=== PATIENT | male | born 1940 | race Caucasian/White ===

== ENCOUNTER → 2018-01-20 13:25 | Outpatient (CLI) | payer MEDICARE, OTHER, SELFPAY ==
[2018-01-20 14:14] LABS: Absolute Lymphocyte Count 0.93 X10^3/ul (0.83-4.51); Absolute Neutrophil Count 3.5 X10^3/uL (2.0-7.7); Basophil# 0.01 X10^3/uL; Basophil% 0.2 % (0-1); Eosinophil# 0.23 X10^3/uL; Eosinophils% 4.5 % (0-5); Hematocrit 39.3 % (40-54); Hemoglobin 12.5 g/dl (13.0-16.5); Lymphocyte # 0.93 X10^3/ul (4.0); Lymphocyte % 18.1 % (19-41); Mean Corp Hgb Conc 31.8 g/gl (32-36); Mean Corpuscular Hgb 28.2 pg (27.0-32.0); Mean Corpuscular Volume 88.7 fL (80-94); Monocyte# 0.46 X10^3/uL; Monocyte% 8.9 % (0-10); Neutrophil % 68.1 % (47-70); Platelet Count 91 K/mm3 (150-450); RBC Distribution Width CV 17.8 % (11.6-14.6); RBC Distribution Width SD 58.5 fl (35.1-43.9); Red Blood Count 4.43 M/mm3 (4.6-6.2); White Blood Count 5.1 K/mm3 (4.4-11.0)
[2018-01-20 14:16] LABS: POSITIVE COUNT NO; POSITIVE DIFFERENTIAL NO; POSITIVE MORPHOLOGY NO
[2018-01-20 14:45] LABS: ALB/GLOB Ratio 0.9 RATIO (0.9-2.4); AST(SGOT) 33 U/L (15-37); Alanine Aminotransfer ALT/SGPT 24 U/L (16-61); Albumin, Serum 3.2 g/dL (3.2-5.0); Alkaline Phosphatase 168 U/L (45-117); Anion Gap 9 (5-15); BUN 25 mg/dL (7-18); Calcium,Total 8.8 mg/dL (8.5-10.1); Chloride 107 mmol/L (98-107); Creatinine, Serum 1.56 mg/dL (0.70-1.30); EST Glomerular Filtration Rate 46 mL/min (>60); Est Glom Filt Rate - Afr Amer 56 mL/min (>60); Globulin 3.4 g/dL (2.2-4.2); Glucose 107 mg/dL (74-106); Potassium 3.8 mmol/L (3.5-5.1); Protein, Total 6.6 g/dL (6.4-8.2); Sodium Level 142 mmol/L (136-145)
== END ==
PROVIDERS: Family Provider Family Medicine; PCP Family Medicine; Visit Provider Internal Medicine Rheumatology
DX: M06.4 Inflammatory polyarthropathy (principal); M47.897 Other spondylosis, lumbosacral region; M25.512 Pain in left shoulder; I10 Essential (primary) hypertension; D49.0 Neoplasm of unspecified behavior of digestive system
CPT/HCPCS: 36415; 80053; 85025

== ENCOUNTER → 2018-02-19 08:25 | Outpatient (CLI) | payer MEDICARE, OTHER, SELFPAY ==
[2018-02-19 12:57] LABS: Anion Gap 9 (5-15); BUN 12 mg/dL (7-18); BUN/Creat Ratio 9.7 RATIO (10-20); Calcium,Total 8.6 mg/dL (8.5-10.1); Chloride 106 mmol/L (98-107); Creatinine, Serum 1.24 mg/dL (0.70-1.30); EST Glomerular Filtration Rate 60 mL/min (>60); Est Glom Filt Rate - Afr Amer 73 mL/min (>60); Glucose 108 mg/dL (74-106); Potassium 3.8 mmol/L (3.5-5.1); Sodium Level 141 mmol/L (136-145)
== END ==
PROVIDERS: Family Provider Family Medicine; PCP Family Medicine; Visit Provider Family Medicine
DX: R60.0 Localized edema (principal)
CPT/HCPCS: 36415; 80048

== ENCOUNTER → 2018-04-07 08:39 | Outpatient (CLI) | payer MEDICARE, OTHER, SELFPAY ==
[2018-04-08 14:47] LABS: AFP, Tumor Marker 1.8 ng/mL (0.0-8.3)
== END ==
PROVIDERS: Family Provider Family Medicine; PCP Family Medicine; Visit Provider Internal Medicine Gastroenterology
DX: K76.0 Fatty (change of) liver, not elsewhere classified (principal); K72.90 Hepatic failure, unspecified without coma
CPT/HCPCS: 36415; 82105

== ENCOUNTER → 2018-08-20 10:17 | Outpatient (CLI) | payer MEDICARE, OTHER, SELFPAY ==
[2018-08-20 12:23] LABS: Absolute Lymphocyte Count 0.86 X10^3/ul (0.83-4.51); Absolute Neutrophil Count 4.4 X10^3/uL (2.0-7.7); Basophil# 0.01 X10^3/uL; Basophil% 0.2 % (0-1); Eosinophil# 0.18 X10^3/uL; Hematocrit 38.2 % (40-54); Hemoglobin 12.8 g/dl (13.0-16.5); Lymphocyte # 0.86 X10^3/ul (4.0); Lymphocyte % 14.2 % (19-41); Mean Corp Hgb Conc 33.5 g/gl (32-36); Mean Corpuscular Hgb 30.1 pg (27.0-32.0); Mean Corpuscular Volume 89.9 fL (80-94); Mean Platelet Vol. 11.3 fl (6.2-12.0); Monocyte% 9.9 % (0-10); Neutrophil # 4.39 X10^3/uL (2.7-7.7); Neutrophil % 72.2 % (47-70); Platelet Count 85 K/mm3 (150-450); RBC Distribution Width SD 53.8 fl (35.1-43.9); Red Blood Count 4.25 M/mm3 (4.6-6.2); White Blood Count 6.1 K/mm3 (4.4-11.0)
[2018-08-20 12:31] LABS: POSITIVE COUNT NO; POSITIVE DIFFERENTIAL NO; POSITIVE MORPHOLOGY NO
[2018-08-20 12:38] LABS: ALB/GLOB Ratio 1.1 RATIO (0.9-2.4); AST(SGOT) 36 U/L (15-37); Alanine Aminotransfer ALT/SGPT 37 U/L (16-61); Albumin, Serum 3.2 g/dL (3.2-5.0); Alkaline Phosphatase 150 U/L (45-117); Anion Gap 8 (5-15); BUN 12 mg/dL (7-18); BUN/Creat Ratio 10.8 RATIO (10-20); Calcium,Total 8.8 mg/dL (8.5-10.1); Chloride 107 mmol/L (98-107); Creatinine, Serum 1.11 mg/dL (0.70-1.30); EST Glomerular Filtration Rate 68 mL/min (>60); Est Glom Filt Rate - Afr Amer 82 mL/min (>60); Glucose 124 mg/dL (74-106); Potassium 4.2 mmol/L (3.5-5.1); Protein, Total 6.2 g/dL (6.4-8.2); Sodium Level 139 mmol/L (136-145)
== END ==
PROVIDERS: Family Provider Family Medicine; PCP Family Medicine; Visit Provider Family Medicine
DX: R60.0 Localized edema (principal); K74.60 Unspecified cirrhosis of liver; N18.3 Chronic kidney disease, stage 3 (moderate); R06.00 Dyspnea, unspecified
CPT/HCPCS: 36415; 80053; 85025

== ENCOUNTER → 2018-09-06 09:47 | Outpatient (CLI) | payer MEDICARE, OTHER, SELFPAY ==
[2018-09-06 12:28] LABS: Anion Gap 9 (5-15); BUN 23 mg/dL (7-18); BUN/Creat Ratio 16.4 RATIO (10-20); Calcium,Total 8.9 mg/dL (8.5-10.1); Chloride 105 mmol/L (98-107); EST Glomerular Filtration Rate 52 mL/min (>60); Est Glom Filt Rate - Afr Amer 63 mL/min (>60); Glucose 143 mg/dL (74-106); Potassium 4.2 mmol/L (3.5-5.1); Sodium Level 141 mmol/L (136-145)
== END ==
PROVIDERS: Visit Provider Family Medicine
DX: Z51.81 Encounter for therapeutic drug level monitoring (principal)
CPT/HCPCS: 36415; 80048

== ENCOUNTER → 2018-11-25 10:41 | Outpatient (CLI) | payer MEDICARE, OTHER, SELFPAY ==
[2017-10-24 07:49] VITALS: BMI 39.2
[2018-11-25 12:14] LABS: Absolute Lymphocyte Count 0.97 X10^3/ul (0.83-4.51); Absolute Neutrophil Count 4.3 X10^3/uL (2.0-7.7); Basophil# 0.01 X10^3/uL; Basophil% 0.2 % (0-1); Eosinophil# 0.19 X10^3/uL; Eosinophils% 3.2 % (0-5); Hematocrit 41.5 % (40-54); Hemoglobin 13.4 g/dl (13.0-16.5); Lymphocyte # 0.97 X10^3/ul (4.0); Lymphocyte % 16.3 % (19-41); Mean Corp Hgb Conc 32.3 g/gl (32-36); Mean Corpuscular Hgb 29.5 pg (27.0-32.0); Mean Corpuscular Volume 91.4 fL (80-94); Mean Platelet Vol. 10.4 fl (6.2-12.0); Monocyte# 0.49 X10^3/uL; Monocyte% 8.2 % (0-10); Neutrophil # 4.26 X10^3/uL (2.7-7.7); Neutrophil % 71.8 % (47-70); Platelet Count 103 K/mm3 (150-450); RBC Distribution Width CV 15.7 % (11.6-14.6); RBC Distribution Width SD 52.6 fl (35.1-43.9); Red Blood Count 4.54 M/mm3 (4.6-6.2); White Blood Count 5.9 K/mm3 (4.4-11.0)
[2018-11-25 12:15] LABS: POSITIVE COUNT NO; POSITIVE DIFFERENTIAL NO; POSITIVE MORPHOLOGY NO
[2018-11-25 12:42] LABS: ALB/GLOB Ratio 0.9 RATIO (0.9-2.4); AST(SGOT) 34 U/L (15-37); Alanine Aminotransfer ALT/SGPT 30 U/L (16-61); Albumin, Serum 3.1 g/dL (3.2-5.0); Alkaline Phosphatase 169 U/L (45-117); Anion Gap 9 (5-15); BUN 11 mg/dL (7-18); BUN/Creat Ratio 10.3 RATIO (10-20); Calcium,Total 8.8 mg/dL (8.5-10.1); Chloride 108 mmol/L (98-107); Creatinine, Serum 1.07 mg/dL (0.70-1.30); EST Glomerular Filtration Rate 71 mL/min (>60); Est Glom Filt Rate - Afr Amer 86 mL/min (>60); Globulin 3.4 g/dL (2.2-4.2); Glucose 114 mg/dL (74-106); Protein, Total 6.5 g/dL (6.4-8.2); Sodium Level 141 mmol/L (136-145)
[2018-11-25 12:52] LABS: BNP,B-Type NATRIURETIC PEPTIDE 183.4 pg/mL (0-100)
[2018-11-25 13:03] LABS: International Normalized Ratio 1.2; Prothrombin Time (Protime)PT. 15.1 SECONDS (11.7-14.9)
[2018-11-25 13:04] LABS: Partial Thromboplast Time 30.3 Seconds (24.1-36.2)
[2018-11-26 12:29] LABS: AFP, Tumor Marker 1.9 ng/mL (0.0-8.3)
== END ==
PROVIDERS: Family Provider Family Medicine; PCP Family Medicine; Referring Provider Family Medicine; Visit Provider Family Medicine
DX: K74.60 Unspecified cirrhosis of liver (principal); R06.00 Dyspnea, unspecified; R60.0 Localized edema; R41.0 Disorientation, unspecified
CPT/HCPCS: 36415; 80053; 82105; 82140; 83880; 85025; 85610; 85730

== ENCOUNTER → 2018-12-09 10:03 | Outpatient (CLI) | payer MEDICARE, OTHER, SELFPAY ==
[2018-12-09 12:19] LABS: Anion Gap 8 (5-15); BUN 19 mg/dL (7-18); BUN/Creat Ratio 12.9 RATIO (10-20); Calcium,Total 8.9 mg/dL (8.5-10.1); Chloride 105 mmol/L (98-107); Creatinine, Serum 1.47 mg/dL (0.70-1.30); EST Glomerular Filtration Rate 49 mL/min (>60); Est Glom Filt Rate - Afr Amer 60 mL/min (>60); Glucose 133 mg/dL (74-106); Potassium 3.7 mmol/L (3.5-5.1); Sodium Level 141 mmol/L (136-145)
== END ==
PROVIDERS: Family Provider Family Medicine; PCP Family Medicine; Visit Provider Family Medicine
DX: R60.0 Localized edema (principal); K74.60 Unspecified cirrhosis of liver; K46.9 Unspecified abdominal hernia without obstruction or gangrene; R06.00 Dyspnea, unspecified
CPT/HCPCS: 36415; 80048

== ENCOUNTER 2019-01-04 17:09 | Emergency (ER) | payer MEDICARE, OTHER, SELFPAY ==
[2019-01-04 17:09] VITALS: BP 197/98; PULSE 70; RESP 20; TEMP 36.8; O2SAT 98; BMI 41.5
--- NOTE | 2019-01-04 17:45 | CT_ITS ---
STUDY: CT ABDOMEN AND PELVIS WITH CONTRAST REASON FOR EXAM: Male, 78 years old. Abdominal pain. RADIATION DOSAGE (If Supplied By Facility): CTDIvol = ( 21.66 ) mGy, DLP = ( 1969.61 ) mGycm TECHNIQUE: Transaxial images were obtained from the dome of the diaphragm to the symphysis pubis without oral contrast. Isovue 300 10ML IV was administered. Sagittal and coronal images were reconstructed. Individualized dose optimization techniques were used for this CT. COMPARISON: October 24, 2017 FINDINGS: There is a right pleural effusion. There are coronary artery calcifications. There is evidence of prior partial resection of the liver. The patient status post cholecystectomy. Cholecystectomy. Normal spleen. Normal pancreas. Normal bilateral adrenal glands. There is a stable calcification within the right kidney which may be vascular or may reflect an underlying nonobstructing calculus. There is a left renal cyst. Normal visualized stomach. There is a stable right abdominal wall hernia containing dilated segments of small bowel that are grossly stable in appearance as well. There is fluid within the hernia. There is status post right hemicolectomy. There is circumferential wall thickening of the remaining:. There are scattered diverticula within the colon. There is diffuse atherosclerotic calcification of the abdominal aorta. There is stable aneurysmal dilatation of the abdominal aorta measuring up to 4.6 cm. Normal inferior vena cava. Normal retroperitoneum. Normal urinary bladder. There are diffuse degenerative changes of the visualized lumbar spine. CT/Abdomen/Pelvis W IV Cont ONLY IMPRESSION: Acute colitis. Stable right lateral ventral hernia containing dilated loops of small bowel, cannot exclude an underlying ileus. Status post right hemicolectomy. Stable abdominal aortic aneurysm. Atherosclerosis. Electronically Signed: Holly Jeff MD at 19:32 EST Tel , Service support ,
--- NOTE | 2019-01-04 17:50 | ED.DCSUM_ITS ---
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 Prior appendectomy, cholecystectomy partial hemicolectomy and partial liver resection. Presents with upper abdominal pain. Patient states started yesterday. He has chronic diarrhea that is not new. His abdomen feels distended according to him. Denies any fever. No dysuria. Physical Examination: Older male no acute distress. Vital signs are stable. He is afebrile. He does not look septic or toxic. H EENT exam unremarkable. Neck nontender. Lungs clear to auscultation bilaterally. Heart regular rate and rhythm no murmur. Rate about 70. Abdomen is soft. Mild epigastric tenderness. No rebound. No guarding. No rigidity. No obvious pulsatile mass but difficult due to his body habitus. He is a large right lateral abdominal wall hernia. It is nontender. It does not feel incarcerated or strangulated. He states that is his normal chronic hernia there that he was told he could not chand ve repaired. He is moving all 4 extremities. Neurologically he is awake alert with no focal motor deficits. Test Results: CBC shows a white count 11.2. Hemoglobin 14. Chronic low platelet count. Chemistries are unremarkable normal creatinine and gap. Liver enzymes slightly elevated total bilirubin 2.0 and direct bilirubin 0.4. Lipase normal. UA normal. CT abdomen pelvis with IV contrast shows a right pleural effusion stable right abdominal wall hernia a stable 4.6 cm AAA with no signs of leaking. An acute colitis. No obvious obstruction. No perforation. Read by the radiologist and reviewed by me. Emergency Department Course and Treatment: Patient with abdominal pain with extensive history of colon CA. Repeat exam patient doing well after liter fluid. Morphine and Zofran. His repeat abdominal exam is benign at 2053. They are comfortable being discharged home. Zofran home pack. Treatment Plan: Fluids and rest. Zofran as needed for nausea. Follow-up with his primary care physician. Return if feeling worse. Patient was warned that any time that large hernia could cause him to have an obstruction he does not have an obvious obstruction at this time. Disposition: Discharge Impression: Acute abdominal pain of uncertain etiology Chronic right-sided large abdominal hernia Acute colitis This note was generated with [employer] software. It may contain incorrect words, spelling, and punctuation that were not noted in review of the chart prior to signing ED Disposition - Plan for ED Patient: Referrals: Armin Carlin DO [Primary Care Provider] -
[2019-01-04] MEDS: 0.9% Normal Saline 1,000 ML 1000 ML IV (17:57)
[2019-01-04] MEDS: Ondansetron 4 MG/2 ML Vial IV (17:57)
[2019-01-04] MEDS: Morphine 4 MG/ML Syringe IV ×2 (17:57→21:20)
[2019-01-04 18:08] LABS: Absolute Lymphocyte Count 0.93 X10^3/ul (0.83-4.51); Absolute Neutrophil Count 9.1 X10^3/uL (2.0-7.7); Basophil# 0.01 X10^3/uL; Basophil% 0.1 % (0-1); Eosinophil# 0.15 X10^3/uL; Eosinophils% 1.3 % (0-5); Hematocrit 44.1 % (40-54); Hemoglobin 14.4 g/dl (13.0-16.5); Lymphocyte # 0.93 X10^3/ul (4.0); Lymphocyte % 8.3 % (19-41); Mean Corp Hgb Conc 32.7 g/gl (32-36); Mean Corpuscular Hgb 29.1 pg (27.0-32.0); Mean Corpuscular Volume 89.3 fL (80-94); Mean Platelet Vol. 10.5 fl (6.2-12.0); Monocyte# 0.95 X10^3/uL; Monocyte% 8.5 % (0-10); Neutrophil # 9.13 X10^3/uL (2.7-7.7); Neutrophil % 81.4 % (47-70); POSITIVE COUNT NO; POSITIVE DIFFERENTIAL NO; POSITIVE MORPHOLOGY NO; Platelet Count 124 K/mm3 (150-450); RBC Distribution Width CV 16.2 % (11.6-14.6); RBC Distribution Width SD 53.1 fl (35.1-43.9); Red Blood Count 4.94 M/mm3 (4.6-6.2); White Blood Count 11.2 K/mm3 (4.4-11.0)
[2019-01-04 18:17] VITALS: BP 192/98
[2019-01-04 18:20] LABS: AST(SGOT) 53 U/L (15-37); Alanine Aminotransfer ALT/SGPT 40 U/L (16-61); Albumin, Serum 3.5 g/dL (3.2-5.0); Alkaline Phosphatase 141 U/L (45-117); Anion Gap 9 (5-15); BUN 11 mg/dL (7-18); BUN/Creat Ratio 10.1 RATIO (10-20); Calcium,Total 8.9 mg/dL (8.5-10.1); Chloride 105 mmol/L (98-107); Creatinine, Serum 1.09 mg/dL (0.70-1.30); EST Glomerular Filtration Rate 70 mL/min (>60); Est Glom Filt Rate - Afr Amer 84 mL/min (>60); Estimated Creatinine Clearance 48.59 ml/min; Globulin 3.9 g/dL (2.2-4.2); Glucose 142 mg/dL (74-106); Lipase 188 U/L (73-393); Potassium 4.1 mmol/L (3.5-5.1); Protein, Total 7.4 g/dL (6.4-8.2); Sodium Level 139 mmol/L (136-145)
[2019-01-04 19:28] LABS: Bacteria 0 SEEN /hpf (None Seen); Mucous, Urine 0 SEEN /hpf (<or=2+); Red Blood Cells-Urine 0 SEEN /hpf (0-5); Squamous Epithelial Cells - UA 0 SEEN /hpf (0-5); White Blood Cells 0 SEEN /hpf (0-5)
[2019-01-04 19:36] LABS: Color, Urine Yellow (Yellow); Glucose, Dipstick Normal (Normal); Ketone-Dipstick Negative (Negative); Leukocyte Esterase-Dipstick Negative /ul (Negative); Nitrite-Dipstick Negative (Negative); Occult Blood-Urine Negative /ul (Negative); Protein-Dipstick 30 mg/dl (Negative); Urine Bilirubin Dipstick Negative (Negative); Urine Clarity Clear (Clear); Urine Urobilinogen Normal (Normal)
--- NOTE | 2019-01-04 20:56 | ED.DEP ---
ED Disposition - Plan for ED Patient: Disposition: Home or Assisted Living Instructions: ED Abdominal Pain Unkn Cause Prescriptions: Ondansetron [Zofran Odt] 4 mg PO Q8H PRN PRN #7 tab PRN Reason: Nausea Referrals: Armin Carlin DO [Primary Care Provider] - 1-2 Days if not improving Additional Instructions: Fluids and rest. Zofran as needed for nausea. Return if you are feeling worse otherwise follow-up your primary care physician.
[2019-01-04] MEDS: Ondansetron ODT 4 MG Tablet PO (21:20)
[2019-01-04 21:28] VITALS: BP 190/100; PULSE 80; RESP 18; O2SAT 94
== END 2019-01-04 21:28 | disposition home or self-care (01) ==
PROVIDERS: Emergency Provider Emergency Medicine; Family Provider Family Medicine; PCP Family Medicine
DX: K52.9 Noninfective gastroenteritis and colitis, unspecified (principal); R10.10 Upper abdominal pain, unspecified; K46.9 Unspecified abdominal hernia without obstruction or gangrene; J90 Pleural effusion, not elsewhere classified; I71.4 Abdominal aortic aneurysm, without rupture; I11.0 Hypertensive heart disease with heart failure; I50.9 Heart failure, unspecified; Z85.038 Personal history of other malignant neoplasm of large intestine; Z85.118 Personal history of other malignant neoplasm of bronchus and lung; Z90.49 Acquired absence of other specified parts of digestive tract; Z79.899 Other long term (current) drug therapy
CPT/HCPCS: 74177; 80048; 80076; 81001; 83690; 85025; 96361; 96374; 96375; 96376; 99283; J7030; Q9967; A4216; J2405

== ENCOUNTER 2019-01-09 13:14 | Inpatient (IN) | payer MEDICARE, OTHER, SELFPAY ==
[2019-01-09 13:15] VITALS: BP 129/72; PULSE 104; RESP 18; TEMP 36.7; O2SAT 95; BMI 41.5
--- NOTE | 2019-01-09 14:06 | EKG12_ITS ---
Test Reason : Blood Pressure : / mmHG Vent. Rate : 096 BPM Atrial Rate : 096 BPM P-R Int : 196 ms QRS Dur : 098 ms QT Int : 404 ms P-R-T Axes : 055 -50 086 degrees QTc Int : 510 ms Normal sinus rhythm Left anterior fascicular block Left ventricular hypertrophy with repolarization abnormality Abnormal ECG Confirmed by GEM MORATAYA, KEIKO ([id number]), development editor VIVIAN DEWEY ([id number]) on 01/11/2019 4:59:55 PM Referred By: JASS Confirmed By:KEIKO RABAGO MD
--- NOTE | 2019-01-09 14:41 | RAD_ITS ---
STUDY: X-RAY CHEST REASON FOR EXAM: Male, 78 years old. Cough. TECHNIQUE: Single frontal view of the chest. COMPARISON: None. FINDINGS: A right internal jugular catheter is present with the tip projected into the upper SVC. The lungs are mildly hyperexpanded. There are linear opacities in the right lower lobe and left upper lobe most compatible with scarring. No focal consolidation is present. There are healed granulomatous calcifications. There is no demonstrated pleural abnormality. There is cardiomegaly. Normal mediastinum and gaurav. Normal visualized pulmonary arteries. Normal visualized aortic arch and descending thoracic aorta. Normal visualized thoracic spine. Normal visualized ribs, clavicles, and shoulders. There is no demonstrated abnormality of the visualized soft tissue structures of the upper abdomen. RAD/Chest 1 View (Portable) IMPRESSION: Cardiomegaly with hyperexpansion and scarring. No acute finding. Electronically Signed: Mati Dasilva MD at 16:20 EST , Service support ,
[2019-01-09 14:48] LABS: Absolute Lymphocyte Count 0.92 X10^3/ul (0.83-4.51); Absolute Neutrophil Count 5.9 X10^3/uL (2.0-7.7); Basophil# 0.01 X10^3/uL; Basophil% 0.1 % (0-1); Eosinophil# 0.02 X10^3/uL; Eosinophils% 0.3 % (0-5); Hemoglobin 14.4 g/dl (13.0-16.5); Lymphocyte # 0.92 X10^3/ul (4.0); Lymphocyte % 11.6 % (19-41); Mean Corp Hgb Conc 33.5 g/gl (32-36); Mean Corpuscular Hgb 29.2 pg (27.0-32.0); Mean Corpuscular Volume 87.2 fL (80-94); Monocyte# 1.03 X10^3/uL; Neutrophil # 5.91 X10^3/uL (2.7-7.7); Neutrophil % 74.6 % (47-70); Platelet Count 123 K/mm3 (150-450); RBC Distribution Width CV 16.5 % (11.6-14.6); RBC Distribution Width SD 51.4 fl (35.1-43.9); Red Blood Count 4.93 M/mm3 (4.6-6.2); White Blood Count 7.9 K/mm3 (4.4-11.0)
[2019-01-09 14:50] LABS: POSITIVE COUNT NO; POSITIVE DIFFERENTIAL NO; POSITIVE MORPHOLOGY NO
[2019-01-09 14:58] LABS: International Normalized Ratio 1.3; Prothrombin Time (Protime)PT. 16.1 SECONDS (11.7-14.9)
[2019-01-09 14:59] LABS: Partial Thromboplast Time 52.4 Seconds (24.1-36.2)
[2019-01-09] MEDS: 0.9% Normal Saline 1,000 ML 150 ML IV (15:01)
[2019-01-09 15:05] LABS: AST(SGOT) 42 U/L (15-37); Alanine Aminotransfer ALT/SGPT 33 U/L (16-61); Albumin, Serum 3.1 g/dL (3.2-5.0); Alkaline Phosphatase 117 U/L (45-117); Anion Gap 11 (5-15); BUN 20 mg/dL (7-18); BUN/Creat Ratio 18.9 RATIO (10-20); Calcium,Total 8.3 mg/dL (8.5-10.1); Chloride 105 mmol/L (98-107); Creatinine, Serum 1.06 mg/dL (0.70-1.30); EST Glomerular Filtration Rate 72 mL/min (>60); Est Glom Filt Rate - Afr Amer 87 mL/min (>60); Estimated Creatinine Clearance 49.96 ml/min; Globulin 3.2 g/dL (2.2-4.2); Glucose 109 mg/dL (74-106); Lipase 180 U/L (73-393); Potassium 3.4 mmol/L (3.5-5.1); Protein, Total 6.3 g/dL (6.4-8.2); Sodium Level 138 mmol/L (136-145)
--- NOTE | 2019-01-09 15:08 | CT_ITS ---
STUDY: CT ABDOMEN AND PELVIS WITHOUT CONTRAST REASON FOR EXAM: Male, 78 years old. Mid abdominal pain with history of prior lung cancer, cirrhosis, hepatectomy, hemicolectomy RADIATION DOSAGE (If Supplied By Facility): CTDIvol = ( 20.53 ) mGy, DLP = ( 2734.60 ) mGycm TECHNIQUE: Transaxial images were obtained from the dome of the diaphragm to the symphysis pubis without oral contrast, and without intravenous contrast. Sagittal and coronal images were reconstructed. Individualized dose optimization techniques were used for this CT. COMPARISON: 01/04/2019 FINDINGS: Elevation of the right hemidiaphragm. Lung bases are unchanged. The visualized portions of the heart are within normal limits. Partial right hepatectomy similar since the prior study. There are surgical clips in the gallbladder fossa consistent with a prior cholecystectomy. Normal spleen. Normal pancreas. Normal bilateral adrenal glands. Mild atrophy of the right kidney. There is a nonobstructing calculus in the upper right kidney. Left renal cysts are stable. No hydronephrosis. Normal visualized stomach. Stable large right anterolateral abdominal wall hernia containing similarly dilated loops of bowel but no bowel wall thickening. There is mild amount of hernia sac fluid which is similar since the prior study. Right hemicolectomy is again identified. There is diffuse wall thickening throughout the colon beginning just beyond the surgical anastomosis and extending into the rectosigmoid colon which is overall similar since the prior study. Mild perienteric stranding is identified. Diffuse atherosclerosis of the abdominal aorta with infrarenal abdominal aortic fusiform aneurysm is stable. Normal inferior vena cava. Normal retroperitoneum. Normal urinary bladder. There is enlargement of the prostate gland. There are diffuse degenerative changes of the visualized lumbar spine. CT/Abdomen/Pelvis W IV Cont ONLY IMPRESSION: 1. Since 01/04/2019, stable exam. Diffuse colon wall thickening compatible with colitis, infectious/inflammatory causes are considered most common slice likely. 2. Large right anterolateral abdominal wall hernia with sac fluid but no transition point or definitive obstruction seen. 3. Right partial hepatectomy, right hemicolectomy, cholecystectomy, nonvisualized appendix. 4. Atherosclerosis with abdominal aortic aneurysm, stable. 5. Stable left renal cysts. 6. Stable nonobstructing right renal calculus. Electronically Signed: Collins Narvaez MD at 17:01 EST , Service support ,
--- NOTE | 2019-01-09 15:08 | CT_ITS ---
STUDY: CT BRAIN WITHOUT CONTRAST REASON FOR EXAM: Male, 78 years old. Confusion, abdominal pain, history of colon and lung cancer RADIATION DOSAGE (If Supplied By Facility): CTDIvol = ( 44.99 ) mGy, DLP = ( 812.98 ) mGycm TECHNIQUE: Transaxial CT imaging of the brain was performed without administration of intravenous contrast material. Individualized dose optimization techniques were used for this CT. COMPARISON: None. FINDINGS: Normal soft tissue structures. Normal calvarium. There is moderate cerebral atrophy with widening of the extra-axial spaces and ventricular dilatation. There are areas of decreased attenuation within the white matter tracts of the supratentorial brain, consistent with microvascular disease changes. Normal basal ganglia and thalami. Normal brainstem. Normal cerebellum. There is no intracranial hemorrhage. There are no findings of an acute ischemic infarction. There is atherosclerosis of the carotid siphons. 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 Aerated sinuses are grossly unremarkable. CT/Brain/Head without Contrast IMPRESSION: 1. No acute intracranial hemorrhage or mass effect. 2. Central parenchymal volume loss. White matter changes that are nonspecific but most commonly associated with chronic small vessel ischemic disease. Electronically Signed: Collins Narvaez MD at 16:46 EST , Service support ,
[2019-01-09 15:15] VITALS: BP 181/110; PULSE 96; RESP 18; O2SAT 95
[2019-01-09] MEDS: Ketorolac 15 MG/ML Vial IV (15:39)
[2019-01-09] MEDS: Lactulose 20 GM/30 ML UDC PO ×2 (16:30→21:23)
--- NOTE | 2019-01-09 16:51 | ED.VISSUMM ---
- ER Visit Summary Date of Service: 01/09/19 Chief Complaint: Confusion History of Present Illness: The patient is a 78 M who presents to the emergency department with confusion by private vehicle with his family. Patient was seen on Thursday with abdominal pain and diagnosed with colitis. They followed up with primary care physician on . Over the past couple days has been increasingly confused. Was determined today that he has not been taking his medications at least since Thursday or . He believes his dog is talking to him and his family states that he is chewing on [place] in an attempt to be discharged from the hospital. 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 Patient has not been eating and drinking as normally. No fevers. He chronically has diarrhea but states it is not bloody or black. Physical Examination: Afebrile noted slight tachycardia at 104. Gen: Well-nourished well-developed Head: Normocephalic atraumatic Eyes: Perrl EOMI ENT: TMs clear no rhinorrhea moist mucous membranes Neck: Supple no lymphadenopathy no JVD nontender CVS: Regular rate rhythm no murmurs normal S1-S2 Respiratory: No distress clear to auscultation bilaterally chest nontender Abdomen: Soft diffusely tender to palpation nondistended normal bowel sounds there is a large hernia on the right abdomen Back: Nontender Extremity: Nontender no edema Skin: Normal color no rash Neuro: alert confused but follows directions CN II-XII intact normal strength sensation reflexes gait cerebellar Psych: Normal affect normal mood Test Results: EKG sinus at a rate of 96. White count 7.9 hemoglobin 14.4. Ammonia level significantly elevated at 93. BUN of [address] INR 1.[address] the brain showed no acute findings. Emergency Department Course and Treatment: Patient received IV fluids lactulose and Toradol for pain. Later he received Zosyn. Our plan is admission into the hospital. Impression: 1. Hepatic encephalopathy 2. Colitis This note was generated with [employer] dictation software. It may contain incorrect words, spelling, and punctuation that were not noted in review of the chart prior to signing ED Disposition - Plan for ED Patient: Referrals: Armin Carlin DO [Primary Care Provider] -
--- NOTE | 2019-01-09 17:56 | PCM.HP.STD ---
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 He came to the emergency room on Thursday as he developed severe abdominal pain in the mid abdominal region. He was diagnosed with colitis and discharged home with zofran. He saw his PCP on as he did not have significant relief. Around Thursday he had stopped taking his home medications. Today he was significantly more confused. He said things such as he needed to eat [place] in order to get out of the hospital, he was talking to his dog, he thought that he was out partying last night. He does have intermittent periods of lucidity. He is not agitated. He still complains of the abdominal pain in the same region. He also complains of nausea without vomiting, and hiccups for several days. He has no fevers or chills. He is still moving his bowels but not as frequently as usual. He used to be on lactulose, this was discontinued in November as he was having uncontrollable diarrhea. He remains on Xifaxan. In the ER he appears to have ongoing colitis and elevated ammonia. [] 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) Colon cancer metastasized to liver (Chronic) Colon cancer metastasized to lung (Chronic) Allergies No Known Allergies Allergy (Verified 01/09/19 13:17) Home Medications: Ambulatory Orders Medication Instructions Recorded Furosemide [Lasix] 20 mg PO DAILY 12/26/15 Hydroxychloroquine [Plaquenil] 200 mg PO BIDCM 12/26/15 Losartan Potassium [Cozaar] 50 mg PO DAILY 12/26/15 [place]-3S/Dha/Epa/Fish Oil [Fish 1 each PO DAILY 12/26/15 Oil 1,200 mg Softgel] Ondansetron [Zofran] 8 mg PO Q8H PRN PRN 12/26/15 Potassium Chloride [K-Dur] 20 meq PO DAILY 12/26/15 Sertraline HCl [Zoloft] 50 mg PO DAILY 12/26/15 Propranolol HCl [Inderal (Beta 20 mg PO BID 02/07/16 Sindi)] Magnesium Oxide [Mag-Ox 400] 400 mg PO BID 08/24/16 Omeprazole [Prilosec] 20 mg PO DAILY 08/24/16 Turmeric Root Extract [Turmeric] 500 mg PO DAILY 10/24/17 Ondansetron [Zofran Odt] 4 mg PO Q8H PRN PRN #7 tab 01/04/19 Ginseng 100 mg PO DAILY 01/09/19 Oxycodone [Oxyir] 5 mg PO Q6H PRN PRN 01/09/19 Rifaximin [Xifaxan] 500 mg PO BID 01/09/19 Surgical History: appendectomy, arthroscopy, knee, cataract, colectomy - She had a right hemicolectomy secondary to colon cancer, - - 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 He had bilateral carpal tunnel surgery as well Psychiatric History: No pertinent psych hx Lives: With Family Smoking Status: Former smoker Tobacco Use: Non-smoker Alcohol: None Drugs: None - *Family History Maternal History Items: No pertinent history Paternal History Items: No pertinent history Review of Systems Constitutional: Reports: - - Hiccups for several days. Denies: Chills, Fever, Weight Change HEENT: Denies: Head Aches, Sinus Congestion, Sinus Drainage Cardiovascular: Denies: Chest Pain, Palpitations Respiratory: Denies: Cough, Shortness of breath at rest, Sputum production Gastrointestinal: Reports: Abdominal Pain, Nausea. Denies: Vomiting Genitourinary: Denies: Dysuria Musculoskeletal: Denies: Joint Pain, Joint Tenderness Skin: Denies: Rash, Wounds Neurological: Denies: Numbness, Tingling, Focal weakness Psychiatric: Denies: Anxiety, Depression, Homicidal Ideations, Suicidal Ideations Hematologic/ Lymphatic: Denies: Easy Bruising, Easy Bleeding VTE Information - Inpt Only VTE Present on Admission: No VTE Mechan Device Prophylaxis: None VTE Pharm Prophylaxis ordered?: Yes Patient Problems: Active and Suspected Problems Hepatic encephalopathy (Acute) Colitis (Acute) - Physical Exam General: Alert, Cooperative, Confused HEENT: Atraumatic, PERRLA, EOMI, Normocephalic Neck: Supple, No JVD, Negative Carotid Bruits Lungs: Clear to auscultation, Normal air movement Cardiovascular: Regular rate, No murmurs Abdomen: Bowel Sounds Present, Soft, Tender - Diffuse tenderness to palpation Extremities: No edema, Capillary Refill Less than 3 Seconds Skin: No rashes, No breakdown Musculoskeletal: No Tenderness to Palpation of Joints or Extremities Neurological: Cranial nerves II-XII grossly intact Psych/Mental Status: Hallucinations Vital Signs Temp Pulse Resp BP Pulse Ox 98.1 F 96 18 181/110 H 95 01/09/19 13:15 01/09/19 15:15 01/09/19 15:15 01/09/19 15:15 01/09/19 15:15 Oxygen Delivery Method Room Air Weight: 250 lb Body Mass Index (BMI) 41.5 Laboratory Tests Past 24 Hrs 01/09/19 01/09/19 01/09/19 14:36 14:36 14:36 WBC 7.9 RBC 4.93 Hgb 14.4 Hct 43.0 MCV 87.2 MCH 29.2 MCHC 33.5 RDW 16.5 H RDW Differential 51.4 H Plt Count 123 L MPV 10.0 Immature Gran % (Auto) 0.400 Neut % (Auto) 74.6 H Lymph % (Auto) 11.6 L [place] % (Auto) 13.0 H Eos % (Auto) 0.3 Baso % (Auto) 0.1 Absolute Neuts (auto) 5.9 Absolute Lymphs (auto) 0.92 Total Counted Not Reportable PT 16.1 H INR 1.3 APTT 52.4 H Sodium 138 Potassium 3.4 L Chloride 105 Carbon Dioxide 22.0 Anion Gap 11 BUN 20 H Creatinine 1.06 Estim Creat Clear Calc 49.96 Est GFR (MDRD) Af Amer 87 Est GFR (MDRD) Non-Af 72 BUN/Creatinine Ratio 18.9 Glucose 109 H Calcium 8.3 L Total Bilirubin 1.50 H AST 42 H ALT 33 Alkaline Phosphatase 117 Ammonia Total Protein 6.3 L Albumin 3.1 L Globulin 3.2 Albumin/Globulin Ratio 1.0 Lipase 180 01/09/19 14:36 WBC RBC Hgb Hct MCV MCH MCHC RDW RDW Differential Plt Count MPV Immature Gran % (Auto) Neut % (Auto) Lymph % (Auto) [place] % (Auto) Eos % (Auto) Baso % (Auto) Absolute Neuts (auto) Absolute Lymphs (auto) Total Counted PT INR APTT Sodium Potassium Chloride Carbon Dioxide Anion Gap BUN Creatinine Estim Creat Clear Calc Est GFR (MDRD) Af Amer Est GFR (MDRD) Non-Af BUN/Creatinine Ratio Glucose Calcium Total Bilirubin AST ALT Alkaline Phosphatase Ammonia 93.0 H Total Protein Albumin Globulin Albumin/Globulin Ratio Lipase Assessment/Plan All Active Problems Hepatic encephalopathy (Acute) Colitis (Acute) Abdominal pain (Acute) History of DVT (deep vein thrombosis) (Resolved) 1. Acute hepatic encephalopathy-Ammonia 93. patient has been off of his home medications, and his lactulose was discontinued in November for uncontrollable diarrhea. We will continue Xifaxan and add lactulose. Replete potassium. 2. Acute colitis-unclear etiology-Cipro Flagyl. 3. History of liver cirrhosis secondary to partial liver resection 4. 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 Hypertension-elevated in ER but again he has been off his home meds so we will restart these and monitor. 6. Daughter is unsure if he has a history of congestive heart failure-fluids with caution. 7. History of esophageal varices 8. Mild thrombocytopenia-avoid heparin products 9. Morbid obesity-dietary eval. DVT prophylaxis: SCDs Discharge planning-PT OT. This patient was seen by Allen Kulkarni PA-C under the supervision of Doctor Alvarez. <Fran Pino F - Last Filed: 01/09/19 19:13> History of Present Illness The patient is a 78 year old M [] Past Medical History Allergies No Known Allergies Allergy (Verified 01/09/19 13:17) - Physical Exam Vital Signs Temp Pulse Resp BP Pulse Ox 98.2 F 89 15 141/103 H 93 01/09/19 18:37 01/09/19 18:37 01/09/19 18:37 01/09/19 18:37 01/09/19 18:37 Oxygen Delivery Method Room Air Weight: 250 lb Body Mass Index (BMI) 41.5 Laboratory Tests Past 24 Hrs 01/09/19 01/09/19 01/09/19 14:36 14:36 14:36 WBC 7.9 RBC 4.93 Hgb 14.4 Hct 43.0 MCV 87.2 MCH 29.2 MCHC 33.5 RDW 16.5 H RDW Differential 51.4 H Plt Count 123 L MPV 10.0 Immature Gran % (Auto) 0.400 Neut % (Auto) 74.6 H Lymph % (Auto) 11.6 L [place] % (Auto) 13.0 H Eos % (Auto) 0.3 Baso % (Auto) 0.1 Absolute Neuts (auto) 5.9 Absolute Lymphs (auto) 0.92 Total Counted Not Reportable PT 16.1 H INR 1.3 APTT 52.4 H Sodium 138 Potassium 3.4 L Chloride 105 Carbon Dioxide 22.0 Anion Gap 11 BUN 20 H Creatinine 1.06 Estim Creat Clear Calc 49.96 Est GFR (MDRD) Af Amer 87 Est GFR (MDRD) Non-Af 72 BUN/Creatinine Ratio 18.9 Glucose 109 H Calcium 8.3 L Total Bilirubin 1.50 H AST 42 H ALT 33 Alkaline Phosphatase 117 Ammonia Total Protein 6.3 L Albumin 3.1 L Globulin 3.2 Albumin/Globulin Ratio 1.0 Lipase 180 01/09/19 14:36 WBC RBC Hgb Hct MCV MCH MCHC RDW RDW Differential Plt Count MPV Immature Gran % (Auto) Neut % (Auto) Lymph % (Auto) [place] % (Auto) Eos % (Auto) Baso % (Auto) Absolute Neuts (auto) Absolute Lymphs (auto) Total Counted PT INR APTT Sodium Potassium Chloride Carbon Dioxide Anion Gap BUN Creatinine Estim Creat Clear Calc Est GFR (MDRD) Af Amer Est GFR (MDRD) Non-Af BUN/Creatinine Ratio Glucose Calcium Total Bilirubin AST ALT Alkaline Phosphatase Ammonia 93.0 H Total Protein Albumin Globulin Albumin/Globulin Ratio Lipase Code Visit Addendum: Dr. Pino I personally examined the patient and reviewed the chart. I agree with the above. 88-year-old male with past medical history of colon cancer status post resection, which then spread to the liver and he is status post 75% hepatectomy, and then it went to the lung which she underwent radiation and he just finished chemo a year and a half ago. Since he went through all the chemo and radiation he has been having chronic diarrhea. He presented to the ER a few days ago with abdominal pain and had a CT scan that was positive for colitis and he was discharged home he did not take his medications at home as prescribed and was becoming more confused over the last several days. He was brought in today by his daughters because of the confusion, he stated that he was speaking to his dog. He remains afebrile does not have a leukocytosis however given the consistency of the CT findings and his issue with abdominal pain, will treat as an infectious colitis with IV Cipro and Flagyl. Continue with IV fluids for hydration, and will restart lactulose because of his hepatic encephalopathy with an ammonia of 93. Inpatient E&M: 33606 Init Hosp L3
[2019-01-09] MEDS: Ondansetron 4 MG/2 ML Vial IV (18:06)
[2019-01-09] MEDS: Morphine 2 MG/ML Syringe IV (18:06)
[2019-01-09 18:37] VITALS: BP 141/103; PULSE 89; RESP 15; TEMP 36.8; O2SAT 93
[2019-01-09 19:26] VITALS: BMI 41.0
[2019-01-09 19:34] VITALS: BMI 41.1
[2019-01-09 20:12] VITALS: BP 188/110; PULSE 95; RESP 18; TEMP 36.5; O2SAT 96
[2019-01-09] MEDS: Propranolol 10 MG Tablet 20 MG PO (20:18)
[2019-01-09] MEDS: oxyCODONE 5 MG Tablet PO (20:18)
[2019-01-09] MEDS: Ciprofloxacin 400 MG/200 ML BAG 200 MG IV (21:23)
[2019-01-09] MEDS: Magnesium Oxide 400 MG Tablet PO (21:23)
[2019-01-09] MEDS: rifAXIMin 550 MG Tablet PO (22:23)
[2019-01-09 23:37] LABS: Mucous, Urine 0 SEEN /hpf (<or=2+)
[2019-01-09 23:49] LABS: Color, Urine Yellow (Yellow); Glucose, Dipstick Normal (Normal); Ketone-Dipstick 15 mg/dl (Negative); Leukocyte Esterase-Dipstick 25 /ul (Negative); Nitrite-Dipstick Negative (Negative); Occult Blood-Urine 25 /ul (Negative); Protein-Dipstick 30 mg/dl (Negative); Specific Gravity, Urine 1.015 (1.002-1.030); Urine Bilirubin Dipstick 1 mg/dL (Negative); Urine Clarity Sl. Cloudy (Clear); Urine Urobilinogen 1 mg/dl (Normal)
[2019-01-09 23:57] LABS: Bacteria RARE /hpf (None Seen); Red Blood Cells-Urine 0-5 SEEN /hpf (0-5); Squamous Epithelial Cells - UA 0-5 SEEN /hpf (0-5); White Blood Cells 0-5 SEEN /hpf (0-5)
[2019-01-10] MEDS: Ketorolac 15 MG/ML Vial IV (00:22)
[2019-01-10 02:30] VITALS: BP 155/100; PULSE 78; RESP 18; TEMP 37.1; O2SAT 95
[2019-01-10] MEDS: 0.9% Normal Saline 1,000 ML 100 ML IV ×2 (04:56→17:49)
[2019-01-10] MEDS: oxyCODONE 5 MG Tablet PO ×3 (04:59→21:01)
[2019-01-10] MEDS: Lactulose 20 GM/30 ML UDC PO (05:00)
[2019-01-10] MEDS: 0.9% NaCl VAD Flush IV (05:01)
[2019-01-10 05:21] LABS: Absolute Lymphocyte Count 1.02 X10^3/ul (0.83-4.51); Absolute Neutrophil Count 4.5 X10^3/uL (2.0-7.7); Basophil# 0.01 X10^3/uL; Basophil% 0.2 % (0-1); Eosinophil# 0.05 X10^3/uL; Eosinophils% 0.8 % (0-5); Hematocrit 41.3 % (40-54); Lymphocyte # 1.02 X10^3/ul (4.0); Lymphocyte % 15.4 % (19-41); Mean Corp Hgb Conc 33.9 g/gl (32-36); Mean Corpuscular Hgb 29.9 pg (27.0-32.0); Mean Corpuscular Volume 88.1 fL (80-94); Mean Platelet Vol. 10.3 fl (6.2-12.0); Monocyte# 1.08 X10^3/uL; Monocyte% 16.3 % (0-10); Neutrophil # 4.45 X10^3/uL (2.7-7.7); Neutrophil % 66.8 % (47-70); Platelet Count 134 K/mm3 (150-450); RBC Distribution Width CV 16.7 % (11.6-14.6); RBC Distribution Width SD 51.9 fl (35.1-43.9); Red Blood Count 4.69 M/mm3 (4.6-6.2); White Blood Count 6.6 K/mm3 (4.4-11.0)
[2019-01-10 05:47] LABS: ALB/GLOB Ratio 0.9 RATIO (0.9-2.4); AST(SGOT) 42 U/L (15-37); Alanine Aminotransfer ALT/SGPT 35 U/L (16-61); Albumin, Serum 2.8 g/dL (3.2-5.0); Alkaline Phosphatase 117 U/L (45-117); Anion Gap 11 (5-15); BUN 23 mg/dL (7-18); BUN/Creat Ratio 17.8 RATIO (10-20); Calcium,Total 8.2 mg/dL (8.5-10.1); Chloride 108 mmol/L (98-107); Creatinine, Serum 1.29 mg/dL (0.70-1.30); EST Glomerular Filtration Rate 57 mL/min (>60); Est Glom Filt Rate - Afr Amer 69 mL/min (>60); Estimated Creatinine Clearance 41.05 ml/min; Globulin 3.1 g/dL (2.2-4.2); Glucose 98 mg/dL (74-106); Potassium 3.5 mmol/L (3.5-5.1); Protein, Total 5.9 g/dL (6.4-8.2); Sodium Level 143 mmol/L (136-145)
[2019-01-10 06:11] LABS: POSITIVE COUNT NO; POSITIVE DIFFERENTIAL NO; POSITIVE MORPHOLOGY NO
[2019-01-10 07:58] VITALS: BP 167/90; PULSE 77; RESP 16; TEMP 36.9; O2SAT 95
[2019-01-10] MEDS: Propranolol 10 MG Tablet 20 MG PO ×2 (08:02→20:13)
[2019-01-10] MEDS: Losartan Potassium 50 MG Tablet PO (08:02)
[2019-01-10] MEDS: Magnesium Oxide 400 MG Tablet PO ×2 (08:02→20:14)
[2019-01-10] MEDS: Hydroxychloroquine 200 MG Tablet PO ×2 (08:02→17:49)
[2019-01-10] MEDS: Enoxaparin 40 MG/0.4 ML Syringe SC (08:03)
[2019-01-10] MEDS: Sertraline 50 MG Tablet PO (08:03)
[2019-01-10] MEDS: rifAXIMin 550 MG Tablet PO ×2 (08:03→20:14)
[2019-01-10] MEDS: Pantoprazole Sodium 20 MG Tablet PO (08:05)
[2019-01-10] MEDS: Ciprofloxacin 400 MG/200 ML BAG 200 MG IV ×2 (09:17→21:01)
--- NOTE | 2019-01-10 10:50 | CASEMGMT ---
RN CM Face to Face with patient for initial transition planning/care coordination assessment. RN CM introduced self and role at [facility]. Patient sitting in chair, alert and oriented, daughter Shwetha at bedside. Patient willing to participate in assessment and is able to answer all questions appropriately. Care providers, pharmacy, and demographics verified. Patient wishes to discharge home, denies need for home health at this time. Daughter Shwetha inquired regarding Palliative Care, information for Palliative Care and [facility] provided to patient and family. Patient states he has no further needs or concerns at this time. CM to follow for discharge planning needs that may arise. PCP: Raegan Specialists:Benedict, nurse practitioner adult; Thelma, oncologist; May, jewelry sorter Preferred Pharmacy: [facility] Insurance: [facility] Prescription Benefit: YEs Living Will/HPOA: None LNOK: Daughters Living Arrangements: Patient lives alone in 1 story home, 3 steps to enter the home. Patient states he is independent at home. Transportation: self/daughters DME/HHC: Patient states that he has a shower chair, raised toilet, cane, grab bars, walker at home. Greg oxygen, bipap, cpap, or nebulizer at home. Patient denies previous HHC or SNF Disposition Plan: Patient to discharge home with family support and follow-up plans in place. Regina MARY, RN, CM
[2019-01-10 11:47] VITALS: BP 98/45; PULSE 68; RESP 16; TEMP 36.8; O2SAT 94
--- NOTE | 2019-01-10 11:53 | PN_ITS ---
Patient Problems: Active and Suspected Problems Hepatic encephalopathy (Acute) Colitis (Acute) Subjective: The patient was admitted with confusion consistent with metabolic encephalopathy for past 5 days, nausea, abdominal pain and diarrhea secondary to inflammatory/infectious pancolitis but denies GI bleed including hematemesis/ melena. Patient has history of colon cancer status post right hemicolectomy, right partial hepatectomy for metastatic liver cancer and radiotherapy for lung metastasis. Patient had cirrhosis secondary to metastatic liver cancer and has been on Xifaxan and lactulose but was discontinued in November secondary to diarrhea. Today patient is more awake, alert and talking coherent. Denies abdominal pain today. No fever. Patient is still having loose bowel movement. Vitals/I&O's: Vital Signs Temp Pulse Resp BP Pulse Ox 98.3 F 68 16 98/45 L 94 01/10/19 11:47 01/10/19 11:47 01/10/19 11:47 01/10/19 11:47 01/10/19 11:47 Oxygen Delivery Method Room Air Weight: 246 lb 11.156 oz Body Mass Index (BMI) 41.0 Intake and Output for Last 24 Hours 01/08/19 01/09/19 01/10/19 23:59 23:59 23:59 Intake Total 1994 Balance 1994 General: Alert, Oriented x3, Cooperative HEENT: Atraumatic, PERRLA, EOMI, Normocephalic Neck: Supple, No JVD, Negative Carotid Bruits Lungs: Clear to auscultation, Normal air movement Cardiovascular: Regular rate, Regular Rhythm, Normal S1, Normal S2, No murmurs Abdomen: Bowel Sounds Present, Soft, Non Tender, Non-Distended Extremities: No edema, Capillary Refill Less than 3 Seconds Skin: No rashes, No breakdown Musculoskeletal: No Tenderness to Palpation of Joints or Extremities, Arthritic Changes, Muscle Wasting Neurological: Cranial nerves II-XII grossly intact Psych/Mental Status: Normal Affect, Appropriate Laboratory Results 01/09/19 14:36: WBC 7.9, RBC 4.93, Hgb 14.4, Hct 43.0, MCV 87.2, MCH 29.2, MCHC 33.5, RDW 16.5 H, RDW Differential 51.4 H, Plt Count 123 L, MPV 10.0, Immature Gran % (Auto) 0.400, Neut % (Auto) 74.6 H, Lymph % (Auto) 11.6 L, [place] % (Auto) 13.0 H, Eos % (Auto) 0.3, Baso % (Auto) 0.1, Absolute Neuts (auto) 5.9, Absolute Lymphs (auto) 0.92, Total Counted Not Reportable 01/09/19 14:36: PT 16.1 H, INR 1.3, APTT 52.4 H 01/09/19 14:36: Sodium 138, Potassium 3.4 L, Chloride 105, Carbon Dioxide 22.0, Anion Gap 11, BUN 20 H, Creatinine 1.06, Estim Creat Clear Calc 49.96, Est GFR (MDRD) Af Amer 87, Est GFR (MDRD) Non-Af 72, BUN/Creatinine Ratio 18.9, Glucose 109 H, Calcium 8.3 L, Total Bilirubin 1.50 H, AST 42 H, ALT 33, Alkaline Phosphatase 117, Total Protein 6.3 L, Albumin 3.1 L, Globulin 3.2, Albumin/Globulin Ratio 1.0, Lipase 180 01/09/19 14:36: Ammonia 93.0 H 01/09/19 23:30: Urine Color Yellow, Urine Clarity Sl. Cloudy, Urine pH 5.0, Ur Specific [place] 1.015, Urine Protein 30 H, Urine Glucose (UA) Normal, Urine Ketones 15 H, Urine Occult Blood 25 H, Urine Nitrite Negative, Urine Bilirubin 1 H, Urine Urobilinogen 1 H, Ur Leukocyte Esterase 25 H, Urine RBC 0-5 SEEN, Urine WBC 0-5 SEEN, Ur Squamous Epith Cells 0-5 SEEN, Urine Bacteria RARE, Urine Mucus 0 SEEN 01/10/19 05:05: WBC 6.6, RBC 4.69, Hgb 14.0, Hct 41.3, MCV 88.1, MCH 29.9, MCHC 33.9, RDW 16.7 H, RDW Differential 51.9 H, Plt Count 134 L, MPV 10.3, Immature Gran % (Auto) 0.500, Neut % (Auto) 66.8, Lymph % (Auto) 15.4 L, Zavala % (Auto) 16.3 H, Eos % (Auto) 0.8, Baso % (Auto) 0.2, Absolute Neuts (auto) 4.5, Absolute Lymphs (auto) 1.02, Total Counted Not Reportable 01/10/19 05:05: Sodium 143, Potassium 3.5, Chloride 108 H, Carbon Dioxide 24.0, Anion Gap 11, BUN 23 H, Creatinine 1.29, Estim Creat Clear Calc 41.05, Est GFR (MDRD) Af Amer 69, Est GFR (MDRD) Non-Af 57 L, BUN/Creatinine Ratio 17.8, Glucose 98, Calcium 8.2 L, Total Bilirubin 1.30 H, AST 42 H, ALT 35, Alkaline Phosphatase 117, Total Protein 5.9 L, Albumin 2.8 L, Globulin 3.1, Albumin/Globulin Ratio 0.9 Current Medications Enoxaparin Sodium (Lovenox) 40 mg SC DAILY@1000 [facility] Last Admin: 01/10/19 08:03 Dose: 40 mg Heparin Sodium (Beef Lung) () 50 units IV UD PRN PRN Reason: HEPARIN FLUSH Hydroxychloroquine Sulfate (Plaquenil) 200 mg PO BIDCM [facility] Last Admin: 01/10/19 08:02 Dose: 200 mg Sodium Chloride () 1,000 mls @ 100 mls/hr IV .Q10H [facility] Last Admin: 01/10/19 04:56 Dose: 100 mls/hr Ciprofloxacin (Cipro) 400 mg in 200 mls @ 200 mls/hr IV Q12 [facility] Last Admin: 01/10/19 09:17 Dose: 200 mls/hr Metronidazole (Flagyl) 500 mg in 100 mls @ 100 mls/hr IV Q8 [facility] Last Admin: 01/10/19 05:00 Dose: 100 mls/hr Losartan Potassium (Cozaar) 50 mg PO DAILY [facility] Last Admin: 01/10/19 08:02 Dose: 50 mg Magnesium Hydroxide (Milk Of Magnesia) 30 ml PO DAILY PRN PRN PRN Reason: Constipation Magnesium Oxide (Mag-Ox 400) 400 mg PO BID [facility] Last Admin: 01/10/19 08:02 Dose: 400 mg Ondansetron HCl (Zofran Odt) 4 mg PO Q8H PRN PRN PRN Reason: NAUSEA Oxycodone HCl (Oxyir) 5 mg PO Q6H PRN PRN PRN Reason: PAIN Last Admin: 01/10/19 04:59 Dose: 5 mg Pantoprazole Sodium (Protonix) 20 mg PO DAILY [facility] Last Admin: 01/10/19 08:05 Dose: 20 mg Propranolol HCl (Inderal) 20 mg PO BID [facility] Last Admin: 01/10/19 08:02 Dose: 20 mg Rifaximin (Xifaxan) 550 mg PO BID [facility] Last Admin: 01/10/19 08:03 Dose: 550 mg Sertraline HCl (Zoloft) 50 mg PO DAILY [facility] Last Admin: 01/10/19 08:03 Dose: 50 mg Sodium Chloride () 0 ml IV UD PRN PRN Reason: VAD FLUSH Last Admin: 01/10/19 05:01 Dose: 30 ml Medical Necessity - Tobacco Use Smoking Status: Former smoker Tobacco Use: Non-smoker Assessment/Plan All Active Problems Hepatic encephalopathy (Acute) Colitis (Acute) Abdominal pain (Acute) History of DVT (deep vein thrombosis) (Resolved) There is a 78-year-old gentleman was admitted with confusion consistent with metabolic encephalopathy for past 5 days, nausea, abdominal pain and diarrhea secondary to inflammatory/infectious pancolitis but denies GI bleed including hematemesis/melena. Patient has history of colon cancer status post right hemicolectomy, right partial hepatectomy for metastatic liver cancer and radiotherapy for lung metastasis. Patient had cirrhosis secondary to metastatic liver cancer and has been on Xifaxan and lactulose but was discontinued in November secondary to diarrhea. 1. Acute metabolic encephalopathy consistent with hepatic encephalopathy from cirrhosis with history of variceal bleed status post banding in the past: Patient has been off of his home medications, and his lactulose was discontinued in November for uncontrollable diarrhea. Continue Xifaxan. Hold lactulose as patient having diarrhea. 2. Acute colitis-unclear etiology-Cipro and Flagyl. Stool for occult blood is positive. Lactoferrin if positive. Enteric pathology panel is pending. C. difficile is pending. She denies previous antibiotic exposure in last 3-4 months. 3. History of liver cirrhosis secondary to partial liver resection 4. 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 Hypertension-elevated in ER but again he has been off his home meds. Home medications resumed 6. Daughter is unsure if he has a history of congestive heart failure-fluids with caution. 7. History of esophageal varices 8. Mild thrombocytopenia-avoid heparin products 9. Morbid obesity-dietary eval. DVT prophylaxis: SCDs End of life goal/advance directive: Discussed with the patient who is alert awake oriented x3 and has reasonable decision-making capacity in presence of her daughter. Patient elder daughter.Ms. LOTUS Diaz is in contact with her siblings to prepare living will. Patient does not want artificial life support including intubation, tube feed, ventilator and/chest compression. Patient is DNR CC Arrest. Total time spent in [id number] encounter in discussion of advanced directive 18 minutes. Code Visit Inpatient E&M: 24392 Subs Hosp L3 Procedures: 29603 Advncd Care Plan 30 Min
[2019-01-10 14:31] VITALS: BP 152/75; PULSE 69; RESP 16; TEMP 37; O2SAT 98
--- NOTE | 2019-01-10 15:40 | CASEMGMT ---
SOCIAL WORK NOTE ADVANCED DIRECTIVES COMPLETED WITH PATIENT PER REQUEST. COPY ADDED TO CHART. ORIGINAL AND ADDITIONAL COPY GIVEN TO PATIENT. YANELI ROSS SUGARCANE RESEARCH TECHNICIAN, MANAGER PRODUCTION.
[2019-01-10] MEDS: Ondansetron ODT 4 MG Tablet PO (20:06)
[2019-01-10 20:09] VITALS: BP 182/93; PULSE 74; RESP 18; TEMP 36.8; O2SAT 95
[2019-01-10 21:02] VITALS: BP 176/87
[2019-01-11 02:07] VITALS: BP 144/67; PULSE 63; RESP 16; TEMP 36.9; O2SAT 96
[2019-01-11] MEDS: Dicyclomine 10 MG Capsule PO ×4 (02:10→23:05)
[2019-01-11] MEDS: 0.9% Normal Saline 1,000 ML 100 ML IV (05:21)
[2019-01-11] MEDS: oxyCODONE 5 MG Tablet PO ×3 (05:22→19:42)
[2019-01-11 07:54] VITALS: BP 149/95; PULSE 64; RESP 16; TEMP 36.5; O2SAT 97
[2019-01-11] MEDS: Propranolol 10 MG Tablet 20 MG PO ×2 (07:57→21:40)
[2019-01-11] MEDS: Losartan Potassium 50 MG Tablet PO (07:58)
[2019-01-11] MEDS: Pantoprazole Sodium 20 MG Tablet PO (07:58)
[2019-01-11] MEDS: Magnesium Oxide 400 MG Tablet PO ×2 (07:58→21:40)
[2019-01-11] MEDS: rifAXIMin 550 MG Tablet PO ×2 (07:58→21:41)
[2019-01-11] MEDS: Sertraline 50 MG Tablet PO (07:58)
[2019-01-11] MEDS: Hydroxychloroquine 200 MG Tablet PO ×2 (07:58→16:30)
[2019-01-11] MEDS: Enoxaparin 40 MG/0.4 ML Syringe SC (07:59)
[2019-01-11] MEDS: Ciprofloxacin 400 MG/200 ML BAG 200 MG IV ×2 (10:04→21:40)
--- NOTE | 2019-01-11 10:26 | PCM.PN.HOSP ---
Patient Problems: Active and Suspected Problems Hepatic encephalopathy (Acute) Colitis (Acute) Subjective: Patient does not have appetite. Mid abdominal cramping gets partial relief with Bentyl. On IV Cipro and Flagyl for diffuse pancolitis. No fever. No diarrhea about 3 times yesterday and one since morning today. Getting formed/semisolid in consistency Vitals/I&O's: Vital Signs Temp Pulse Resp BP Pulse Ox 97.7 F L 64 16 149/95 H 97 01/11/19 07:54 01/11/19 07:54 01/11/19 07:54 01/11/19 07:54 01/11/19 07:54 Oxygen Delivery Method Room Air Weight: 246 lb 11.156 oz Body Mass Index (BMI) 41.0 Intake and Output for Last 24 Hours 01/09/19 01/10/19 01/11/19 23:59 23:59 23:59 Intake Total 3010 / 3010 1698 / 1698 Balance 3010 / 3010 1698 / 1698 General: Alert, Oriented x3, Cooperative HEENT: Atraumatic, PERRLA, EOMI, Normocephalic Neck: Supple, No JVD, Negative Carotid Bruits Lungs: Clear to auscultation, No rhonchi, No wheeze, No rales, Diminished Cardiovascular: Regular rate, Regular Rhythm, Normal S1, Normal S2, No murmurs Abdomen: Bowel Sounds Present, Soft, Non Tender, Non-Distended, Hypoactive Bowel Sounds Extremities: No edema, Capillary Refill Less than 3 Seconds Skin: No rashes, No breakdown Musculoskeletal: No Tenderness to Palpation of Joints or Extremities, Arthritic Changes, Muscle Wasting Neurological: Cranial nerves II-XII grossly intact, Deep Tendon Reflexes 2+/4 and Symmetrical, Neuro grossly intact Psych/Mental Status: Normal Affect, Appropriate Microbiology Past 72 Hours 01/10/19 14:35 Stool C. difficile DNA Amplification - Final 01/10/19 14:35 Stool Stool Lactoferrin - Final 01/10/19 14:35 Stool Stool Occult Blood (JANELLE) - Final Occult Blood Positive Current Medications Dicyclomine HCl (Bentyl) 10 mg PO Q6H PRN PRN PRN Reason: Abdominal Cramping Last Admin: 01/11/19 10:07 Dose: 10 mg Enoxaparin Sodium (Lovenox) 40 mg SC DAILY@1000 [facility] Last Admin: 01/11/19 07:59 Dose: 40 mg Heparin Sodium (Beef Lung) () 50 units IV UD PRN PRN Reason: HEPARIN FLUSH [facility] Last Admin: 01/11/19 07:58 Dose: 200 mg Sodium Chloride () 1,000 mls @ 100 mls/hr IV .Q10H [facility] Last Admin: 01/11/19 05:21 Dose: 100 mls/hr Ciprofloxacin (Cipro) 400 mg in 200 mls @ 200 mls/hr IV Q12 [facility] Last Admin: 01/11/19 10:04 Dose: 200 mls/hr Metronidazole (Flagyl) 500 mg in 100 mls @ 100 mls/hr IV Q8 [facility] Last Admin: 01/11/19 05:20 Dose: 100 mls/hr Lactobacillus Acidophilus (Acidophilus) 1 tablet PO TID [facility] Losartan Potassium (Cozaar) 50 mg PO DAILY [facility] Last Admin: 01/11/19 07:58 Dose: 50 mg Magnesium Hydroxide (Milk Of Magnesia) 30 ml PO DAILY PRN PRN PRN Reason: Constipation Magnesium Oxide (Mag-Ox 400) 400 mg PO BID [facility] Last Admin: 01/11/19 07:58 Dose: 400 mg Ondansetron HCl (Zofran Odt) 4 mg PO Q8H PRN PRN PRN Reason: NAUSEA Last Admin: 01/10/19 20:06 Dose: 4 mg Oxycodone HCl (Oxyir) 5 mg PO Q6H PRN PRN PRN Reason: PAIN Last Admin: 01/11/19 05:22 Dose: 5 mg Pantoprazole Sodium (Protonix) 20 mg PO DAILY [facility] Last Admin: 01/11/19 07:58 Dose: 20 mg Potassium Chloride (K-Dur) [facility] Propranolol HCl (Inderal) 20 mg PO BID [facility] Last Admin: 01/11/19 07:57 Dose: 20 mg Rifaximin (Xifaxan) 550 mg PO BID [facility] Last Admin: 01/11/19 07:58 Dose: 550 mg Sertraline HCl (Zoloft) 50 mg PO DAILY [facility] Last Admin: 01/11/19 07:58 Dose: 50 mg Sodium Chloride () 0 ml IV UD PRN PRN Reason: VAD FLUSH Last Admin: 01/10/19 05:01 Dose: 30 ml Medical Necessity - Tobacco Use Smoking Status: Former smoker Tobacco Use: Non-smoker Assessment/Plan All Active Problems Hepatic encephalopathy (Acute) Colitis (Acute) Abdominal pain (Acute) History of DVT (deep vein thrombosis) (Resolved) There is a 78-year-old gentleman was admitted with confusion consistent with metabolic encephalopathy for past 5 days, nausea, abdominal pain and diarrhea secondary to inflammatory/infectious pancolitis but denies GI bleed including hematemesis/melena. Patient has history of colon cancer status post right hemicolectomy, right partial hepatectomy for metastatic liver cancer and radiotherapy for lung metastasis. Patient had cirrhosis secondary to metastatic liver cancer and has been on Xifaxan and lactulose but was discontinued in November secondary to diarrhea. 1. Acute metabolic encephalopathy consistent with hepatic encephalopathy from cirrhosis with history of variceal bleed status post banding in the past: Patient has been off of his home medications, and his lactulose was discontinued in November for uncontrollable diarrhea. Continue Xifaxan. Hold lactulose as patient having diarrhea. 2. Acute colitis-unclear etiology-Cipro and Flagyl. Stool for occult blood is positive. Lactoferrin if positive. Enteric pathology panel is pending. C. difficile is negative. Frequency and consistency of his stool is getting better. Mild abdominal pain/cramps. 3. History of liver cirrhosis secondary to partial liver resection 4. 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 Hypertension-elevated in ER but again he has been off his home meds. Home medications resumed 6. Daughter is unsure if he has a history of congestive heart failure-fluids with caution. 7. History of esophageal varices 8. Mild thrombocytopenia-avoid heparin products 9. Morbid obesity-dietary eval. DVT prophylaxis: SCDs. Family history of variceal bleed status post banding in the past. History of cirrhosis with coagulopathy. Pharmacological prophylaxis contraindicated End of life goal/advance directive: Discussed with the patient who is alert awake oriented x3 and has reasonable decision-making capacity in presence of her daughter. Patient elder daughter.Ms. LOTUS Diaz is in contact with her siblings to prepare living will. Patient does not want artificial life support including intubation, tube feed, ventilator and/chest compression. Patient is DNR CC Arrest. Total time spent in [id number] encounter in discussion of advanced directive 18 minutes. Microbiology Past 72 Hours 01/10/19 14:35 Stool C. difficile DNA Amplification - Final 01/10/19 14:35 Stool Stool Lactoferrin - Final 01/10/19 14:35 Stool Stool Occult Blood (JANELLE) - Final Occult Blood Positive Code Visit Inpatient E&M: 00915 Subs Hosp L3
--- NOTE | 2019-01-11 10:33 | PN_ITS ---
Patient Problems: Active and Suspected Problems Hepatic encephalopathy (Acute) Colitis (Acute) Subjective: Patient does not have appetite. Mid abdominal cramping gets partial relief with Bentyl. On IV Cipro and Flagyl for diffuse pancolitis. No fever. No diarrhea about 3 times yesterday and one since morning today. Getting formed/semisolid in consistency Vitals/I&O's: Vital Signs Temp Pulse Resp BP Pulse Ox 97.7 F L 64 16 149/95 H 97 01/11/19 07:54 01/11/19 07:54 01/11/19 07:54 01/11/19 07:54 01/11/19 07:54 Oxygen Delivery Method Room Air Weight: 246 lb 11.156 oz Body Mass Index (BMI) 41.0 Intake and Output for Last 24 Hours 01/09/19 01/10/19 01/11/19 23:59 23:59 23:59 Intake Total 3010 / 3010 1698 / 1698 Balance 3010 / 3010 1698 / 1698 General: Alert, Oriented x3, Cooperative HEENT: Atraumatic, PERRLA, EOMI, Normocephalic Neck: Supple, No JVD, Negative Carotid Bruits Lungs: Clear to auscultation, No rhonchi, No wheeze, No rales, Diminished Cardiovascular: Regular rate, Regular Rhythm, Normal S1, Normal S2, No murmurs Abdomen: Bowel Sounds Present, Soft, Non Tender, Non-Distended, Hypoactive Bowel Sounds Extremities: No edema, Capillary Refill Less than 3 Seconds Skin: No rashes, No breakdown Musculoskeletal: No Tenderness to Palpation of Joints or Extremities, Arthritic Changes, Muscle Wasting Neurological: Cranial nerves II-XII grossly intact, Deep Tendon Reflexes 2+/4 and Symmetrical, Neuro grossly intact Psych/Mental Status: Normal Affect, Appropriate Microbiology Past 72 Hours 01/10/19 14:35 Stool C. difficile DNA Amplification - Final 01/10/19 14:35 Stool Stool Lactoferrin - Final 01/10/19 14:35 Stool Stool Occult Blood (JANELLE) - Final Occult Blood Positive Current Medications Dicyclomine HCl (Bentyl) 10 mg PO Q6H PRN PRN PRN Reason: Abdominal Cramping Last Admin: 01/11/19 10:07 Dose: 10 mg Enoxaparin Sodium (Lovenox) 40 mg SC DAILY@1000 [facility] Last Admin: 01/11/19 07:59 Dose: 40 mg Heparin Sodium (Beef Lung) () 50 units IV UD PRN PRN Reason: HEPARIN FLUSH [facility] Last Admin: 01/11/19 07:58 Dose: 200 mg Sodium Chloride () 1,000 mls @ 100 mls/hr IV .Q10H [facility] Last Admin: 01/11/19 05:21 Dose: 100 mls/hr Ciprofloxacin (Cipro) 400 mg in 200 mls @ 200 mls/hr IV Q12 [facility] Last Admin: 01/11/19 10:04 Dose: 200 mls/hr Metronidazole (Flagyl) 500 mg in 100 mls @ 100 mls/hr IV Q8 [facility] Last Admin: 01/11/19 05:20 Dose: 100 mls/hr Lactobacillus Acidophilus (Acidophilus) 1 tablet PO TID [facility] Losartan Potassium (Cozaar) 50 mg PO DAILY [facility] Last Admin: 01/11/19 07:58 Dose: 50 mg Magnesium Hydroxide (Milk Of Magnesia) 30 ml PO DAILY PRN PRN PRN Reason: Constipation Magnesium Oxide (Mag-Ox 400) 400 mg PO BID [facility] Last Admin: 01/11/19 07:58 Dose: 400 mg Ondansetron HCl (Zofran Odt) 4 mg PO Q8H PRN PRN PRN Reason: NAUSEA Last Admin: 01/10/19 20:06 Dose: 4 mg Oxycodone HCl (Oxyir) 5 mg PO Q6H PRN PRN PRN Reason: PAIN Last Admin: 01/11/19 05:22 Dose: 5 mg Pantoprazole Sodium (Protonix) 20 mg PO DAILY [facility] Last Admin: 01/11/19 07:58 Dose: 20 mg Potassium Chloride (K-Dur) [facility] Propranolol HCl (Inderal) 20 mg PO BID [facility] Last Admin: 01/11/19 07:57 Dose: 20 mg Rifaximin (Xifaxan) 550 mg PO BID [facility] Last Admin: 01/11/19 07:58 Dose: 550 mg Sertraline HCl (Zoloft) 50 mg PO DAILY [facility] Last Admin: 01/11/19 07:58 Dose: 50 mg Sodium Chloride () 0 ml IV UD PRN PRN Reason: VAD FLUSH Last Admin: 01/10/19 05:01 Dose: 30 ml Medical Necessity - Tobacco Use Smoking Status: Former smoker Tobacco Use: Non-smoker Assessment/Plan All Active Problems Hepatic encephalopathy (Acute) Colitis (Acute) Abdominal pain (Acute) History of DVT (deep vein thrombosis) (Resolved) There is a 78-year-old gentleman was admitted with confusion cons istent with metabolic encephalopathy for past 5 days, nausea, abdominal pain and diarrhea secondary to inflammatory/infectious pancolitis but denies GI bleed including hematemesis/melena. Patient has history of colon cancer status post right hemicolectomy, right partial hepatectomy for metastatic liver cancer and radiotherapy for lung metastasis. Patient had cirrhosis secondary to metastatic liver cancer and has been on Xifaxan and lactulose but was discontinued in November secondary to diarrhea. 1. Acute metabolic encephalopathy consistent with hepatic encephalopathy from cirrhosis with history of variceal bleed status post banding in the past: Patient has been off of his home medications, and his lactulose was discontinued in November for uncontrollable diarrhea. Continue Xifaxan. Hold lactulose as patient having diarrhea. 2. Acute colitis-unclear etiology-Cipro and Flagyl. Stool for occult blood is positive. Lactoferrin if positive. Enteric pathology panel is pending. C. difficile is negative. Frequency and consistency of his stool is getting better. Mild abdominal pain/cramps. 3. History of liver cirrhosis secondary to partial liver resection 4. 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 Hypertension-elevated in ER but again he has been off his home meds. Home medications resumed 6. Daughter is unsure if he has a history of congestive heart failure-fluids with caution. 7. History of esophageal varices 8. Mild thrombocytopenia-avoid heparin products 9. Morbid obesity-dietary eval. DVT prophylaxis: SCDs. Family history of variceal bleed status post banding in the past. History of cirrhosis with coagulopathy. Pharmacological prophylaxis contraindicated End of life goal/advance directive: Discussed with the patient who is alert awake oriented x3 and has reasonable decision-making capacity in presence of her daughter. Patient elder daughter.Ms. LOTUS Diaz is in contact with her siblings to prepare living will. Patient does not want artificial life support including intubation, tube feed, ventilator and/chest compression. Patient is DNR CC Arrest. Total time spent in [id number] encounter in d iscussion of advanced directive 18 minutes. Microbiology Past 72 Hours 01/10/19 14:35 Stool C. difficile DNA Amplification - Final 01/10/19 14:35 Stool Stool Lactoferrin - Final 01/10/19 14:35 Stool Stool Occult Blood (JANELLE) - Final Occult Blood Positive Code Visit Inpatient E&M: 93457 Subs Hosp L3
[2019-01-11 11:14] VITALS: BP 132/84; PULSE 58; RESP 16; TEMP 37.2; O2SAT 95
[2019-01-11 14:00] VITALS: BP 143/87; PULSE 61; RESP 16; TEMP 36.8; O2SAT 96
[2019-01-11] MEDS: Ondansetron ODT 4 MG Tablet PO (19:42)
[2019-01-11] MEDS: 0.9% NaCl VAD Flush IV (19:45)
[2019-01-11] MEDS: 0.9% Normal Saline 1,000 ML 75 ML IV (19:45)
[2019-01-11 20:05] VITALS: BP 162/83; PULSE 98; RESP 18; TEMP 36.6; O2SAT 97
[2019-01-12] MEDS: oxyCODONE 5 MG Tablet PO (02:25)
[2019-01-12 02:36] VITALS: BP 153/90; PULSE 62; RESP 18; TEMP 36.9; O2SAT 96
[2019-01-12] MEDS: 0.9% NaCl VAD Flush IV ×3 (05:54→09:06)
[2019-01-12] MEDS: Dicyclomine 10 MG Capsule PO (05:54)
[2019-01-12 06:10] LABS: Absolute Lymphocyte Count 0.91 X10^3/ul (0.83-4.51); Absolute Neutrophil Count 3.1 X10^3/uL (2.0-7.7); Basophil# 0.01 X10^3/uL; Basophil% 0.2 % (0-1); Eosinophil# 0.14 X10^3/uL; Hematocrit 35.7 % (40-54); Hemoglobin 12.1 g/dl (13.0-16.5); Lymphocyte # 0.91 X10^3/ul (4.0); Lymphocyte % 19.2 % (19-41); Mean Corp Hgb Conc 33.9 g/gl (32-36); Mean Corpuscular Hgb 30.6 pg (27.0-32.0); Mean Corpuscular Volume 90.4 fL (80-94); Mean Platelet Vol. 10.1 fl (6.2-12.0); Monocyte# 0.55 X10^3/uL; Monocyte% 11.6 % (0-10); Neutrophil # 3.11 X10^3/uL (2.7-7.7); Neutrophil % 65.6 % (47-70); Platelet Count 103 K/mm3 (150-450); RBC Distribution Width CV 16.6 % (11.6-14.6); RBC Distribution Width SD 53.3 fl (35.1-43.9); Red Blood Count 3.95 M/mm3 (4.6-6.2); White Blood Count 4.7 K/mm3 (4.4-11.0)
[2019-01-12 06:11] LABS: POSITIVE COUNT NO; POSITIVE DIFFERENTIAL NO; POSITIVE MORPHOLOGY NO
[2019-01-12 06:26] LABS: Anion Gap 10 (5-15); BUN 19 mg/dL (7-18); BUN/Creat Ratio 19.2 RATIO (10-20); Calcium,Total 7.8 mg/dL (8.5-10.1); Chloride 111 mmol/L (98-107); Creatinine, Serum 0.99 mg/dL (0.70-1.30); EST Glomerular Filtration Rate 78 mL/min (>60); Est Glom Filt Rate - Afr Amer 94 mL/min (>60); Estimated Creatinine Clearance 53.49 ml/min; Glucose 83 mg/dL (74-106); Potassium 3.6 mmol/L (3.5-5.1); Sodium Level 145 mmol/L (136-145)
[2019-01-12 07:53] VITALS: BP 128/74; PULSE 60; RESP 16; TEMP 36.7; O2SAT 96
--- NOTE | 2019-01-12 07:55 | PCM.DC ---
- Discharge Diagnoses Current Active Problems: Current Active and Chronic Problems Hepatic encephalopathy (Acute) HTN (hypertension) (Chronic) Colitis (Acute) You will use the following diet at home:: Other - soft diet:no red meat, ok to have minced chicken Your food should be the consistency of: Regular Discharge Activity: May Not Drive Weight Bearing Status: Weight bearing as tolerated Call your doctor if you observe: Fever of 101 or Higher, Inability to urinate, Shortness of breath, Fainting spells Allergies/Adverse Reactions: Allergies No Known Allergies Allergy (Verified 01/09/19 13:17) Medications to take at Discharge Furosemide [Lasix] 20 mg PO DAILY 12/26/15 Hydroxychloroquine [Plaquenil] 200 mg PO BIDCM 12/26/15 Losartan Potassium [Cozaar] 50 mg PO DAILY 12/26/15 [place]-3S/Dha/Epa/Fish Oil [Fish Oil 1,200 mg Softgel] 1 each PO DAILY 12/26/15 Ondansetron [Zofran] 8 mg PO Q8H PRN PRN 12/26/15 Sertraline HCl [Zoloft] 50 mg PO DAILY 12/26/15 Propranolol HCl [Inderal (Beta Sindi)] 20 mg PO BID 02/07/16 Magnesium Oxide [Mag-Ox 400] 400 mg PO BID 08/24/16 Omeprazole [Prilosec] 20 mg PO DAILY 08/24/16 Turmeric Root Extract [Turmeric] 500 mg PO DAILY 10/24/17 Ondansetron [Zofran Odt] 4 mg PO Q8H PRN PRN #7 tab 01/04/19 Ginseng 100 mg PO DAILY 01/09/19 Oxycodone [Oxyir] 5 mg PO Q6H PRN PRN 01/09/19 Rifaximin [Xifaxan] 500 mg PO BID 01/09/19 Ciprofloxacin [Cipro] 500 mg PO BID #14 tablet 01/12/19 Lactobacillus Acidophilus [Acidophilus] 1 tablet PO TID tablet 01/12/19 Metronidazole [Flagyl] 500 mg PO Q8H #15 tablet 01/12/19 Potassium Chloride [K-Dur] 40 meq PO DAILY #0 01/12/19 The following prescriptions were given: Metronidazole [Flagyl] 500 mg PO Q8H #15 tablet Ciprofloxacin [Cipro] 500 mg PO BID #14 tablet Primary Care Physician: Armin Carlin DO [Primary Care Provider] - Please follow up with your Primary Care Physician in: in 2 weeks Test Results: Test results from this visit will be discussed in further detail at your follow-up appointment, if applicable. Please Follow Up With: Lele Olvera MD When: in 3-4 weeks for colitis and cirrhosis
--- NOTE | 2019-01-12 07:58 | DS.PCM_ITS ---
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 Patient has history of colon cancer status post right hemicolectomy, right partial hepatectomy for metastatic liver cancer and radiotherapy for lung metastasis. Patient had cirrhosis secondary to metastatic liver cancer and has been on Xifaxan and lactulose but was discontinued in November secondary to diarrhea. 1. Acute metabolic encephalopathy consistent with hepatic encephalopathy from c irrhosis with history of variceal bleed status post banding in the past: Patient has been off of his home medications, and his lactulose was discontinued in November for uncontrollable diarrhea. Continue Xifaxan. Advised lactulose as needed for encephalopathy and titrate with frequency of diarrhea. Resolved 2. Acute colitis-unclear etiology-Cipro and Flagyl. Stool for occult blood is positive. Lactoferrin if positive. Enteric pathology panel is pending. C. difficile is negative. Frequency and consistency of his stool is getting better. Mild abdominal pain/cramps. Patient is discharged on 7 more days of Cipro and 5 more days of Flagyl. Patient was also given prescription for Bentyl and potassium chloride. Patient was advised to check electrolytes, BMP on 01/17/2019 from PCP office and adjust the dose of potassium accordingly. 3. History of liver cirrhosis secondary to partial liver resection 4. 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 Hypertension-elevated in ER but again he has been off his home meds. Home medications resumed 6. Daughter is unsure if he has a history of congestive heart failure-fluids with caution. 7. History of esophageal varices 8. Mild thrombocytopenia-avoid heparin products 9. Morbid obesity-dietary eval. DVT prophylaxis: SCDs. Family history of variceal bleed status post banding in the past. History of cirrhosis with coagulopathy. Pharmacological prophylaxis contraindicated Discharge medication reconciliation done. Discharge follow-up instructions completed. Discharge process discussed with the patient and her daughter and all questions were answered to patient's satisfaction.. Total time spent, exact 35 minutes on discharge meds reconciliation, examination, review of imaging and blood test and discussion with the patient on follow-up instructions. Sent is DNR CC arrest Subjective: Seen and examined. Abdominal pain has much improved almost resolved. Patient denies diarrhea today. Had soft bowel movement yesterday. No fever/chills. Heart rate in normal range. - Physical Exam General: Alert, Oriented x3, Cooperative HEENT: Atraumatic, PERRLA, EOMI, Normocephalic Neck: Supple, No JVD, Negative Carotid Bruits Lungs: Clear to auscultation, Normal air movement Cardiovascular: Regular rate, Regular Rhythm, Normal S1, Normal S2, No murmurs Abdomen: Bowel Sounds Present, Soft, Non Tender, Non-Distended Extremities: No edema, Capillary Refill Less than 3 Seconds Skin: No rashes, No breakdown Musculoskeletal: No Tenderness to Palpation of Joints or Extremities, Arthritic Changes Neurological: Cranial nerves II-XII grossly intact, Neuro grossly intact Psych/Mental Status: Normal Affect, Appropriate Vital Signs Temp Pulse Resp BP Pulse Ox 98.4 F 62 18 153/90 H 96 01/12/19 02:36 01/12/19 02:36 01/12/19 02:36 01/12/19 02:36 01/12/19 02:36 Oxygen Delivery Method Room Air Weight: 246 lb 11.156 oz Body Mass Index (BMI) 41.0 Intake and Output for Last 24 Hours 01/10/19 01/11/19 01/12/19 23:59 23:59 23:59 Intake Total 3010 / 3010 2874 / 2874 1673 / 1673 Balance 3010 / 3010 2874 / 2874 1673 / 1673 Microbiology Past 72 Hours 01/10/19 14:35 Enteric Bacteriology - Final Stool 01/10/19 14:35 C. difficile DNA Amplification - Final Stool 01/10/19 14:35 Stool Lactoferrin - Final Stool 01/10/19 14:35 Stool Occult Blood (JANELLE) - Final Stool Occult Blood Positive Laboratory Tests Past 24 Hrs 01/12/19 01/12/19 05:44 05:44 WBC 4.7 RBC 3.95 L Hgb 12.1 L Hct 35.7 L MCV 90.4 MCH 30.6 MCHC 33.9 RDW 16.6 H RDW Differential 53.3 H Plt Count 103 L MPV 10.1 Immature Gran % (Auto) 0.400 Neut % (Auto) 65.6 Lymph % (Auto) 19.2 [place] % (Auto) 11.6 H Eos % (Auto) 3.0 Baso % (Auto) 0.2 Absolute Neuts (auto) 3.1 Absolute Lymphs (auto) 0.91 Total Counted Not Reportable Sodium 145 Potassium 3.6 Chloride 111 H Carbon Dioxide 24.0 Anion Gap 10 BUN 19 H Creatinine 0.99 Estim Creat Clear Calc 53.49 Est GFR (MDRD) Af Amer 94 Est GFR (MDRD) Non-Af 78 BUN/Creatinine Ratio 19.2 Glucose 83 Calcium 7.8 L Discharge Activity: May Not Drive Weight Bearing Status: Weight bearing as tolerated Call your doctor if you observe: Fever of 101 or Higher, Inability to urinate, Shortness of breath, Fainting spells Home Medications: Medications to take at Discharge Furosemide [Lasix] 20 mg PO DAILY 12/26/15 Hydroxychloroquine [Plaquenil] 200 mg PO BIDCM 12/26/15 Losartan Potassium [Cozaar] 50 mg PO DAILY 12/26/15 [place]-3S/Dha/Epa/Fish Oil [Fish Oil 1,200 mg Softgel] 1 each PO DAILY 12/26/15 Ondansetron [Zofran] 8 mg PO Q8H PRN PRN 12/26/15 Sertraline HCl [Zoloft] 50 mg PO DAILY 12/26/15 Propranolol HCl [Inderal (Beta Sindi)] 20 mg PO BID 02/07/16 Magnesium Oxide [Mag-Ox 400] 400 mg PO BID 08/24/16 Omeprazole [Prilosec] 20 mg PO DAILY 08/24/16 Turmeric Root Extract [Turmeric] 500 mg PO DAILY 10/24/17 Ondansetron [Zofran Odt] 4 mg PO Q8H PRN PRN #7 tab 01/04/19 Ginseng 100 mg PO DAILY 01/09/19 Oxycodone [Oxyir] 5 mg PO Q6H PRN PRN 01/09/19 Rifaximin [Xifaxan] 500 mg PO BID 01/09/19 Ciprofloxacin [Cipro] 500 mg PO BID #14 tablet 01/12/19 Dicyclomine HCl [Bentyl] 10 mg PO Q6H PRN #20 capsule 01/12/19 Lactobacillus Acidophilus [Acidophilus] 1 tablet PO TID tablet 01/12/19 Metronidazole [Flagyl] 500 mg PO Q8H #15 tablet 01/12/19 Potassium Chloride [K-Dur] 40 meq PO DAILY #0 01/12/19 Following Prescrptions Were Given to Patient: Metronidazole [Flagyl] 500 mg PO Q8H #15 tablet Ciprofloxacin [Cipro] 500 mg PO BID #14 tablet Dicyclomine HCl [Bentyl] 10 mg PO Q6H PRN #20 capsule PRN Reason: abdominal spasm Primary Care Physician: Armin Carlin DO [Primary Care Provider] - Please follow up with your Primary Care Physician in: in 2 weeks Please Follow Up With: Lele Olvera MD When: in 3-4 weeks for colitis and cirrhosis Medical Necessity - Tobacco Use Smoking Status: Former smoker Tobacco Use: Non-smoker Meaningful Use Info Meaningful Use Diagnoses (Choose all that apply): None applicable Code Visit Inpatient E&M: 56721 Disch Hosp
--- NOTE | 2019-01-12 07:58 | DCINST_ITS ---
- Discharge Diagnoses Current Active Problems: Current Active and Chronic Problems Hepatic encephalopathy (Acute) HTN (hypertension) (Chronic) Colitis (Acute) You will use the following diet at home:: Other - soft diet:no red meat, ok to have minced chicken Your food should be the consistency of: Regular Discharge Activity: May Not Drive Weight Bearing Status: Weight bearing as tolerated Call your doctor if you observe: Fever of 101 or Higher, Inability to urinate, Shortness of breath, Fainting spells Allergies/Adverse Reactions: Allergies No Known Allergies Allergy (Verified 01/09/19 13:17) Medications to take at Discharge Furosemide [Lasix] 20 mg PO DAILY 12/26/15 Hydroxychloroquine [Plaquenil] 200 mg PO BIDCM 12/26/15 Losartan Potassium [Cozaar] 50 mg PO DAILY 12/26/15 [place]-3S/Dha/Epa/Fish Oil [Fish Oil 1,200 mg Softgel] 1 each PO DAILY 12/26/15 Ondansetron [Zofran] 8 mg PO Q8H PRN PRN 12/26/15 Sertraline HCl [Zoloft] 50 mg PO DAILY 12/26/15 Propranolol HCl [Inderal (Beta Sindi)] 20 mg PO BID 02/07/16 Magnesium Oxide [Mag-Ox 400] 400 mg PO BID 08/24/16 Omeprazole [Prilosec] 20 mg PO DAILY 08/24/16 Turmeric Root Extract [Turmeric] 500 mg PO DAILY 10/24/17 Ondansetron [Zofran Odt] 4 mg PO Q8H PRN PRN #7 tab 01/04/19 Ginseng 100 mg PO DAILY 01/09/19 Oxycodone [Oxyir] 5 mg PO Q6H PRN PRN 01/09/19 Rifaximin [Xifaxan] 500 mg PO BID 01/09/19 Ciprofloxacin [Cipro] 500 mg PO BID #14 tablet 01/12/19 Lactobacillus Acidophilus [Acidophilus] 1 tablet PO TID tablet 01/12/19 Metronidazole [Flagyl] 500 mg PO Q8H #15 tablet 01/12/19 Potassium Chloride [K-Dur] 40 meq PO DAILY #0 01/12/19 The following prescriptions were given: Metronidazole [Flagyl] 500 mg PO Q8H #15 tablet Ciprofloxacin [Cipro] 500 mg PO BID #14 tablet Primary Care Physician: Armin Carlin DO [Primary Care Provider] - Please follow up with your Primary Care Physician in: in 2 weeks Test Results: Test results from this visit will be discussed in further detail at your follow- up appointment, if applicable. Please Follow Up With: Lele Olvera MD When: in 3-4 weeks for colitis and cirrhosis
[2019-01-12] MEDS: Magnesium Oxide 400 MG Tablet PO (09:22)
[2019-01-12] MEDS: Pantoprazole Sodium 20 MG Tablet PO (09:22)
[2019-01-12] MEDS: Losartan Potassium 50 MG Tablet PO ×2 (09:23)
[2019-01-12] MEDS: Hydroxychloroquine 200 MG Tablet PO (09:23)
[2019-01-12] MEDS: rifAXIMin 550 MG Tablet PO (09:23)
[2019-01-12] MEDS: Sertraline 50 MG Tablet PO (09:23)
[2019-01-12] MEDS: Propranolol 10 MG Tablet 20 MG PO (09:23)
--- NOTE | 2019-01-12 14:49 | NURSING ---
student nurse Kristian's charting reviewed for education learning purposes by ladi
--- NOTE | 2019-01-13 15:14 | CASEMGMT ---
ANJEL CORONA Discharge Follow-up Phone Call: LIU: 12 Strata: 4 Call Date: 01/13/19 Discharge Date:01/12/19 Time of Call: 1510 Duration: 1 min Admitting Diagnosis: Colitis, hepatic encephalopathy ANJEL CORONA attempted to complete follow-up phone call after recent hospitalization. No answer, voice message left with return contact information.
== END 2019-01-12 09:40 | disposition home or self-care (01) | DRG 442 ==
LOC: ED 14:05 → MS3 18:36
PROVIDERS: Admitting Provider Family Medicine; Emergency Provider Emergency Medicine; Family Provider Family Medicine; PCP Family Medicine; Visit Provider Internal Medicine
DX: K72.00 Acute and subacute hepatic failure without coma (principal); Z68.41 Body mass index [BMI] 40.0-44.9, adult; I85.10 Secondary esophageal varices without bleeding; K52.9 Noninfective gastroenteritis and colitis, unspecified; K74.60 Unspecified cirrhosis of liver; E66.01 Morbid (severe) obesity due to excess calories; D69.6 Thrombocytopenia, unspecified; Z66 Do not resuscitate; I10 Essential (primary) hypertension; Z85.038 Personal history of other malignant neoplasm of large intestine; Z92.3 Personal history of irradiation; Z92.21 Personal history of antineoplastic chemotherapy; Z87.891 Personal history of nicotine dependence
CPT/HCPCS: 70450; 71045; 74177; 80048; 80053; 81001; 82140; 82274; 83630; 83690; 85025; 85610; 85730; 87493; 87506; 93005; 97162; 97166; 97530; 99282; J7030; J7040; Q9967; A4216; J0744; J2405

== ENCOUNTER → 2019-01-31 15:03 | Outpatient (CLI) | payer MEDICARE, OTHER, SELFPAY ==
[2019-01-09 19:26] VITALS: BMI 41.0
[2019-01-31 17:30] LABS: Absolute Lymphocyte Count 0.84 X10^3/ul (0.83-4.51); Absolute Neutrophil Count 3.3 X10^3/uL (2.0-7.7); Basophil# 0.01 X10^3/uL; Basophil% 0.2 % (0-1); Eosinophil# 0.22 X10^3/uL; Eosinophils% 4.4 % (0-5); Hematocrit 37.8 % (40-54); Hemoglobin 12.3 g/dl (13.0-16.5); Lymphocyte # 0.84 X10^3/ul (4.0); Lymphocyte % 16.9 % (19-41); Mean Corp Hgb Conc 32.5 g/gl (32-36); Mean Corpuscular Hgb 29.6 pg (27.0-32.0); Mean Corpuscular Volume 91.1 fL (80-94); Mean Platelet Vol. 10.2 fl (6.2-12.0); Monocyte# 0.61 X10^3/uL; Monocyte% 12.3 % (0-10); Neutrophil # 3.28 X10^3/uL (2.7-7.7); Platelet Count 84 K/mm3 (150-450); RBC Distribution Width CV 17.6 % (11.6-14.6); RBC Distribution Width SD 59.2 fl (35.1-43.9); Red Blood Count 4.15 M/mm3 (4.6-6.2)
[2019-01-31 17:31] LABS: POSITIVE COUNT NO; POSITIVE DIFFERENTIAL NO; POSITIVE MORPHOLOGY NO
[2019-01-31 18:14] LABS: AST(SGOT) 34 U/L (15-37); Alanine Aminotransfer ALT/SGPT 25 U/L (16-61); Alkaline Phosphatase 124 U/L (45-117); Anion Gap 9 (5-15); BUN 12 mg/dL (7-18); Calcium,Total 8.8 mg/dL (8.5-10.1); Chloride 108 mmol/L (98-107); EST Glomerular Filtration Rate 62 mL/min (>60); Est Glom Filt Rate - Afr Amer 75 mL/min (>60); Globulin 3.1 g/dL (2.2-4.2); Glucose 102 mg/dL (74-106); Potassium 3.6 mmol/L (3.5-5.1); Protein, Total 6.1 g/dL (6.4-8.2); Sodium Level 143 mmol/L (136-145)
== END ==
PROVIDERS: Family Provider Family Medicine; PCP Family Medicine; Referring Provider Internal Medicine Rheumatology; Visit Provider Internal Medicine Rheumatology
DX: M06.4 Inflammatory polyarthropathy (principal); M47.897 Other spondylosis, lumbosacral region; I10 Essential (primary) hypertension; D49.0 Neoplasm of unspecified behavior of digestive system
CPT/HCPCS: 36415; 80053; 85025

== ENCOUNTER → 2019-07-28 13:02 | Outpatient (CLI) | payer MEDICARE, OTHER, SELFPAY ==
[2019-07-28 14:33] LABS: Hematocrit 36.9 % (40-54); Hemoglobin 12.2 g/dL (13.0-16.5); Red Blood Count 4.16 M/mm3 (4.6-6.2); White Blood Count 6.3 K/mm3 (4.4-11.0)
[2019-07-28 14:34] LABS: Absolute Lymphocyte Count 0.67 X10^3/uL (0.83-4.51); Basophil# 0.01 X10^3/uL; Basophil% 0.2 % (0-1); Eosinophil# 0.17 X10^3/uL; Eosinophils% 2.7 % (0-5); Lymphocyte # 0.67 X10^3/ul (4.0); Lymphocyte % 10.6 % (19-41); Mean Corp Hgb Conc 33.1 g/dL (32-36); Mean Corpuscular Hgb 29.3 pg (27.0-32.0); Mean Corpuscular Volume 88.7 fL (80-94); Mean Platelet Vol. 10.7 fl (6.2-12.0); Monocyte% 7.9 % (0-10); NRBC Flagged by Analyzer 0 % (0-5); Neutrophil # 4.96 X10^3/uL (2.7-7.7); Neutrophil % 78.1 % (47-70); Platelet Count 94 K/mm3 (150-450); RBC Distribution Width CV 17.1 % (11.6-14.6); RBC Distribution Width SD 55.3 fl (35.1-43.9)
[2019-07-28 14:55] LABS: AST(SGOT) 38 U/L (15-37); Alanine Aminotransfer ALT/SGPT 35 U/L (16-61); Albumin, Serum 3.3 g/dL (3.2-5.0); Alkaline Phosphatase 148 U/L (45-117); Anion Gap 6 (5-15); BUN 19 mg/dL (7-18); BUN/Creat Ratio 15.6 RATIO (10-20); Calcium,Total 8.7 mg/dL (8.5-10.1); Chloride 113 mmol/L (98-107); Creatinine, Serum 1.22 mg/dL (0.70-1.30); EST Glomerular Filtration Rate 61 mL/min (>60); Est Glom Filt Rate - Afr Amer 74 mL/min (>60); Globulin 3.4 g/dL (2.2-4.2); Glucose 98 mg/dL (74-106); Potassium 4.4 mmol/L (3.5-5.1); Protein, Total 6.7 g/dL (6.4-8.2); Sodium Level 142 mmol/L (136-145)
== END ==
PROVIDERS: Family Provider Family Medicine; PCP Family Medicine; Referring Provider Internal Medicine Rheumatology; Visit Provider Internal Medicine Rheumatology
DX: M06.4 Inflammatory polyarthropathy (principal); M25.512 Pain in left shoulder; M47.897 Other spondylosis, lumbosacral region; I10 Essential (primary) hypertension; D49.0 Neoplasm of unspecified behavior of digestive system
CPT/HCPCS: 36415; 80053; 85025

== ENCOUNTER → 2019-08-17 09:36 | Outpatient (CLI) | payer MEDICARE, OTHER, SELFPAY ==
[2019-08-17 12:28] LABS: International Normalized Ratio 1.2; Prothrombin Time (Protime)PT. 15.3 SECONDS (11.7-14.9)
[2019-08-18 12:23] LABS: AFP, Tumor Marker 1.6 ng/mL (0.0-8.3)
== END ==
PROVIDERS: Family Provider Family Medicine; PCP Family Medicine; Referring Provider Internal Medicine Gastroenterology; Visit Provider Internal Medicine Gastroenterology
DX: K74.60 Unspecified cirrhosis of liver (principal)
CPT/HCPCS: 36415; 82105; 85610; 85730

== ENCOUNTER 2019-09-20 00:36 | Inpatient (IN) | payer MEDICARE, OTHER, SELFPAY ==
[2019-09-20] VITALS (22 sets, daily range): BP systolic 101–149; BP diastolic 49–85; PULSE 65–98; RESP 14–25; TEMP 36.9–37.6; O2SAT 88–96; BMI 45.1; BMI 44.4
--- NOTE | 2019-09-20 01:02 | RAD_ITS ---
STUDY: X-RAY CHEST REASON FOR EXAM: Male, 79 years old. Cough and shortness of breath. TECHNIQUE: Two AP portable views of the chest. COMPARISON: January 09, 2019. FINDINGS: Right-sided Mediport catheter is present within the internal jugular vein with the tip of the catheter in superior vena cava. There is hyperinflation of the lungs consistent with chronic obstructive lung disease (COPD). There appears to be a curvilinear opacity within the left upper lung that is unchanged since the previous study may be the result of pulmonary fibrosis. There is patchy right-sided airspace consolidation possibly representing pneumonia. Bronchovascular markings are prominent in both lungs. There is no demonstrated pleural abnormality. There is mild cardiac enlargement. There is prominence of the hilar areas similar to previous study. This may be related to pulmonary arteries. There is prominence of the pulmonary hilar arteries without peripheral pulmonary vascular congestion. There is atherosclerotic calcification of the aortic arch with tortuosity. There is demineralization of the osseous structures. There are degenerative changes of both shoulders. There is no demonstrated abnormality of the visualized soft tissue structures of the upper abdomen. RAD/Chest 1 View (Portable) IMPRESSION: 1. Cardiomegaly and mild pulmonary edema. 2. A chronic opacity in the left lung similar to previous study may be secondary to pulmonary fibrosis. Electronically Signed: Lisa Mackey MD at 1:57 EST , Service support ,
--- NOTE | 2019-09-20 01:02 | EKG12_ITS ---
Test Reason : SOB Blood Pressure : / mmHG Vent. Rate : 093 BPM Atrial Rate : 093 BPM P-R Int : 204 ms QRS Dur : 100 ms QT Int : 394 ms P-R-T Axes : 054 -35 044 degrees QTc Int : 489 ms Normal sinus rhythm Left axis deviation Prolonged QT Poor R-Wave Progression Abnormal ECG Confirmed by ILZA MORATAYA, TRUNG ([id number]), design editor DENAE GRIFFIN ([id number]) on 09/21/2019 11:13:19 AM Referred By: MILLY Confirmed By:TRUNG DE JESUS MD
--- NOTE | 2019-09-20 01:03 | ED.VIS.GEN ---
History of Present Illness Chief Complaint: Shortness of Breath Narrative: Patient is a 79-year-old male who presents with shortness of breath. Yesterday began have a sore throat noticed his throat was red. He used Chloraseptic. He has also had a nonproductive cough. He complains of rattling or feeling like there is water in his chest. He denies any chest pain. He did have chills at home and took Tylenol but did not check a temperature. No vomiting or diarrhea. He does have a history of congestive heart failure. He has swelling of the lower extremities but this is at baseline per the patient. He also has a history of lung cancer which she had radiation and chemotherapy for but has not undergone treatment in the last couple of years. He does have a port. Past Medical History - Allergies and Home Meds Allergies/Adverse Reactions: Allergies No Known Allergies Allergy (Verified 09/20/19 00:36) Primary Care Physician: Armin Carlin DO [Primary Care Provider] - Past Medical History: - - Hypertension, CHF, metastatic colon cancer to lung Surgical History: appendectomy, arthroscopy, knee, cataract, colectomy - She had a right hemicolectomy secondary to colon cancer, - - 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 He had bilateral carpal tunnel surgery as well Smoking Status: Never smoker - Family History Maternal Family History: Reports: No pertinent history Paternal Family History: Reports: No pertinent history Review of Systems All systems negative except as indicated General: Reports: Chills ENT: Reports: Sore throat Cardiovascular: Denies: Chest pain Respiratory: Reports: Dyspnea, Cough. Denies: Sputum Gastrointestinal: Denies: Vomiting, Diarrhea Physical Exam Vital Signs/Narrative: Vital Signs Temp Pulse Resp BP Pulse Ox 09/20/19 00:39 99.0 F 98 22 H 149/85 H 94 09/20/19 00:37 99.0 F 98 21 H 149/85 H 88 Inital Vital Signs reviewed: Yes General: Well nourished, Obese ENT: Moist mucous membranes Neck: Supple Cardiovascular: Regular rate, Regular rhythm Respiratory: Rales, - - Tachypnea, speaking in short sentences, bilateral rales Abdomen: Soft, Nontender, Nondistended Extremities: Nontender Skin: Normal color Neurological: Alert Psychological: Normal affect Diagnostic/Tx/Re-eval Impressions Chest X-Ray 09/20/19 01:02 IMPRESSION: 1. Cardiomegaly and mild pulmonary edema. 2. A chronic opacity in the left lung similar to previous study may be secondary to pulmonary fibrosis. Electronically Signed: Lisa Mackey MD at 1:57 EST , Service support , 09/20/19 01:02 Chest 1 View (Portable) [RAD] Stat Laboratory Results 09/20/19 09/20/19 09/20/19 01:17 01:17 01:17 WBC 7.8 RBC 4.16 L Hgb 12.4 L Hct 36.8 L MCV 88.5 MCH 29.8 MCHC 33.7 RDW Std Deviation 55.9 H RDW Coeff of [place]ola 17.3 H Plt Count 81 L MPV 10.5 Immature Gran % (Auto) 0.400 Neut % (Auto) 82.6 H Lymph % (Auto) 6.2 L [place] % (Auto) 6.1 Eos % (Auto) 4.4 Baso % (Auto) 0.3 Absolute Neuts (auto) 6.4 Absolute Lymphs (auto) 0.48 L Nucleated RBC % 0 Sodium 141 Potassium 3.8 Chloride 110 H Carbon Dioxide 22.0 Anion Gap 9 BUN 18 Creatinine 1.31 H Estim Creat Clear Calc 38.29 Est GFR (MDRD) Af Amer 68 Est GFR (MDRD) Non-Af 56 L BUN/Creatinine Ratio 13.7 Glucose 90 Lactic Acid 1.8 Calcium 8.8 Troponin I 0.473 H B-Natriuretic Peptide 09/20/19 01:17 WBC RBC Hgb Hct MCV MCH MCHC RDW Std Deviation RDW Coeff of Nicola Plt Count MPV Immature Gran % (Auto) Neut % (Auto) Lymph % (Auto) [place] % (Auto) Eos % (Auto) Baso % (Auto) Absolute Neuts (auto) Absolute Lymphs (auto) Nucleated RBC % Sodium Potassium Chloride Carbon Dioxide Anion Gap BUN Creatinine Estim Creat Clear Calc Est GFR (MDRD) Af Amer Est GFR (MDRD) Non-Af BUN/Creatinine Ratio Glucose Lactic Acid Calcium Troponin I B-Natriuretic Peptide 360.2 H - Medical Decision Making EKG shows sinus rhythm with left axis deviation, prolonged QT. No acute ischemic changes. Laboratory studies and imaging as above notable for elevation of troponin and BNP. No leukocytosis. No focal infiltrate on chest x-ray. I believe the patient's troponin elevation is likely due to acute exacerbation of congestive heart failure. He denies a history of coronary disease or prior myocardial infarction. He has had no chest pain. He feels much better here. He was given IV Lasix and aspirin. He will be discussed with the hospitalist and admitted. ED Disposition - Plan for ED Patient: Disposition: Acute Care Hospital [facility] Diagnosis: CHF (congestive heart failure) Referrals: Armin Carlin DO [Primary Care Provider] -
[2019-09-20 01:32] LABS: Absolute Lymphocyte Count 0.48 X10^3/uL (0.83-4.51); Absolute Neutrophil Count 6.4 X10^3/uL (2.0-7.7); Basophil# 0.02 X10^3/uL; Basophil% 0.3 % (0-1); Eosinophil# 0.34 X10^3/uL; Eosinophils% 4.4 % (0-5); Hematocrit 36.8 % (40-54); Hemoglobin 12.4 g/dL (13.0-16.5); Lymphocyte # 0.48 X10^3/ul (4.0); Lymphocyte % 6.2 % (19-41); Mean Corp Hgb Conc 33.7 g/dL (32-36); Mean Corpuscular Hgb 29.8 pg (27.0-32.0); Mean Corpuscular Volume 88.5 fL (80-94); Mean Platelet Vol. 10.5 fl (6.2-12.0); Monocyte# 0.47 X10^3/uL; Monocyte% 6.1 % (0-10); NRBC Flagged by Analyzer 0 % (0-5); Neutrophil # 6.42 X10^3/uL (2.7-7.7); Neutrophil % 82.6 % (47-70); POSITIVE COUNT YES; POSITIVE DIFFERENTIAL YES; POSITIVE MORPHOLOGY YES; Platelet Count 81 K/mm3 (150-450); RBC Distribution Width CV 17.3 % (11.6-14.6); RBC Distribution Width SD 55.9 fl (35.1-43.9); Red Blood Count 4.16 M/mm3 (4.6-6.2); White Blood Count 7.8 K/mm3 (4.4-11.0)
[2019-09-20 01:38] LABS: Differential Indicated SCAN CRITERIA MET
[2019-09-20 01:48] LABS: Anion Gap 9 (5-15); BUN 18 mg/dL (7-18); BUN/Creat Ratio 13.7 RATIO (10-20); Calcium,Total 8.8 mg/dL (8.5-10.1); Chloride 110 mmol/L (98-107); Creatinine, Serum 1.31 mg/dL (0.70-1.30); EST Glomerular Filtration Rate 56 mL/min (>60); Est Glom Filt Rate - Afr Amer 68 mL/min (>60); Estimated Creatinine Clearance 38.29 ml/min; Glucose 90 mg/dL (74-106); Lactic Acid 1.8 mmol/L (0.4-2.0); Potassium 3.8 mmol/L (3.5-5.1); Sodium Level 141 mmol/L (136-145)
[2019-09-20 02:04] LABS: BNP,B-Type NATRIURETIC PEPTIDE 360.2 pg/mL (0-100)
[2019-09-20] MEDS: Aspirin 81 MG TAB.CHEW 324 MG PO (02:57)
[2019-09-20] MEDS: Furosemide 40 MG/4 ML Vial IV ×2 (02:58→17:15)
--- NOTE | 2019-09-20 03:12 | HP.PCM_ITS ---
Problem List (1) HTN (hypertension) Status: Chronic (2) CHF (congestive heart failure) Status: Acute History of Present Illness Date of Admission: 09/20/19 Chief Complaint: Shortness of breath The patient is a 79 year old male patient with a past medical history of congestive heart failure, hepatic liver disease status post remote surgery to remove half of his liver secondary to metastatic colon cancer presents to the emergency room with shortness of breath. The patient states he had onset of symptoms beginning last evening, however, according to his family member she noticed him having difficulty breathing as early as this past Thursday. 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 Laboratory studies reveal sodium 141 potassium 3.8 chloride 110 bicarb 22 BUN 18 creatinine 1.3 glucose 90, troponin 0 0.473, BNP 360, CBC shows white blood cell count of 7.8, hemoglobin 12.4, hematocrit 36.8, platelets 81, chest x-ray reveals cardiomegaly with pulmonary edema. The patient has responded oxygen therapy along with additional diuresis with Lasix and will be admitted to the progressive care unit for further work-up and management. 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) Colon cancer metastasized to liver (Chronic) Colon cancer metastasized to lung (Chronic) Allergies No Known Allergies Allergy (Verified 09/20/19 00:36) Home Medications: Ambulatory Orders Medication Instructions Recorded Furosemide [Lasix] 20 mg PO DAILY 12/26/15 Hydroxychloroquine [Plaquenil] 200 mg PO BIDCM 12/26/15 Losartan Potassium [Cozaar] 50 mg PO DAILY 12/26/15 Alpha-3S/Dha/Epa/Fish Oil [Fish 1 each PO DAILY 12/26/15 Oil 1,200 mg Softgel] Sertraline HCl [Zoloft] 50 mg PO DAILY 12/26/15 Propranolol HCl [Inderal (Beta 20 mg PO BID 02/07/16 Sindi)] Magnesium Oxide [Mag-Ox 400] 400 mg PO BID 08/24/16 Omeprazole [Prilosec] 20 mg PO DAILY 08/24/16 Turmeric Root Extract [Turmeric] 500 mg PO DAILY 10/24/17 Ginseng 100 mg PO DAILY 01/09/19 Rifaximin [Xifaxan] 500 mg PO BID 01/09/19 Dicyclomine HCl [Bentyl] 10 mg PO Q6H PRN #20 capsule 01/12/19 Potassium Chloride [K-Dur] 40 meq PO DAILY #0 01/12/19 Ondansetron [Zofran Odt] 1 mg PO Q8H PRN PRN 09/20/19 Surgical History: appendectomy, arthroscopy, knee, cataract, colectomy - She had a right hemicolectomy secondary to colon cancer, - - 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 He had bilateral carpal tunnel surgery as well Psychiatric History: No pertinent psych hx Smoking Status: Never smoker - *Family History Maternal History Items: No pertinent history Paternal History Items: No pertinent history Review of Systems Constitutional: Denies: Chills, Fever, Weight Change HEENT: Denies: Head Aches, Sinus Congestion, Sinus Drainage Cardiovascular: Denies: Chest Pain, Palpitations Respiratory: Reports: Shortness of breath at rest. Denies: Cough, Sputum production Gastrointestinal: Denies: Abdominal Pain, Nausea, Vomiting Genitourinary: Denies: Dysuria Musculoskeletal: Denies: Joint Pain, Joint Tenderness Skin: Denies: Rash, Wounds Neurological: Denies: Numbness, Tingling, Focal weakness Psychiatric: Denies: Anxiety, Depression, Homicidal Ideations, Suicidal Ideations Hematologic/ Lymphatic: Denies: Easy Bruising, Easy Bleeding VTE Information - Inpt Only VTE Present on Admission: No VTE Mechan Device Prophylaxis: SCD's VTE Pharm Prophylaxis ordered?: No Reason prophylaxis not ordered:: Medical Contraindication Patient Problems: Active and Suspected Problems CHF (congestive heart failure) (Acute) - Physical Exam Vitals/I&O's: Vital Signs Temp Pulse Resp BP Pulse Ox 99.6 F H 82 25 H 116/83 H 96 09/20/19 02:08 09/20/19 03:08 09/20/19 03:08 09/20/19 03:08 09/20/19 03:08 Oxygen Flow Rate (L/min) 2.5 Oxygen Delivery Method Nasal Cannula Weight: 262 lb 12.656 oz Body Mass Index (BMI) 45.1 General: Alert, Oriented x3, Cooperative HEENT: Atraumatic, Normocephalic Neck: Supple Lungs: Diminished Cardiovascular: Regular rate, Normal S1, Normal S2, No murmurs Abdomen: Bowel Sounds Present, Soft, Non Tender, Obese, - - large abdominal hernia right side Extremities: No edema Skin: No rashes, No breakdown Musculoskeletal: No Tenderness to Palpation of Joints or Extremities Neurological: Neuro grossly intact Psych/Mental Status: Normal Affect, Appropriate Laboratory Results 09/20/19 01:17: WBC 7.8, RBC 4.16 L, Hgb 12.4 L, Hct 36.8 L, MCV 88.5, MCH 29.8, MCHC 33.7, RDW Std Deviation 55.9 H, RDW Coeff of Nicola 17.3 H, Plt Count 81 L, MPV 10.5, Immature Gran % (Auto) 0.400, Neut % (Auto) 82.6 H, Lymph % (Auto) 6.2 L, [place] % (Auto) 6.1, Eos % (Auto) 4.4, Baso % (Auto) 0.3, Absolute Neuts (auto) 6.4, Absolute Lymphs (auto) 0.48 L, Nucleated RBC % 0 09/20/19 01:17: Sodium 141, Potassium 3.8, Chloride 110 H, Carbon Dioxide 22.0, Anion Gap 9, BUN 18, Creatinine 1.31 H, Estim Creat Clear Calc 38.29, Est GFR (MDRD) Af Amer 68, Est GFR (MDRD) Non-Af 56 L, BUN/Creatinine Ratio 13.7, Glucose 90, Calcium 8.8, Troponin I 0.473 H 09/20/19 01:17: Lactic Acid 1.8 09/20/19 01:17: B-Natriuretic Peptide 360.2 H Assessment/Plan All Active Problems Hepatic encephalopathy (Acute) Colitis (Acute) CHF (congestive heart failure) (Acute) Abdominal pain (Acute) History of DVT (deep vein thrombosis) (Resolved) Chronic Problems HTN (hypertension) (Chronic) 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 Congestive heart failure?acute?admit patient to progressive care unit, IV Lasix 40 mg twice daily, echocardiogram in the morning, cycle troponins, continue oxygen therapy per protocol, repeat CBC BMP tomorrow 2. Hypertension?continue home medications 3. DVT prophylaxis?SCDs due to lower than normal platelet count Code Visit OBSV E&M: 61536 Initial observation care L2
[2019-09-20] MEDS: 0.9% Saline Lock 10 ML Syringe IV ×3 (04:12→09:31)
--- NOTE | 2019-09-20 05:55 | ECHOCS_ITS ---
Reason For Study: CHF Procedure This was a 2D Doppler, Color Flow transthoracic echocardiogram. The study was technically difficult. Contrast injection was performed. Exam performed portable in patient room. Left Ventricle Normal LV size. Mild concentric left ventricular hypertrophy. Left ventricular systolic function is normal. The estimated ejection fraction is 60 %. Diastolic function is indeterminate. No regional wall motion abnormalities noted. Right Ventricle Normal RV size. Normal systolic function. Atria The left atrium is moderately enlarged. The right atrium is mildly enlarged. No doppler evidence for ASD. Mitral Valve There is mild mitral annular calcification. Extension of the mitral annular calcification onto the posterior mitral valve leaflet. Mild (1+) mitral valve insufficiency. Tricuspid Valve Normal tricuspid valve. Mild tricuspid valve insufficiency. Right ventricular systolic pressure estimated to be 31 mmHg. Aortic Valve Trisinus/trileaflet aortic valve. Mild focal aortic valve thickening. Pulmonic Valve The pulmonic valve is not well visualized. Trivial pulmonic valve insufficiency. Great Vessels Normal sized aortic root. Pericardium/Pleural No pericardial effusion. Medication Diluted definity 2.5ml given slow IV push to enhance endocardial definition. MMode/2D Measurements & Calculations LVIDd: 4.8 cm IVSd: 1.4 cm Ao root diam: 3.7 cm LVIDs: 2.7 cm LVPWd: 1.3 cm RVDd: 4.2 cm FS: 43.1 % LAV(MOD-bp): 90.7 ml LA A4 area: 27.2 cm2 LA dimension(2D): 4.4 cm LAV(MOD-bp) Indexed: 41.3 ml/m2 LAV(MOD-sp2): 85.0 ml LAV(MOD-sp4): 78.4 ml RA A4 area: 26.1 cm2 Doppler Measurements & Calculations MV E max syed: 72.9 cm/sec Lat Peak E' Syed: 10.0 cm/sec Med Peak E' Syed: 5.5 cm/sec MV A max syed: 74.8 cm/sec E/E' lat: 7.3 E/E' med: 13.3 MV E/A: 0.97 Ao V2 max: 153.9 cm/sec LV V1 max: 109.0 cm/sec PA V2 max: 117.3 cm/sec Ao max P.5 mmHg LV V1 max P.8 mmHg TR max syed: 266.6 cm/sec TR max P.4 mmHg Interpretation Summary The study was technically difficult. Contrast injection was performed. Left ventricular systolic function is normal. The estimated ejection fraction is 60 %. Mild concentric left ventricular hypertrophy. The left atrium is moderately enlarged. The right atrium is mildly enlarged. There is mild mitral annular calcification. Extension of the mitral annular calcification onto the posterior mitral valve leaflet. Mild (1+) mitral valve insufficiency. Mild tricuspid valve insufficiency. Mild focal aortic valve thickening. Trivial pulmonic valve insufficiency. Right ventricular systolic pressure estimated to be 31 mmHg. Diastolic function is indeterminate. Ordering Physician: Madan Michelle Referring Physician: Armin Carlin Performed By: Molly Owens RDCS
[2019-09-20 07:46] LABS: Absolute Lymphocyte Count 0.65 X10^3/uL (0.83-4.51); Absolute Neutrophil Count 6.9 X10^3/uL (2.0-7.7); Basophil# 0.04 X10^3/uL; Basophil% 0.5 % (0-1); Eosinophil# 0.02 X10^3/uL; Eosinophils% 0.2 % (0-5); Hematocrit 33.5 % (40-54); Hemoglobin 11.1 g/dL (13.0-16.5); Lymphocyte # 0.65 X10^3/ul (4.0); Mean Corp Hgb Conc 33.1 g/dL (32-36); Mean Corpuscular Hgb 29.9 pg (27.0-32.0); Mean Corpuscular Volume 90.3 fL (80-94); Monocyte# 0.47 X10^3/uL; Monocyte% 5.8 % (0-10); NRBC Flagged by Analyzer 0 % (0-5); Neutrophil # 6.88 X10^3/uL (2.7-7.7); Neutrophil % 84.9 % (47-70); POSITIVE COUNT YES; POSITIVE MORPHOLOGY YES; Platelet Count 51 K/mm3 (150-450); RBC Distribution Width CV 17.4 % (11.6-14.6); RBC Distribution Width SD 57.3 fl (35.1-43.9); Red Blood Count 3.71 M/mm3 (4.6-6.2); White Blood Count 8.1 K/mm3 (4.4-11.0)
[2019-09-20 07:58] LABS: Anion Gap 8 (5-15); BUN 22 mg/dL (7-18); BUN/Creat Ratio 13.1 RATIO (10-20); Calcium,Total 8.4 mg/dL (8.5-10.1); Chloride 109 mmol/L (98-107); Creatinine, Serum 1.68 mg/dL (0.70-1.30); EST Glomerular Filtration Rate 42 mL/min (>60); Est Glom Filt Rate - Afr Amer 51 mL/min (>60); Estimated Creatinine Clearance 29.85 ml/min; Glucose 92 mg/dL (74-106); Potassium 4.5 mmol/L (3.5-5.1); Sodium Level 141 mmol/L (136-145)
[2019-09-20 08:08] LABS: Differential Comment SCANNED; Differential Indicated SCAN CRITERIA MET
[2019-09-20 08:09] LABS: Platelet Estimate MOD DEC (ADEQ); Platelet Morphology LARGE
[2019-09-20 08:10] LABS: Atypical Lymphocyte RARE %
--- NOTE | 2019-09-20 09:01 | PCM.CONS.C ---
Problem List (1) NSTEMI (non-ST elevated myocardial infarction) Status: Acute (2) CHF (congestive heart failure) Status: Chronic Qualifiers: Heart failure chronicity: unspecified (3) HTN (hypertension) Status: Chronic (4) Colon cancer metastasized to lung Status: Resolved (5) Colon cancer metastasized to liver Status: Resolved (6) Varices of esophagus determined by endoscopy Status: Resolved (7) Renal insufficiency Status: Chronic Reason for Consult Date of Consultation: 09/20/19 History of Present Illness: The patient is a 79 year old white male who claims to have a past cardiovascular history of congestive heart failure who does not recall having any cardiovascular consultation or cardiovascular diagnostic studies performed in the past other than potentially a remote employment history/physical with an exercise tolerance test/treadmill stress test who is referred for concerns of shortness of breath, orthopnea, compatible with his CHF as well as subsequent abnormal troponin I levels compatible with a non-ST segment elevation CO. He states that yesterday evening at home he felt fluid in the back of his mouth. He was concerned that he was filling up with fluid . Thus he elected to present to the hospital for further evaluation. The concern was ongoing acute on chronic CHF of uncertain etiology. He has denied ongoing chest discomfort. There has been no issues with palpitations or rapid beats. He is denied near syncope or syncope. He states he does have waxing and waning lower extremity peripheral pitting edema. He has been noted since his admission to receive IV diuretics. He believes his breathing has improved. He has been followed with cardiac enzymes. His troponin I levels have increased/turn positive. His ECG demonstrated the appearance of sinus rhythm with a left axis deviation and poor R wave progression. His chest x-ray per radiology did not demonstrated is considered an element of pulmonary edema. He has been referred for further cardiovascular consultation for consideration of diagnostic cardiac catheterization. He does state that he had been diagnosed with stage IV colon carcinoma in the past. He had metastatic disease to the liver and the left lung. He received chemotherapy. He received radiation therapy to the left lung. He underwent surgical therapy as well including partial resection of his liver. He does have a large surgical incision on his abdomen and what appears to be a surgical incision related hernia. He has had esophageal varices and lower GI bleeding in the past. He underwent multiple endoscopy procedures and banding of his esophageal varices. He states he follows with his special events director and his commercial fisher oncologist and his radiation oncologist. He states that he has undergone upper and lower endoscopy procedures within the last year that were reportedly clean. He has had no recurrent bleeding. His daughter is with him this morning and states that there has been no recurrent bleeding and she was told in the past after his previous procedures that it would be rising if he had any recurrent bleeding especially from his esophageal varices based upon his previous procedures. She was told that he should avoid blood thinners if at all possible. In the emergency department he did receive aspirin therapy. He has had no obvious acute adverse event from his aspirin therapy. He also has a history of chronic renal insufficiency. He has been through multiple radiologic studies with IV contrast. He states thus far there is been no long-term negative effect on his renal function. His daughter supports his statements. [] Past Medical History Allergies/Adverse Reactions: Allergies No Known Allergies Allergy (Verified 09/20/19 00:36) Home Medications: Ambulatory Orders Medication Instructions Recorded Furosemide [Lasix] 20 mg PO DAILY 12/26/15 Hydroxychloroquine [Plaquenil] 200 mg PO BIDCM 12/26/15 Losartan Potassium [Cozaar] 50 mg PO DAILY 12/26/15 [place]-3S/Dha/Epa/Fish Oil [Fish 1 each PO DAILY 12/26/15 Oil 1,200 mg Softgel] Sertraline HCl [Zoloft] 50 mg PO DAILY 12/26/15 Propranolol HCl [Inderal (Beta 20 mg PO BID 02/07/16 Sindi)] Magnesium Oxide [Mag-Ox 400] 400 mg PO BID 08/24/16 Omeprazole [Prilosec] 20 mg PO DAILY 08/24/16 Turmeric Root Extract [Turmeric] 500 mg PO DAILY 10/24/17 Ginseng 100 mg PO DAILY 01/09/19 Rifaximin [Xifaxan] 500 mg PO BID 01/09/19 Dicyclomine HCl [Bentyl] 10 mg PO Q6H PRN #20 capsule 01/12/19 Potassium Chloride [K-Dur] 40 meq PO DAILY #0 01/12/19 Ondansetron [Zofran Odt] 1 mg PO Q8H PRN PRN 09/20/19 Past Medical History (Chronic Problems): Chronic Problems HTN (hypertension) (Chronic) CHF (congestive heart failure) (Chronic) Renal insufficiency (Chronic) Surgical History: appendectomy, arthroscopy, knee, cataract, colectomy - She had a right hemicolectomy secondary to colon cancer, - - 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 He had bilateral carpal tunnel surgery as well Psychiatric History: No pertinent psych hx - *Family History Maternal History Items: No pertinent history Paternal History Items: No pertinent history Smoking Status: Never smoker Alcohol: None Drugs: None Review of Systems - Review of Systems General: Denies: Fever, Night Sweats, Fatigue Cardiovascular: Reports: Shortness of Breath, Orthopnea, Peripheral Edema. Denies: Chest Discomfort, PND, Palpitations, Lightheadedness, Dizziness, Near Syncope, Syncope Respiratory: Reports: Shortness of Breath. Denies: Cough, Sputum Production, Hemoptysis Gastrointestinal: Denies: Hematemesis, Hematochezia, Melena Genitourinary: Denies: Dysuria, Hematuria Skin: Denies: Rash Subjectve: -year-old white male who appears to be resting comfortably at the moment in no acute distress. Objective: Vital Signs Temp Pulse Resp BP Pulse Ox 98.4 F 78 18 102/54 L 95 09/20/19 03:40 09/20/19 03:40 09/20/19 03:40 09/20/19 03:40 09/20/19 07:44 Oxygen Flow Rate (L/min) 2 Oxygen Delivery Method Nasal Cannula Weight: 258 lb 9.636 oz Body Mass Index (BMI) 44.4 Intake and Output for Last 24 Hours 09/18/19 09/19/19 09/20/19 23:59 23:59 23:59 Intake Total 120 / 120 Output Total 200 / 200 Balance -80 / -80 General: Awake, Alert, Oriented x 3, Cooperative, No Acute Distress HEENT: Atraumatic, Normocephalic, PERRL, EOMI, Sclera Non Icteric Neck: Supple, Good ROM, No JVD Lungs: Clear to auscultation Cardiovascular: Regular Rhythm, Normal S1, Normal S2 Vascular: No Carotid Bruits Abdomen: Bowel Sounds Present, Soft, Non Tender Extremities: No edema Neurological: No Focal Motor or Sensory Deficit Psych/Mental Status: Appropriate 09/20/19 01:17: WBC 7.8, RBC 4.16 L, Hgb 12.4 L, Hct 36.8 L, MCV 88.5, MCH 29.8, MCHC 33.7, Plt Count 81 L, MPV 10.5, Immature Gran % (Auto) 0.400, Neut % (Auto) 82.6 H, Lymph % (Auto) 6.2 L, [place] % (Auto) 6.1, Eos % (Auto) 4.4, Baso % (Auto) 0.3, Absolute Neuts (auto) 6.4, Nucleated RBC % 0 09/20/19 01:17: Sodium 141, Potassium 3.8, Chloride 110 H, Carbon Dioxide 22.0, Anion Gap 9, BUN 18, Creatinine 1.31 H, Est GFR (MDRD) Af Amer 68, Est GFR (MDRD) Non-Af 56 L, BUN/Creatinine Ratio 13.7, Glucose 90, Calcium 8.8, Troponin I 0.473 H 09/20/19 01:17: Lactic Acid 1.8 09/20/19 01:17: B-Natriuretic Peptide 360.2 H 09/20/19 04:10: Troponin I 1.650 H* 09/20/19 07:17: WBC 8.1, RBC 3.71 L, Hgb 11.1 L, Hct 33.5 L, MCV 90.3, MCH 29.9, MCHC 33.1, Plt Count 51 L, MPV 10.0, Immature Gran % (Auto) 0.600, Neut % (Auto) 84.9 H, Lymph % (Auto) 8.0 L, [place] % (Auto) 5.8, Eos % (Auto) 0.2, Baso % (Auto) 0.5, Absolute Neuts (auto) 6.9, Nucleated RBC % 0 09/20/19 07:17: Sodium 141, Potassium 4.5, Chloride 109 H, Carbon Dioxide 24.0, Anion Gap 8, BUN 22 H, Creatinine 1.68 H, Est GFR (MDRD) Af Amer 51 L, Est GFR (MDRD) Non-Af 42 L, BUN/Creatinine Ratio 13.1, Glucose 92, Calcium 8.4 L 09/20/19 07:17: Troponin I 2.580 H* Rhythm: Sinus rhythm EKG: As noted above CXR: As noted above Assessment/Plan 1. Non-ST segment elevation CO The patient has been diagnosed with a non-ST segment elevation CO. It is unclear whether this is a type I event secondary to an acute coronary syndrome versus a type II event secondary to supply demand mismatch potentially related to his history of underlying CHF . At the moment he appears without acute symptoms. He remains in sinus rhythm. His cardiac enzymes and ECG are being followed. He has been requested to have a transthoracic echocardiogram to further evaluate his left ventricular wall motion and systolic function. However he is also been requested to have further evaluation with diagnostic cardiac catheterization. The cardiac catheterization procedure and risks were discussed with the patient with his daughter present. They were both in agreement to this. In the interim he will continue medical management as tolerated. He is already received aspirin therapy. He can receive additional antiplatelet therapy as deemed appropriate as his evaluation proceeds. He can receive nitrates as needed. He is on beta-blockers. He can receive additional medications such as afterload reducing agents, lipid-lowering agents, etc. as deemed appropriate and tolerated based upon his other medical conditions. 2. Congestive heart failure He has a history of congestive heart failure. He does not believe he is undergone further evaluation for this. Thus it is unclear at this time whether his history has been heart failure with reduced ejection fraction or heart failure with preserved ejection fraction. He has been treated with diuretic therapy. He has had improvement in his symptoms. He will undergo further evaluation of his left ventricle with an echocardiogram. 3. Hypertension He will continue medical therapy as deemed appropriate. 4. Colon carcinoma with metastatic disease to the lung and liver-resolved The patient and his daughter state that he has been deemed cancer free at this time. He continues with surveillance follow-up with his multiple physicians. 5. GI bleed: Esophageal varices and lower GI bleed The patient and his daughter state that he has had no further bleeding episodes since his previous evaluation and treatments. At the moment he will continue his medical management. If he requires additional antiplatelet or anticoagulant agents and this will have to be taken into consideration with respect to his history, etc. 6. Chronic renal insufficiency He will have continued follow-up of his renal function. His medications can be adjusted based upon his clinical course, vital signs, and renal function, etc. Overall, the patient's case was discussed at length with the patient and his daughter. They acknowledge the aforementioned diagnoses, procedures, and concerns regarding medications, etc. based upon his history/diagnoses. They are in agreement to proceeding as noted above. This note was generated using a voice recognition system and there may be incorrect words, spelling or punctuation that were not noted when reviewing the office note prior to saving.
[2019-09-20] MEDS: rifAXIMin 550 MG Tablet PO ×2 (09:31→21:43)
[2019-09-20] MEDS: Propranolol 10 MG Tablet 20 MG PO ×2 (09:32→22:10)
[2019-09-20] MEDS: Sertraline 50 MG Tablet PO (09:33)
[2019-09-20] MEDS: Magnesium Oxide 400 MG Tablet PO ×2 (09:33→21:43)
[2019-09-20] MEDS: Pantoprazole Sodium 20 MG Tablet PO (09:33)
[2019-09-20] MEDS: Losartan Potassium 50 MG Tablet PO (09:34)
--- NOTE | 2019-09-20 10:31 | PCM.PN.HOSP ---
Patient Problems: Active and Suspected Problems NSTEMI (non-ST elevated myocardial infarction) (Acute) Subjective: Patient seen and examined. He was admitted with a complaint of shortness of breath that worsened with exertion and relieved by rest. On admission, initial troponin was negative, but trended up to 1.65, and peaked at 2,6. Cardiology was consulted and he is being managed for NSTEMI. he is for cardiac cath later today. Vitals/I&O's: Vital Signs Temp Pulse Resp BP Pulse Ox 98.6 F 71 18 105/53 L 96 09/20/19 09:00 09/20/19 09:00 09/20/19 09:00 09/20/19 09:00 09/20/19 09:00 Oxygen Flow Rate (L/min) 2 Oxygen Delivery Method Room Air Weight: 258 lb 9.636 oz Body Mass Index (BMI) 44.4 Intake and Output for Last 24 Hours 09/18/19 09/19/19 09/20/19 23:59 23:59 23:59 Intake Total 120 / 120 Output Total 200 / 200 Balance -80 / -80 General: Alert, Oriented x3, Cooperative, No apparent distress HEENT: Atraumatic, PERRLA, EOMI, Normocephalic Oral: Moist Mucosa Neck: Supple, No JVD, Negative Carotid Bruits Lungs: Clear to auscultation, Normal air movement, No rhonchi, No wheeze Cardiovascular: Regular rate, Regular Rhythm, Normal S1, Normal S2, No murmurs Abdomen: Bowel Sounds Present, Soft, Non Tender, Non-Distended, No Hepato-splenomegaly Extremities: No clubbing, No cyanosis, No edema, Capillary Refill Less than 3 Seconds Skin: No rashes, No breakdown, - - port in right side of chest Musculoskeletal: No Tenderness to Palpation of Joints or Extremities Lymphatic: No Cervical, Supraclavicular, or Inguinal Adenopathy Neurological: Cranial nerves II-XII grossly intact, Neuro grossly intact, Motor Exam 5/5 strength throughout Psych/Mental Status: Normal Affect, Appropriate, Alert and oriented to time, place, person, mood and affect Laboratory Results 09/20/19 01:17: WBC 7.8, RBC 4.16 L, Hgb 12.4 L, Hct 36.8 L, MCV 88.5, MCH 29.8, MCHC 33.7, RDW Std Deviation 55.9 H, RDW Coeff of Nicola 17.3 H, Plt Count 81 L, MPV 10.5, Immature Gran % (Auto) 0.400, Neut % (Auto) 82.6 H, Lymph % (Auto) 6.2 L, [place] % (Auto) 6.1, Eos % (Auto) 4.4, Baso % (Auto) 0.3, Absolute Neuts (auto) 6.4, Absolute Lymphs (auto) 0.48 L, Nucleated RBC % 0 09/20/19 01:17: Sodium 141, Potassium 3.8, Chloride 110 H, Carbon Dioxide 22.0, Anion Gap 9, BUN 18, Creatinine 1.31 H, Estim Creat Clear Calc 38.29, Est GFR (MDRD) Af Amer 68, Est GFR (MDRD) Non-Af 56 L, BUN/Creatinine Ratio 13.7, Glucose 90, Calcium 8.8, Troponin I 0.473 H 09/20/19 01:17: Lactic Acid 1.8 09/20/19 01:17: B-Natriuretic Peptide 360.2 H 09/20/19 04:10: Troponin I 1.650 H* 09/20/19 07:17: WBC 8.1, RBC 3.71 L, Hgb 11.1 L, Hct 33.5 L, MCV 90.3, MCH 29.9, MCHC 33.1, RDW Std Deviation 57.3 H, RDW Coeff of Nicola 17.4 H, Plt Count 51 L, MPV 10.0, Immature Gran % (Auto) 0.600, Neut % (Auto) 84.9 H, Lymph % (Auto) 8.0 L, [place]urry % (Auto) 5.8, Eos % (Auto) 0.2, Baso % (Auto) 0.5, Absolute Neuts (auto) 6.9, Absolute Lymphs (auto) 0.65 L, Nucleated RBC % 0, Differential Comment SCANNED, Atypical Lymphocytes RARE, Platelet Estimate MOD DEC, Plt Morphology Comment LARGE 09/20/19 07:17: Sodium 141, Potassium 4.5, Chloride 109 H, Carbon Dioxide 24.0, Anion Gap 8, BUN 22 H, Creatinine 1.68 H, Estim Creat Clear Calc 29.85, Est GFR (MDRD) Af Amer 51 L, Est GFR (MDRD) Non-Af 42 L, BUN/Creatinine Ratio 13.1, Glucose 92, Calcium 8.4 L 09/20/19 07:17: Troponin I 2.580 H* Diagnostic Data Chest X-Ray 09/20/19 01:02 IMPRESSION: 1. Cardiomegaly and mild pulmonary edema. 2. A chronic opacity in the left lung similar to previous study may be secondary to pulmonary fibrosis. Electronically Signed: Lisa Mackey MD at 1:57 EST , Service support , Current Medications Dicyclomine HCl (Bentyl) 10 mg PO Q6H PRN PRN PRN Reason: abdominal spasm Furosemide (Lasix) 40 mg IV BIDLX [facility] Last Admin: 09/20/19 09:58 Dose: Not Given Documented by: Sodium Chloride () 250 mls @ 15 mls/hr IV .[id number] PRN PRN Reason: Saline Flush Sodium Chloride () 1,000 mls @ 0 mls/hr IV .Q0M [facility] Losartan Potassium (Cozaar) 50 mg PO DAILY [facility] Last Admin: 09/20/19 09:34 Dose: 50 mg Documented by: Magnesium Oxide (Mag-Ox 400) 400 mg PO BID [facility] Last Admin: 09/20/19 09:33 Dose: 400 mg Documented by: Ondansetron HCl (Zofran Odt) 4 mg PO Q8H PRN PRN PRN Reason: NAUSEA Ondansetron HCl (Zofran) 4 mg IV Q8H PRN PRN PRN Reason: NAUSEA/VOMITING Pantoprazole Sodium (Protonix) 20 mg PO DAILY [facility] Last Admin: 09/20/19 09:33 Dose: 20 mg Documented by: [facility] Stop: 09/26/19 08:01 Last Admin: 09/20/19 09:34 Dose: 40 meq Documented by: Potassium Chloride (K-Dur) [facility] Propranolol HCl (Inderal) 20 mg PO BID [facility] Last Admin: 09/20/19 09:32 Dose: 20 mg Documented by: Rifaximin (Xifaxan) 550 mg PO BID [facility] Last Admin: 09/20/19 09:31 Dose: 550 mg Documented by: Sertraline HCl (Zoloft) 50 mg PO DAILY [facility] Last Admin: 09/20/19 09:33 Dose: 50 mg Documented by: Sodium Chloride () 10 - 40 ml IV UD PRN PRN Reason: SALINE FLUSH Last Admin: 09/20/19 09:31 Dose: 20 ml Documented by: STROKE Vital Signs/Narrative: Vital Signs Temp Pulse Resp BP Pulse Ox 09/20/19 09:00 98.6 F 71 18 105/53 L 96 09/20/19 07:44 95 Medical Necessity - Tobacco Use Smoking Status: Never smoker Assessment/Plan All Active Problems Hepatic encephalopathy (Acute) Colitis (Acute) NSTEMI (non-ST elevated myocardial infarction) (Acute) Abdominal pain (Acute) Varices of esophagus determined by endoscopy (Resolved) Colon cancer metastasized to liver (Resolved) Colon cancer metastasized to lung (Resolved) History of DVT (deep vein thrombosis) (Resolved) 1. Nonstemi initial troponin was 0.473->1.650->2.580 cardiology on board 2D echo done, results pending for cardiac cath today- cardiac cath findings were [place] multivessel CAD, 90% stenosis of ostial LAD, with proxima LAD having 85% stenosis; proximal circumflex had 75% stenosis and RCA-50% stenosis; per cardiology, patient to be transferred emergently to [facility] [place] for further management. cardiology on board not given lovenox o/a of low platelets 2. Acute on chronic HF BNP was 360; patient is quite obese though on IV lasix 40mg bid; monitor intake output chart fluid restriction to 1500cc daily 3. Hypertension: on losartan nad propranolol 4. History of metastatic colon cancer s/p hemicolectomy and hepatectomy on rifaximin. 5. DVT porphylaxis: SCDs. no anticoagulation o/a of thrombocytopenia Disposition: transfer to [facility]. Cardiology unit accepted patient; awaiting bed for transfer Code Visit Inpatient E&M: 40024 [facility] L3
--- NOTE | 2019-09-20 11:19 | CASEMGMT ---
ANJEL CORONA assessment: Face to Face with patient for initial transition planning/care coordination assessment. ANJEL CORONA introduced self and role at [facility], pt voices understanding and consents to assessment at this time. Pt is lying in bed in no distress at this time. Pt is A/Ox4 at this time and answers all questions appropriately at this time. Care providers, pharmacy, and demographics verified/updated at this time. PCP: Raegan Specialists: Thelma, onc; Franklin, rheum; May, GI; Ryann, onc rad Preferred Pharmacy: [facility] Insurance: MCR A/B, MMO Prescription Benefit: Silver[employer] Living Will/HPOA: Pt has LW/HPOA and they are currently on file at [facility] at this time. Pt's daughter, Kody Stuart, is HPOA. LNOK: Kody Stuart, daughter/HPOA; Shwetha Lynn, daughter Living Arrangements: Pt states lives alone in 1 story home with 2 steps into home and states no concerns at home at this time. Pt states is normally independent with ADL's. Transportation: Pt states drives self and states no transportation concerns at this time. DME/HHC: Pt states has the following DME: cane, walker, w/c, grab bars, and shower chair. Pt states no need for any further DME at this time. Pt states no concerns with going home at time of discharge. Pt states is retired. Pt states does not smoke or drink ETOH. Pt states no further concerns/needs at this time. CM to follow for any further discharge planning/needs. Advised pt to ask for CM if any further questions/concerns/needs arise, voices understanding. Pt Goal: Home Plan[place] ANJEL CORONA
--- NOTE | 2019-09-20 11:24 | CASEMGMT ---
LW/POA forms scanned into summary tab of echart. Kody Jessica, pt's daughter, is listed as medical POA. DEEPA Omalley
[2019-09-20] MEDS: 0.9% Normal Saline 1,000 ML 50 ML IV (13:30)
--- NOTE | 2019-09-20 15:30 | CL.D_ITS ---
Patient Name: KAMINI JONES Study Date: 09/20/2019 Performing: Madan Becker MD Ht: 64 inches 163 cm : 1940 Wt: 258.3 lbs 117 kg Age: 79 Gender: male BSA: 2.18 PROCEDURE(S) PERFORMED [id number] CLINICAL PROFILE AND INDICATIONS Indications: ACS <= 24 hrs Heart Failure: NYHA Class: 3, Newly Diagnosed: No, Heart Failure Type: Diastolic Stress/Imaging Stress/Image Study Performed: No Angina Classification Anginal Classification w/in 2 Weeks: No symptoms CAD Presentations: Non-STEMI. CONCLUSIONS Elevated Left Ventricular End Diastolic Pressure [place] Multivessel CAD RECOMMENDATIONS Medical therapy Risk factor modification Medical therapy Surgery consult for coronary revascularization DESCRIPTION OF PROCEDURE The patient arrived to the procedure lab. The risks and benefits of the procedure as well as a full d escription of our services here and current unavailability of surgical backup were fully explained to the patient and/or their significant other prior to the catheterization. The Timeout was completed, verifying the correct patient and procedure. The patient's procedural site was prepped and draped in the usual fashion. Local anesthetic was given subcutaneously to right radial region with Lidocaine 2% . Using a modified Seldinger technique, arterial access was obtained via the right radial artery, a 6 Fr sheath was inserted. Left Coronary Artery selective angiography was performed in multiple views u sing a 5 Fr. 4.0 [place] catheter. Right Coronary Artery selective angiography was then performed in mu ltiple views using a 5 Fr. 4.0 [place] catheter. LV to AO pullback pressures were then recorded.The art erial sheath was pulled and a TR Band was applied for hemostasis. 12cc of air CORONARY ANGIOGRAPHY DOMINANCE: Right Dominant LEFT HEART ASSESSMENT Left Ventricular Ejection Fraction: Not assessed Elevated Left Ventricular End Diastolic Pressure LEFT MAIN: Severe calcification, distal: 95 % Stenosis LEFT ANTERIOR DESCENDING ARTERY: Severe calcification OSTIAL LAD: 90 % Stenosis PROX LAD: diffuse: serial: 85 % Stenosis CIRCUMFLEX ARTERY: PROX CIRC: Moderate calcification, diffuse: serial: 75 % Stenosis RAMUS: proximal: 50 % Stenosis RIGHT CORONARY ARTERY: diffuse: eccentric: 50 % Stenosis COLLATERAL FLOW: Collateral flow from Right to Left COMPLICATIONS No Complications PROCEDURE MEDICATIONS Versed 1 mg IV Fentanyl 50 mcg IV Oxygen: 2 L/min via nasal cannula Heparin diluted in 23cc Heparinized saline. Patient given 10cc IA of this solution. 09/20/2019 12:18: 37 Verapamil 2.5mg, Ntg 100mcgs, 2000 units of Heparin diluted in 23cc Heparinized saline. Patient give n 10cc IA of this solution. 09/20/2019 12:18:37 SUMMARY OF HEMODYNAMIC DATA Time AIR REST ECG 12:00:25 AO 116/49 (69) SA 12:25:15 LV 112/1, 22 12:44:21 LV 109/1, 25 12:44:28 LVp 112/-2, 21 12:44:34 AOp 107/51 (74) 12:44:39 Signed By Madan Becker MD On 09/20/2019 15:29:37 Madan Becker MD
--- NOTE | 2019-09-20 16:28 | PCM.DC.SUM ---
Discharge Date and Diagnosis - Problem List Patient Problems: Active and Suspected Problems NSTEMI (non-ST elevated myocardial infarction) (Acute) Date of Admission: 09/20/19 Date of Discharge: 09/20/19 - Primary Discharge Diagnosis Active and Suspected Problems NSTEMI (non-ST elevated myocardial infarction) (Acute) - Secondary Discharge Diagnosis Chronic Problems HTN (hypertension) (Chronic) CHF (congestive heart failure) (Chronic) Renal insufficiency (Chronic) Hospital Course and Treatment Imaging Results: Diagnostic Data Chest X-Ray 09/20/19 01:02 IMPRESSION: 1. Cardiomegaly and mild pulmonary edema. 2. A chronic opacity in the left lung similar to previous study may be secondary to pulmonary fibrosis. Electronically Signed: Lisa Mackey MD at 1:57 EST , Service support , cardiology- Dr Becker Operations: None Procedures: Cardiac catheterization Summary of Care Provided: The patient is a 79 year old M with a past medical history as outlined. He was admitted to the ED on 09/20/2019 with a complaint of shortness of breath which started the night before admission according to patient. However according to his family had started about a couple of days prior. Patient's daughter said he had been told he had borderline heart failure and has been put on p.o. Lasix 20 mg twice daily but had not been following up with a partnership development manager. Shortness of breath was worse with exertion and relieved by rest he denied any associated orthopnea or PND. Labs on admission showed initial troponin of 0.473. BNP was 360 and CBC was only remarkable for platelets of 81. Chest x-ray showed cardiomegaly with pulmonary edema. He was started on diuresis with IV Lasix and admitted to be worked up for shortness of breath. This was initially thought to be due to heart failure with unknown EF. However troponins trended up to 1.6 and then to 2.5. Diagnosis was therefore advised to non-STEMI and cardiology was consulted. Patient had a cardiac cath which showed multivessel disease and main LAD disease. In light of his extensive history of metastatic colon cancer status post colectomy and hepatectomy as well as thrombocytopenia with platelets being 81, decision was made to transfer patient to [facility] for further management as he would likely need CABG. Patient was transferred to [facility] on 09/20/2019 for further management. Patient seen and examined prior to discharge. He had no complaints and felt well. Shortness of breath had resolved. Review systems otherwise negative. Labs and vitals reviewed. o/e: Vital Signs Height 5 ft 4 in Weight: 258 lb 9.636 oz Weight in Pounds 258.6 lbs Pulse Ox 95 Temperature 98.6 F Pulse Rate 66 Respiratory Rate 14 Blood Pressure 115/59 Blood Pressure Position Semi-Fowlers . [] General: Alert, Oriented x3, Cooperative, No apparent distress HEENT: Atraumatic, PERRLA, EOMI, Normocephalic Oral: Moist Mucosa Neck: Supple, No JVD, Negative Carotid Bruits Lungs: Clear to auscultation, Normal air movement, No rhonchi, No wheeze Cardiovascular: Regular rate, Regular Rhythm, Normal S1, Normal S2, No murmurs Abdomen: Bowel Sounds Present, Soft, Non Tender, Non-Distended, No Hepato-splenomegaly Extremities: No clubbing, No cyanosis, No edema, Capillary Refill Less than 3 Seconds Skin: No rashes, No breakdown, - - port in right side of chest Musculoskeletal: No Tenderness to Palpation of Joints or Extremities Lymphatic: No Cervical, Supraclavicular, or Inguinal Adenopathy Neurological: Cranial nerves II-XII grossly intact, Neuro grossly intact, Motor Exam 5/5 strength throughout Psych/Mental Status: Normal Affect, Appropriate, Alert and oriented to time, place, person, mood and affect Plan is as above. Patient Problems: Active and Suspected Problems NSTEMI (non-ST elevated myocardial infarction) (Acute) - Physical Exam Vitals/I&O's: Vital Signs Temp Pulse Resp BP Pulse Ox 98.6 F 66 14 115/59 L 95 09/20/19 13:05 09/20/19 14:15 09/20/19 14:15 09/20/19 14:15 09/20/19 14:15 Oxygen Flow Rate (L/min) 2 Oxygen Delivery Method Room Air Weight: 258 lb 9.636 oz Body Mass Index (BMI) 44.4 Intake and Output for Last 24 Hours 09/18/19 09/19/19 09/20/19 23:59 23:59 23:59 Intake Total 160 / 160 Output Total 200 / 200 Balance -40 / -40 Laboratory Results 09/20/19 01:17: WBC 7.8, RBC 4.16 L, Hgb 12.4 L, Hct 36.8 L, MCV 88.5, MCH 29.8, MCHC 33.7, RDW Std Deviation 55.9 H, RDW Coeff of Nicola 17.3 H, Plt Count 81 L, MPV 10.5, Immature Gran % (Auto) 0.400, Neut % (Auto) 82.6 H, Lymph % (Auto) 6.2 L, [place] % (Auto) 6.1, Eos % (Auto) 4.4, Baso % (Auto) 0.3, Absolute Neuts (auto) 6.4, Absolute Lymphs (auto) 0.48 L, Nucleated RBC % 0 09/20/19 01:17: Sodium 141, Potassium 3.8, Chloride 110 H, Carbon Dioxide 22.0, Anion Gap 9, BUN 18, Creatinine 1.31 H, Estim Creat Clear Calc 38.29, Est GFR (MDRD) Af Amer 68, Est GFR (MDRD) Non-Af 56 L, BUN/Creatinine Ratio 13.7, Glucose 90, Calcium 8.8, Troponin I 0.473 H 09/20/19 01:17: Lactic Acid 1.8 09/20/19 01:17: B-Natriuretic Peptide 360.2 H 09/20/19 04:10: Troponin I 1.650 H* 09/20/19 07:17: WBC 8.1, RBC 3.71 L, Hgb 11.1 L, Hct 33.5 L, MCV 90.3, MCH 29.9, MCHC 33.1, RDW Std Deviation 57.3 H, RDW Coeff of Nicola 17.4 H, Plt Count 51 L, MPV 10.0, Immature Gran % (Auto) 0.600, Neut % (Auto) 84.9 H, Lymph % (Auto) 8.0 L, [place] % (Auto) 5.8, Eos % (Auto) 0.2, Baso % (Auto) 0.5, Absolute Neuts (auto) 6.9, Absolute Lymphs (auto) 0.65 L, Nucleated RBC % 0, Differential Comment SCANNED, Atypical Lymphocytes RARE, Platelet Estimate MOD DEC, Plt Morphology Comment LARGE 09/20/19 07:17: Sodium 141, Potassium 4.5, Chloride 109 H, Carbon Dioxide 24.0, Anion Gap 8, BUN 22 H, Creatinine 1.68 H, Estim Creat Clear Calc 29.85, Est GFR (MDRD) Af Amer 51 L, Est GFR (MDRD) Non-Af 42 L, BUN/Creatinine Ratio 13.1, Glucose 92, Calcium 8.4 L 09/20/19 07:17: Troponin I 2.580 H* Current Medications Dicyclomine HCl (Bentyl) 10 mg PO Q6H PRN PRN PRN Reason: abdominal spasm Furosemide (Lasix) 40 mg IV BIDLX [facility] Last Admin: 09/20/19 09:58 Dose: Not Given Documented by: Sodium Chloride () 250 mls @ 15 mls/hr IV .[id number] PRN PRN Reason: Saline Flush Sodium Chloride () 1,000 mls @ 0 mls/hr IV .Q0M [facility] Sodium Chloride () 1,000 mls @ 50 mls/hr IV .Q20H [facility] Stop: 09/20/19 17:19 Losartan Potassium (Cozaar) 50 mg PO DAILY [facility] Last Admin: 09/20/19 09:34 Dose: 50 mg Documented by: Magnesium Oxide (Mag-Ox 400) 400 mg PO BID [facility] Last Admin: 09/20/19 09:33 Dose: 400 mg Documented by: Ondansetron HCl (Zofran Odt) 4 mg PO Q8H PRN PRN PRN Reason: NAUSEA Ondansetron HCl (Zofran) 4 mg IV Q8H PRN PRN PRN Reason: NAUSEA/VOMITING Pantoprazole Sodium (Protonix) 20 mg PO DAILY [facility] Last Admin: 09/20/19 09:33 Dose: 20 mg Documented by: Potassium Chloride (K-Dur) [facility] Stop: 09/26/19 08:01 Last Admin: 09/20/19 09:34 Dose: 40 meq Documented by: Potassium Chloride (K-Dur) [facility] Propranolol HCl (Inderal) 20 mg PO BID [facility] Last Admin: 09/20/19 09:32 Dose: 20 mg Documented by: Rifaximin (Xifaxan) 550 mg PO BID [facility] Last Admin: 09/20/19 09:31 Dose: 550 mg Documented by: Sertraline HCl (Zoloft) 50 mg PO DAILY [facility] Last Admin: 09/20/19 09:33 Dose: 50 mg Documented by: Sodium Chloride () 10 - 40 ml IV UD PRN PRN Reason: SALINE FLUSH Last Admin: 09/20/19 09:31 Dose: 20 ml Documented by: Discharge Diet: Low fat/ Low Cholesterol Discharge Activity: Return to Normal Activity Home Medications: Medications to take at Discharge Furosemide [Lasix] 20 mg PO DAILY 12/26/15 Hydroxychloroquine [Plaquenil] 200 mg PO BIDCM 12/26/15 Losartan Potassium [Cozaar] 50 mg PO DAILY 12/26/15 [place]-3S/Dha/Epa/Fish Oil [Fish Oil 1,200 mg Softgel] 1 each PO DAILY 12/26/15 Sertraline HCl [Zoloft] 50 mg PO DAILY 12/26/15 Propranolol HCl [Inderal (Beta Sindi)] 20 mg PO BID 02/07/16 Magnesium Oxide [Mag-Ox 400] 400 mg PO BID 08/24/16 Omeprazole [Prilosec] 20 mg PO DAILY 08/24/16 Turmeric Root Extract [Turmeric] 500 mg PO DAILY 10/24/17 Ginseng 100 mg PO DAILY 01/09/19 Rifaximin [Xifaxan] 500 mg PO BID 01/09/19 Dicyclomine HCl [Bentyl] 10 mg PO Q6H PRN #20 capsule 01/12/19 Potassium Chloride [K-Dur] 40 meq PO DAILY #0 01/12/19 Ondansetron [Zofran Odt] 1 mg PO Q8H PRN PRN 09/20/19 Primary Care Physician: Armin Carlin DO [Primary Care Provider] - Please follow up with your Primary Care Physician in: 1-2 weeks Disposition: Acute care Hospital Minutes spent on discharge:: 50 Patient Condition:: Stable Medical Necessity - Tobacco Use Smoking Status: Never smoker Meaningful Use Info Meaningful Use Diagnoses (Choose all that apply): AMI - AMI Aspirin given w/in 24hrs of arrival?: Yes ASA at discharge?: No Reason ASA not ordered:: Allergy - transferred to tertiary center Statins at discharge?: No Reason statins not ordered:: Drug Interaction - transferred to tertiary center Philipp/ARB at discharge?: Yes Beta Sindi at discharge?: Yes Done w/ Acute NC measure.: Yes Code Visit OBSV E&M: 38541 Observ/hosp same date L3
--- NOTE | 2019-09-20 22:57 | NURSING ---
Report called to Palma HOBBS at [facility]. Patient going to J53. Bed22.
--- NOTE | 2019-09-20 23:03 | NURSING ---
Update called to daughter, Kody, per patient request.
== END 2019-09-20 23:50 | disposition short-term general hospital (02) | DRG 280 ==
LOC: ED 02:59 → PCU 03:27
PROVIDERS: Admitting Provider Family Medicine; Emergency Provider Emergency Medicine; Family Provider Family Medicine; PCP Family Medicine; Visit Provider Student in an Organized Health Care Education/Training Program
DX: I21.4 Non-ST elevation (NSTEMI) myocardial infarction (principal); I50.33 Acute on chronic diastolic (congestive) heart failure; Z68.41 Body mass index [BMI] 40.0-44.9, adult; I13.0 Hypertensive heart and chronic kidney disease with heart failure and stage 1 through stage 4 chronic kidney disease, or unspecified chronic kidney disease; I25.10 Atherosclerotic heart disease of native coronary artery without angina pectoris; D69.6 Thrombocytopenia, unspecified; Z85.038 Personal history of other malignant neoplasm of large intestine; E66.9 Obesity, unspecified; Z90.49 Acquired absence of other specified parts of digestive tract; N18.9 Chronic kidney disease, unspecified
CPT/HCPCS: 71045; 80048; 83605; 83880; 84484; 85025; 87040; 93005; 93306; 93454; 99152; 99153; 99284; J7030; Q9957; A4216; C1769; C1894; C8929; J1940; Q9967

== ENCOUNTER → 2019-10-21 14:48 | Outpatient (CLI) | payer MEDICARE, OTHER, SELFPAY ==
[2019-09-20 03:33] VITALS: BMI 44.4
[2019-10-21 16:42] LABS: Absolute Lymphocyte Count 0.87 X10^3/uL (0.83-4.51); Absolute Neutrophil Count 3.6 X10^3/uL (2.0-7.7); Basophil# 0.06 X10^3/uL; Eosinophil# 0.98 X10^3/uL; Eosinophils% 15.7 % (0-5); Hematocrit 32.6 % (40-54); Hemoglobin 10.4 g/dL (13.0-16.5); Lymphocyte # 0.87 X10^3/ul (4.0); Lymphocyte % 13.9 % (19-41); Mean Corp Hgb Conc 31.9 g/dL (32-36); Mean Platelet Vol. 10.7 fl (6.2-12.0); Monocyte# 0.71 X10^3/uL; Monocyte% 11.3 % (0-10); NRBC Flagged by Analyzer 0 % (0-5); Neutrophil # 3.61 X10^3/uL (2.7-7.7); Neutrophil % 57.6 % (47-70); Platelet Count 174 K/mm3 (150-450); RBC Distribution Width CV 17.6 % (11.6-14.6); RBC Distribution Width SD 62.8 fl (35.1-43.9); Red Blood Count 3.36 M/mm3 (4.6-6.2); White Blood Count 6.3 K/mm3 (4.4-11.0)
[2019-10-21 16:56] LABS: ALB/GLOB Ratio 0.7 RATIO (0.9-2.4); AST(SGOT) 45 U/L (15-37); Alanine Aminotransfer ALT/SGPT 27 U/L (16-61); Albumin, Serum 2.6 g/dL (3.2-5.0); Alkaline Phosphatase 172 U/L (45-117); Anion Gap 8 (5-15); BUN 17 mg/dL (7-18); BUN/Creat Ratio 13.8 RATIO (10-20); Calcium,Total 8.4 mg/dL (8.5-10.1); Chloride 107 mmol/L (98-107); Creatinine, Serum 1.23 mg/dL (0.70-1.30); EST Glomerular Filtration Rate 60 mL/min (>60); Est Glom Filt Rate - Afr Amer 73 mL/min (>60); Globulin 3.9 g/dL (2.2-4.2); Glucose 94 mg/dL (74-106); Potassium 4.3 mmol/L (3.5-5.1); Protein, Total 6.5 g/dL (6.4-8.2); Sodium Level 139 mmol/L (136-145)
[2019-10-21 17:21] LABS: BNP,B-Type NATRIURETIC PEPTIDE 390.1 pg/mL (0-100)
== END ==
PROVIDERS: Family Provider Family Medicine; PCP Family Medicine; Visit Provider Family Medicine
DX: I48.0 Paroxysmal atrial fibrillation (principal); I25.10 Atherosclerotic heart disease of native coronary artery without angina pectoris; I42.9 Cardiomyopathy, unspecified
CPT/HCPCS: 36415; 80053; 83880; 85025

== ENCOUNTER → 2019-10-26 12:20 | Outpatient (CLI) | payer MEDICARE, OTHER, SELFPAY ==
[2019-09-20 03:33] VITALS: BMI 44.4
[2019-10-26 13:27] LABS: Absolute Lymphocyte Count 0.88 X10^3/uL (0.83-4.51); Absolute Neutrophil Count 3.3 X10^3/uL (2.0-7.7); Basophil# 0.05 X10^3/uL; Basophil% 0.8 % (0-1); Eosinophil# 1.18 X10^3/uL; Eosinophils% 19.5 % (0-5); Hematocrit 34.6 % (40-54); Hemoglobin 10.8 g/dL (13.0-16.5); Lymphocyte # 0.88 X10^3/ul (4.0); Lymphocyte % 14.6 % (19-41); Mean Corp Hgb Conc 31.2 g/dL (32-36); Mean Corpuscular Hgb 30.3 pg (27.0-32.0); Mean Corpuscular Volume 97.2 fL (80-94); Mean Platelet Vol. 10.3 fl (6.2-12.0); Monocyte% 9.9 % (0-10); NRBC Flagged by Analyzer 0 % (0-5); Neutrophil # 3.31 X10^3/uL (2.7-7.7); Neutrophil % 54.9 % (47-70); Platelet Count 154 K/mm3 (150-450); RBC Distribution Width CV 17.2 % (11.6-14.6); RBC Distribution Width SD 62.7 fl (35.1-43.9); Red Blood Count 3.56 M/mm3 (4.6-6.2)
[2019-10-26 13:59] LABS: Anion Gap 6 (5-15); BNP,B-Type NATRIURETIC PEPTIDE 328.2 pg/mL (0-100); BUN 15 mg/dL (7-18); BUN/Creat Ratio 12.5 RATIO (10-20); Calcium,Total 8.8 mg/dL (8.5-10.1); Chloride 107 mmol/L (98-107); EST Glomerular Filtration Rate 62 mL/min (>60); Est Glom Filt Rate - Afr Amer 75 mL/min (>60); Ferritin 613 ng/mL (26-388); Glucose 92 mg/dL (74-106); Iron 58 ug/dL (65-175); Potassium 4.1 mmol/L (3.5-5.1); Sodium Level 141 mmol/L (136-145); Thyroid Stim Hormone (TSH) 0.89 uIU/mL (0.358-3.74)
== END ==
PROVIDERS: Family Provider Family Medicine; PCP Family Medicine; Referring Provider Family Medicine; Visit Provider Family Medicine
DX: R53.83 Other fatigue (principal); D64.9 Anemia, unspecified; I42.9 Cardiomyopathy, unspecified
CPT/HCPCS: 36415; 80048; 82728; 83540; 83880; 84443; 85025

== ENCOUNTER → 2019-10-26 12:36 | Outpatient (CLI) | payer MEDICARE, OTHER, SELFPAY ==
[2019-09-20 03:33] VITALS: BMI 44.4
--- NOTE | 2019-10-26 13:00 | PCM.CR.ITP ---
General Information - General Information Admitting Diagnosis: CABG - Education/Goals Barriers to Learning: None Cardiac Rehabilitation Goals: 1. Maintain the individual as the primary focus of care. 2. To improve the patient's quality of life. 3. Identification of cardiac risk factors and provide cardiac risk factor management. 4. Enhance the psychosocial status of the patient. 5. Reconditioning enough to allow the patient to resume customary activities. 6. Control symptoms of cardiac disease Scale for measuring improvement of personal goals: Enter appropriate number in Comments. 2 = Unchanged. 3 = Slightly Better. 4 = Moderate Improvement. 5 = Met my Goal Personal Goals: Initial Assessment: Improve energy level, Improve knowledge of cardiac disease, Improve muscle strength and endurance, Control risk factors (learn risk factor modification) Exercise - Initial Assessment - Visit Date of Eval: 10/26/19 - Initial Eval - Stages of Change Stages of Change:: Contemplate - Physician Prescribed Exercise Frequency (days/week): 3x/week for 12 weeks [36 sessions] Duration (Minutes):: 30-45 Intensity: 60-80% age predicted maximum heart rate reserve METs - Progression: 0.5-1.0 MET, RPE 11-14 WEEK: 2.5 mets Target Heart Rate:: 91-120 - Hypertension Do any of the following apply?: Yes Resting Blood Pressure:: 102/54 - Intervention Home Exercise/Activity Goal:: Moderate Exercise 30 min/day x 5 days/wk - Education Goals:: Warm-up, RPE ANDRES Scale, S/S, Safe Exercise, Self-Monitoring - Exercise Program Goals Exercise Program Goals: Aerobic Activity >30 min, B/P <130/80 Nutrition - Initial Assessment - Program Goals Nutrition Program Goals: LDL <70. Total Cholesterol <200. HDL >45. Triglycerides <150. HgbA1C <7%. BMI <25 - Visit Date of Assessment:: 10/26/19 - Stages of Change Stages of Change:: Contemplate - Diabetes Diabetes:: No - Weight Management Height: 50.29 cm Weight:: 112.945 kg Total Score:: 2 - Intervention Referral to dietitian:: No Referral to Diabetic Clinic:: No Will attend diet classes:: Yes - Education Gave educational materials for:: Signs & symptoms of hypoglycemia, Signs & symptoms of hyperglycemia, Relate diabetes to coronary artery disease, Healthy eating Tobacco - Initial Assessment - Program Goals Tobacco Program Goals: Complete smoking cessation. Attend education classes. Improve Knowledge Test score - Learning Barriers Total Score:: 14 - Family Support Do you have family support?: Yes - Tobacco Use Tobacco Use: Non-smoker Do you use smokeless tobacco?: No - Intervention Smoking Cessation Referral:: No Individual Education/Counseling:: No Education Schedule Given:: Yes Psychosocial - Initial Assess - Target Goals Target Goals: Assess presence or absence of depression. Using a valid screening tool, maximizes coping skills. Positive support system - Stages of Change Stages of Change:: Contemplate - Psychosocial Test Tool Used:: HANDS Depression Questionnaire Total Mood Screening Score:: 5 Self-Efficacy Score:: 6 - Intervention PS - Interventions: Yes Attend Stress Management Classes, Yes Uses Stress Management Skills, No Referral to Mental Health, No Referral to [facility] Case Management, No Referral to Physician - Education Gave educational materials for:: Coping techniques, Signs & symptoms of depression, Stress management, Relaxation techniques - Assistive Devices Assistive Devices:: Walker Fall Risk Assessed:: Yes - no treadmill Patient Health Questionnaire Initial Assessment 1. Little interest or pleasure in doing things: Not at all 2. Feeling down, depressed, or hopeless: Several days 3. Trouble falling or staying asleep, or sleeping too much: More than half the days 4. Feeling tired or having little energy: More than half the days 5. Poor appetite or overeating: Not at all 6. Feeling bad about yourself -- or that you are a failure or have let yourself or your family down: Not at all 7. Trouble concentrating on things, such as reading the newspaper or watching television: Not at all 8. Moving or speaking so slowly that other people could have noticed. Or the opposite - being so fidgety or restless that you have been moving around a lot more than usual: Not at all 9. Thoughts that you would be better off , or of hurting yourself in some way: Not at all How difficult have these problems made it for you to do your work, take care of things at home, or get along with other people?: Not difficult at all Total Score: 5 FREDA-Q SV Test - Statements CAD is a disease of the arteries in the heart: False Examples of risk factors for heart disease: True Angina is chest pain or discomfort: False The benefits of resistance training include: I Don't Know Eating more meat and dairy products: False Anti-platelet medications such as aspirin are important: True The only effective way to manage stress: False An exercise warm-up slowly increases heart rate: I Don't Know Prepared, processed foods usually have high sodium: True Depression is common after a heart attack: False The statin medications lower cholesterol: True To control blood pressure, lower the amount of sodium: True If someone gets chest discomfort during walking: False Transfats are partially hydrogenated vegetable oils: False Sleep apnea that is not treated increases the risk: False To control cholesterol, one should become a vegetarian: False Someone knows if he/she is exercising at the right level: True Diabetes cannot be prevented with exercise & health eating: False Stress is a large risk for heart attack: True A diet that can help lower blood pressure is rich in: False - Total Score Total Correct Responses: 14 Self-Efficacy Initial Assessment We would like to know how confident you are in doing certain activities. Please select your confidence level for:: Select your confidence level for the following using the scale 1-10 where 1 is not at all confident and 10 is totally confident. Your score is the average of all 6 responses. Fatigue: How confident are you that you can keep the fatigue caused by your disease from interfering with the things you want to do? Select Number: 5 Physical Discomfort or Pain: How confident are you that you can keep the physical discomfort or pain of your disease from interfering with the things you want to do? Select Number: 7 Emotional Distress: How confident are you that you can keep the emotional distress caused by your disease from interfering with the things you want to do? Select Number: 7 Other Symptoms or Health Problems: How confident are you that you can keep other symptoms or health problems from interfering with the things you want to do? Select Number: 7 Different Tasks and Activities: How confident are you that you can do the different tasks and activities needed to manage your health condition so as to reduce your need to see a doctor? Select Number: 5 Medication: How confident are you that you can do things other than just taking medication to reduce how much your illness affects your everyday life? Select Number: 5 Total Score:: 6 Nutrition Survey - Nutrition Survey Instructions Scoring Instructions: Scoring is as follows: Yes = 1 points. No = 0 point. Patient score that is >/=12 is considered to be at potential nutritional risk and could benefit from a referral to a registered dietitian. - Nutrition Survey Initial Have you lost >10 lbs over the past 2 months without trying?: No Are you following a special diet at home for diabetes, low fat, or low salt?: Yes Are you interested in meeting with a dietitian for help understanding your diet?: No Do you eat less than 3 meals a day?: No Do you eat fatty meats (hugo, sausage, ribs, etc), fried foods, desserts, large amounts of salad dressings, margarine, butter, or cheese most days?: No Do you have food allergies? [Enter types in comment field]: No Do you eat in restaurants more than 3 times a week?: No Do you season food with salt, seasoning salt, or garlic salt?: No Do you used canned, boxed, frozen meals, or soups, seasoning packets?: Yes Total Score:: 2
--- NOTE | 2019-10-26 13:01 | PCM.CR.HP2 ---
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 - History of Present Cardiac Event Onset Date: Enter Onset Date of cardiac illnesses in Comment field below Coronary Artery Bypass Graft:: Yes Interventions with present event:: CABG 10/04/2019 - Medications Home Medications: Ambulatory Orders Medication Instructions Recorded Furosemide [Lasix] 20 mg PO DAILY 12/26/15 Hydroxychloroquine [Plaquenil] 200 mg PO BIDCM 12/26/15 Losartan Potassium [Cozaar] 50 mg PO DAILY 12/26/15 [place]-3S/Dha/Epa/Fish Oil [Fish 1 each PO DAILY 12/26/15 Oil 1,200 mg Softgel] Sertraline HCl [Zoloft] 50 mg PO DAILY 12/26/15 Propranolol HCl [Inderal (Beta 20 mg PO BID 02/07/16 Sindi)] Magnesium Oxide [Mag-Ox 400] 400 mg PO BID 08/24/16 Omeprazole [Prilosec] 20 mg PO DAILY 08/24/16 Turmeric Root Extract [Turmeric] 500 mg PO DAILY 10/24/17 Ginseng 100 mg PO DAILY 01/09/19 Rifaximin [Xifaxan] 500 mg PO BID 01/09/19 Dicyclomine HCl [Bentyl] 10 mg PO Q6H PRN #20 capsule 01/12/19 Potassium Chloride [K-Dur] 40 meq PO DAILY #0 01/12/19 Ondansetron [Zofran Odt] 1 mg PO Q8H PRN PRN 09/20/19 - Allergies Allergies/Adverse Reactions: Allergies No Known Allergies Allergy (Verified 09/20/19 00:36) - Sleep Disorder Evaluation Hx of Sleep Apnea: No Do you snore loudly (louder than talking or can be heard through closed doors)?: Yes Do you often feel tired/ fatigued/ sleepy during daytime?: Yes Has anyone observed you stop breathing during sleep?: No History of Hypertension (for STOP score): Yes STOP Results: Positive Advanced Directives - Advanced Directives Power of Staff Mechanical Engineer: Yes Living Will: Yes Advance Directives Information Provided: Yes Advance Directives on File: Yes DNR Order?:: Yes Past Medical History - Past Medical Illness Medical History: Past Medical History (Last Updated 09/22/19 @ 08:54 by Ina Milligan) History of left heart catheterization (LHC) Onset Date: ~09/20/19 Z98.890 Multivessel CAD; transfer to [facility] for surgery consult for coronary revascularization - Past Surgical History Surgical History: appendectomy, arthroscopy, knee, cataract, colectomy - She had a right hemicolectomy secondary to colon cancer, - - 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 He had bilateral carpal tunnel surgery as well Social History - Smoking History Hx Tobacco Use: No Hx Smoking Exposure: No - Alcohol Use Alcohol Usage: No - Substance Abuse Hx Substance Use: No - Occupation Occupation (List type of work in comments):: Retired - Hobbies, Recreation, Social Activities Hobbies: Other - baking Recreational Activities: I can hardly do any recreational activities Social Environment - Status Marital Status: - Current Living Arrangements Living Environment:: Family - Children How many children do you have?: 3 Do any of your children live nearby?: Yes - Safety Do you feel safe in your surroundings?: Yes - Assistance Do you need any assistance at home?: none Review of Systems - Review of Systems Hints: Right click = Denies (Slash). Left click = Reports ([place]) Review of Present Symptoms: Reports: Shortness of Breath with Exertion, Operative Discomfort, Wound Healing, Dizziness/Lightheadedness, Fatigue, Heart Arrhythmia/Irregularities - A-Fib, Appetite - Normal, Appetite - Special Diet - cardiac, Sleep - Normal. Denies: Shortness of Breath at Rest, PVD, Angina Risk Factor Assessment - Vital Signs Pulse Ox: 95 - Pulse Pulse Rate: 69 Pulse Rhythm: Irregular - in and out of A-Fib - Hypertension Blood Pressure Sitting - Left Arm: 102/54 - Stress Stress: Recent - daughter - Obesity Height: 1.65 m Weight:: 112.945 kg Weight in Pounds: 249.0 lbs Body Mass Index (BMI): 41.4 Nutritional Referral for Obesity: No - Physical Inactivity Physical Inactivity: None - Risk Stratification Risk Guidelines: Moderate Risk: Risk Factor for Smoking, Risk Factor for Dyslipidemia, Risk Factor for Diabetes, Highest Risk: Risk Factor for Obesity, Risk Factor for Hypertension, Risk Factor for Sedentary Lifestyle, Risk Factor for Depression - For Smoking Smoking Risk Guidelines: Smoking Low Risk: None or quit greater than 6 months ago. Smoking Moderate Risk: Smoker or quit 6 months or less ago. Smoking High Risk: Smoker - For Dyslipidemia Dyslipidemia Risk Guidelines: Low Risk: Moderate Risk: High Risk: 15-25% fat 25.1-29% fat >/= 30% fat. <7% sat fat 7-9% sat fat >9% sat fat. <150 mg chol 150-299 mg chol >/= 300 mg chol. LDL <100 LDL 100-129 LDL >/= 130. Chol/HDL ratio <5.0 Chol/HDL ratio 5.0-6.0 Chol/HDL ratio >6.0. Triglycerides <100 Triglycerides 100-149 Triglycerides >/= 150 - For Diabetes Mellitus Diabetes Risk Guidelines: Diabetes Low Risk: HgA1c <6.5% and/or FBG <120. Diabetes Moderate Risk: HgA1c 6.6-7.9% and/or FBG 120-180. Diabetes High Risk: HgA1c >/= 8% and/or FBG >180 - For Obesity/Overweight Obesity/Overweight Risk Guidelines: Obesity Low Risk: BMI <25.0. Obesity Moderate Risk: BMI 25-29.9. Obesity High Risk: BMI >/= 30.0 - For Hypertension Hypertension Risk Guidelines: Hypertension Low Risk: Systolic <120 and Diastolic <80. Hypertension Moderate Risk: Systolic 120-139 and Diastolic 80-89. Hypertension High Risk: Systolic >/= 140 and Diastolic >/= 90 - For Sedentary Lifestyle Sedentary Lifestyle Risk Guidelines: Sedentary Lifestyle Low Risk: >/= 1,500 kcal/week. Sedentary Lifestyle Moderate Risk: 700-1,499 kcal/week. Sedentary Lifestyle High Risk: < 700 kcal/week - For Depression Depression Risk Guidelines: Depression Low Risk: Not clinically depressed. Depression Moderate Risk: Mildly depressed. Depression High Risk: Clinically depressed Motivation - Motivation to Participate On a scale of 1 to 10, how prepared are you to commit to attending program?: 10 What do you see as barriers to successfully being able to complete the program?: fatigue What do you see as the benefits of succesfully completing the program? In other words, what do you hope to get out of participating in the program?: more energy Are there issues you are dealing with that will interfere with completing the program?: none Do you have a spouse or signficant other, family or friends who will help support you to complete the program?: family
[2019-10-26 14:15] VITALS: BP 102/54
[2019-10-26 14:16] VITALS: BP 102/54; PULSE 69; O2SAT 95; BMI 41.4
== END ==
PROVIDERS: Family Provider Family Medicine; PCP Family Medicine
DX: I25.10 Atherosclerotic heart disease of native coronary artery without angina pectoris (principal); R53.83 Other fatigue; D64.9 Anemia, unspecified; I42.9 Cardiomyopathy, unspecified; Z95.1 Presence of aortocoronary bypass graft
CPT/HCPCS: 36415; 80048; 82728; 83540; 83880; 84443; 85025

== ENCOUNTER 2019-11-14 12:53 | Outpatient (RCR) | payer MEDICARE, OTHER, SELFPAY ==
[2019-10-26 14:01] VITALS: BMI 41.4
[2019-11-02 10:15] VITALS: BMI 40.2
== END 2019-11-15 23:59 ==
LOC: CR 12:53
PROVIDERS: Family Provider Family Medicine; PCP Family Medicine
DX: Z95.1 Presence of aortocoronary bypass graft (principal)
CPT/HCPCS: 93798

== ENCOUNTER 2019-12-16 13:00 | Outpatient (RCR) | payer MEDICARE, OTHER, SELFPAY ==
[2019-11-02 10:15] VITALS: BMI 40.2
--- NOTE | 2019-11-25 08:28 | PCM.CR.ITP ---
Exercise - 30-day Assessment - Visit Date of Eval: 11/25/19 Session #:: 4 - Started CR on 11/14/2019 - Stages of Change Stages of Change:: Action - Physician Prescribed Exercise Modalities: Treadmill, NuStep, SciFit Frequency (days/week): 3 Duration (Minutes):: 30-45 Intensity: 60-80% age predicted maximum heart rate reserve METs - Progression: 0.5-1.0 MET, RPE 11-14 WEEK: 3 unchanged at this time. Patient had no previous exercise. Target Heart Rate:: 91-120 mx HR 90 - Hypertension Resting Blood Pressure:: 142/76 Peak Exercise Blood Pressure:: 164/74 Medication Changes:: No - Intervention Home Exercise/Activity Goal:: Sitting Time <3 hrs/day - encourage patient to walk 10 minutes twice daily at home - Education Goals:: Warm-up, RPE ANDRES Scale, S/S, Safe Exercise, Self-Monitoring Nutrition - 30-Day Assessment - Program Goals Nutrition Program Goals: LDL <70. Total Cholesterol <200. HDL >45. Triglycerides <150. HgbA1C <7%. BMI <25 - Visit Date of Eval: 11/25/19 - Stages of Change Stages of Change:: Action - Lipids Has the patient seen the dietitian?: No - Diabetes Diabetes:: No Insulin: No Non-Insulin Dependent?: No - Weight Management Weight:: 239 lb - down from initial weight of 249! - Intervention Referral to dietitian:: No Referral to Diabetic Clinic:: No Will attend diet classes:: Yes - Education Attended class for:: Healthy eating Tobacco - Initial Assessment - Program Goals Tobacco Program Goals: Complete smoking cessation. Attend education classes. Improve Knowledge Test score - Stage of Change Stages of Change:: Action - Learning Barriers Learning Barriers: Hearing, Vision, Ready to Learn - Family Support Do you have family support?: Yes - Tobacco Use Tobacco Use: Non-smoker Do you use smokeless tobacco?: No - Intervention Smoking Cessation Referral:: No Individual Education/Counseling:: No Education Schedule Given:: Yes - Education Attended class for:: Risk Factors & Modifications, Living an Active Life, Nutrition Psychosocial - Initial Assess - Target Goals Target Goals: Assess presence or absence of depression. Using a valid screening tool, maximizes coping skills. Positive support system - Psychosocial Test Tool Used:: HANDS Depression Questionnaire - Assistive Devices Fall Risk Assessed:: Yes - no treadmill Psychosocial - 30-Day Assess - Target Goals Target Goals: Assess presence or absence of depression. Using a valid screening tool, maximizes coping skills. Positive support system - Stages of Change Stages of Change:: Action - Psychosocial Test Tool Used:: HANDS Depression Questionnaire - Intervention PS - Interventions: Yes Attend Stress Management Classes, No Referral to Mental Health, No Referral to [facility] Case Management, No Referral to Physician, No Uses Stress Management Skills - Education Attended classes for:: Coping techniques, Signs & symptoms of depression, Stress management, Relaxation techniques - Patient/Program Goal Preventative Medication(s):: Aspirin - patient reports taking medications as prescibed., MELANIE inhibitor, Clopidogrel, Beta beth, Statin/lipid - Assistive Devices Assistive Devices:: Cane - occasional use of cane for balance Patient Health Questionnaire 30-Day Re-eval Assessment 1. Little interest or pleasure in doing things: Not at all 2. Feeling down, depressed, or hopeless: Several days 3. Trouble falling or staying asleep, or sleeping too much: More than half the days 4. Feeling tired or having little energy: More than half the days 5. Poor appetite or overeating: Not at all 6. Feeling bad about yourself -- or that you are a failure or have let yourself or your family down: Not at all 7. Trouble concentrating on things, such as reading the newspaper or watching television: Not at all 8. Moving or speaking so slowly that other people could have noticed. Or the opposite - being so fidgety or restless that you have been moving around a lot more than usual: Not at all 9. Thoughts that you would be better off , or of hurting yourself in some way: Not at all How difficult have these problems made it for you to do your work, take care of things at home, or get along with other people?: Somewhat difficult Total Score: 5 Self-Efficacy 30-Day Re-eval Assessment We would like to know how confident you are in doing certain activities. Please select your confidence level for:: Select your confidence level for the following using the scale 1-10 where 1 is not at all confident and 10 is totally confident. Your score is the average of all 6 responses. Fatigue: How confident are you that you can keep the fatigue caused by your disease from interfering with the things you want to do? Select Number: 6 Physical Discomfort or Pain: How confident are you that you can keep the physical discomfort or pain of your disease from interfering with the things you want to do? Select Number: 8 Emotional Distress: How confident are you that you can keep the emotional distress caused by your disease from interfering with the things you want to do? Select Number: 7 Other Symptoms or Health Problems: How confident are you that you can keep other symptoms or health problems from interfering with the things you want to do? Select Number: 8 Different Tasks and Activities: How confident are you that you can do the different tasks and activities needed to manage your health condition so as to reduce your need to see a doctor? Select Number: 5 Medication: How confident are you that you can do things other than just taking medication to reduce how much your illness affects your everyday life? Select Number: 5 Total Score:: 6
[2019-11-25 08:34] VITALS: BP 142/76; BP 164/74
== END 2019-12-16 23:59 ==
LOC: CR 13:00
PROVIDERS: Family Provider Family Medicine; PCP Family Medicine
DX: Z95.1 Presence of aortocoronary bypass graft (principal)
CPT/HCPCS: 93798

== ENCOUNTER 2020-01-13 13:00 | Outpatient (RCR) | payer MEDICARE, OTHER, SELFPAY ==
[2019-12-01 11:19] VITALS: BMI 41.3
[2019-12-17 00:56] VITALS: BP 142/76; BP 164/74
--- NOTE | 2019-12-26 08:57 | PCM.CR.ITP ---
Diagnosis - General Information Admitting Diagnosis: CABG Personal Learning Style:: Audio/Visual, Individual Preference, Written Barriers to Learning: Hearing Impairment, Vision Impairment Stage of change r/t lifestyle modifications:: Action Gave educational material for:: Treating Heart Disease, Emotions & Heart Disease, Stress Management & Relaxation, Sleep Disorders & Heart Disease, How The Heart Works, What it means to have Heart Disease, How Coronary Artery Disease is Diagnosed, Heart Procedures, What Heart Medications Do, Risk Factors & Modifications, Living an Active Life, Nutrition - Education/Goals Individual Counseling: Initial Assessment: Abnormal Cholesterol Levels, High Blood Pressure, Overweight/Obesity Cardiac Rehabilitation Goals: 1. Maintain the individual as the primary focus of care. 2. To improve the patient's quality of life. 3. Identification of cardiac risk factors and provide cardiac risk factor management. 4. Enhance the psychosocial status of the patient. 5. Reconditioning enough to allow the patient to resume customary activities. 6. Control symptoms of cardiac disease Personal Goals: Initial Assessment: Improve energy level - 4, Improve knowledge of cardiac disease - 4, Improve muscle strength and endurance - 4, Improve diet and eating habits (eat healthier) - 4, Control risk factors (learn risk factor modification) - 4 Scale for measuring improvement of personal goals: Enter appropriate number in Comments. 2 = Unchanged. 3 = Slightly Better. 4 = Moderate Improvement. 5 = Met my Goal - Diagnosis & Disease Process Outcomes/Goals: Pt IDs own risk factors & lifestyle modifications by Session 10, Verbalizes symptoms of angina & response by session 3., Pt independently manages Plan/Interventions: Assist Pt to ID & engage in lifestyle modification to reduce CVD risk, Instruct on individual risk factors, Review symptoms of angina & emergency actions, Review secondary diagnosis & identify educational needs. 30 day Reassessments:: Progressing 30 day Reassessments:: Progressing - Safety Referral to Physical Therapy: No Referral to [facility] Case Management: No Fall Risk Assessed:: Yes Assistive Devices:: None Exercise - 60-day Assessment - Visit Date of Eval: 12/26/19 Session #:: 17 - patient missed scheduled sessions d/t appointment conflicts - Physician Prescribed Exercise Modalities: Treadmill, Airdyne, NuStep, SciFit Frequency: 3x/week for 12 weeks [36 sessions] Intensity: 60-80% of age predicted maximum heart rate reserve Current METSs:: 3.1 limited ability to increase intensity but patient endurance has improve Target Heart Rate:: 91-120 Current RPE:: 12-13 Maximum Excercise HR:: 86 Resting Blood Pressure: 126/70 Maximum Exercise Blood Pressure: 156/70 EKG Type: NSR with isolated PVCs Current Physical Activity or Exercising minutes: sitting less than 3 hours at home, more active! - Outcomes & Goals Goals:: Verbalizes understanding of THR, RPE & goal METS by session 6, Documents in home exercise log/reports 30 min aerobic 5 day/wk by DC, Demonstrates accurate pulse taking by DC - Intervention & Plan Exercise Program Goals: Instruct on personal THR & RPE, Instruct on MET level & personal MET goal, Show patient to take own pulse /validate performance until accurate, Instruct on home exercise - 30-day Reassessments 30 day Reassessments:: Progressing - Physical Activity Home Exercise Physical Activity - Home Exercise: Safe Exercise, Warm-up, Self-monitoring, Cool-Down, Home Exercise > 30 min Daily, Sitting Time <3 hours/daily - Outcomes & Goals Outcomes/Goals: Demonstrates correct Warm-up/exercise Cool-Down (S3) if = 2.5 METs, Verbalizes symptoms of exercise intolerance by Session 3 (S3), Demonstrate safe equipment use (S3) & follows exercise prescrition (6) - Intervention & Plan Plan/Intervention: Instruct warm-up & cool-down if exercising at > 2 METs, Instruct on symptoms of exercise intolerance & actions to take, Instruct & monitor on saf, Assess intial functional capacity & safety risk - 30-day Reassessments 30 day Reassessments:: Progressing Nutrition - 60-Day Assessment - Program Goals Nutrition Program Goals: LDL <100 optimal. 100 - 129 Near optimal. 130 - 159 Borderline High. 160 - 189 High. Total Cholesterol <200 desirable. 200 - 239 Borderline High. >/= 240 High. HDL < 40 Low >/=60 High. Triglycerides <150 desirable. <199 optimal. VlDL 5 - 40. HgbA1C <7%. BMI <25 Patient has diagnosis of Hyperlipidemia (ICD E78)?: Yes - Visit Date of Assessment:: 12/26/19 Session #:: 17 - Cholesterol/Lipids Triglycerides (mg/dL): 0 - not available Outcomes/Goals: Pt IDs own risk factors & lifestyle modifications by Session 10, Verbalizes symptoms of angina & response by session 3., Pt independently manages Intervention/Plan: Instruct on personal lipid levels & lipid goals/NCEP guidelines, Instruct on cholesterol 30-day Reassessments:: Progressing - Diabetes (Other Core Measures) Diabetes Type: Not Applicable - Weight Mgt (Other Care) Not Applicable: No Height: 5 ft 4.9 in Weight:: 245 lb 8 oz - gained 6 pounds in the last 30-days BMI: 40.9 Diagnosis Overweight/Obesity BMI> 30% ICD-10 E66: Yes Diagnosis High BMI/Morbid Obesity BMI> 35% ICD-10 Z68: Yes Outcomes/Goals: Pt sets, maintains & shows weight loss goal & trend during rehab Intervention/Plan: Instruct on ideal BMI & set weight loss goal w/patient, Assist pt to ID & incorporate diet changes for weight loss by S9, Refer to Structured Weight Loss program as appropriate, Encourage goal of using 250-300dcal per session for weight loss 30 day Reassessments:: Not Met - Healthy Eating Habits Will attend diet classes:: Yes Outcomes/Goals:: Consume diet rich in vegs,fruits,whole grain/high fiber,fish,lean meat, Limit sat/trans fats,cholesterol & added salts & sugars Intervention/Plan:: Assess current eating habits - Education Gave educational materials for:: Healthy eating Medical- 60-Day Assessment - Visit Date of Eval: 12/26/19 - Medication Compliance Preventative Medication(s):: Aspirin, Clopidogrel/P2Y12 inhibit, Statin/lipid, Beta beth H/O mental health issues: depression, anxiety, or addiction?: No Doesn?t believe in the benefits of treatment?: No Believes medications are unnecessary or harmful?: No Has a concern about medication side effects?: No Expresses concern over the cost of medications?: No Outcomes/Goals: Verbalizes medications,desired effect & common side effects @ DC, Pt self-reports following medication regimen, Keeps card in wallet w/medications listed by DC Interventions/plans: Instruct on medication effects & side effects, Review medication list w/patient every two weeks, Instruct importance of taking meds as ordered & assist problem solving 30-day Reassessments:: Progressing - Tobacco Use Tobacco Use: Non-smoker - Hypertension Hypertension Diagnosis:: Hypertension ICD-10 I10 Resting Blood Pressure:: 126/70 [place] [employer] Hypertension Guidelines: [place] [employer] Hypertension Guidelines. Normal BP Less than 120/80. Elevated BP 120/80. Hypertension Stage 1: BP 130-139/80-89. Hypertesnion Stage 2: BP 140 or higher/90 or higher. Hypertension Crisis: BP higher than 180/120 Peak Exercise Blood Pressure:: 156/70 Outcomes/Goals: Able to verbalize/achieve optimal blood pressure <130/80, Incorporates diet changes & exercise for blood pressure control by DC Interventions/plan: Instruct on optimal blood pressure, hypertension & medications, Instruct on effects of sodium, alcohol, stress, exercise &hypertension 30 day Reassessments:: Progressing - Tobacco Cessation Referral Smoking Cessation Referral:: No Individual Education/Counseling:: No Education Schedule Given:: Yes Psychosocial - 60-Day Assess - VIsit Date of Eval: 12/26/19 Session #:: 17 Not Applicable: Yes History of previous Mental disease:: No - Target Goals Target Goals: Assess presence or absence of depression. Using a valid screening tool, maximizes coping skills. Positive support system - Psychosocial Test Tool Used:: [employer] QOL Cardiac, PHQ-9 Questionnaire phq-9 Severity: Severity. 1-4 Minimal Depression. 5-9 Mild Depression. 10-14 Moderate Depression. 15-19 Moderately Sever Depression. 20-27 Severe Depression. Rule: - Referral to Behavioral Health PS - Interventions: Yes Attend Stress Management Classes, No Referral to Behavioral Health if PHQ-9 score >9:, No Referral to [facility], No Referral to Physician if PHQ-9 if score is 5-9: - Outcomes/Goals: See list Psychosocial Outcomes/Goals:: ID's personal stressors & 2 strategies to manage stress by discharge - Intervention/Plan: See List Interventions/Plan:: Assess stressors,coping strategies & signs of derpression on admission, Instruct/assist pt to develop coping & personal stress Mgt strategies, Instruct patient to recognize signs & symptoms of depression, Instruct patient to recog - 30-day Reassessments: 30 day Reassessments:: Progressing Patient Health Questionnaire 60-Day Re-eval Assessment 1. Little interest or pleasure in doing things: Not at all 2. Feeling down, depressed, or hopeless: Several days 3. Trouble falling or staying asleep, or sleeping too much: More than half the days 4. Feeling tired or having little energy: More than half the days 5. Poor appetite or overeating: Not at all 6. Feeling bad about yourself -- or that you are a failure or have let yourself or your family down: Not at all 7. Trouble concentrating on things, such as reading the newspaper or watching television: Not at all 8. Moving or speaking so slowly that other people could have noticed. Or the opposite - being so fidgety or restless that you have been moving around a lot more than usual: Not at all 9. Thoughts that you would be better off , or of hurting yourself in some way: Not at all How difficult have these problems made it for you to do your work, take care of things at home, or get along with other people?: Somewhat difficult Total Score: 5 Self-Efficacy 60-Day Re-eval Assessment We would like to know how confident you are in doing certain activities. Please select your confidence level for:: Select your confidence level for the following using the scale 1-10 where 1 is not at all confident and 10 is totally confident. Your score is the average of all 6 responses. Fatigue: How confident are you that you can keep the fatigue caused by your disease from interfering with the things you want to do? Select Number: 7 Physical Discomfort or Pain: How confident are you that you can keep the physical discomfort or pain of your disease from interfering with the things you want to do? Select Number: 9 Emotional Distress: How confident are you that you can keep the emotional distress caused by your disease from interfering with the things you want to do? Select Number: 8 Other Symptoms or Health Problems: How confident are you that you can keep other symptoms or health problems from interfering with the things you want to do? Select Number: 8 Different Tasks and Activities: How confident are you that you can do the different tasks and activities needed to manage your health condition so as to reduce your need to see a doctor? Select Number: 7 Medication: How confident are you that you can do things other than just taking medication to reduce how much your illness affects your everyday life? Select Number: 8 Total Score:: 7
[2019-12-26 09:11] VITALS: BP 126/70; BP 156/70; BMI 40.9
== END 2020-01-14 23:59 ==
LOC: CR 13:00
PROVIDERS: Family Provider Family Medicine; PCP Family Medicine
DX: Z95.1 Presence of aortocoronary bypass graft (principal)
CPT/HCPCS: 93798

== ENCOUNTER → 2020-01-25 14:07 | Outpatient (CLI) | payer MEDICARE, OTHER, SELFPAY ==
[2020-01-12 10:54] VITALS: BMI 40.1
[2020-01-25 07:02] VITALS: BMI 40.8
[2020-01-25 14:58] LABS: Absolute Lymphocyte Count 1.01 X10^3/uL (0.83-4.51); Absolute Neutrophil Count 5.6 X10^3/uL (2.0-7.7); Basophil# 0.04 X10^3/uL; Basophil% 0.5 % (0-1); Eosinophil# 0.48 X10^3/uL; Eosinophils% 6.2 % (0-5); Hemoglobin 12.1 g/dL (13.0-16.5); Lymphocyte # 1.01 X10^3/ul (4.0); Mean Corp Hgb Conc 32.7 g/dL (32-36); Mean Corpuscular Hgb 28.6 pg (27.0-32.0); Mean Corpuscular Volume 87.5 fL (80-94); Mean Platelet Vol. 10.5 fl (6.2-12.0); Monocyte# 0.55 X10^3/uL; Monocyte% 7.1 % (0-10); NRBC Flagged by Analyzer 0 % (0-5); Neutrophil # 5.62 X10^3/uL (2.7-7.7); Neutrophil % 72.7 % (47-70); Platelet Count 131 K/mm3 (150-450); RBC Distribution Width CV 15.4 % (11.6-14.6); RBC Distribution Width SD 49.2 fl (35.1-43.9); Red Blood Count 4.23 M/mm3 (4.6-6.2); White Blood Count 7.7 K/mm3 (4.4-11.0)
[2020-01-25 15:26] LABS: ALB/GLOB Ratio 0.8 RATIO (0.9-2.4); AST(SGOT) 35 U/L (15-37); Alanine Aminotransfer ALT/SGPT 26 U/L (16-61); Alkaline Phosphatase 165 U/L (45-117); Anion Gap 6 (5-15); BUN 15 mg/dL (7-18); BUN/Creat Ratio 13.2 RATIO (10-20); Calcium,Total 8.6 mg/dL (8.5-10.1); Chloride 108 mmol/L (98-107); Creatinine, Serum 1.14 mg/dL (0.70-1.30); EST Glomerular Filtration Rate 66 mL/min (>60); Est Glom Filt Rate - Afr Amer 80 mL/min (>60); Globulin 3.7 g/dL (2.2-4.2); Glucose 132 mg/dL (74-106); Potassium 3.9 mmol/L (3.5-5.1); Protein, Total 6.7 g/dL (6.4-8.2); Sodium Level 139 mmol/L (136-145)
== END ==
PROVIDERS: PCP Family Medicine; Referring Provider Internal Medicine Rheumatology; Visit Provider Internal Medicine Rheumatology
DX: M06.4 Inflammatory polyarthropathy (principal); M47.897 Other spondylosis, lumbosacral region; I10 Essential (primary) hypertension; D49.0 Neoplasm of unspecified behavior of digestive system; K74.60 Unspecified cirrhosis of liver; I85.00 Esophageal varices without bleeding
CPT/HCPCS: 36415; 80053; 85025

== ENCOUNTER 2020-02-01 13:00 | Outpatient (RCR) | payer MEDICARE, OTHER, SELFPAY ==
[2019-12-26 09:11] VITALS: BMI 40.9
[2020-01-12 10:54] VITALS: BMI 40.1
[2020-01-15 00:43] VITALS: BP 126/70; BP 156/70
--- NOTE | 2020-01-25 06:53 | CR.ITP_ITS ---
Diagnosis - General Information Admitting Diagnosis: S/P CABG Personal Learning Style:: Audio/Visual, Written Barriers to Learning: Vision Impairment Stage of change r/t lifestyle modifications:: Action Gave educational material for:: Treating Heart Disease, Emotions & Heart Disease, Stress Management & Relaxation, Sleep Disorders & Heart Disease, How The Heart Works, What it means to have Heart Disease, How Coronary Artery Disease is Diagnosed, Heart Procedures, What Heart Medications Do, Risk Factors & Modifications, Living an Active Life, Nutrition - Education/Goals Individual Counseling: Initial Assessment: Abnormal Cholesterol Levels, High Blood Pressure, Overweight/Obesity Cardiac Rehabilitation Goals: 1. Maintain the individual as the primary focus of care. 2. To improve the patient's quality of life. 3. Identification of cardiac risk factors and provide cardiac risk factor management. 4. Enhance the psychosocial status of the patient. 5. Reconditioning enough to allow the patient to resume customary activities. 6. Control symptoms of cardiac disease Personal Goals: Initial Assessment: Improve energy level - 4, Improve knowledge of cardiac disease - 4, Improve muscle strength and endurance - 4, Improve diet and eating habits (eat healthier) - 4, Control risk factors (learn risk factor modification) - 4 Scale for measuring improvement of personal goals: Enter appropriate number in Comments. 2 = Unchanged. 3 = Slightly Better. 4 = Moderate Improvement. 5 = Met my Goal - Diagnosis & Disease Process Outcomes/Goals: Pt IDs own risk factors & lifestyle modifications by Session 10, Verbalizes symptoms of angina & response by session 3., Pt independently manages Plan/Interventions: Assist Pt to ID & engage in lifestyle modification to reduce CVD risk, Instruct on individual risk factors, Review symptoms of angina & emergency actions, Review secondary diagnosis & identify educational needs. 30 day Reassessments:: Progressing 30 day Reassessments:: Progressing 30 day Reassessments:: Progressing - Safety Referral to Physical Therapy: No Referral to [facility] Case Management: No Fall Risk Assessed:: Yes Assistive Devices:: Walker Exercise - 90-day Assessment - Visit Date of Eval: 01/25/20 Session #:: 30 - Physician Prescribed Exercise Modalities: NuStep, SciFit Frequency: 3x/week for 12 weeks [36 sessions] Intensity: 60-80% of age predicted maximum heart rate reserve Current METSs:: 3.1 Target Heart Rate:: 91-120 Current RPE:: 13 Maximum Excercise HR:: 77 Resting Blood Pressure: 152/76 Maximum Exercise Blood Pressure: 160/80 EKG Type: NSR WITHOUT ECTOPY - Outcomes & Goals Goals:: Verbalizes understanding of THR, RPE & goal METS by session 6, Documents in home exercise log/reports 30 min aerobic 5 day/wk by DC, Demonstrates accurate pulse taking by DC - Intervention & Plan Exercise Program Goals: Instruct on personal THR & RPE, Instruct on MET level & personal MET goal, Show patient to take own pulse /validate performance until accurate, Instruct on home exercise - 30-day Reassessments 30 day Reassessments:: Progressing - Physical Activity Home Exercise Physical Activity - Home Exercise: Safe Exercise, Warm-up, Self-monitoring, Cool-Down, Home Exercise > 30 min Daily, Sitting Time <3 hours/daily - Outcomes & Goals Outcomes/Goals: Demonstrates correct Warm-up/exercise Cool-Down (S3) if = 2.5 METs, Verbalizes symptoms of exercise intolerance by Session 3 (S3), Demonstrate safe equipment use (S3) & follows exercise prescrition (6) - Intervention & Plan Plan/Intervention: Instruct warm-up & cool-down if exercising at > 2 METs, Instruct on symptoms of exercise intolerance & actions to take, Instruct & mon itor on saf, Assess intial functional capacity & safety risk - 30-day Reassessments 30 day Reassessments:: Progressing Nutrition - 90-Day Assessment - Program Goals Nutrition Program Goals: LDL <100 optimal. 100 - 129 Near optimal. 130 - 159 Borderline High. 160 - 189 High. Total Cholesterol <200 desirable. 200 - 239 Borderline High. >/= 240 High. HDL < 40 Low >/=60 High. Triglycerides <150 desirable. <199 optimal. VlDL 5 - 40. HgbA1C <7%. BMI <25 Patient has diagnosis of Hyperlipidemia (ICD E78)?: Yes - Visit Date of Assessment:: 01/25/20 Session #:: 30 - Cholesterol/Lipids Determine presence & major risk factors that modify LDL goal: Hypertension or hypertensive medication, Age men > 45 years; women >/= 55 years Outcomes/Goals: Pt IDs own risk factors & lifestyle modifications by Session 10, Verbalizes symptoms of angina & response by session 3., Pt independently manages Intervention/Plan: Instruct on personal lipid levels & lipid goals/NCEP guidelines, Instruct on cholesterol Referral to dietitian:: No - [employer] DOES NOT COVER SERVICES 30-day Reassessments:: Progressing - Diabetes (Other Core Measures) Diabetes Type: Not Applicable - Weight Mgt (Other Care) Not Applicable: No Height: 5 ft 4.9 in Weight:: 245 lb BMI: 40.8 Diagnosis Overweight/Obesity BMI> 30% ICD-10 E66: Yes Diagnosis High BMI/Morbid Obesity BMI> 35% ICD-10 Z68: Yes Outcomes/Goals: Pt sets, maintains & shows weight loss goal & trend during rehab Intervention/Plan: Instruct on ideal BMI & set weight loss goal w/patient, Assist pt to ID & incorporate diet changes for weight loss by S9, Encourage goal of using 250-300dcal per session for weight loss 30 day Reassessments:: Not Met - Healthy Eating Habits Will attend diet classes:: Yes Outcomes/Goals:: Consume diet rich in vegs,fruits,whole grain/high fiber,fish,lean meat, Limit sat/trans fats,cholesterol & added salts & sugars Intervention/Plan:: Assess current eating habits 30-day Reassessments:: Progressing - Education Gave educational materials for:: Healthy eating Medical- 90-Day Assessment - Visit Date of Eval: 01/25/20 Session #:: 30 - Medication Compliance Preventative Medication(s):: Aspirin, MELANIE inhibitor, Statin/lipid, Beta beth H/O mental health issues: depression, anxiety, or addiction?: No Doesn?t believe in the benefits of treatment?: No Believes medications are unnecessary or harmful?: No Has a concern about medication side effects?: No Expresses concern over the cost of medications?: No Outcomes/Goals: Verbalizes medications,desired effect & common side effects @ DC, Pt self-reports following medication regimen, Keeps card in wallet w/medications listed by DC Interventions/plans: Instruct on medication effects & side effects, Review medication list w/patient every two weeks, Instruct importance of taking meds as ordered & assist problem solving 30-day Reassessments:: Progressing - Tobacco Use Tobacco Use: Non-smoker - Hypertension Hypertension Diagnosis:: Hypertension ICD-10 I10 Resting Blood Pressure:: 152/76 - UNCONTROLLED [place] [employer] Hypertension Guidelines: [place] [employer] Hypertension Guidelines. Normal BP Less than 120/80. Elevated BP 120/80. Hypertension Stage 1: BP 130-139/80-89. Hypertesnion Stage 2: BP 140 or higher/90 or higher. Hypertension Crisis: BP higher than 180/120 Peak Exercise Blood Pressure:: 160/80 Outcomes/Goals: Able to verbalize/achieve optimal blood pressure <130/80, Incorporates diet changes & exercise for blood pressure control by DC Interventions/plan: Instruct on optimal blood pressure, hypertension & medications, Instruct on effects of sodium, alcohol, stress, exercise &hypertension 30 day Reassessments:: Not Met - Tobacco Cessation Referral Smoking Cessation Referral:: No Education Schedule Given:: Yes Psychosocial - 90-Day Assess - VIsit Date of Eval: 01/25/20 Session #:: 30 Not Applicable: Yes History of previous Mental disease:: No - Target Goals Target Goals: Assess presence or absence of depression. Using a valid screening tool, maximizes coping skills. Positive support system - Psychosocial Test Tool Used:: Julieta Gonzales QOL Cardiac, PHQ-9 Questionnaire phq-9 Severity: Severity. 1-4 Minimal Depression. 5-9 Mild Depression. 10-14 Moderate Depression. 15-19 Moderately Sever Depression. 20-27 Severe Depression. Rule: - Referral to Behavioral Health PS - Interventions: Yes Attend Stress Management Classes, No Referral to Behavioral Health if PHQ-9 score >9:, No Referral to [facility], No Referral to Physician if PHQ-9 if score is 5-9: - Outcomes/Goals: See list Psychosocial Outcomes/Goals:: ID's personal stressors & 2 strategies to manage stress by discharge - Intervention/Plan: See List Interventions/Plan:: Assess stressors,coping strategies & signs of derpression on admission, Instruct/assist pt to develop coping & personal stress Mgt strategies, Instruct patient to recognize signs & symptoms of depression, Instruct patient to recog - 30-day Reassessments: 30 day Reassessments:: Progressing Patient Health Questionnaire 90-Day Re-eval Assessment 1. Little interest or pleasure in doing things: Not at all 2. Feeling down, depressed, or hopeless: Several days 3. Trouble falling or staying asleep, or sleeping too much: Several days 4. Feeling tired or having little energy: Several days 5. Poor appetite or overeating: Not at all 6. Feeling bad about yourself -- or that you are a failure or have let yourself or your family down: Not at all 7. Trouble concentrating on things, such as reading the newspaper or watching television: Not at all 8. Moving or speaking so slowly that other people could have noticed. Or the opposite - being so fidgety or restless that you have been moving around a lot more than usual: Not at all 9. Thoughts that you would be better off , or of hurting yourself in some way: Not at all How difficult have these problems made it for you to do your work, take care of things at home, or get along with other people?: Not difficult at all Total Score: 3 Self-Efficacy 90-Day Re-eval Assessment We would like to know how confident you are in doing certain activities. Please select your confidence level for:: Select your confidence level for the following using the scale 1-10 where 1 is not at all confident and 10 is totally confident. Your score is the average of all 6 responses. Fatigue: How confident are you that you can keep the fatigue caused by your disease from interfering with the things you want to do? Select Number: 8 Physical Discomfort or Pain: How confident are you that you can keep the phy sical discomfort or pain of your disease from interfering with the things you want to do? Select Number: 9 Emotional Distress: How confident are you that you can keep the emotional distress caused by your disease from interfering with the things you want to do? Select Number: 9 Other Symptoms or Health Problems: How confident are you that you can keep other symptoms or health problems from interfering with the things you want to do? Select Number: 9 Different Tasks and Activities: How confident are you that you can do the different tasks and activities needed to manage your health condition so as to reduce your need to see a doctor? Select Number: 8 Medication: How confident are you that you can do things other than just taking medication to reduce how much your illness affects your everyday life? Select Number: 9 Total Score:: 8
[2020-01-25 07:02] VITALS: BP 152/76; BP 160/80; BMI 40.8
== END 2020-02-14 23:59 ==
LOC: CR 13:00
PROVIDERS: Family Provider Family Medicine; PCP Family Medicine
DX: Z95.1 Presence of aortocoronary bypass graft (principal)
CPT/HCPCS: 93798

== ENCOUNTER → 2020-05-21 10:57 | Outpatient (CLI) | payer MEDICARE, OTHER, SELFPAY ==
[2020-01-12 10:54] VITALS: BMI 40.1
[2020-01-25 07:02] VITALS: BMI 40.8
[2020-05-10 09:58] VITALS: BMI 42.0
[2020-05-21 13:45] LABS: Anion Gap 8 (5-15); BUN 17 mg/dL (7-18); BUN/Creat Ratio 14.4 RATIO (10-20); Calcium,Total 8.3 mg/dL (8.5-10.1); Chloride 107 mmol/L (98-107); Creatinine, Serum 1.18 mg/dL (0.70-1.30); EST Glomerular Filtration Rate 63 mL/min (>60); Est Glom Filt Rate - Afr Amer 77 mL/min (>60); Glucose 124 mg/dL (74-106); Sodium Level 138 mmol/L (136-145)
== END ==
PROVIDERS: PCP Family Medicine; Visit Provider Family Medicine
DX: I10 Essential (primary) hypertension (principal)
CPT/HCPCS: 36415; 80048

== ENCOUNTER → 2020-07-30 09:22 | Outpatient (CLI) | payer MEDICARE, OTHER, SELFPAY ==
[2020-01-25 07:02] VITALS: BMI 40.8
[2020-05-10 09:58] VITALS: BMI 42.0
[2020-07-30 12:24] LABS: Absolute Lymphocyte Count 1.03 X10^3/uL (0.83-4.51); Basophil# 0.02 X10^3/uL; Basophil% 0.4 % (0-1); Eosinophil# 0.27 X10^3/uL; Eosinophils% 5.6 % (0-5); Hemoglobin 10.7 g/dL (13.0-16.5); Lymphocyte # 1.03 X10^3/ul (4.0); Lymphocyte % 21.5 % (19-41); Mean Corp Hgb Conc 31.5 g/dL (32-36); Mean Corpuscular Hgb 27.8 pg (27.0-32.0); Mean Corpuscular Volume 88.3 fL (80-94); Mean Platelet Vol. 10.9 fl (6.2-12.0); Monocyte# 0.47 X10^3/uL; Monocyte% 9.8 % (0-10); NRBC Flagged by Analyzer 0 % (0-5); Neutrophil # 2.99 X10^3/uL (2.7-7.7); Neutrophil % 62.3 % (47-70); POSITIVE COUNT YES; Platelet Count 81 K/mm3 (150-450); RBC Distribution Width SD 54.9 fl (35.1-43.9); Red Blood Count 3.85 M/mm3 (4.6-6.2); White Blood Count 4.8 K/mm3 (4.4-11.0)
[2020-07-30 12:45] LABS: ALB/GLOB Ratio 0.9 RATIO (0.9-2.4); AST(SGOT) 36 U/L (15-37); Alanine Aminotransfer ALT/SGPT 26 U/L (16-61); Alkaline Phosphatase 164 U/L (45-117); Anion Gap 8 (5-15); BUN 17 mg/dL (7-18); BUN/Creat Ratio 13.8 RATIO (10-20); Calcium,Total 8.3 mg/dL (8.5-10.1); Chloride 109 mmol/L (98-107); Creatinine, Serum 1.23 mg/dL (0.70-1.30); EST Glomerular Filtration Rate 60 mL/min (>60); Est Glom Filt Rate - Afr Amer 73 mL/min (>60); Globulin 3.5 g/dL (2.2-4.2); Glucose 107 mg/dL (74-106); Potassium 4.3 mmol/L (3.5-5.1); Protein, Total 6.5 g/dL (6.4-8.2); Sodium Level 140 mmol/L (136-145)
[2020-07-30 13:11] LABS: Differential Indicated SCAN CRITERIA MET
[2020-07-30 13:22] LABS: Differential Comment SCANNED; Platelet Estimate MOD DEC (ADEQ)
== END ==
PROVIDERS: PCP Family Medicine; Visit Provider Internal Medicine Rheumatology
DX: M06.4 Inflammatory polyarthropathy (principal); M47.897 Other spondylosis, lumbosacral region; I10 Essential (primary) hypertension; I25.10 Atherosclerotic heart disease of native coronary artery without angina pectoris; D49.0 Neoplasm of unspecified behavior of digestive system; K74.60 Unspecified cirrhosis of liver; I85.00 Esophageal varices without bleeding; Z95.1 Presence of aortocoronary bypass graft
CPT/HCPCS: 36415; 80053; 85025

== ENCOUNTER 2020-08-20 13:00 | Outpatient (RCR) | payer MEDICARE, OTHER, SELFPAY ==
[2020-01-25 07:02] VITALS: BMI 40.8
[2020-05-10 09:58] VITALS: BMI 42.0
--- NOTE | 2020-08-10 13:49 | HP.PTEVAL ---
Patient's Visit Information KAMINI JONES is a 79 year old M referred to Physical Therapy by Dr. Armin Carlin DO with a diagnosis of Spondylosis with myelopathy L/S. Date of Evaluation: 08/10/20 Physical Therapist: Matt Saab, DPT, OCS, CSCS - Visit Plan Frequency: 3x /Week Duration: 4-6 Weeks Plan: 3x/week for 3-6 weeks. Please teach adn progress to HEP... LB AROM. HS and quad stretches. General strength of LE , posture and core. Progress gait for distance adn steps for exercise to [place]. - Subjective No dizzyness or anything. Fell out of bed last week and bruised arm and L side. Back has hurt for 34 years. Has wh walker and feels unsteady without it. Has uses it a way from home only. Started using it 2 weeks ago. No falls while walking. Has LBP and fatigue and lack of balance which has ever been good. Back and balance worse in last ten years. H/o chemo for colon CA. Liver taken out, hernia. Cholitis. weak kidneys. CABGx4 last September. CHF. LBP 8/ intermittently adn without reason. No leg pain. No leg numbness. Legs don't feel weak. Had vertigo for years but not recently and can't remember last time he took meclizine for that. Clears up quickly with ENT when it flares up. Sleeping OK and lies down without getting dizzy. Retired 10 years. Spends day messing around. Has stopped cutting grass and doing things at home as 5 yrs ago. Basic ADLs are getting done OK, has shower seat, wh walker. Has steps to basement which he sotero intermittently - Pain LBP Pain Intensity (Out of 10): 2 Pain Intensity Range: 0, 8 - Objective Walks with wh walker slow with wide JYOTI but safe. Without walker has B trendelenberg and short steps with wide JYOTI . Trasnfers I. Obvious hernis L abdomen. Steps with two rails reciprocal up and down. Steps and 300 feet of walking make him tired and need to rest, very Little SOB, no back pain, just tired overall. LB AROM ext mild limited and others WFL without pain. LE AROM WFL but tightness in HS at -30 90/90 tests and tight quads. Sensation LE WNL to gross light touch. reflexes 2/3 patella and achilles B. Strength LE 4/5 except hip abd and ext 3+. Core strength 4-. UE AROM WFL and strength at 4+/5. - slump and - SLR. No SOB today or problems cardio leon outside of need to rest adn feeling very fatigued after walk and steps. Recovered quickly. - Balance Scores Functional Gait Assessment Score: 23 % Disability: 23.3400 - Goals Goal 1:: Pt I approp HEP for LE and core/postural strenght, LB ROM and gait that can do at home to minimize future problems. Goal Time Frame: 4-6 Weeks Goal 2:: Pt feel back pain 50% improved at 3/10 at worst Goal Time Frame: 4-6 Weeks Goal 3:: LEFS score of 58 Goal Time Frame: 4-6 Weeks Goal 4:: Pt ambulate with FGA of 25/30 Goal Time Frame: 4-6 Weeks - Rehabilitation Potential Physical Therapy Diagnosis: LB degeneration and pain and limited mobility sedentary lifestyle. Rehabilitation Potential: Fair - Anticipated Interventions Patient/Client Instruction: Educate patient on: Condition, Plan of Care For the Purpose of:: To decrease pain, To improve muscle performance and motor function, To increase tolerance to activity/condition/position, To improve ability of physical actions for home/community/work/leisure Therapeutic Exercise to Include: Strength training, Balance training, Postural training, Flexibilty training, Gait and locomotor training, Passive ROM, Active ROM, Dynamic Lumbar Stabilization For the Purpose of:: To decrease pain, To improve muscle performance and motor function, To increase tolerance to activity/condition/position, To improve ability of physical actions for home/community/work/leisure, To improve gait and locomotor functions Thank you for the opportunity to evaluate your patient. For Medicare and Medicare HMO plans, please review the plan of care and approve it. It will need to be FAXED BACK to us at [phone] for Medicare purposes. For Medicare only, by signing this I certify the plan of care. Please let me know if there are questions or concerns regarding this plan of care. Physician Signature: Date:
--- NOTE | 2020-08-27 12:57 | HP.PT.NRP ---
KAMINI JONES was seen in my office for initial evaluation on 08/10/20. The following Plan of Care was established for this patient: Initial Frequency: 3x /Week Initial Duration: 4-6 Weeks Patient/Client Instruction: Educate patient on: Condition, Plan of Care For the Purpose of:: To decrease pain, To improve muscle performance and motor function, To increase tolerance to activity/condition/position, To improve ability of physical actions for home/community/work/leisure Therapeutic Exercise to Include: Strength training, Balance training, Postural training, Flexibilty training, Gait and locomotor training, Passive ROM, Active ROM, Dynamic Lumbar Stabilization For the Purpose of:: To decrease pain, To improve muscle performance and motor function, To increase tolerance to activity/condition/position, To improve ability of physical actions for home/community/work/leisure, To improve gait and locomotor functions This patient was last seen in our office 08/20/20. Pertinent comments regarding their Physical therapy will appear below: Pt seen 4 visits of his POC. He has called to cancel the rest stating he is having a procedure on his back. Will discontinue at his request. At this point I will be discontinuing this patient from physical therapy. I would be happy to see this patient again in the future if found appropriate by the physician. Thank you! Matt Saab, DPT, OCS, CSCS
== END 2020-08-20 19:00 | disposition home or self-care (01) ==
LOC: PT 13:00
PROVIDERS: PCP Family Medicine; Referring Provider Family Medicine; Visit Provider Family Medicine
DX: M47.16 Other spondylosis with myelopathy, lumbar region (principal); R42 Dizziness and giddiness
CPT/HCPCS: 97110; 97116; 97140; 97162

== ENCOUNTER → 2020-08-22 09:48 | Outpatient (CLI) | payer MEDICARE, OTHER, SELFPAY ==
[2020-01-25 07:02] VITALS: BMI 40.8
[2020-05-10 09:58] VITALS: BMI 42.0
--- NOTE | 2020-08-22 09:53 | RAD_ITS ---
STUDY: X-RAY - LUMBAR SPINE REASON FOR EXAM: Male, 79 years old. LOW BACK PAIN RADIATING DOWN LEFT LEG. PATIENT FELL 2 WEEKS AGO. HX OF KNOWN ARTHRITIS. TECHNIQUE: 5 view(s) of the lumbar spine were obtained. COMPARISON: CT 01/09/2019 FINDINGS: Normal lumbar lordosis. There is no substantial scoliosis. Grade 1 spondylolisthesis of L5-S1 due to facet arthropathy. There is diffuse demineralization with multi-level endplate spondylosis. There is multi-level degenerative disc disease with multi-level disc space narrowing. Compression deformity of T12 is similar since prior CT abdomen/pelvis. There is mild compression deformity of L1 involving the superior endplate which is new since prior CT. There is no demonstrated spondylolysis of the pars interarticulares. Multilevel facet arthropathy predominantly in the lower lumbar levels. There is atherosclerotic calcification of the abdominal aorta without a demonstrated aneurysm. RAD/L/S Spine Min 4 Views IMPRESSION: 1. Mild L1 compression fracture, new since 2019. 2. Degenerative disc disease and facet arthropathy. Electronically Signed: Collins Narvaez MD ([place]) at 11:32 EDT , Service support ,
== END ==
PROVIDERS: PCP Family Medicine; Referring Provider Family Medicine; Visit Provider Family Medicine
DX: M47.16 Other spondylosis with myelopathy, lumbar region (principal)
CPT/HCPCS: 72110

== ENCOUNTER 2020-08-28 12:17 | Inpatient (IN) | payer MEDICARE, OTHER, SELFPAY ==
[2020-01-25 07:02] VITALS: BMI 40.8
[2020-05-10 09:58] VITALS: BMI 42.0
[2020-08-28] VITALS (10 sets, daily range): BP systolic 89–182; BP diastolic 55–81; PULSE 78–102; RESP 17–25; TEMP 36.4–38.3; O2SAT 93–97; BMI 41.3; BMI 40.2; BMI 41.4
--- NOTE | 2020-08-28 12:26 | EKG12_ITS ---
Test Reason : SYNCOPE Blood Pressure : / mmHG Vent. Rate : 095 BPM Atrial Rate : 095 BPM P-R Int : 196 ms QRS Dur : 098 ms QT Int : 366 ms P-R-T Axes : 029 -36 078 degrees QTc Int : 459 ms Normal sinus rhythm Left axis deviation Left ventricular hypertrophy with repolarization abnormality Abnormal ECG Confirmed by JOSE MORATAYA, DENISSE ([id number]), assignment desk editor DENAE GRIFFIN ([id number]) on 09/03/2020 8:47:16 A M Referred By: JUNI Confirmed By:ZANDRA GARCIA MD
--- NOTE | 2020-08-28 12:26 | CT_ITS ---
STUDY: CT BRAIN WITHOUT CONTRAST REASON FOR EXAM: Male, 79 years old. CONFUSION/WEAKNESS, COLON CANCER WITH LIVER/LUNG METS RADIATION DOSAGE (If Supplied By Facility): CTDIvol = ( 44.99 ) mGy, DLP = ( 863.60 ) mGycm TECHNIQUE: Transaxial CT imaging of the brain was performed without administration of intravenous contrast material. Individualized dose optimization techniques were used for this CT. COMPARISON: Comparison is made with prior study dated 01/09/2019. FINDINGS: Normal soft tissue structures. Normal calvarium. There is mild cerebral atrophy with widening of the extra-axial spaces and ventricular dilatation. There are areas of decreased attenuation within the white matter tracts of the supratentorial brain, consistent with microvascular disease changes. Normal basal ganglia and thalami. Normal brainstem. Normal cerebellum. There is no intracranial hemorrhage. There are no findings of an acute ischemic changes. Atherosclerotic calcification of the vertebral arteries and cavernous portions of the internal carotid arteries bilaterally. Normal visualized paranasal sinuses. CT/Brain/Head without Contrast IMPRESSION: Chronic involutional changes of the brain. Electronically Signed: Sav Black, at 13:36 EDT , Service support ,
--- NOTE | 2020-08-28 12:47 | RAD_ITS ---
STUDY: X-RAY CHEST REASON FOR EXAM: Male, 79 years old. SYNCOPE, WEAKNESS TECHNIQUE: Single AP portable view of the chest. COMPARISON: Comparison is made with prior study dated 09/20/2019. FINDINGS: EKG electrodes are seen. A right-sided sasha catheter seen with the tip in the midportion of the superior vena cava. EKG electrodes are seen. Stable increased linear markings in the left midlung suggestive of scarring. Stable mild increased markings at the right lung base as well. Suggestive of scarring. There is no demonstrated pleural abnormality. Sternal cerclage wires and vascular clips are present from a prior sternotomy and coronary artery bypass graft procedure (CABG). Normal mediastinum and gaurav. Normal visualized pulmonary arteries. There is atherosclerotic calcification of the aortic arch with tortuosity. Normal visualized thoracic spine. Normal visualized ribs, clavicles, and shoulders. There is no demonstrated abnormality of the visualized soft tissue structures of the upper abdomen. RAD/Chest 1 View (Portable) IMPRESSION: Stable examination suggest left scarring at the lung bases more prominent in the left midlung. Electronically Signed: Sav Black, at 13:33 EDT , Service support ,
--- NOTE | 2020-08-28 13:14 | ED.VIS.GEN ---
History of Present Illness Chief Complaint: Syncope Informant: Patient, Family Onset: Days Context: Gradual Onset Timing: Continuous Current Severity: Moderate Maximum Severity: Moderate Narrative: The patient is a 79-year-old male who presents to the emergency department after his near syncopal episode. The patient has a rather complex medical history. He has history of colon cancer with mets to his lung and liver. He has had partial liver resection and partial lung resection. He does have history of hepatic encephalopathy and is on rifaximin. About 2 weeks ago, the patient had a fall at home. He was having increasing low back pain. He followed up with his primary care. X-rays determined that he had an L1 compression fracture. The patient has been on oral Dilaudid since. His daughter at the bedside states that he has had diminished appetite, nonfocal weakness, and some mild confusion. Today, he went for outpatient appointment with oncology. They were attempting to flush his port, and he became lightheaded and felt as if he is going to pass out. He never lost consciousness, but his daughter states that he was snyder. He does have history of prior cardiac bypass. He denies any chest pain or abdominal pain. Prior similar symptoms: Yes Recent Illness/Hospitalization: Yes Past Medical History - Allergies and Home Meds Allergies/Adverse Reactions: Allergies No Known Allergies Allergy (Verified 05/10/20 12:57) Primary Care Physician: Armin Carlin DO [Primary Care Provider] - Prior records reviewed: Yes Past Medical History: - - Prior colon cancer with metastasis, liver disease, coronary vascular disease, hypertension Surgical History: appendectomy, arthroscopy, knee, cataract, colectomy - She had a right hemicolectomy secondary to colon cancer, - - 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 He had bilateral carpal tunnel surgery as well Smoking Status: Never smoker - Family History Maternal Family History: Reports: No pertinent history Paternal Family History: Reports: No pertinent history Review of Systems General: Reports: Malaise, Weight loss. Denies: Chills, Fever, Sweats Eyes: Denies: Visual changes - bilaterally, Diplopia ENT: Denies: Rhinorrhea, Sore throat Cardiovascular: Denies: Chest pain, Palpitations Respiratory: Denies: Dyspnea, Cough, Dyspnea on exertion Gastrointestinal: Reports: Nausea. Denies: Abdominal pain, Vomiting, Diarrhea, Melena, Hematochezia Genitourinary: Denies: Dysuria, Hematuria, Frequency Musculoskeletal: Reports: Back pain. Denies: Extremity Pain Skin: Denies: Rash, Wounds Neurological: Denies: Headache, Weakness, Numbness Physical Exam Vital Signs/Narrative: Vital Signs Temp Pulse Resp BP Pulse Ox 08/28/20 12:28 94 23 H 182/81 H 97 08/28/20 12:23 99.1 F 93 25 H 182/81 H 93 Inital Vital Signs reviewed: Yes General: Well nourished, Well developed, No Acute Distress Head: Normocephalic, Atraumatic Eyes: Perrl, EOMI ENT: Moist mucous membranes, No rhinorrhea Neck: Supple, Nontender Cardiovascular: Regular rate, Regular rhythm, No murmurs Respiratory: No distress, CTA bilaterally, Chest nontender Abdomen: Soft, Nontender, Nondistended, Normal bowel sounds Back: Nontender, Normal Inspection Extremities: Nontender, Edema Skin: Normal color, No rash Neurological: Oriented x3, Cranial nerves II-XII grossly intact, Normal Strength, Normal Sensation, Inattentive Psychological: Normal affect, Normal Mood Diagnostic/Tx/Re-eval Clinical Impression(s) from Imaging Studies Brain CT 08/28/20 12:26 IMPRESSION: Chronic involutional changes of the brain. Electronically Signed: Sav Black, at 13:36 EDT , Service support , Chest X-Ray 08/28/20 12:47 IMPRESSION: Stable examination suggest left scarring at the lung bases more prominent in the left midlung. Electronically Signed: Sav Black, at 13:33 EDT , Service support , Abnormal Lab Results 08/28/20 08/28/20 08/28/20 13:10 13:10 13:10 WBC 2.1 L RBC 3.96 L Hgb 10.7 L Hct 35.1 L MCV 88.6 MCH 27.0 MCHC 30.5 L RDW Std Deviation 59.0 H RDW Coeff of Nicola 18.3 H Plt Count 96 L MPV 10.9 Immature Gran % (Auto) 0.500 Neut % (Auto) 85.1 H Lymph % (Auto) 7.7 L Meriwether % (Auto) 1.4 Eos % (Auto) 4.8 Baso % (Auto) 0.5 Absolute Neuts (auto) 1.8 L Absolute Lymphs (auto) 0.16 L Nucleated RBC % 0 Differential Comment SCANNED Diff Path Review May foll Sodium 143 Potassium 4.4 Chloride 113 H Carbon Dioxide 23.0 Anion Gap 7 BUN 24 H Creatinine 1.33 H Estim Creat Clear Calc 37.71 Est GFR (MDRD) Af Amer 67 Est GFR (MDRD) Non-Af 55 L BUN/Creatinine Ratio 18.0 Glucose 99 Calcium 8.8 Total Bilirubin 1.20 H AST 58 H ALT 28 Alkaline Phosphatase 168 H Ammonia 66.0 H Troponin I 0.029 Total Protein 6.6 Albumin 3.1 L Globulin 3.5 Albumin/Globulin Ratio 0.9 - Rhythm Strip Rhythm Strip: Sinus Rhythm Rate: 90 Ectopy: None - EKG Initial EKG Interpretation: Sinus Rhythm, No Acute Injury Pattern Prior: Unchanged - Medical Decision Making The patient presents after near syncopal episode. He is mildly hypertensive, but not tachycardic. His only complaint is of some mild low back pain that has had since his fall. He is a known compression fracture. EKG was obtained. It demonstrated sinus rhythm without acute ischemic change. Metabolic work-up was pursued. Patient has pancytopenia which is chronic and has unchanged. The patient underwent head CT which was unremarkable. Chest x-ray shows chronic change. His ammonia is mildly elevated. I do feel that his presentation is likely multifactorial. He does have history of underlying hepatic disease and was placed on analgesics. He is a diminished oral intake and diminished bowel movements. I do feel that his near syncopal episode is likely secondary to some mild dehydration, and his confusion is likely because of mild hepatic encephalopathy and analgesic use. At this point, I do feel the most prudent plan of care would be to observe the patient on telemetry, hydrate, and resume his lactulose. Patient was discussed with the hospitalist. Impression 1. Near syncope 2. Mild hepatic encephalopathy 3. L1 compression fracture ED Disposition - Plan for ED Patient: Referrals: Armin Carlin DO [Primary Care Provider] -
[2020-08-28 13:20] LABS: Absolute Lymphocyte Count 0.16 X10^3/uL (0.83-4.51); Absolute Neutrophil Count 1.8 X10^3/uL (2.0-7.7); Basophil# 0.01 X10^3/uL; Basophil% 0.5 % (0-1); Eosinophils% 4.8 % (0-5); Hematocrit 35.1 % (40-54); Hemoglobin 10.7 g/dL (13.0-16.5); Lymphocyte # 0.16 X10^3/ul (4.0); Lymphocyte % 7.7 % (19-41); Mean Corp Hgb Conc 30.5 g/dL (32-36); Mean Corpuscular Volume 88.6 fL (80-94); Mean Platelet Vol. 10.9 fl (6.2-12.0); Monocyte# 0.03 X10^3/uL; Monocyte% 1.4 % (0-10); NRBC Flagged by Analyzer 0 % (0-5); Neutrophil # 1.76 X10^3/uL (2.7-7.7); Neutrophil % 85.1 % (47-70); POSITIVE COUNT YES; POSITIVE DIFFERENTIAL YES; Platelet Count 96 K/mm3 (150-450); RBC Distribution Width CV 18.3 % (11.6-14.6); Red Blood Count 3.96 M/mm3 (4.6-6.2); White Blood Count 2.1 K/mm3 (4.4-11.0)
[2020-08-28 13:23] LABS: Differential Indicated SCAN CRITERIA MET
[2020-08-28 13:36] LABS: ALB/GLOB Ratio 0.9 RATIO (0.9-2.4); AST(SGOT) 58 U/L (15-37); Alanine Aminotransfer ALT/SGPT 28 U/L (16-61); Albumin, Serum 3.1 g/dL (3.2-5.0); Alkaline Phosphatase 168 U/L (45-117); Anion Gap 7 (5-15); BUN 24 mg/dL (7-18); Calcium,Total 8.8 mg/dL (8.5-10.1); Chloride 113 mmol/L (98-107); Creatinine, Serum 1.33 mg/dL (0.70-1.30); EST Glomerular Filtration Rate 55 mL/min (>60); Est Glom Filt Rate - Afr Amer 67 mL/min (>60); Estimated Creatinine Clearance 37.71 ml/min; Globulin 3.5 g/dL (2.2-4.2); Glucose 99 mg/dL (74-106); Potassium 4.4 mmol/L (3.5-5.1); Protein, Total 6.6 g/dL (6.4-8.2); Sodium Level 143 mmol/L (136-145)
[2020-08-28 13:51] LABS: Differential Comment SCANNED
--- NOTE | 2020-08-28 14:07 | NURSING ---
PCU NEAR SYNCOPE ASHELFAH
--- NOTE | 2020-08-28 14:26 | PCM.HP.STD ---
Problem List (1) Benign essential HTN Status: Chronic (2) AAA (abdominal aortic aneurysm) without rupture Status: Chronic Comment: monitored at [facility] 4.5 cm (3) CAD (coronary artery disease) Status: Chronic Qualifiers: Coronary Disease-Associated Artery/Lesion type: tribal artery [place] vs. transplanted heart: tribal heart Associated angina: without angina Qualified Code(s): I25.10 - Atherosclerotic heart disease of tribal coronary artery without angina pectoris Comment: CABG at [facility] 10/04/2019: MIJARES to LAD, SVG to PDA, SVG to Obtuse marginial 1, SVG to Diag 1 (4) HTN (hypertension) Status: Chronic (5) CHF (congestive heart failure) Status: Chronic Qualifiers: Heart failure chronicity: unspecified (6) Varices of esophagus determined by endoscopy Status: Chronic (7) Colon cancer metastasized to liver Status: Chronic (8) Colon cancer metastasized to lung Status: Chronic History of Present Illness Date of Admission: 08/28/20 Chief Complaint: Near syncope. The patient is a 79 year old M with past medical history as mentioned above who referred to the emergency department from his oncologist office for near syncopal episode. Today, patient went to Dr. Renee office for routine follow-up regarding metastatic colon cancer and upon checking his port, it was clogged and he was given thrombolytic and was asked to wait for it to work. According to his daughter, patient started to be lightheaded, dizzy and he was about to pass out. She mentioned that he was pale but he did not lose his consciousness. Patient mentioned that he was dizzy and his legs gave out and also complained of generalized weakness and fatigue. He denied chest pain or palpitation, denies shortness of breath. He denied cough or sputum production. He denied fever or chills. He denied blurred vision or slurred speech. About 2 weeks ago, patient had a mechanical fall at home. He saw his PCP who ordered x-rays and he was found to have mild compression fracture of L1. Since then, patient has been complaining of back pain. He was started on oral Dilaudid since then by his PCP. He has been taking Dilaudid every 8 hours according to the patient. Patient's daughter mentioned that he has been having intermittent confusion. At this time, he is alert and oriented x3. In the emergency department, his blood pressure was elevated, other vital signs were stable. Later, he developed a spike of fever of 101 Fahrenheit, heart rate went up to 102, respiratory rate was 23. Routine blood work was remarkable for pancytopenia which is chronic, BUN was 24 and creatinine was 1.33. LFT revealed slightly elevated AST, alkaline phosphatase. Lactic acid was 2.4. Serum ammonia 66. COVID-19 PCR was negative. EKG revealed normal sinus rhythm without evidence of acute segment changes or cardiac arrhythmias. Troponin was negative. CT scan brain showed no acute findings. Chest x-ray showed no acute infiltrate or consolidation. He is being admitted for severe sepsis without obvious source of infection, encephalopathy likely combination of hepatic encephalopathy and medication side effects in addition to near syncopal episode. Past Medical History Past Medical History (Chronic Problems): Chronic Problems (Last Updated 08/28/20 @ 14:[address] Mallorie Lancaster MD) Pulmonary hypertension (Chronic) Benign essential HTN (Chronic) AAA (abdominal aortic aneurysm) without rupture (Chronic) monitored at [facility] 4.5 cm CAD (coronary artery disease) (Chronic) CABG at [facility] 10/04/2019: MIJARES to LAD, SVG to PDA, SVG to Obtuse marginial 1, SVG to Diag 1 HTN (hypertension) (Chronic) CHF (congestive heart failure) (Chronic) NSTEMI (non-ST elevated myocardial infarction) (Chronic) Renal insufficiency (Chronic) Varices of esophagus determined by endoscopy (Chronic) Colon cancer metastasized to liver (Chronic) Colon cancer metastasized to lung (Chronic) Medical History: Medical History (Last Updated 08/28/20 @ 14:[address] Mallorie Lancaster MD) Pulmonary hypertension (Chronic) I27.20 Benign essential HTN (Chronic) I10 AAA (abdominal aortic aneurysm) without rupture (Chronic) I71.4 monitored at [facility] 4.5 cm CAD (coronary artery disease) (Chronic) I25.10 CABG at [facility] 10/04/2019: MIJARES to LAD, SVG to PDA, SVG to Obtuse marginial 1, SVG to Diag 1 HTN (hypertension) (Chronic) I10 CHF (congestive heart failure) (Chronic) I50.9 NSTEMI (non-ST elevated myocardial infarction) (Chronic) I21.4 Renal insufficiency (Chronic) N28.9 Varices of esophagus determined by endoscopy (Chronic) I85.00 Colon cancer metastasized to liver (Chronic) C18.9, C78.7 Colon cancer metastasized to lung (Chronic) C18.9, C78.00 History of left heart catheterization (LHC) Onset Date: ~09/20/19 Z98.890 Multivessel CAD; transfer to [facility] for surgery consult for coronary revascularization Allergies No Known Allergies Allergy (Verified 05/10/20 12:57) Home Medications: Ambulatory Orders Medication Instructions Recorded Furosemide [Lasix] 20 mg PO BID 12/26/15 Hydroxychloroquine [Plaquenil] 200 mg PO BIDCM 12/26/15 Propranolol HCl [Inderal (Beta 20 mg PO BID 02/07/16 Isndi)] Magnesium Oxide [Mag-Ox 400] 400 mg PO BID 08/24/16 aspirin 81 mg tablet,delayed 81 mg PO DAILY 11/02/19 release melatonin 10 mg capsule 10 mg PO HS PRN 11/02/19 acetaminophen 325 mg tablet 650 mg PO Q6H PRN PRN tab 01/12/20 dicyclomine 10 mg capsule 10 mg PO TID PRN cap 01/12/20 diltiazem HCl 120 mg 120 mg PO DAILY 01/12/20 capsule,extended release 24 hr potassium chloride 20 mEq 40 meq PO DAILY tab 01/12/20 tablet,extended release(part/cryst) prednisone 10 mg tablet 10 mg PO DAILY PRN 01/12/20 rifaximin 550 mg tablet 550 mg PO BID tab 01/12/20 sertraline 100 mg tablet 100 mg PO DAILY 01/12/20 HYDROmorphone tablet [Dilaudid] 2 mg PO 4X/DAY 08/28/20 Ibuprofen [Advil] 200 mg PO DAILY PRN PRN 08/28/20 Losartan Potassium [Cozaar] 25 mg PO DAILY 08/28/20 Omeprazole 20 mg PO DAILY 08/28/20 Surgical History: Surgical History (Last Reviewed 01/13/20 @ 14:39 by Ina Maier PA, PA) Hx of CABG Z95.1 CABG at [facility] 10/04/2019: MIJARES to LAD, SVG to PDA, SVG to Obtuse marginial 1, SVG to Diag 1 Surgical History: appendectomy, arthroscopy, knee, cataract, colectomy - She had a right hemicolectomy secondary to colon cancer, - - 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 He had bilateral carpal tunnel surgery as well Psychiatric History: No pertinent psych hx Lives: Alone Smoking Status: Never smoker Alcohol: None Drugs: None - *Family History Maternal History Items: No pertinent history Paternal History Items: No pertinent history Review of Systems Constitutional: Reports: Anorexia, Weakness, Fatigue. Denies: Chills, Fever Eyes: Denies: Blurred vision, Double vision, Drainage, Redness HEENT: Denies: Difficulty Hearing, Ear Pain, Eye Pain, Nasal bleeding, Nasal Congestion, Sore Throat Cardiovascular: Reports: Light Headedness. Denies: Chest Pain, Chest Pressure, Chest Tightness, Palpitations, Syncope Respiratory: Denies: Cough, Hemoptysis, Pleuritic Pain, Shortness of Breath, Sputum production, Wheezing Gastrointestinal: Denies: Abdominal Pain, Constipation, Diarrhea, Nausea, Vomiting Genitourinary: Denies: Dysuria, Frequency, Hematuria Musculoskeletal: Reports: Back Pain. Denies: Arm Pain, Foot Pain Skin: Denies: Dryness, Rash Neurological: Reports: Confusion. Denies: Balance problems, Double vision, Change in Speech, Slurred speech, Headaches, Incoordination, Numbness Psychiatric: Reports: Depression. Denies: Anxiety Endocrine: Denies: Change in Body Habitus, Polydipsia, Polyuria VTE Information - Inpt Only VTE Present on Admission: No VTE Mechan Device Prophylaxis: None VTE Pharm Prophylaxis ordered?: No - Physical Exam Vitals/I&O's: Vital Signs Temp Pulse Resp BP Pulse Ox 99.1 F 94 23 H 182/81 H 97 08/28/20 12:23 08/28/20 12:28 08/28/20 12:28 08/28/20 12:28 08/28/20 12:28 Oxygen Flow Rate (L/min) 2 Oxygen Delivery Method Nasal Cannula Weight: 240 lb 15.444 oz Body Mass Index (BMI) 41.3 General: Alert, Oriented x3, Cooperative, - - restless. HEENT: Atraumatic, PERRLA, EOMI, Normocephalic Oral: Moist Mucosa, No Gingival or Mucosal Lesions/ Ulcerations Neck: Supple, No JVD, Negative Carotid Bruits, Trachea Midline, Thyroid Normal Size and Texture Lungs: Clear to auscultation, Normal air movement, No rhonchi, No wheeze, No rales, Diminished Cardiovascular: Regular rate, Regular Rhythm, Normal S1, Normal S2, PMI Normal Abdomen: Bowel Sounds Present, Soft, Non Tender, Non-Distended, No Hepato-splenomegaly Extremities: No clubbing, No cyanosis, No edema Skin: No rashes, No breakdown Lymphatic: No Cervical, Supraclavicular, or Inguinal Adenopathy Neurological: Cranial nerves II-XII grossly intact, Motor Exam 5/5 strength throughout Psych/Mental Status: Normal Affect, Appropriate, Restless, Alert and oriented to time, place, person, mood and affect Laboratory Results 08/28/20 13:10: WBC 2.1 L, RBC 3.96 L, Hgb 10.7 L, Hct 35.1 L, MCV 88.6, MCH 27.0, MCHC 30.5 L, RDW Std Deviation 59.0 H, RDW Coeff of Nicola 18.3 H, Plt Count 96 L, MPV 10.9, Immature Gran % (Auto) 0.500, Neut % (Auto) 85.1 H, Lymph % (Auto) 7.7 L, [place] % (Auto) 1.4, Eos % (Auto) 4.8, Baso % (Auto) 0.5, Absolute Neuts (auto) 1.8 L, Absolute Lymphs (auto) 0.16 L, Nucleated RBC % 0, Differential Comment SCANNED, Diff Path Review March08/28/20 13:10: Sodium 143, Potassium 4.4, Chloride 113 H, Carbon Dioxide 23.0, Anion Gap 7, BUN 24 H, Creatinine 1.33 H, Estim Creat Clear Calc 37.71, Est GFR (MDRD) Af Amer 67, Est GFR (MDRD) Non-Af 55 L, BUN/Creatinine Ratio 18.0, Glucose 99, Calcium 8.8, Total Bilirubin 1.20 H, AST 58 H, ALT 28, Alkaline Phosphatase 168 H, Troponin I 0.029, Total Protein 6.6, Albumin 3.1 L, Globulin 3.5, Albumin/Globulin Ratio 0.9 08/28/20 13:10: Ammonia 66.0 H Clinical Impression(s) from Imaging Studies Brain CT 08/28/20 12:26 IMPRESSION: Chronic involutional changes of the brain. Electronically Signed: Sav Black, at 13:36 EDT , Service support , Chest X-Ray 08/28/20 12:47 IMPRESSION: Stable examination suggest left scarring at the lung bases more prominent in the left midlung. Electronically Signed: Sav Black, at 13:33 EDT , Service support , Assessment/Plan This is a 79 years old male patient referred to the emergency department from his oncologist office for near syncopal episode, found to have elevated ammonia consistent with hepatic encephalopathy and Pletal, he developed fever while in the ED. #1 encephalopathy: It is probably multifactorial secondary to hepatic encephalopathy, narcotic side effects in addition to dehydration. Currently, patient is alert and limited x3, slow thinking. CT scan brain showed no acute findings. Ammonia is elevated. Patient was advised to have liver cirrhosis, denies constipation. He has been on rifaximin, not on lactulose at home. Plan: Admit to PCU, cardiac monitoring, lactulose twice daily, continue rifaximin, discontinue p.o. Dilaudid, gentle IV fluids for hydration, repeat CBC and CMP tomorrow morning, repeat ammonia tomorrow morning, PT OT evaluation and treatment. #2 severe sepsis: Based on fever, tachycardia, tachypnea, elevated lactic acid but without obvious source of infection. Awaiting urinalysis to be done. With no obvious source of infection. Patient does have a history of liver cirrhosis but he denied any abdominal pain, no obvious ascites on examination. At this time, I doubt spontaneous bacterial peritonitis. Chest x-ray showed no acute findings, no obvious infiltrate. COVID-19 PCR was negative. Urinalysis was ordered but was not done yet. Blood culture sent. Plan: IV fluids, repeat lactic acid in 3 hours, ultrasound abdomen, urine culture, repeat CBC and BMP tomorrow morning. #3 near syncopal episode: Again, could be multifactorial as mentioned above. Vasovagal near syncope also the other differential diagnosis. EKG revealed normal sinus rhythm, no acute clinical changes or cardiac arrhythmias. In the ED, initial blood pressure was elevated but improved. CT scan brain showed no acute findings. Plan: Cardiac monitoring, gentle IV fluids for hydration, orthostatic vitals tomorrow morning. #4 dehydration: Due to poor oral intake. Baseline kidney function is normal. Admission BUN is 24, creatinine 1.33. Most recent creatinine was 1.23 last month. Patient also has been on Lasix. Plan: IV fluids as mentioned above, homeless, repeat BMP tomorrow morning. #5 persistent back pain: Due to mechanical fall. Patient had x-ray lumbar spine on August 22, 2020 that revealed mild L1 compression fracture. Patient has been on p.o. Dilaudid since then with no improvement. Plan: CT scan lumbar spine without contrast, OxyIR as needed for pain, discontinue p.o. Dilaudid. #6 history of colon cancer with metastasis to liver and lung: Status post liver and lung resection, status post chemotherapy, has been in remission for 2 years. He has been following up with Dr. Renee as outpatient. #7 hypertension: Initial blood pressure was elevated but improved. Plan to continue losartan, start IV hydralazine as needed. #8 liver cirrhosis: Following liver resection for cancer and subsequent scar tissue formation. Plan as above. #9 CAD status post CABG: EKG reviewed, unremarkable, troponins negative. Continue aspirin, losartan and propranolol. #10 DVT prophylaxis: SCDs, no chemical prophylaxis because of thrombocytopenia. This note was generated with [employer] dictation software. It may contain incorrect words, spelling, and punctuation that were not noted in checking the note before signing. Inpatient E&M: 99366 Init Hosp L3
[2020-08-28] MEDS: HYDROmorphone 0.5 MG/0.5 ML SYRINGE IV (14:42)
[2020-08-28] MEDS: Lactulose 20 GM/30 ML UDC PO (14:43)
[2020-08-28] MEDS: Acetaminophen 500 MG Tablet PO (14:43)
[2020-08-28 16:22] LABS: Lactic Acid 2.4 mmol/L (0.4-1.9)
--- NOTE | 2020-08-28 19:00 | CT_ITS ---
STUDY: CT LUMBAR SPINE WITHOUT CONTRAST REASON FOR EXAM: Male, 79 years old. RECENT MILD L1 COMPRESSION FX FOUND ON XRAY, INCREASED WEAKNESS X 1 WEEK, NEAR SYNCOPE, STAGE 4 COLON CA WITH LIVER AND LUNG, HTN RADIATION DOSAGE (If Supplied By Facility): CTDIvol = ( 39.33 ) mGy, DLP = ( 1487.69 ) mGycm TECHNIQUE: The patient was scanned in a multi detector CT scanner. High resolution transaxial imaging was performed. Images were obtained from T12 to sacrum. Sagittal and coronal images were reconstructed. Individualized dose optimization techniques were used for this CT. COMPARISON: August 22, 2020 lumbar spine x-ray, January 09, 2019 CT scan abdomen and pelvis lumbar spine bone windows FINDINGS: There is an exaggerated lumbar lordosis. There is no substantial scoliosis. There is chronic wedging and/or loss of height T11, T12 seen on the prior study January 09, 2019. At L1 there is greater loss of height on August 22, 2020 when compared to January 09, 2019. There may have been an acute loss of height at that time there is a slight cortical irregularity or visualized fracture line in the anterior aspect of the L1 vertebral body with minimal increased density in the endplate indicating recent compression. There is an approximate 10-20% loss of height. There is no significant change in the alignment. There is multilevel spondylosis with disc space narrowing. There is chronic vacuum phenomenon L1-L2 L2-L3. There is chronic anterolisthesis at L5-S1 similar to the prior study 01/09/2019. L1-2: As seen on prior study there is disc space narrowing and anterior posterior spondylosis vacuum phenomena. There is mild to moderate neural foramina narrowing mild central stenosis. L2-3: The disc spaces relatively maintained in height. There is vacuum phenomenon. There is anterior and posterior spondylosis with mild neural foramina narrowing mild central stenosis. L3-4: There is a broad disc osteophyte protrusion, see image #67 axial views with facet arthropathy, ligamentum flavum hypertrophy. There is moderate to severe neural foraminal narrowing, and moderate to severe central stenosis. This is similar to the prior study October 09, 2019. L4-5: There is a broad disc bulge. There is a right lateral disc osteophyte protrusion moderate to severe right neural foraminal narrowing. There is ligamentum flavum hypertrophy, see image #63 sagittal views. There is moderate to severe neural foramina narrowing moderate to severe central stenosis. L5-S1: There is disc space narrowing persistent anterolisthesis moderate neural foramina narrowing mild to moderate central stenosis facet arthropathy. This visualize mild enlargement of the prostate with calcifications. There is moderate stool in the visualized colon. There is atherosclerotic disease of the visualized aorta. On this study there is incidental visualization of aneurysmal dilatation of the infrarenal aorta measuring 4.6 x 5.0 cm. When compared to prior study this is relatively stable when it measured 4.6 x 4.96 cm. There is a right renal stone measuring 3.4 mm. There is no visualized hydronephrosis. There is no visualized postoperative change in the right upper quadrant involving the liver. Normal visualized paraspinous soft tissue structures. CT/Spine Lumbar without Contrast IMPRESSION: When compared to prior study August 22, 2020 there is no greater interval loss of height at L1. Findings are suggestive possible recent 10% compression fracture injury. There is multilevel loss of height in the thoracolumbar junction. There is multilevel advanced degenerative changes detailed above. Stable infrarenal abdominal aortic aneurysm, measuring 4.6 x 4.96 cm. Electronically Signed: Georgiana Charles MD at 1:16 EDT Tel , Service support ,
[2020-08-28 19:08] LABS: Bacteria 0 SEEN /hpf (None Seen); Red Blood Cells-Urine 0 SEEN /hpf (0-5); Squamous Epithelial Cells - UA 0 SEEN /hpf (0-5)
[2020-08-28 19:22] LABS: Color, Urine Yellow (Yellow); Glucose, Dipstick Normal (Normal); Ketone-Dipstick 15 mg/dl (Negative); Leukocyte Esterase-Dipstick 100 /ul (Negative); Nitrite-Dipstick Negative (Negative); Occult Blood-Urine Negative /ul (Negative); Protein-Dipstick 30 mg/dl (Negative); Urine Clarity Cloudy (Clear); Urine Urobilinogen Normal (Normal)
[2020-08-28 19:27] LABS: Reflex Lactate? Y
[2020-08-28 19:28] LABS: Urine Bilirubin Dipstick 1 mg/dL (Negative)
[2020-08-28 19:38] LABS: Mucous, Urine 2+ /hpf (<or=2+)
[2020-08-28 19:39] LABS: Hyaline Cast 0-5 SEEN /lpf (0-5)
[2020-08-28 19:40] LABS: White Blood Cells 5-10 SEEN /hpf (0-5); Yeast-Urine 2+ /hpf (None Seen)
[2020-08-28] MEDS: oxyCODONE 5 MG Tablet PO (19:49)
[2020-08-28] MEDS: 0.9% Normal Saline 1,000 ML 100 ML IV (20:28)
[2020-08-28] MEDS: Hydroxychloroquine 200 MG Tablet PO (21:00)
[2020-08-28] MEDS: Propranolol 10 MG Tablet 20 MG PO (21:00)
[2020-08-28] MEDS: rifAXIMin 550 MG Tablet PO (21:00)
[2020-08-28 21:07] LABS: Lactic Acid 2.9 mmol/L (0.4-1.9)
[2020-08-29] VITALS (8 sets, daily range): BP systolic 113–128; BP diastolic 57–72; PULSE 64–77; RESP 16–18; TEMP 36.4–37.2; O2SAT 96–99
--- NOTE | 2020-08-29 02:22 | PCM.RX.CS ---
Consult Pharmacy has been consulted to manage selected antiobiotic: Vancomycin Type of Consult: New start Suspected Infection: Sepsis Labs: Sodium 143 mmol/L (136-145) 08/28/20 13:10 Potassium 4.4 mmol/L (3.5-5.1) 08/28/20 13:10 Chloride 113 mmol/L (98-107) H 08/28/20 13:10 Carbon Dioxide 23.0 mmol/L (21.0-32.0) 08/28/20 13:10 Anion Gap 7 (5-15) 08/28/20 13:10 BUN 24 mg/dL (7-18) H 08/28/20 13:10 Creatinine 1.33 mg/dL (0.70-1.30) H 08/28/20 13:10 Est GFR (MDRD) Af Amer 67 mL/min (>60) 08/28/20 13:10 Est GFR (MDRD) Non-Af 55 mL/min (>60) L 08/28/20 13:10 BUN/Creatinine Ratio 18.0 RATIO (-) 08/28/20 13:10 Glucose 99 mg/dL (74-106) 08/28/20 13:10 Weight used for dosin.3 kg Estimated Creatinine Clearance: 49.7 Goal Trough: 15-20 mcg/mL Pharmacy Plan for Drug Dosing: Pharmacy Service will continue to monitor and adjust dosing as required. Medications Vancomycin HCl 2,000 mg/ (Sodium Chloride) 540 mls @ 250 mls/hr IV X1 ONE Stop: 08/29/20 03:39 Last Admin: 08/29/20 02:12 Dose: 250 mls/hr Documented by: Vancomycin HCl (Vancomycin) 1,000 mg in 200 mls @ 200 mls/hr IV Q12H CRYSTAL Follow-Up Labs: Trough Vancomycin Labs to be done on [date and time ordered]: 08/30 @ [id number]
[2020-08-29] MEDS: 0.9% Saline Lock 10 ML Syringe IV (03:54)
[2020-08-29] MEDS: oxyCODONE 5 MG Tablet PO ×3 (04:18→21:10)
[2020-08-29 04:55] LABS: Absolute Lymphocyte Count 0.47 X10^3/uL (0.83-4.51); Absolute Neutrophil Count 5.5 X10^3/uL (2.0-7.7); Basophil# 0.02 X10^3/uL; Basophil% 0.3 % (0-1); Eosinophil# 0.04 X10^3/uL; Eosinophils% 0.6 % (0-5); Hematocrit 32.2 % (40-54); Hemoglobin 9.8 g/dL (13.0-16.5); Lymphocyte # 0.47 X10^3/ul (4.0); Lymphocyte % 7.1 % (19-41); Mean Corp Hgb Conc 30.4 g/dL (32-36); Mean Corpuscular Hgb 27.7 pg (27.0-32.0); Mean Platelet Vol. 11.2 fl (6.2-12.0); Monocyte# 0.59 X10^3/uL; Monocyte% 8.9 % (0-10); NRBC Flagged by Analyzer 0 % (0-5); Neutrophil # 5.46 X10^3/uL (2.7-7.7); Neutrophil % 81.9 % (47-70); POSITIVE COUNT YES; POSITIVE DIFFERENTIAL YES; Platelet Count 51 K/mm3 (150-450); RBC Distribution Width CV 18.5 % (11.6-14.6); RBC Distribution Width SD 60.7 fl (35.1-43.9); Red Blood Count 3.54 M/mm3 (4.6-6.2); White Blood Count 6.7 K/mm3 (4.4-11.0)
[2020-08-29 04:59] LABS: Differential Indicated SCAN CRITERIA MET
[2020-08-29 05:10] LABS: ALB/GLOB Ratio 0.8 RATIO (0.9-2.4); AST(SGOT) 62 U/L (15-37); Alanine Aminotransfer ALT/SGPT 33 U/L (16-61); Albumin, Serum 2.6 g/dL (3.2-5.0); Alkaline Phosphatase 126 U/L (45-117); Anion Gap 6 (5-15); BUN 27 mg/dL (7-18); BUN/Creat Ratio 21.1 RATIO (10-20); Calcium,Total 7.9 mg/dL (8.5-10.1); Chloride 109 mmol/L (98-107); Creatinine, Serum 1.28 mg/dL (0.70-1.30); EST Glomerular Filtration Rate 58 mL/min (>60); Est Glom Filt Rate - Afr Amer 70 mL/min (>60); Estimated Creatinine Clearance 39.18 ml/min; Globulin 3.1 g/dL (2.2-4.2); Glucose 90 mg/dL (74-106); Potassium 4.1 mmol/L (3.5-5.1); Protein, Total 5.7 g/dL (6.4-8.2); Sodium Level 139 mmol/L (136-145)
[2020-08-29 05:16] LABS: Differential Comment SCANNED
[2020-08-29 05:17] LABS: Ovalocyte RARE; Platelet Estimate MKD DEC (ADEQ); Schistocytes RARE
[2020-08-29] MEDS: Propranolol 10 MG Tablet 20 MG PO ×2 (08:46→21:10)
[2020-08-29] MEDS: dilTIAZem CD 120 MG Capsule PO (08:46)
[2020-08-29] MEDS: Losartan Potassium 25 MG Tablet PO (08:46)
[2020-08-29] MEDS: Aspirin E.C. 81 MG Tablet PO (08:46)
[2020-08-29] MEDS: Hydroxychloroquine 200 MG Tablet PO ×2 (08:46→16:50)
[2020-08-29] MEDS: rifAXIMin 550 MG Tablet PO ×2 (08:47→21:10)
[2020-08-29] MEDS: Pantoprazole Sodium 20 MG Tablet PO (08:47)
[2020-08-29] MEDS: Sertraline 100 MG Tablet PO (08:47)
--- NOTE | 2020-08-29 11:11 | CASEMGMT ---
ANJEL CORONA assessment: Face to Face with patient for initial transition planning/care coordination assessment. ANJEL CORONA introduced self and role at [facility], pt voices understanding and consents to assessment at this time. Pt is lying in bed in no distress at this time. Pt is A/Ox4 at this time and answers all questions appropriately at this time. Care providers, pharmacy, and demographics verified/updated at this time. Presentation: Pt reports increased weakness for over a week. Had near syncope episode while having check up w/ Dr. Renee Admitting dx: Near syncope, encephalopathy PCP: Raegan Specialists: Thelma, onc-pt states is in remission but still gets bloodwork and scans Preferred Pharmacy: [facility] Insurance: [employer] A/B, MMO Prescription Benefit: [employer] Living Will/HPOA: Pt states has LW/HPOA and is aware that they are on file at [facility] at this time. Pt states his daughter, Kody Stuart, is HPOA. LNOK: Kody Stuart, daughter/HPOA; Shwetha Lynn, daughter Living Arrangements: Pt states lives alone in 1 story home with 3 steps in and states no concerns at home at this time. Pt states is independent with ADL's. Transportation: Pt states drives self and states no transportation concerns at this time. DME/HHC: Pt states has the following DME: cane, walkerx2, grab bars and shower chair. Pt states no need for any further DME at this time. Pt states no hx of HHC or SNF in the past. Pt states no concerns with going home at time of discharge. Pt states is retired. Pt states does not smoke cigarettes or drink ETOH. Pt states no further concerns/needs at this time. CM to follow for PT/OT evals and any further discharge planning/needs. Advised pt to ask for CM if any further questions/concerns/needs arise, voices understanding. Pt Goal: Home Plan[place] ANJEL CORONA
[2020-08-29] MEDS: Vancomycin IV 1,000 MG/200 ML BAG 200 MG IV (13:48)
[2020-08-29 14:52] LABS: Pathologist Review Reviewed
--- NOTE | 2020-08-29 16:42 | PN_ITS ---
Subjective: Patient was seen and examined today, I asked for infectious diseases to see the patient to determine whether he indeed has sepsis, patient is afebrile currently and his white count is normal. Domal ultrasound today showed a partial liver resection with 70% resected and fibrofatty infiltration of the remaining liver in keeping with cirrhosis. There is also a distant abdominal aortic aneurysm 4.3 x 4.7 cm in diameter, there are also some right renal pelvic stones with no hydronephrosis. Splenomegaly is also noted. Patient has been refusing l actulose, he states that he is not confused and he gets severe diarrhea when he takes lactulose. I discontinued it today. - Physical Exam Vitals/I&O's: Vital Signs Temp Pulse Resp BP Pulse Ox 98.9 F 68 16 117/57 L 99 08/29/20 15:00 08/29/20 15:00 08/29/20 15:00 08/29/20 15:00 08/29/20 15:00 Oxygen Flow Rate (L/min) 2 Oxygen Delivery Method Room Air Weight: 106.3 kg Body Mass Index (BMI) 40.2 Orthostatic Vital Signs Start: 08/28/20 21:01 Freq: q24h Status: Active Protocol: Activity Type Activity Date Activity User E-Sign Co-Sign Detail Recorded Client Recorded Date Recorded By Document 08/29/20 04:15 MAB [id number] 08/29/20 04:33 MAB 08/29/20 04:15 Orthostatic Vitals Standing -Blood Pressure (90/60-120/80) 126/67 H -Extremity Use Left Arm -Pulse Rate (60-100) 77 Sitting -Blood Pressure (90/60-120/80) 122/61 H -Extremity Use Left Arm -Pulse Rate (60-100) 73 Lying -Blood Pressure (90/60-120/80) 113/64 -Extremity Use Left Arm -Pulse Rate (60-100) 76 Intake and Output for Last 24 Hours 08/27/20 08/28/20 08/29/20 23:59 23:59 23:59 Intake Total 1240 / 1240 2089. Balance 1240 / 1240 2089. / General: Alert, Oriented x3, Cooperative, No apparent distress, Well developed, Well nourished HEENT: Atraumatic, PERRLA, EOMI, Normocephalic Oral: Moist Mucosa Neck: Supple, No JVD, Trachea Midline, Thyroid Normal Size and Texture Lungs: Clear to auscultation, Normal air movement, No rhonchi, No wheeze, No rales Cardiovascular: Regular rate, Regular Rhythm, Normal S1, Normal S2, No murmurs, PMI Normal, No rub noted Abdomen: Bowel Sounds Present, Soft, Non Tender, Non-Distended, - - Large right- sided abdominal wall hernia is noted to be present Extremities: No clubbing, No cyanosis, No edema, Capillary Refill Less than 3 Seconds Skin: No rashes, No breakdown Musculoskeletal: No Tenderness to Palpation of Joints or Extremities Neurological: Cranial nerves II-XII grossly intact, Neuro grossly intact, Sensory exam intact to light touch and pain, Coordination normal Psych/Mental Status: Normal Affect, Appropriate, Alert and oriented to time, place, person, mood and affect Laboratory Results 08/28/20 13:10: Diff Path Review Reviewed 08/28/20 15:21: COVID-19 (BOAZ) Not Detected 08/28/20 19:00: Urine Color Yellow, Urine Clarity Cloudy, Urine pH 5.0, Ur Specific [place] 1.020, Urine Protein 30 H, Urine Glucose (UA) Normal, Urine Ketones 15 H, Urine Occult Blood Negative, Urine Nitrite Negative, Urine Bilirubin 1 H, Urine Urobilinogen Normal, Ur Leukocyte Esterase 100 H, Urine RBC 0 SEEN, Urine WBC 5-10 SEEN, Ur Squamous Epith Cells 0 SEEN, Urine Bacteria 0 SEEN, Hyaline Casts 0-5 SEEN, Urine Mucus 2+, Urine Yeast 2+ 08/28/20 20:07: Lactic Acid 2.9 H* 08/29/20 04:46: WBC 6.7, RBC 3.54 L, Hgb 9.8 L, Hct 32.2 L, MCV 91.0, MCH 27.7, MCHC 30.4 L, RDW Std Deviation 60.7 H, RDW Coeff of Nicola 18.5 H, Plt Count 51 L, MPV 11.2, Immature Gran % (Auto) 1.200 H, Neut % (Auto) 81.9 H, Lymph % (Auto) 7.1 L, [place] % (Auto) 8.9, Eos % (Auto) 0.6, Baso % (Auto) 0.3, Absolute Neuts (auto) 5.5, Absolute Lymphs (auto) 0.47 L, Nucleated RBC % 0, Differential Comment SCANNED, Platelet Estimate MKD DEC, Ovalocytes RARE, Schistocytes RARE 08/29/20 04:46: Sodium 139, Potassium 4.1, Chloride 109 H, Carbon Dioxide 24.0, Anion Gap 6, BUN 27 H, Creatinine 1.28, Estim Creat Clear Calc 39.18, Est GFR (MDRD) Af Amer 70, Est GFR (MDRD) Non-Af 58 L, BUN/Creatinine Ratio 21.1 H, Glucose 90, Calcium 7.9 L, Total Bilirubin 0.80, AST 62 H, ALT 33, Alkaline Phosphatase 126 H, Total Protein 5.7 L, Albumin 2.6 L, Globulin 3.1, Albumin/Globulin Ratio 0.8 L 08/29/20 04:46: Ammonia 26.0 Current Medications Aspirin ([facility]in E.C. 81 Mg Tablet) [facility] Admin: 08/29/20 08:46 Dose: 81 mg Documented by: Dicyclomine HCl (Dicyclomine 10 Mg Capsule) 10 mg PO TID PRN PRN Reason: abdominal spasm Diltiazem HCl (Diltiazem Cd 120 Mg Capsule) 120 mg PO DAILY [facility] Last Admin: 08/29/20 08:46 Dose: 120 mg Documented by: Hydralazine HCl (Hydralazine 20 Mg/Ml Vial) 10 mg IV Q8H PRN PRN PRN Reason: FOR sbp>160 Hydroxychloroquine Sulfate (Hydroxychloroquine 200 Mg Tablet) [facility] Last Admin: 08/29/20 08:46 Dose: 200 mg Documented by: Piperacillin Sod/Tazobactam (Sod 3.375 gm/ Sodium Chloride) 50 mls @ 12.5 mls/hr IV Q8 [facility] Last Admin: 08/29/20 13:48 Dose: 12.5 mls/hr Documented by: Vancomycin IV Pharmacy to Dose (1 ea/ Sodium Chloride) 500 mls @ 250 mls/hr IV X1 PRN; Protocol PRN Reason: Rx to Dose Vancomycin HCl (Vancomycin) 1,000 mg in 200 mls @ 200 mls/hr IV Q12H [facility] Last Infusion: 08/29/20 15:33 Dose: Infused Documented by: Lactulose (Lactulose 20 Gm/30 Ml Udc) 20 gm PO BID [facility] Last Admin: 08/29/20 08:48 Dose: Not Given Documented by: Losartan Potassium (Losartan Potassium 25 Mg Tablet) 25 mg PO DAILY [facility] Last Admin: 08/29/20 08:46 Dose: 25 mg Documented by: Melatonin (Melatonin 10 Mg Tablet) 10 mg PO QHS PRN PRN Reason: SLEEP Ondansetron HCl (Ondansetron 4 Mg/2 Ml Vial) 4 mg IV Q8H PRN PRN PRN Reason: NAUSEA/VOMITING Oxycodone HCl (Oxycodone 5 Mg Tablet) 5 mg PO Q4H PRN PRN PRN Reason: Pain Score 4-10 Last Admin: 08/29/20 10:05 Dose: 5 mg Documented by: Pantoprazole Sodium (Pantoprazole Sodium 20 Mg Tablet) 20 mg PO DAILY [facility] Last Admin: 08/29/20 08:47 Dose: 20 mg Documented by: Propranolol HCl (Propranolol 10 Mg Tablet) 20 mg PO BID [facility] Last Admin: 08/29/20 08:46 Dose: 20 mg Documented by: Rifaximin (Rifaximin 550 Mg Tablet) 550 mg PO BID [facility] Last Admin: 08/29/20 08:47 Dose: 550 mg Documented by: Sertraline HCl (Sertraline 100 Mg Tablet) 100 mg PO DAILY [facility] Last Admin: 08/29/20 08:47 Dose: 100 mg Documented by: Medical Necessity - Tobacco Use Smoking Status: Never smoker Tobacco Use: Non-smoker Assessment/Plan #1 near syncope-etiology unclear at this point, continue to observe on telemetry #2 suspected sepsis with temperature elevation in the emergency room-again I am not really sure the patient is septic at this time, I am awaiting input from infectious disease. #3 L1 compression fracture secondary to [id number] occurred about 2 weeks ago #4 cirrhosis-probably secondary to treatment for metastatic colon cancer #5 history of metastatic colon cancer-patient is no longer under treatment for this and does not have any evidence of recurrent colon cancer. #6 elevated ammonia level secondary to cirrhosis-patient takes Xifaxan, he appears alert and oriented x3 today. #7 osteoporosis #8 stable infrarenal abdominal aortic aneurysm #9 elevated lactic acid-exact etiology unclear at this point, could be secondary to sepsis from an unknown source Inpatient E&M: [id number] [facility] Hosp L2
--- NOTE | 2020-08-29 16:50 | PCM.HP.ID ---
Problem List (1) Fever Status: Acute Reason for Consult: fever Consulted by: Dr. Lopez History of Present Illness: The patient is a 79 year old M with metastatic colon cancer requiring partial liver and colon resection, chemo, and radiation. Port in place, last chemo about 2 years ago. Has been having back pain, found to have L1 fracture a few weeks ago. Was at onc office for routine followup, given thrombolytic for port, became weak/confused/febrile. Taken to ED, temp 101, lactate high, admitted on vanc/zosyn. Feeling well today, no further fever, no abd pain. Full ROS performed and neg except as noted above. No headache, no change in taste/smell, no new cough or SOB, no n/v/d. - Medical History Past Medical History (Chronic Problems): Chronic Problems (Last Updated 08/28/20 @ 14:[address] 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) Colon cancer metastasized to liver (Chronic) Colon cancer metastasized to lung (Chronic) Allergies/Adverse Reactions: Allergies alprazolam [From Xanax] Adverse Reaction (Verified 08/28/20 17:15) hallucinations lorazepam [From Ativan] Adverse Reaction (Verified 08/28/20 17:15) hallucinations tramadol [From Ultram] Adverse Reaction (Verified 08/28/20 17:15) hallucinations Home Medications: Ambulatory Orders Medication Instructions Recorded Furosemide [Lasix] 20 mg PO BID 12/26/15 Hydroxychloroquine [Plaquenil] 200 mg PO BIDCM 12/26/15 Propranolol HCl [Inderal (Beta 20 mg PO BID 02/07/16 Sindi)] Magnesium Oxide [Mag-Ox 400] 400 mg PO BID 08/24/16 aspirin 81 mg tablet,delayed 81 mg PO DAILY 11/02/19 release melatonin 10 mg capsule 10 mg PO HS PRN 11/02/19 acetaminophen 325 mg tablet 650 mg PO Q6H PRN PRN tab 01/12/20 dicyclomine 10 mg capsule 10 mg PO TID PRN cap 01/12/20 diltiazem HCl 120 mg 120 mg PO DAILY 01/12/20 capsule,extended release 24 hr potassium chloride 20 mEq 40 meq PO DAILY tab 01/12/20 tablet,extended release(part/cryst) prednisone 10 mg tablet 10 mg PO DAILY PRN 01/12/20 rifaximin 550 mg tablet 550 mg PO BID tab 01/12/20 sertraline 100 mg tablet 100 mg PO DAILY 01/12/20 HYDROmorphone tablet [Dilaudid] 2 mg PO 4X/DAY 08/28/20 Ibuprofen [Advil] 200 mg PO DAILY PRN PRN 08/28/20 Losartan Potassium [Cozaar] 25 mg PO DAILY 08/28/20 Omeprazole 20 mg PO DAILY 08/28/20 - Social History Tobacco Use: non-smoker Vital Signs Temp Pulse Resp BP Pulse Ox 98.9 F 68 16 117/57 L 99 08/29/20 15:00 08/29/20 15:00 08/29/20 15:00 08/29/20 15:00 08/29/20 15:00 Oxygen Flow Rate (L/min) 2 Oxygen Delivery Method Room Air Weight: 106.3 kg Body Mass Index (BMI) 40.2 Orthostatic Vital Signs Start: 08/28/20 21:01 Freq: q24h Status: Active Protocol: Activity Type Activity Date Activity User E-Sign Co-Sign Detail Recorded Client Recorded Date Recorded By Document 08/29/20 04:[address] [facility] [id number] 08/29/20 04:33 MAB 08/29/20 04:15 Orthostatic Vitals Standing -Blood Pressure (90/60-120/80) 126/67 H -Extremity Use Left Arm -Pulse Rate (60-100) 77 Sitting -Blood Pressure (90/60-120/80) 122/61 H -Extremity Use Left Arm -Pulse Rate (60-100) 73 Lying -Blood Pressure (90/60-120/80) 113/64 -Extremity Use Left Arm -Pulse Rate (60-100) 76 Laboratory Tests Past 24 Hrs 08/28/20 08/28/20 08/28/20 13:10 15:21 19:00 WBC RBC Hgb Hct MCV MCH MCHC RDW Std Deviation RDW Coeff of Nicola Plt Count MPV Immature Gran % (Auto) Neut % (Auto) Lymph % (Auto) [place] % (Auto) Eos % (Auto) Baso % (Auto) Absolute Neuts (auto) Absolute Lymphs (auto) Nucleated RBC % Differential Comment Diff Path Review Reviewed Platelet Estimate Ovalocytes Schistocytes Sodium Potassium Chloride Carbon Dioxide Anion Gap BUN Creatinine Estim Creat Clear Calc Est GFR (MDRD) Af Amer Est GFR (MDRD) Non-Af BUN/Creatinine Ratio Glucose Lactic Acid Calcium Total Bilirubin AST ALT Alkaline Phosphatase Ammonia Total Protein Albumin Globulin Albumin/Globulin Ratio Urine Color Yellow Urine Clarity Cloudy Urine pH 5.0 Ur Specific [place] 1.020 Urine Protein 30 H Urine Glucose (UA) Normal Urine Ketones 15 H Urine Occult Blood Negative Urine Nitrite Negative Urine Bilirubin 1 H Urine Urobilinogen Normal Ur Leukocyte Esterase 100 H Urine RBC 0 SEEN Urine WBC 5-10 SEEN Ur Squamous Epith Cells 0 SEEN Urine Bacteria 0 SEEN Hyaline Casts 0-5 SEEN Urine Mucus 2+ Urine Yeast 2+ COVID-19 (BOAZ) Not Detected 08/28/20 08/29/20 08/29/20 20:07 04:46 04:46 WBC 6.7 RBC 3.54 L Hgb 9.8 L Hct 32.2 L MCV 91.0 MCH 27.7 MCHC 30.4 L RDW Std Deviation 60.7 H RDW Coeff of Nicola 18.5 H Plt Count 51 L MPV 11.2 Immature Gran % (Auto) 1.200 H Neut % (Auto) 81.9 H Lymph % (Auto) 7.1 L [place] % (Auto) 8.9 Eos % (Auto) 0.6 Baso % (Auto) 0.3 Absolute Neuts (auto) 5.5 Absolute Lymphs (auto) 0.47 L Nucleated RBC % 0 Differential Comment SCANNED Diff Path Review Platelet Estimate MKD DEC Ovalocytes RARE Schistocytes RARE Sodium 139 Potassium 4.1 Chloride 109 H Carbon Dioxide 24.0 Anion Gap 6 BUN 27 H Creatinine 1.28 Estim Creat Clear Calc 39.18 Est GFR (MDRD) Af Amer 70 Est GFR (MDRD) Non-Af 58 L BUN/Creatinine Ratio 21.1 H Glucose 90 Lactic Acid 2.9 H* Calcium 7.9 L Total Bilirubin 0.80 AST 62 H ALT 33 Alkaline Phosphatase 126 H Ammonia Total Protein 5.7 L Albumin 2.6 L Globulin 3.1 Albumin/Globulin Ratio 0.8 L Urine Color Urine Clarity Urine pH Ur Specific [place] Urine Protein Urine Glucose (UA) Urine Ketones Urine Occult Blood Urine Nitrite Urine Bilirubin Urine Urobilinogen Ur Leukocyte Esterase Urine RBC Urine WBC Ur Squamous Epith Cells Urine Bacteria Hyaline Casts Urine Mucus Urine Yeast COVID-19 (BOAZ) 08/29/20 04:46 WBC RBC Hgb Hct MCV MCH MCHC RDW Std Deviation RDW Coeff of Nicola Plt Count MPV Immature Gran % (Auto) Neut % (Auto) Lymph % (Auto) [place] % (Auto) Eos % (Auto) Baso % (Auto) Absolute Neuts (auto) Absolute Lymphs (auto) Nucleated RBC % Differential Comment Diff Path Review Platelet Estimate Ovalocytes Schistocytes Sodium Potassium Chloride Carbon Dioxide Anion Gap BUN Creatinine Estim Creat Clear Calc Est GFR (MDRD) Af Amer Est GFR (MDRD) Non-Af BUN/Creatinine Ratio Glucose Lactic Acid Calcium Total Bilirubin AST ALT Alkaline Phosphatase Ammonia 26.0 Total Protein Albumin Globulin Albumin/Globulin Ratio Urine Color Urine Clarity Urine pH Ur Specific [place] Urine Protein Urine Glucose (UA) Urine Ketones Urine Occult Blood Urine Nitrite Urine Bilirubin Urine Urobilinogen Ur Leukocyte Esterase Urine RBC Urine WBC Ur Squamous Epith Cells Urine Bacteria Hyaline Casts Urine Mucus Urine Yeast COVID-19 (BOAZ) - Other Studies Radiology: [] reviewed Other Studies: [] Route of nutrition/ use of supplements: [] Nutritional Intake: [] IV Site: [] Jha Catheter: [] - Physical Exam General: Alert, Oriented x3, Cooperative, No apparent distress HEENT: Atraumatic, PERRLA, EOMI Neck: Supple, No Nodes Lungs: Clear to auscultation, Normal air movement Cardiovascular: Regular rate, Regular Rhythm Abdomen: Soft, Non Tender, Non-Distended Extremities: No edema Skin: No rashes IV Site: without redness, - - port non tender Musculoskeletal: No Tenderness to Palpation of Joints or Extremities Neurological: Cranial nerves II-XII grossly intact - Assessment/Plan Antibiotics: [] Assessment/Plan: [] acute onset of fever, encephalopathy, and weakness with lactic acidosis after port flush - h/o metastatic colon cancer. Concern for possible bacteremia related to port, will follow cx results. Otherwise, oriented x3 with no focal complaints other than pain in RLE radiating from back. Liver u/s showed no ascites. Cont vanc/zosyn for now. Covid neg. Will follow, thank you
--- NOTE | 2020-08-29 19:03 | US_ITS ---
STUDY: ABDOMINAL ULTRASOUND REASON FOR EXAM: Male, 79 years old. FEVER, HX OF LIVER CIRRHOSIS AND 70% LIVER RESECTION, CHOLECYSTECTOMY, AAA -- HX OF PREVIOUS COLON CA WITH LIVER AND LUNG INVOLVEMENT TECHNIQUE: Transabdominal ultrasound was performed with real-time and static snyder scale imaging. TECHNICAL QUALITY: Adequate. COMPARISON: CT abdomen and pelvis 01/09/2019. FINDINGS: Liver: There has been partial liver resection with 70% resected. The remaining liver measures 15.5 cm. There is increased echogenicity consistent with fatty infiltration and lobulated contour. Gallbladder: The patient is status post cholecystectomy. Common Bile Duct (C.B.D.): The common bile duct is not visualized. Pancreas: The pancreas is obscured by bowel gas. Spleen: There is splenomegaly. The spleen measures 16 cm. Right Kidney: Normal size of the right kidney. The right kidney measures 11.3 cm. There are nonobstructing right renal pelvic stones measuring 6 x 11 mm in the upper pole and 3 x 4 mm in the midpole. There is renal parenchymal thinning. There is no demonstrated renal mass or cyst. There is no right hydronephrosis. Left Kidney: Normal size of the left kidney. The left kidney measures 12.4 cm. there is a 3.5 x 2.6 x 1.6 cm left renal lower pole simple cyst. There is renal parenchymal thinning. There is no left hydronephrosis. Aorta: Portions of the aorta are obscured by bowel gas. The visualized mid abdominal aorta measures 3 x 4 cm and the distal aorta measures 4.3 x 4.7 cm. I.V.C.: The IVC is patent. There is no ascites. No focal collection is seen. US/Abdomen Complete IMPRESSION: 1. Again noted is partial liver resection with 70% resected. Remaining liver demonstrates fibrofatty infiltration and lobulated contour in keeping with cirrhosis. 2. There is distal abdominal aortic aneurysm. 3. Splenomegaly. 4. Nonobstructing right renal pelvic stones. No hydronephrosis. Electronically Signed: Mann Watson, at 11:37 EDT Tel , Service support ,
[2020-08-30] MEDS: oxyCODONE 5 MG Tablet PO ×2 (02:07→08:42)
[2020-08-30] MEDS: Vancomycin IV 1,000 MG/200 ML BAG 200 MG IV (02:07)
[2020-08-30 03:00] VITALS: BP 134/68; BP 138/62; BP 140/65; PULSE 58; PULSE 64; PULSE 67; PULSE 68; RESP 18; TEMP 36.7; O2SAT 96
[2020-08-30 07:33] VITALS: PULSE 59
[2020-08-30 07:34] VITALS: O2SAT 97
[2020-08-30 08:35] VITALS: BP 156/86; PULSE 69; RESP 20; TEMP 36.9; O2SAT 94
[2020-08-30] MEDS: dilTIAZem CD 120 MG Capsule PO (08:37)
[2020-08-30] MEDS: Hydroxychloroquine 200 MG Tablet PO (08:37)
[2020-08-30] MEDS: Aspirin E.C. 81 MG Tablet PO (08:37)
[2020-08-30] MEDS: Propranolol 10 MG Tablet 20 MG PO (08:38)
[2020-08-30] MEDS: Pantoprazole Sodium 20 MG Tablet PO (08:38)
[2020-08-30] MEDS: Losartan Potassium 25 MG Tablet PO (08:38)
[2020-08-30] MEDS: Sertraline 100 MG Tablet PO (08:39)
[2020-08-30] MEDS: rifAXIMin 550 MG Tablet PO (08:39)
--- NOTE | 2020-08-30 10:16 | DCINST_ITS ---
- Discharge Diagnoses Current Active Problems: Current Active and Chronic Problems (Last Updated 08/28/20 @ 14:[address] 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) Colon cancer metastasized to liver (Chronic) Colon cancer metastasized to lung (Chronic) You will use the following diet at home:: No restrictions Your food should be the consistency of: Regular Your liquids should be the consistency of: Regular/Thin Discharge Activity: Return to Normal Activity Weight Bearing Status: Full weight bearing Allergies/Adverse Reactions: Allergies alprazolam [From Xanax] Adverse Reaction (Verified 08/28/20 17:15) hallucinations lorazepam [From Ativan] Adverse Reaction (Verified 08/28/20 17:15) hallucinations tramadol [From Ultram] Adverse Reaction (Verified 08/28/20 17:15) hallucinations Medications to take at Discharge Furosemide [Lasix] 20 mg PO BID 12/26/15 Hydroxychloroquine [Plaquenil] 200 mg PO BIDCM 12/26/15 Propranolol HCl [Inderal (Beta Sindi)] 20 mg PO BID 02/07/16 Magnesium Oxide [Mag-Ox 400] 400 mg PO BID 08/24/16 aspirin 81 mg tablet,delayed release 81 mg PO DAILY 11/02/19 melatonin 10 mg capsule 10 mg PO HS PRN 11/02/19 acetaminophen 325 mg tablet 650 mg PO Q6H PRN PRN tab 01/12/20 dicyclomine 10 mg capsule 10 mg PO TID PRN cap 01/12/20 diltiazem HCl 120 mg capsule,extended release 24 hr 120 mg PO DAILY 01/12/20 potassium chloride 20 mEq tablet,extended release(part/cryst) 40 meq PO DAILY tab 01/12/20 prednisone 10 mg tablet 10 mg PO DAILY PRN 01/12/20 rifaximin 550 mg tablet 550 mg PO BID tab 01/12/20 sertraline 100 mg tablet 100 mg PO DAILY 01/12/20 HYDROmorphone tablet [Dilaudid] 2 mg PO 4X/DAY 08/28/20 Ibuprofen [Motrin] 200 mg PO DAILY PRN PRN 08/28/20 Losartan Potassium [Cozaar] 25 mg PO DAILY 08/28/20 Omeprazole 20 mg PO DAILY 08/28/20 Amoxicillin/Potassium Clav [Augmentin 875-125 Tablet] 1 ea PO BIDCM #6 tab 08/30/20 The following prescriptions were given: Amoxicillin/Potassium Clav [Augmentin 875-125 Tablet] 1 ea PO BIDCM #6 tab Transmission Status: Pending to [facility]/pharmacy #[id number] Primary Care Physician: Armin Carlin DO [Primary Care Provider] - Test Results: Test results from this visit will be discussed in further detail at your follow- up appointment, if applicable. Please Follow Up With: Armin Carlin DO Please Follow Up With: Madan Renee DO When: as directed
--- NOTE | 2020-08-30 11:15 | CASEMGMT ---
This RN CM to room at this time to discuss discharge plan. Pt's daughter is at bedside. Pt states no concerns with going home at time of discharge and declines need for therapy, HHC or OP at this time. Daughter states pt will go home with her for a few days. Pt/daughter voices no further questions/concerns/needs at this time. [place]
--- NOTE | 2020-08-30 11:16 | PCM.PN.ID ---
Patient Problems: Active and Suspected Problems (Last Updated 08/28/20 @ 14:[address] Mallorie Lancaster MD) Fever (Acute) Subjective: Feeling fine, no fever, no weakness, no abd pain - Physical Exam Vitals/I&O's: Vital Signs Temp Pulse Resp BP Pulse Ox 98.5 F 69 20 H 156/86 H 94 08/30/20 08:35 08/30/20 08:35 08/30/20 08:35 08/30/20 08:35 08/30/20 08:35 Oxygen Flow Rate (L/min) 2 Oxygen Delivery Method Room Air Weight: 106.3 kg Body Mass Index (BMI) 40.2 Orthostatic Vital Signs Start: 08/28/20 21:01 Freq: q24h Status: Active Protocol: Activity Type Activity Date Activity User E-Sign Co-Sign Detail Recorded Client Recorded Date Recorded By Document 08/30/20 03:00 MAB [id number] 08/30/20 03:37 MAB 08/30/20 03:00 Orthostatic Vitals Standing -Blood Pressure (90/60-120/80) 140/65 H -Extremity Use Left Arm -Pulse Rate (60-100) 68 Sitting -Blood Pressure (90/60-120/80) 138/62 H -Extremity Use Left Arm -Pulse Rate (60-100) 67 Lying -Blood Pressure (90/60-120/80) 134/68 H -Extremity Use Left Arm -Pulse Rate (60-100) 64 Intake and Output for Last 24 Hours 08/28/20 08/29/20 08/30/20 23:59 23:59 23:59 Intake Total 1240 / 1240 2780.00 / 2780.00 300 / 300 Balance 1240 / 1240 2780.00 / 2780.00 300 / 300 General: Alert, Cooperative, No apparent distress Lungs: Clear to auscultation, Normal air movement Cardiovascular: Regular rate, Regular Rhythm Abdomen: Soft, Non Tender, Distended Skin: No rashes Microbiology Past 72 Hours 08/28/20 19:00 Urine, Clean Catch Urine Culture - Preliminary Culture exhibits no growth. 08/28/20 15:30 Blood Culture (Wb) - Right Hand Blood Culture - Preliminary No growth in 48 hours. 08/28/20 15:27 Blood Culture (Wb) - Port Blood Culture - Preliminary No growth in 48 hours. Laboratory Results 08/28/20 13:10: Diff Path Review Reviewed Current Medications Aspirin ([facility] E.C. 81 Mg Tablet) [facility] Last Admin: 08/30/20 08:37 Dose: 81 mg Documented by: Dicyclomine HCl (Dicyclomine 10 Mg Capsule) 10 mg PO TID PRN PRN Reason: abdominal spasm Diltiazem HCl (Diltiazem Cd 120 Mg Capsule) 120 mg PO DAILY [facility] Last Admin: 08/30/20 08:37 Dose: 120 mg Documented by: Hydralazine HCl (Hydralazine 20 Mg/Ml Vial) 10 mg IV Q8H PRN PRN PRN Reason: FOR sbp>160 Hydroxychloroquine Sulfate (Hydrox[facility]ine 200 Mg Tablet) [facility] Last Admin: 08/30/20 08:37 Dose: 200 mg Documented by: Piperacillin Sod/Tazobactam (Sod 3.375 gm/ Sodium Chloride) 50 mls @ 12.5 mls/hr IV Q8 [facility] Last Admin: 08/30/20 05:40 Dose: 12.5 mls/hr Documented by: Lactulose (Lactulose 20 Gm/30 Ml Udc) 20 gm PO BID [facility] Last Admin: 08/30/20 08:38 Dose: Not Given Documented by: Losartan Potassium (Losartan Potassium 25 Mg Tablet) 25 mg PO DAILY [facility] Last Admin: 08/30/20 08:38 Dose: 25 mg Documented by: Melatonin (Melatonin 10 Mg Tablet) 10 mg PO QHS PRN PRN Reason: SLEEP Ondansetron HCl (Ondansetron 4 Mg/2 Ml Vial) 4 mg IV Q8H PRN PRN PRN Reason: NAUSEA/VOMITING Oxycodone HCl (Oxycodone 5 Mg Tablet) 5 mg PO Q4H PRN PRN PRN Reason: Pain Score 4-10 Last Admin: 08/30/20 08:42 Dose: 5 mg Documented by: Pantoprazole Sodium (Pantoprazole Sodium 20 Mg Tablet) 20 mg PO DAILY [facility] Last Admin: 08/30/20 08:38 Dose: 20 mg Documented by: Propranolol HCl (Propranolol 10 Mg Tablet) 20 mg PO BID [facility] Last Admin: 08/30/20 08:38 Dose: 20 mg Documented by: Rifaximin (Rifaximin 550 Mg Tablet) 550 mg PO BID [facility] Last Admin: 08/30/20 08:39 Dose: 550 mg Documented by: Sertraline HCl (Sertraline 100 Mg Tablet) 100 mg PO DAILY [facility] Last Admin: 08/30/20 08:39 Dose: 100 mg Documented by: Medical Necessity - Tobacco Use Smoking Status: Never smoker Tobacco Use: Non-smoker Route of nutrition/ use of supplements: [] Nutritional Intake: [] IV Site: [] Jha Catheter: [] - Assessment/Plan Antibiotics: [] Assessment/Plan: [] acute onset of fever, encephalopathy, and weakness with lactic acidosis after port flush - h/o metastatic colon cancer. Concern for possible bacteremia related to port, but bcx neg. Otherwise, oriented x3 with no focal complaints other than pain in RLE radiating from back. Liver u/s showed no ascites. Covid neg. Ok for d/c home on 3 days augmentin. Will follow as needed, d/w primary team.
[2020-08-30 11:34] VITALS: BP 130/67; PULSE 63; RESP 18; TEMP 37.1; O2SAT 97
[2020-08-30] MEDS: 0.9% Saline Lock 10 ML Syringe IV (11:54)
--- NOTE | 2020-08-31 09:03 | DS.PCM_ITS ---
Discharge Date and Diagnosis - Problem List Patient Problems: Active and Suspected Problems (Last Updated 08/28/20 @ 14:[address] Mallorie Lancaster MD) Fever (Acute) Date of Admission: 08/28/20 Date of Discharge: 08/30/20 - Primary Discharge Diagnosis Acute Problems: Active Problems (Last Updated 08/28/20 @ 14:[address] Mallorie Lancaster MD) #1 presyncope-etiology unclear #2 fever-etiology unknown #3 hepatic encephalopathy #4 lactic acidosis-etiology unclear #5 hepatic cirrhosis #6 subacute L1 compression fracture secondary to osteoporosis Sepsis was ruled out at the time of discharge - Secondary Discharge Diagnosis Chronic Problems: Chronic Problems (Last Updated 08/28/20 @ 14:[address] 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 Work-up in the emergency room included labs which showed a low white blood cell count at 2.1, hemoglobin was 10.7, patient's chemistry profile was remarkable for a creatinine of 1.33 and a BUN of 24, patient's ammonia level was elevated at 66, bilirubin was elevated at 1.2 and alkaline phosphatase was elevated at 168. Patient's lactic acid was elevated at 2.4, urinalysis was unremarkable, chest x-ray was unremarkable. Patient initially was felt to possibly be septic, he was admitted to PCU as a full admission and placed on IV antibiotics, patient had no fever during his hospital stay, he was seen in consultation by infectious diseases who did not feel the patient had sepsis. Exact etiology of the patient's temperature elevation in the ER was unknown. Patient had some mild confusion in the hospital which was felt to be secondary to hepatic encephalopathy which the patient has chronically. On 08/30/2020, patient was seen and examined: On examination he appeared in good health and spirits. Vital signs as documented. Skin warm and dry and without overt rashes. Neck without JVD, neck was supple, trachea midline, thyroid was normal. Lungs clear bilaterally, normal air movement was noted. Heart exam notable for regular rhythm, normal sounds and absence of murmurs, rubs or gallops. Abdomen unremarkable and without evidence of organomegaly, masses, or abdominal aortic enlargement. Bowel sounds are present, abdomen is not distended. Extremities nonedematous, no cyanosis was noted, no clubbing was noted. Neuro: Cranial nerves II through XII are grossly intact, no focal motor deficits were noted, sensation to light touch and pinprick intact, motor exam 5/5 throughout. Psych: Patient is alert and oriented x3, he does not appear anxious or depressed, he does not appear agitated. Patient was discharged to home in stable condition on , I talked extensively with the patient's daughter who was in the room at the time I examined the patient. Patient Problems: Active and Suspected Problems (Last Updated 08/28/20 @ 14:[address] Mallorie Lancaster MD) Fever (Acute) - Physical Exam Vitals/I&O's: Vital Signs Temp Pulse Resp BP Pulse Ox 98.8 F 63 18 130/67 H 97 08/30/20 11:34 08/30/20 11:34 08/30/20 11:34 08/30/20 11:34 08/30/20 11:34 Oxygen Flow Rate (L/min) 2 Oxygen Delivery Method Room Air Weight: 106.3 kg Body Mass Index (BMI) 40.2 Intake and Output for Last 24 Hours 08/29/20 08/30/20 08/31/20 23:59 23:59 23:59 Intake Total 2780.00 / 2780.00 350 / 350 Balance 2780.00 / 2780.00 350 / 350 Microbiology Past 72 Hours 08/28/20 19:00 Urine, Clean Catch Urine Culture - Preliminary Culture exhibits no growth. 08/28/20 15:30 Blood Culture (Wb) - Right Hand Blood Culture - Preliminary No growth in 48 hours. 08/28/20 15:27 Blood Culture (Wb) - Port Blood Culture - Preliminary No growth in 48 hours. Discharge Activity: Return to Normal Activity Weight Bearing Status: Full weight bearing Home Medications: Medications to take at Discharge Furosemide [Lasix] 20 mg PO BID 12/26/15 Hydroxychloroquine [Plaquenil] 200 mg PO BIDCM 12/26/15 Propranolol HCl [Inderal (Beta Sindi)] 20 mg PO BID 02/07/16 Magnesium Oxide [Mag-Ox 400] 400 mg PO BID 08/24/16 aspirin 81 mg tablet,delayed release 81 mg PO DAILY 11/02/19 melatonin 10 mg capsule 10 mg PO HS PRN 11/02/19 acetaminophen 325 mg tablet 650 mg PO Q6H PRN PRN tab 01/12/20 dicyclomine 10 mg capsule 10 mg PO TID PRN cap 01/12/20 diltiazem HCl 120 mg capsule,extended release 24 hr 120 mg PO DAILY 01/12/20 potassium chloride 20 mEq tablet,extended release(part/cryst) 40 meq PO DAILY tab 01/12/20 prednisone 10 mg tablet 10 mg PO DAILY PRN 01/12/20 rifaximin 550 mg tablet 550 mg PO BID tab 01/12/20 sertraline 100 mg tablet 100 mg PO DAILY 01/12/20 Ibuprofen [Motrin] 200 mg PO DAILY PRN PRN 08/28/20 Losartan Potassium [Cozaar] 25 mg PO DAILY 08/28/20 Omeprazole 20 mg PO DAILY 08/28/20 Amoxicillin/Potassium Clav [Augmentin 875-125 Tablet] 1 ea PO BIDCM #6 tab 08/30/20 Oxycodone [Oxyir] 5 mg PO Q6H PRN PRN 7 Days #28 tab 08/30/20 Following Prescriptions Were Given to Patient: Amoxicillin/Potassium Clav [Augmentin 875-125 Tablet] 1 ea PO BIDCM #6 tab Transmission Status: Received by [id number] Oxycodone [Oxyir] 5 mg PO Q6H PRN PRN 7 Days #28 tab PRN Reason: Pain Score 1-10 Transmission Status: Received by [id number] Primary Care Physician: Armin Carlin DO [Primary Care Provider] - Please Follow Up With: Armin Carlin DO Please Follow Up With: Madan Renee DO When: as directed Disposition: Home Minutes spent on discharge:: 32 Patient Condition:: Stable Medical Necessity - Tobacco Use Smoking Status: Never smoker Tobacco Use: Non-smoker Meaningful Use Info Meaningful Use Diagnoses (Choose all that apply): None applicable Inpatient E&M: 87471 Disch Hosp
--- NOTE | 2020-08-31 18:36 | CASEMGMT ---
ANJEL CORONA Discharge Follow-up Phone Call: LIU: Catina Strata: 3 Call Date: 08/31/2020 Discharge Date: 08/30/2020 Time of Call: 183 Admitting Diagnosis: fever, presyncope, hepatic encephalopathy, lactic acidosis. Discharge Follow-up call placed to pt. Voicemail received and nondescript message left requesting a return call. Tomy Chapa RN CM
== END 2020-08-30 12:05 | disposition home or self-care (01) | DRG 864 ==
LOC: ED 12:56 → PCU 14:41
PROVIDERS: Admitting Provider Hospitalist; Emergency Provider Emergency Medicine; PCP Family Medicine; Visit Provider Internal Medicine
DX: R50.9 Fever, unspecified (principal); D61.818 Other pancytopenia; E87.2 Acidosis; I13.0 Hypertensive heart and chronic kidney disease with heart failure and stage 1 through stage 4 chronic kidney disease, or unspecified chronic kidney disease; Z68.41 Body mass index [BMI] 40.0-44.9, adult; R55 Syncope and collapse; K72.90 Hepatic failure, unspecified without coma; K74.60 Unspecified cirrhosis of liver; I50.9 Heart failure, unspecified; N18.9 Chronic kidney disease, unspecified; E86.0 Dehydration; I27.20 Pulmonary hypertension, unspecified; I25.10 Atherosclerotic heart disease of native coronary artery without angina pectoris; M80.88XD Other osteoporosis with current pathological fracture, vertebra(e), subsequent encounter for fracture with routine healing; E66.01 Morbid (severe) obesity due to excess calories; Z79.82 Long term (current) use of aspirin; Z79.899 Other long term (current) drug therapy; Z92.21 Personal history of antineoplastic chemotherapy; Z92.3 Personal history of irradiation; Z85.038 Personal history of other malignant neoplasm of large intestine; Z85.05 Personal history of malignant neoplasm of liver; Z85.118 Personal history of other malignant neoplasm of bronchus and lung; I25.2 Old myocardial infarction; Z95.1 Presence of aortocoronary bypass graft; Z90.2 Acquired absence of lung [part of]; Z95.828 Presence of other vascular implants and grafts
CPT/HCPCS: 36415; 70450; 71045; 72131; 76700; 80053; 81001; 82140; 83605; 84484; 85025; 87040; 87086; 87635; 93005; 97162; 99283; J7030; J7040; A4216; U0003

== ENCOUNTER → 2020-09-14 | Outpatient (CLI) | payer MEDICARE, OTHER, SELFPAY ==
[2020-01-25 07:02] VITALS: BMI 40.8
[2020-08-28 17:05] VITALS: BMI 40.2
--- NOTE | 2020-09-14 10:44 | BON_PTH ---
PATIENT: KAMINI JONES LOC: [facility] U#:[id number] AGE/SX: 79/M ROOM: RE09/14/[address]: Dr. Neal Thomas MD : 1940 BED: DIS: 09/14/2020 SPEC #: [id number] RECD: 09/14/20 14:55 STATUS: KAITLYNN REESE #: [id number] SANTOS: 09/14/20 10:[address]: Neal Thomas DEPT: SURGICAL PATHOLOGY RECD BY: Jaden Juarez ENTERED: 09/17/20 08:11 SP TYPE: Bone OTHR DR: Dr. Armin Carlin, [facility] Tissues: Vertebra, NOS Procedures: Decalcification bone/plaque Surgery Specimen Level IV HEADER OPERATION: Kyphoplasty at L1 PRE-OP DIAGNOSIS: Compression fracture at L1 TISSUE SUBMITTED: Bone at L1 MICROSCOPIC DIAGNOSIS Bone at L1, kyphoplasty: A piece of bone with reactive changes and blood clots, clinically compression fracture. Negative for malignancy. GAIL:bebo 09/19/20 MICROSCOPIC DESCRIPTION Slides are reviewed. GROSS DESCRIPTION Received is one container labeled with the patient's name and not further designated. The specimen consists of an elongated piece of jamison bone measuring 0.5 cm in length and 0.1 cm in diameter. Also present in the container are multiple blood clots measuring in aggregate 1.5 x 1.5 x 0.1 cm. The entire specimen is submitted in one cassette after short decalcification. / GAIL:bebo 09/17/20 TC:5 CPT: 19036, 96469
== END | disposition home or self-care (01) ==
LOC: LABSPEC 15:13
PROVIDERS: PCP Family Medicine; Visit Provider Anesthesiology Pain Medicine
DX: S32.019A Unspecified fracture of first lumbar vertebra, initial encounter for closed fracture (principal)
CPT/HCPCS: 88305; 88311

== ENCOUNTER → 2020-09-20 13:39 | Outpatient (CLI) | payer MEDICARE, OTHER, SELFPAY ==
[2020-01-25 07:02] VITALS: BMI 40.8
[2020-08-28 17:05] VITALS: BMI 40.2
--- NOTE | 2020-09-20 13:50 | RAD_ITS ---
HISTORY: Pain in lumbar and thoracic spines. Had kyphoplasty last week per patient. Had a fall this past July. Hx of compression fx per patient. ADDITIONAL HISTORY: None provided. EXAMINATION/TECHNIQUE: XR Spine Lumbar Min 4 Views Number of images including paperwork: 5 COMPARISON: 08/22/[address] use 08/28/2020 FINDINGS: VERTEBRAE: Radiopaque cement now noted within L1. Moderate loss of height of T12 as per thoracic spine radiograph report. Mineralization appears decreased. VERTEBRAL ALIGNMENT: No traumatic subluxation. DISKS AND JOINTS: [id number] multilevel discogenic degenerative changes. Facet arthropathy. SOFT TISSUES: Infrarenal abdominal aortic aneurysm calcifications partially visible. RAD/L/S Spine Min 4 Views IMPRESSION: Radiopaque cement within L1 consistent with provided history of kyphoplasty. No definite acute abnormality of the lumbar spine. Lumbar spondylosis. at 0727 Reported and signed by: Torie Yanez MD Electronically Signed: Torie Yanez MD at 7:27 EST Tel , Service support ,
--- NOTE | 2020-09-20 13:50 | RAD_ITS ---
HISTORY: Pain in lumbar and thoracic spines. Had kyphoplasty last week per patient. Had a fall this past July. Hx of compression fx per patient. ADDITIONAL HISTORY: None provided. EXAMINATION/TECHNIQUE: XR Spine Thoracic 3 Views Number of images including paperwork: 3 COMPARISON: CT lumbar spine 08/28/2020, lumbar radiographs 08/22/2020 FINDINGS: VERTEBRAE: Mild to moderate anterior wedging of T12 with mild apparent increase compared to 08/28/2020. Radiopaque cement at L1. Multilevel mild anterior wedging in the mid to lower thoracic spine. Mineralization appears decreased. VERTEBRAL ALIGNMENT: No traumatic subluxation. DISKS AND JOINTS: Mild multilevel discogenic degenerative changes. SOFT TISSUES: Unremarkable paraspinous soft tissues. DEVICES: Right chest port with catheter tip projecting over the proximal superior vena cava. Sternal wires and surgical clips. RAD/Thoracic Spine 3 Views IMPRESSION: 1. Moderate anterior wedging of T12 with mild apparent increased compared to a prior studies from August. Correlate for localized pain. 2. Mild multilevel anterior wedging in the mid to lower thoracic spine, age indeterminate. at 0724 Reported and signed by: Torie Yanez MD Electronically Signed: Torie Yanez MD at 7:24 EST Tel , Service support ,
== END ==
PROVIDERS: PCP Family Medicine; Referring Provider Nurse Practitioner Family; Visit Provider Nurse Practitioner Family
DX: M54.9 Dorsalgia, unspecified (principal); M48.56XA Collapsed vertebra, not elsewhere classified, lumbar region, initial encounter for fracture; M54.6 Pain in thoracic spine
CPT/HCPCS: 72072; 72110

== ENCOUNTER → 2021-01-21 14:53 | Outpatient (CLI) | payer MEDICARE, OTHER, SELFPAY ==
[2020-01-25 07:02] VITALS: BMI 40.8
[2020-09-27 11:24] VITALS: BMI 38.5
[2021-01-21 18:26] LABS: Absolute Lymphocyte Count 1.28 X10^3/uL (0.83-4.51); Basophil# 0.02 X10^3/uL; Basophil% 0.4 % (0-1); Eosinophil# 0.34 X10^3/uL; Eosinophils% 6.6 % (0-5); Hematocrit 33.7 % (40-54); Lymphocyte # 1.28 X10^3/ul (4.0); Mean Corp Hgb Conc 29.7 g/dL (32-36); Mean Corpuscular Hgb 25.2 pg (27.0-32.0); Mean Corpuscular Volume 84.9 fL (80-94); Mean Platelet Vol. 11.6 fl (6.2-12.0); Monocyte# 0.49 X10^3/uL; Monocyte% 9.6 % (0-10); NRBC Flagged by Analyzer 0 % (0-5); Neutrophil # 2.99 X10^3/uL (2.7-7.7); Neutrophil % 58.2 % (47-70); Platelet Count 121 K/mm3 (150-450); RBC Distribution Width CV 15.8 % (11.6-14.6); RBC Distribution Width SD 48.9 fl (35.1-43.9); Red Blood Count 3.97 M/mm3 (4.6-6.2); White Blood Count 5.1 K/mm3 (4.4-11.0)
[2021-01-21 18:42] LABS: ALB/GLOB Ratio 0.9 RATIO (0.9-2.4); AST(SGOT) 36 U/L (15-37); Alanine Aminotransfer ALT/SGPT 33 U/L (16-61); Albumin, Serum 3.2 g/dL (3.2-5.0); Alkaline Phosphatase 196 U/L (45-117); Anion Gap 6 (5-15); BUN 16 mg/dL (7-18); BUN/Creat Ratio 13.1 RATIO (10-20); Calcium,Total 8.7 mg/dL (8.5-10.1); Chloride 111 mmol/L (98-107); Creatinine, Serum 1.22 mg/dL (0.70-1.30); EST Glomerular Filtration Rate 61 mL/min (>60); Est Glom Filt Rate - Afr Amer 73 mL/min (>60); Globulin 3.4 g/dL (2.2-4.2); Glucose 126 mg/dL (74-106); Protein, Total 6.6 g/dL (6.4-8.2); Sodium Level 143 mmol/L (136-145)
== END ==
PROVIDERS: PCP Family Medicine; Referring Provider Internal Medicine Rheumatology; Visit Provider Internal Medicine Rheumatology
DX: M06.4 Inflammatory polyarthropathy (principal); M47.897 Other spondylosis, lumbosacral region; I10 Essential (primary) hypertension; D49.0 Neoplasm of unspecified behavior of digestive system; K74.60 Unspecified cirrhosis of liver; I85.00 Esophageal varices without bleeding; I25.10 Atherosclerotic heart disease of native coronary artery without angina pectoris; Z95.1 Presence of aortocoronary bypass graft
CPT/HCPCS: 36415; 80053; 85025

== ENCOUNTER → 2021-04-16 14:24 | Outpatient (CLI) | payer MEDICARE, OTHER, SELFPAY ==
[2020-01-25 07:02] VITALS: BMI 40.8
[2021-04-02 10:25] VITALS: BMI 41.3
[2021-04-16 18:05] LABS: Hematocrit 34.6 % (40-54); Hemoglobin 10.4 g/dL (13.0-16.5); Mean Corp Hgb Conc 30.1 g/dL (32-36); Mean Corpuscular Hgb 25.7 pg (27.0-32.0); Mean Corpuscular Volume 85.4 fL (80-94); Mean Platelet Vol. 10.3 fl (6.2-12.0); POSITIVE COUNT YES; POSITIVE MORPHOLOGY YES; Platelet Count 90 K/mm3 (150-450); RBC Distribution Width SD 75.4 fl (35.1-43.9); Red Blood Count 4.05 M/mm3 (4.6-6.2); White Blood Count 5.7 K/mm3 (4.4-11.0)
[2021-04-16 18:07] LABS: Scan Indicated on CBC? Y/N YES- FLAGS NOTED
[2021-04-16 18:21] LABS: International Normalized Ratio 1.2
[2021-04-16 18:22] LABS: Partial Thromboplast Time 32.3 Seconds (24.1-36.2)
[2021-04-16 18:32] LABS: AST(SGOT) 34 U/L (15-37); Alanine Aminotransfer ALT/SGPT 28 U/L (16-61); Albumin, Serum 3.2 g/dL (3.2-5.0); Alkaline Phosphatase 189 U/L (45-117); Bilirubin, Direct 0.26 mg/dL (0.00-0.30); Protein, Total 6.2 g/dL (6.4-8.2)
[2021-04-16 18:42] LABS: Differential Comment SCANNED
[2021-04-18 10:07] LABS: AFP, Tumor Marker 1.6 ng/mL (0.0-8.3)
== END ==
PROVIDERS: PCP Family Medicine; Referring Provider Internal Medicine Gastroenterology; Visit Provider Internal Medicine Gastroenterology
DX: K74.60 Unspecified cirrhosis of liver (principal)
CPT/HCPCS: 36415; 80076; 82105; 85027; 85610; 85730

== ENCOUNTER → 2021-05-01 12:51 | Outpatient (CLI) | payer MEDICARE, OTHER, SELFPAY ==
[2020-01-25 07:02] VITALS: BMI 40.8
[2021-04-02 10:25] VITALS: BMI 41.3
--- NOTE | 2021-05-01 13:05 | MRI_ITS ---
STUDY: MRI ABDOMEN WITH AND WITHOUT CONTRAST REASON FOR EXAM: Male, 80 years old. CIRRHOSIS, HEPATIC FAILURE TECHNIQUE: Standardized fat and water weighted pulse sequences were obtained in all 3 orthogonal planes post contrast administration. 23CC IV DOTAREM was administered for the contrast portion of the examination. COMPARISON: CT 01/09/2019. FINDINGS: The visualized lung bases are unremarkable. The visualized portions of the heart are within normal limits. Status post partial right hepatectomy. Nodular contour of the remaining liver. No T2 hyperintense or arterially hyperenhancing lesion to suggest HCC. There are surgical clips in the gallbladder fossa consistent with a prior cholecystectomy. The spleen is enlarged measuring 13.5 cm in craniocaudal dimension. Normal pancreas. Normal bilateral adrenal glands. Normal right kidney. 2.2 cm simple exophytic cyst in the left lower pole. Normal visualized stomach. Normal small intestine. Status post right hemicolectomy. Bilobed infrarenal abdominal aortic aneurysm measuring 4.8 cm in the upper component and 2.9 cm in the lower component. Normal inferior vena cava. Normal retroperitoneum. Large right anterolateral abdominal wall hernia containing fat and bowel. Postsurgical changes of the anterior abdominal wall. There are diffuse degenerative changes of the visualized lumbar spine. Chronic compression fractures of T12 and L1. 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 No T2 hyperintense or arterially hyperenhancing lesion to suggest HCC. Bilobed infrarenal abdominal aortic aneurysm measuring 4.8 cm in the upper component and 2.9 cm in the lower component. Large right anterolateral abdominal wall hernia containing fat and bowel. Chronic compression fractures of T12 and L1. Electronically Signed: Rory Chaudhary MD at 18:41 EDT Tel , Service support ,
[2021-05-01 13:15] LABS: CREATININE FINGERSTICK 1.1 mg/dL (0.70-1.30); EGFR FINGERSTICK > 60.0000 mL/min (>60)
[2021-05-01] MEDS: 0.9% Saline Lock 10 ML Syringe IV (14:00)
== END ==
PROVIDERS: PCP Family Medicine; Referring Provider Internal Medicine Gastroenterology; Visit Provider Internal Medicine Gastroenterology
DX: K74.60 Unspecified cirrhosis of liver (principal); K72.90 Hepatic failure, unspecified without coma
CPT/HCPCS: 74183; A9575; A4216

== ENCOUNTER 2021-05-17 08:30 | Outpatient (RCR) | payer MEDICARE, OTHER, SELFPAY ==
[2020-01-25 07:02] VITALS: BMI 40.8
[2020-09-27 11:24] VITALS: BMI 38.5
--- NOTE | 2021-01-25 15:44 | HP.PTEVAL_ITS ---
Patient's Visit Information KAMINI JONES is a 80 year old M referred to Physical Therapy by MARTHA RogersC with a diagnosis of COMPRESSION FRACTURE OF LUMBAR SPINE,BACK PAIN,THORACIC BACK PAIN. Date of Evaluation: 01/25/21 Physical Therapist: Rayshawn Finney, PT, Cert MDT, OCS - Visit Plan Frequency: 2x /Week Duration: 4 Weeks Plan: PT INTERVENTIONS DLS,BACK/THORACIC EXTENSION, POSTURAL EX'S ,ENDAURANCE PROGRAM - Subjective This 80 y/o male presents to physical therapy with back pain with compression fracture.Patient developed Jul 2020 fell of bed on floor. Tried PT but too painfull ,CATSCAN and x-rays. Patient went to family DR then recommended to see pain management ,fiist did kphoplasty in Aug 2020 ,then had 2 epidural injections and burned nerve.Aggraveting standing ,walking bending lifting. Aleviating factors rest. Bowel/bladder -. Coughing sneezing -. Sleeping okay at night. No abdnormal night pain. Denies parathesia/tingling. Patient lives alone . Daughter assist with grocery. Patient contion affects ADLS ,standing,walking and function. Patient pain affects QOL. Prior to compression fracture did not need FWW. SOCAIL: lIves alone. - Pain Bilateral Back Pain Intensity (Out of 10): 4 Pain Intensity Range: 10 - Objective POSTURE: mod thoracic foward posture. GAIT: reciprocal pattern mild foward posture lateral sway with fww. NEURO: intact,reflexes L3-4,L4-5,L5-S1 2/3. MMT: quad/hams 4-/5,hip flexion 4-/5,hip abd 3+/5,ankle 4/5. LUMBAR ROM: flexion mild/mod loss,extension mod loss,side glides min loss. FLEXABLITY: hams mild tight. BALANCE: fair+ - Special Tests L/S Slump test left side: Negative L/S Slump test right side: Negative L/S Left Straight Leg Raise: Negative L/S Right Straight Leg Raise: Negative - Goals Goal 1:: I with HEP Goal Time Frame: 4-6 Weeks Goal 2:: Patient to ambulate with least restrictive device with improved gait pattern and less pain. Goal Time Frame: 4-6 Weeks Goal 3:: Patient to increase strength BLE by 4/5 to improve gait. Goal Time Frame: 4-6 Weeks Goal 4:: Patient to decrease back pain by 50% or > to improve function. Goal Time Frame: 4-6 Weeks Goal 5:: Patient to increase back owestry score by 5 points or > to i mprove function. Goal Time Frame: 4-6 Weeks - Rehabilitation Potential Physical Therapy Diagnosis: This patient developed compression fracture from falling OOB thus had yphoplasty and epidural injection with current impairments with pain ,decrease LUMBAR ROM,strength impairs walking and standing and need FWW. Rehabilitation Potential: Good - Anticipated Interventions Patient/Client Instruction: Educate patient on: Condition, Plan of Care For the Purpose of:: To decrease pain, To increase ROM, To improve muscle performance and motor function, To improve ability to perform ADL's, To increase tolerance to activity/condition/position, To improve performance and independence with ADL's, To improve ability of physical actions for home/community/work/leisure, To improve health of tissue, To decrease soft tissue restriction, To increase flexibility/ROM, To reduce risk of recurrence, To improve ability to perform tasks related to life management Therapeutic Exercise to Include: Strength training, Endurance training, Balance training, Postural training, Flexibilty training, Dynamic Lumbar Stabilization Comment: BLE For the Purpose of:: To decrease pain, To increase ROM, To improve muscle performance and motor function, To improve ability to perform ADL's, To increase tolerance to activity/condition/position, To improve performance and i ndependence with ADL's, To improve ability of physical actions for home/community/work/leisure, To increase flexibility/ROM, To improve endurance, To improve balance, To improve ability to perform tasks related to life management Thank you for the opportunity to evaluate your patient. For Medicare and Medicare HMO plans, please review the plan of care and approve it. It will need to be FAXED BACK to us at [phone] for Medicare purposes. For Medicare only, by signing this I certify the plan of care. Please let me know if there are questions or concerns regarding this plan of care. Physician Signature: Date:
--- NOTE | 2021-02-22 12:37 | HP.PTDCSUM_ITS ---
It has been my pleasure to treat KAMINI JONES referred by MARTHA Rogers, with the diagnosis of COMPRESSION FRACTURE OF LUMBAR SPINE,BACK PAIN,THORACIC BACK PAIN for a total of 9 visit(s). Discharge Date: Please see the following information for a summary of their discharge status. Subjective: patient feeling better . Walking better with less pain in back but SOB. No sharp pain Bilateral Back Pain Intensity (Out of 10): 3 % Improvement: 50 Objective/Function: POSTURE: mild/mod thoracic kyphosis. GAIT: mild foward posture with fww reciprocal community distances with rest periods. Ambualted with cane min assist unsteady. LUMBAR ROM: flexion mod loss ,extension mod loss. MMT: quads/hams 4/5,hip flexion 4-/5 ,ankle 5/5 Goal 1:: I with HEP Goal Progress: Progressing Goal 2:: Patient to ambulate with least restrictive device with improved gait pattern and less pain. Goal Progress: Progressing Goal 3:: Patient to increase strength BLE by 4/5 to improve gait. Goal Progress: Progressing Goal 4:: Patient to decrease back pain by 50% or > to improve function. Goal Progress: Progressing Goal 5:: Patient to increase back owestry score by 5 points or > to i mprove function. Goal Progress: Progressing Plan: CONT WITH POC 2XWEEK FOR 4WEEKS. PT INTERVENTIONS DLS,BACK/THORACIC EXTENSION, POSTURAL EX'S ,ENDURANCE PROGRAM If there are questions or concerns regarding this patient's physical therapy, please feel free to call me at [phone]. Thank you for the referral of this patient. Sincerely, Rayshawn Finney, PT, Cert MDT, OCS
--- NOTE | 2021-02-22 14:40 | HP.PTREVAL ---
Shwetha Moise, RAMA-C, It has been my pleasure to treat KAMINI JONES over the last 9 visits for COMPRESSION FRACTURE OF LUMBAR SPINE,BACK PAIN,THORACIC BACK PAIN. Please see the progress note below for an update on the physical therapy plan of care! Subjective: patient feeling better . Walking better with less pain in back but SOB. No sharp pain Objective/Function: POSTURE: mild/mod thoracic kyphosis. GAIT: mild foward posture with fww reciprocal community distances with rest periods. Ambualted with cane min assist unsteady. LUMBAR ROM: flexion mod loss ,extension mod loss. MMT: quads/hams 4/5,hip flexion 4-/5 ,ankle 5/5 Plan Plan: CONT WITH POC 2XWEEK FOR 4WEEKS. PT INTERVENTIONS DLS,BACK/THORACIC EXTENSION, POSTURAL EX'S ,ENDURANCE PROGRAM Goals Goal 1:: I with HEP Goal Time Frame: 4-6 Weeks Goal Progress: Progressing Goal 2:: Patient to ambulate with least restrictive device with improved gait pattern and less pain. Goal Time Frame: 4-6 Weeks Goal Progress: Progressing Goal 3:: Patient to increase strength BLE by 4/5 to improve gait. Goal Time Frame: 4-6 Weeks Goal Progress: Progressing Goal 4:: Patient to decrease back pain by 50% or > to improve function. Goal Time Frame: 4-6 Weeks Goal Progress: Progressing Goal 5:: Patient to increase back owestry score by 5 points or > to i mprove function. Goal Time Frame: 4-6 Weeks Goal Progress: Progressing Anticipated Interventions Patient/Client Instruction: Educate patient on: Condition, Plan of Care For the Purpose of:: To decrease pain, To increase ROM, To improve muscle performance and motor function, To improve ability to perform ADL's, To increase tolerance to activity/condition/position, To improve performance and independence with ADL's, To improve ability of physical actions for home/community/work/leisure, To improve health of tissue, To decrease soft tissue restriction, To increase flexibility/ROM, To reduce risk of recurrence, To improve ability to perform tasks related to life management Therapeutic Exercise to Include: Strength training, Endurance training, Balance training, Postural training, Flexibilty training, Dynamic Lumbar Stabilization Comment: BLE For the Purpose of:: To decrease pain, To increase ROM, To improve muscle performance and motor function, To improve ability to perform ADL's, To increase tolerance to activity/condition/position, To improve performance and independence with ADL's, To improve ability of physical actions for home/community/work/leisure, To increase flexibility/ROM, To improve endurance, To improve balance, To improve ability to perform tasks related to life management Please do not hesitate to contact me at [phone] by phone or if you have questions or concerns regarding this new plan of care! Sincerely, Rayshawn Finney, PT, Cert MDT, OCS
--- NOTE | 2021-03-22 09:01 | HP.PTREVAL ---
Shwetha Moise, RAMA-C, It has been my pleasure to treat KAMINI JONES over the last 17 visits for COMPRESSION FRACTURE OF LUMBAR SPINE,BACK PAIN,THORACIC BACK PAIN. Please see the progress note below for an update on the physical therapy plan of care! Subjective: Patient is doing alot better. Plan to get serous of iron injection. Uses no device when walking inside. Breathing is better with iron injection Objective/Function: POSTURE: mild foward posture. GAIT: reciprocal pattern with fww. LUMBAR ROM: flexion min loss,extension mod loss. MMT: quads/hams 4/5,hip flexion 4-/5,abd 3+/5,ankle 4/5. BALANCE: fair+ with fww Plan Plan: CONT WITH POC 2XWEEK FOR 4WEEKS. PT INTERVENTIONS DLS,BACK/THORACIC EXTENSION, POSTURAL EX'S , ENDURANCE PROGRAM AND BALANCE TRAINING Goals Goal 1:: I with HEP Goal Time Frame: 4-6 Weeks Goal Progress: Progressing Goal 2:: Patient to ambulate with least restrictive device with improved gait pattern and less pain. Goal Time Frame: 4-6 Weeks Goal Progress: Progressing Goal 3:: Patient to increase strength BLE by 4/5 to improve gait. Goal Time Frame: 4-6 Weeks Goal Progress: Progressing Goal 4:: Patient to decrease back pain by 60% or > to improve function.(NEW GOAL) Goal Time Frame: 4-6 Weeks Goal Progress: Progressing Goal 5:: Patient to increase back owestry score by 5 points or > to improve function. Goal Time Frame: 4-6 Weeks Goal Progress: Goal Met Goal 6:: Improve CAITSIB by 5-10 points to improve balance( new goal) Anticipated Interventions Patient/Client Instruction: Educate patient on: Condition, Plan of Care For the Purpose of:: To decrease pain, To increase ROM, To improve muscle performance and motor function, To improve ability to perform ADL's, To increase tolerance to activity/condition/position, To improve performance and independence with ADL's, To improve ability of physical actions for home/community/work/leisure, To improve health of tissue, To decrease soft tissue restriction, To increase flexibility/ROM, To reduce risk of recurrence, To improve ability to perform tasks related to life management Therapeutic Exercise to Include: Strength training, Endurance training, Balance training, Postural training, Flexibilty training, Dynamic Lumbar Stabilization Comment: BLE For the Purpose of:: To decrease pain, To increase ROM, To improve muscle performance and motor function, To improve ability to perform ADL's, To increase tolerance to activity/condition/position, To improve performance and independence with ADL's, To improve ability of physical actions for home/community/work/leisure, To increase flexibility/ROM, To improve endurance, To improve balance, To improve ability to perform tasks related to life management Please do not hesitate to contact me at [phone] by phone or if you have questions or concerns regarding this new plan of care! Sincerely, Rayshawn Finney, PT, Cert MDT, OCS
--- NOTE | 2021-05-17 08:56 | HP.PTDCSUM ---
It has been my pleasure to treat KAMINI JONES referred by TRENT Rogers, with the diagnosis of COMPRESSION FRACTURE OF LUMBAR SPINE,BACK PAIN,THORACIC BACK PAIN for a total of 27 visit(s). Discharge Date: 05/17/21 Please see the following information for a summary of their discharge status. Subjective: Doing well no pain..breathing better Bilateral Back Pain Intensity (Out of 10): 0 % Improvement: 70 Objective/Function: POSTURE: MILD FORWARD POSTURE. GAIT: AMBULATES WITH FWW COMMUNITY DISTANCE. MMT: QUADS/HAMS 4/5,HIP FLEXION 4-/5,ANKLE 4/5. LUMBAR ROM: FLEXION MOD LOSS,EXTENSION MOD LOS Goal 1:: I with HEP Goal Progress: Goal Met Goal 2:: Patient to ambulate with least restrictive device with improved gait pattern and less pain. Goal Progress: Progressing Goal 3:: Patient to increase strength BLE by 4/5 to improve gait. Goal Progress: Goal Met Goal 4:: Patient to decrease back pain by 60% or > to improve function.(NEW GOAL) Goal Progress: Goal Met Goal 5:: Patient to increase back owestry score by 5 points or > to improve function. Goal Progress: Goal Met Goal 6:: Improve CAITSIB by 5-10 points to improve balance( new goal) Goal Progress: Goal Met Plan: D/C TO HEP Discharge Comments: [facility] If there are questions or concerns regarding this patient's physical therapy, please feel free to call me at [phone]. Thank you for the referral of this patient. Sincerely, Rayshawn Finney, PT, Cert MDT, OCS
== END 2021-05-17 19:00 | disposition home or self-care (01) ==
LOC: PT 08:30
PROVIDERS: PCP Family Medicine; Referring Provider Nurse Practitioner Family; Visit Provider Nurse Practitioner Family
DX: M48.56XD Collapsed vertebra, not elsewhere classified, lumbar region, subsequent encounter for fracture with routine healing (principal); M54.9 Dorsalgia, unspecified; M54.6 Pain in thoracic spine
CPT/HCPCS: 97110; 97162; 97530

== ENCOUNTER → 2021-07-05 11:12 | Outpatient (CLI) | payer MEDICARE, OTHER, SELFPAY ==
[2020-01-25 07:02] VITALS: BMI 40.8
[2021-07-05 12:00] LABS: Anion Gap 5 (5-15); BUN 15 mg/dL (7-18); BUN/Creat Ratio 13.2 RATIO (10-20); Calcium,Total 8.4 mg/dL (8.5-10.1); Chloride 111 mmol/L (98-107); Creatinine, Serum 1.14 mg/dL (0.70-1.30); EST Glomerular Filtration Rate 66 mL/min (>60); Est Glom Filt Rate - Afr Amer 79 mL/min (>60); Glucose 130 mg/dL (74-106); Potassium 4.6 mmol/L (3.5-5.1); Sodium Level 141 mmol/L (136-145)
[2021-07-05 12:29] LABS: BNP,B-Type NATRIURETIC PEPTIDE 769.2 pg/mL (0-100)
== END ==
PROVIDERS: PCP Family Medicine; Visit Provider Nurse Practitioner Family
DX: R06.00 Dyspnea, unspecified (principal); I50.9 Heart failure, unspecified; I25.10 Atherosclerotic heart disease of native coronary artery without angina pectoris; Z95.1 Presence of aortocoronary bypass graft
CPT/HCPCS: 36415; 80048; 83880

== ENCOUNTER → 2021-07-11 13:53 | Outpatient (CLI) | payer MEDICARE, OTHER, SELFPAY ==
[2020-01-25 07:02] VITALS: BMI 40.8
[2021-04-02 10:25] VITALS: BMI 41.3
--- NOTE | 2021-07-11 13:55 | ECHOD_ITS ---
Reason For Study: SOB Procedure This was a 2D Doppler, Color Flow transthoracic echocardiogram. Myocardial strain analysis was performed in this exam to aid in the assessment of cardiac function. The study was technically difficult. Exam performed in department. Left Ventricle Normal LV size. Segmental dysfunction with preserved ejection fraction (see wall motion). The estimated ejection fraction is 55 %. The global longitudinal strain = -17% (borderline). Post operative septal motion. Mid-inferoseptal : Hypokinetic. Mid-anteroseptal : Hypokinetic. Septal Henderson : Hypokinetic. Right Ventricle Normal RV size. Normal systolic function. Atria The left atrium is moderately enlarged. The right atrium is mildly enlarged. No doppler evidence for ASD. Mitral Valve There is mild mitral annular calcification. Extension of the mitral annular calcification on the base of the posterior mitral valve leaflet. Trivial mitral valve insufficiency. Tricuspid Valve Normal tricuspid valve. Trivial tricuspid valve insufficiency. Right ventricular systolic pressure estimated to be 40 mmHg. Aortic Valve Trisinus/trileaflet aortic valve. Mild focal aortic valve calcification. Trivial aortic valve insufficiency. Pulmonic Valve The pulmonic valve is not well visualized. Great Vessels Normal sized aortic root. Pericardium/Pleural No pericardial effusion. MMode/2D Measurements & Calculations LVIDd: 5.8 cm IVSd: 1.0 cm Ao root diam: 3.4 cm LVIDs: 4.5 cm LVPWd: 1.0 cm RVDd: 4.0 cm FS: 22.4 % LAV(MOD-bp): 91.7 ml LVAd ap4: 44.6 cm2 SV(MOD-sp4): 90.7 ml LAV(MOD-bp) Indexed: 43.7 ml/m2 LVLd ap4: 9.3 cm LAV(MOD-sp2): 89.5 ml EDV(MOD-sp4): 175.8 ml LAV(MOD-sp4): 89.5 ml EDV(sp4-el): 182.2 ml LVAs ap4: 29.0 cm2 LVLs ap4: 8.3 cm ESV(MOD-sp4): 85.1 ml ESV(sp4-el): 86.1 ml EF(MOD-sp4): 51.6 % EF(sp4-el): 52.8 % SV(sp4-el): 96.2 ml LA A4 area: 26.9 cm2 LA dimension(2D): 4.6 cm RA A4 area: 24.8 cm2 Time Measurements MV dec time: 0.26 sec Doppler Measurements & Calculations MV E max syed: 71.4 cm/sec Lat Peak E' Syed: 16.1 cm/sec Med Peak E' Syed: 6.6 cm/sec MV A max syed: 63.9 cm/sec E/E' lat: 4.4 E/E' med: 10.9 MV E/A: 1.1 Ao V2 max: 146.1 cm/sec LV V1 max: 77.3 cm/sec PA V2 max: 93.5 cm/sec Ao max P.5 mmHg LV V1 max P.4 mmHg TR max syed: 304.5 cm/sec TR max P.2 mmHg ECHO/Echo Complete Interpretation Summary The study was technically difficult. Segmental dysfunction with preserved ejection fraction (see wall motion). The estimated ejection fraction is 55 %. The global longitudinal strain = -17% (borderline). Post operative septal motion. The left atrium is moderately enlarged. The right atrium is mildly enlarged. There is mild mitral annular calcification. Extension of the mitral annular calcification on the base of the posterior mitr al valve leaflet. Trivial mitral valve insufficiency. Trivial tricuspid valve insufficiency. Mild focal aortic valve calcification. Trivial aortic valve insufficiency. Right ventricular systolic pressure estimated to be 40 mmHg. Transmitral diastolic flow velocities suggest diastolic dysfunction (pseudonorm al pattern). Ordering Physician: Ubaldo Kidd/Madan Becker Referring Physician: Armin Carlin Performed By: Monica Kelly RDCS
== END ==
PROVIDERS: PCP Family Medicine; Referring Provider Family Medicine; Visit Provider Family Medicine
DX: R06.02 Shortness of breath (principal); R06.00 Dyspnea, unspecified; I25.10 Atherosclerotic heart disease of native coronary artery without angina pectoris; Z95.1 Presence of aortocoronary bypass graft
CPT/HCPCS: 93306

== ENCOUNTER → 2021-07-17 19:55 | Outpatient (CLI) | payer MEDICARE, OTHER, SELFPAY ==
[2020-01-25 07:02] VITALS: BMI 40.8
== END ==
PROVIDERS: PCP Family Medicine; Visit Provider Family Medicine
DX: G47.10 Hypersomnia, unspecified (principal); R06.81 Apnea, not elsewhere classified
CPT/HCPCS: 95810

== ENCOUNTER → 2021-08-06 20:23 | Outpatient (CLI) | payer MEDICARE, OTHER, SELFPAY ==
[2020-01-25 07:02] VITALS: BMI 40.8
== END ==
PROVIDERS: PCP Family Medicine; Visit Provider Family Medicine
DX: G47.33 Obstructive sleep apnea (adult) (pediatric) (principal)
CPT/HCPCS: 95811

== ENCOUNTER → 2021-10-01 13:37 | Outpatient (CLI) | payer MEDICARE, OTHER, SELFPAY ==
[2020-01-25 07:02] VITALS: BMI 40.8
--- NOTE | 2021-10-01 13:40 | RAD_ITS ---
STUDY: X-RAY CHEST REASON FOR EXAM: Male, 81 years old. Dyspnea on exertion. TECHNIQUE: PA and lateral views of the chest. COMPARISON: Comparison is made with prior study dated 08/28/2020. FINDINGS: A right-sided portacatheter is seen with the tip in the midportion of the superior vena cava. There is a small right pleural effusion with right basilar atelectasis. Stable thickening of the left major fissure and left perihilar region suggestive of scarring. Sternal cerclage wires and vascular clips are present from a prior sternotomy and coronary artery bypass graft procedure (CABG). Normal mediastinum and gaurav. Normal visualized pulmonary arteries. There is atherosclerotic calcification of the aortic arch with tortuosity. There are diffuse degenerative changes of the visualized thoracic spine. Demineralization of the thoracic vertebrae. Loss of height of the T12 and L1 vertebrae with prior vertebroplasty of the L1 vertebrae. Normal visualized ribs, clavicles, and shoulders. There is no demonstrated abnormality of the visualized soft tissue structures of the upper abdomen. RAD/Chest PA and Lateral IMPRESSION: Progressive right pleural effusion with right basilar atelectasis. Stable scarring in the left mid lung and left perihilar region. Electronically Signed: Sav Black MD at 15:30 EST , Service support ,
== END ==
PROVIDERS: PCP Family Medicine; Referring Provider Family Medicine; Visit Provider Family Medicine
DX: R06.00 Dyspnea, unspecified (principal)
CPT/HCPCS: 71046

== ENCOUNTER → 2021-10-31 13:36 | Outpatient (CLI) | payer MEDICARE, OTHER, SELFPAY ==
[2020-01-25 07:02] VITALS: BMI 40.8
[2021-10-31 13:59] VITALS: PULSE 59; PULSE 65; PULSE 67; PULSE 72; PULSE 79; PULSE 81; PULSE 87; O2SAT 90; O2SAT 93; O2SAT 95; O2SAT 96
--- NOTE | 2021-11-01 07:45 | PCM.PSN.6M ---
PSN 6 Minute Walk Test 6 Minute Walk Test 6 Minute Walk Test: 6 Minute Walk Test PSN:6-Minute Walk Test Start: 10/31/21 13:59 Freq: Status: Active Protocol: [id number].6MINW Document 10/31/21 13:59 MICHAEL (Rec: 10/31/21 14:16 LISA [id number]) 6 Minute Walk Test Date Performed 10/31/21 Time Performed 13:45 Height 5 ft 4 in Weight: 106.594 kg Weight in Pounds 235.[address]: Armin Carlin Assistive device used: Walker Pre-test Oxygen Delivery Method Room Air Pulse Ox (%) 96 Pulse Rate (60-100 beats/min) 67 Dyspnea Kayleigh Scale (0-10) 0 Exertion Kayleigh Scale (6-20) 6 1st minute Oxygen Delivery Method Room Air Pulse Ox (%) 90 Pulse Rate (60-100 beats/min) 81 2nd minute Oxygen Delivery Method Room Air Pulse Ox (%) 96 Pulse Rate (60-100 beats/min) 72 3rd minute Oxygen Delivery Method Room Air Pulse Ox (%) 95 Pulse Rate (60-100 beats/min) 79 4th minute Oxygen Delivery Method Room Air Pulse Ox (%) 95 Pulse Rate (60-100 beats/min) 65 5th minute Oxygen Delivery Method Room Air Pulse Ox (%) 93 Pulse Rate (60-100 beats/min) 59 L 6th minute Oxygen Delivery Method Room Air Pulse Ox (%) 96 Pulse Rate (60-100 beats/min) 87 Dyspnea Kayleigh Scale (0-10) 2 Exertion Kayleigh Scale (6-20) 12 Post-test Oxygen Delivery Method Room Air Pulse Ox (%) 96 Pulse Rate (60-100 beats/min) 87 Dyspnea Kayleigh Scale (0-10) 2 Exertion Kayleigh Scale (6-20) 12 Full Laps Walked 9 Partial Lap, Number of Tiles Walked 0 Total Distance Walked (ft) 531 Interpretation Interpretation: The patient ambulated 531 feet over the course of 6 minutes beginning on room air with the use of a walker. Pretesting oxygen saturation was noted to be 96% on room air. With ambulation, the kaylen oxygen saturation was 90%. This testing indicated the presence of impaired walk distance along with significant exertional oxygen desaturation. Recommendations Recommendations: There is no indication for the use of supplemental oxygen at this time. However, close interval follow-up is recommended, given the degree of oxygen desaturation noted during this study.
== END ==
PROVIDERS: PCP Family Medicine; Visit Provider Family Medicine
DX: R06.00 Dyspnea, unspecified (principal); I51.89 Other ill-defined heart diseases
CPT/HCPCS: 94618

== ENCOUNTER 2021-11-14 10:18 | Inpatient (IN) | payer MEDICARE, OTHER, SELFPAY ==
[2020-01-25 07:02] VITALS: BMI 40.8
[2021-11-14] VITALS (11 sets, daily range): BP systolic 114–153; BP diastolic 71–117; PULSE 63–89; RESP 18–26; TEMP 36.6–37.2; O2SAT 93–97; BMI 43.2; BMI 41.3
--- NOTE | 2021-11-14 10:44 | EKG12_ITS ---
Test Reason : Blood Pressure : / mmHG Vent. Rate : 083 BPM Atrial Rate : 083 BPM P-R Int : 162 ms QRS Dur : 108 ms QT Int : 400 ms P-R-T Axes : -12 -37 075 degrees QTc Int : 470 ms Normal sinus rhythm Left axis deviation Left ventricular hypertrophy with repolarization abnormality Abnormal ECG Confirmed by GEM MORATAYA, KEIKO ([id number]), editor sound CRYSTAL HARTLEY ([id number]) on 11/20/2021 12:08:22 PM Referred By: MARI Confirmed By:KEIKO RABAGO MD
--- NOTE | 2021-11-14 11:02 | CT_ITS ---
STUDY: CTA CHEST, ABDOMEN AND PELVIS REASON FOR EXAM: Male, 81 years old. Flank pain RADIATION DOSAGE (If Supplied By Facility): CTDIvol = ( 26.84 ) mGy, DLP = ( 2543.78 ) mGycm. Individualized dose optimization techniques were used for this CT.? TECHNIQUE: 1.25 mm helical cuts were performed through the chest, abdomen and pelvis with 100 mL ISOVUE 370 contrast. MPR performed COMPARISON: Previous chest x-rays. FINDINGS: Soft tissue windows show previous CABG. Thyroid gland is unremarkable. No suspicious axillary or mediastinal adenopathy. There is a moderate sized free-flowing right pleural effusion and a small pleural effusion. There is bibasilar atelectasis. Lung windows show bibasilar atelectasis but no organized infiltrate. There are old healed and ununited rib fractures. Peripheral calcifications in the thoracic aorta without aneurysm or dissection. Postsurgical changes with the liver are noted. There is no enhancing solid lesion or cyst. There has been a previous cholecystectomy. There is a concerning 3.7 x 3.9 cm well-defined enhancing lesion within the spleen. This could be a hemangioma or lymphangioma as it is apparently asymptomatic. Pancreas, adrenals and kidneys are unremarkable. Specifically, there is no obstructive uropathy or suspicious solid renal lesion. There is nonspecific induration of the mesenteric and retroperitoneal fat. Peripheral calcifications are noted in the abdominal aorta, there is an infrarenal aneurysm measuring 5.25 cm in greatest transverse dimension. There is no aneurysmal dilatation of either common iliac artery. There is a right-sided spigelian hernia containing bowel loops and fluid there is associated skin thickening and induration of the subcutaneous tissue in the right flank which may represent a cellulitis. The bladder distends normally. There are prosthetic calcifications. Bony structures show extensive degenerative bony changes with a chronic compression fracture at T12 which has lost approximately 80% of its height and kyphoplasty at L1. CT/CTA Chst, Abd, Pel W and/or WO IMPRESSION: No demonstrated PE, or thoracic aortic aneurysm or dissection Infrarenal 5.25 cm peripherally calcified abdominal aortic aneurysm without dissection or leak. Bilateral pleural effusions with bibasilar atelectasis, evidence of chronic bronchitis Remote CABG Somewhat concerning 3.7 x 3.9 cm enhancing lesion within the spleen further evaluation with MRI may be of benefit, this is apparently asymptomatic and may represent hemangioma or lymphangioma, there was no mention of this lesion on the most recent CT. 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 There is also associated induration of the subcutaneous fat with skin thickening suggesting cellulitis is likely present Extensive degenerative bony changes with old healed and ununited rib fractures, compression fractures in the thoracic and lumbar spine. There is been a previous kyphoplasty at L1 Electronically Signed: Oziel Santa MD at 13:08 EST , Service support ,
--- NOTE | 2021-11-14 11:06 | EDS_ITS ---
HPI History of Present Illness Chief Complaint: Shortness of Breath Narrative Narrative: 81-year-old male presenting with shortness of breath and hypoxia. Patient does not have to wear oxygen at home. His pulse ox was found to be in the 80s in the EMS. He has a history of dyspnea, CABG, CAD, hypertension, CHF, colon cancer. Patient recently had a walk test with Matt Hawkins which did not identify any need for oxygen at home. Patient not currently anticoagulated due to history of GI bleed and esophageal varices. Family states that he has had a cough and congestion for about 3 days. He is also complaining of some left- sided flank pain which is been present with the symptoms. Patient does have history of abdominal aortic aneurysm without rupture. His daughter relates that on his last evaluation had grown some. Patient does report a fever of 100.6 last night. This has since resolved. Patient was tested for COVID-19 yesterday with a rapid test and this was negative. Patient is not complaining of any chest pain. He does report that he had some nausea and vomiting as well as diarrhea. Patient's daughter also does relate that he has been a little bit confused over the last couple of days. [facility] Medical History (Updated 11/14/21 @ 16:[address] Pooja Deelon MD) AAA (abdominal aortic aneurysm) without rupture CAD (coronary artery disease) CHF (congestive heart failure) Colon cancer metastasized to liver Colon cancer metastasized to lung Essential hypertension History of left heart catheterization (LHC) (~09/20/19) HTN (hypertension) NSTEMI (non-ST elevated myocardial infarction) Old myocardial infarction Postoperative atrial fibrillation Pulmonary hypertension Renal insufficiency Varices of esophagus determined by endoscopy Home Medications hydroxychloroquine 200 mg PO BIDCM 12/26/15 [History Last Taken 08/28/20] propranolol 20 mg PO BID 02/07/16 [History Last Taken 08/28/20] magnesium oxide 400 mg PO BID 08/24/16 [History Last Taken 08/28/20] aspirin 81 mg tablet,delayed release 81 mg PO DAILY 11/02/19 [History Last Taken 08/28/20] melatonin 10 mg capsule 10 mg PO HS PRN 11/02/19 [History Last Taken 08/27/20] acetaminophen 325 mg tablet 650 mg PO Q6H PRN PRN tab 01/12/20 [History Last Taken Unknown] dicyclomine 10 mg capsule 10 mg PO TID PRN cap 01/12/20 [History Last Taken 08/28/20] diltiazem HCl 120 mg capsule,extended release 24 hr 120 mg PO DAILY 01/12/20 [History Last Taken 08/28/20] potassium chloride 20 mEq tablet,extended release(part/cryst) 40 meq PO DAILY tab 01/12/20 [History Last Taken 08/28/20] prednisone 10 mg tablet 10 mg PO DAILY PRN 01/12/20 [History Last Taken 08/26/20] rifaximin 550 mg tablet 550 mg PO BID tab 01/12/20 [History Last Taken 08/28/20] sertraline 100 mg tablet 100 mg PO DAILY 01/12/20 [History Last Taken 08/28/20] ibuprofen 200 mg PO DAILY PRN PRN 08/28/20 [History Last Taken 08/27/20] omeprazole 20 mg PO DAILY 08/28/20 [History Last Taken 08/28/20] atorvastatin 20 mg tablet 20 mg PO QHS 04/02/21 [History Last Taken Unknown] furosemide 20 mg tablet 40 mg PO BID tab 07/05/21 [History Last Taken Unknown] losartan 50 mg tablet 50 mg PO DAILY #90 tab 07/11/21 [Rx Last Taken Unknown] Allergy/AdvReac Type Severity Reaction Status Date / Time oxycodone AdvReac Severe Hallucinati Verified 11/14/21 10:24 ons alprazolam [From Xanax] AdvReac hallucinati Verified 11/14/21 10:24 ons lorazepam [From Ativan] AdvReac hallucinati Verified 11/14/21 10:24 ons tramadol [From Ultram] AdvReac hallucinati Verified 11/14/21 10:24 ons Surgical History History of coronary artery bypass surgery (~10/04/19) History of kyphoplasty (~08/2020) Social History Smoking Status: Never smoker alcohol intake: never substance use type: does not use caffeine: Yes Type: carbonated beverages Number of servings: 4 ROS ROS ED Constitutional Constitutional ED: Reports fever(s); Denies chills Eyes Eyes: Denies blurry vision or diplopia ENT ENT ED: Reports rhinorrhea Cardiovascular Cardiovascular: Denies chest pain or palpitations Respiratory/Chest Respiratory/Chest: Reports cough, dyspnea and dyspnea on exertion Gastrointestinal Gastrointestinal: Reports diarrhea, nausea, vomiting and other Details: Left flank pain Genitourinary Genitourinary ED: Denies dysuria or hematuria Musculoskeletal Musculoskeletal: Reports other Details: Left flank pain ; Denies arthralgias or myalgias Integumentary Denies Abrasions or rash Neurologic Neurologic: Denies headache(s) or paresthesias EXAM Physical Exam Const Vital Signs: 11/14/21 10:21 11/14/21 11:12 11/14/21 11:32 Temperature 97.8 F Temperature Source Temporal Pulse Rate 89 85 Respiratory Rate 26 H 25 H Respiratory Effort Respiratory Depth Respiratory Pattern Tachypnea Blood Pressure 153/117 H Blood Pressure Mean 129 Pulse Ox 93 94 Oxygen Delivery Method Nasal Cannula Nasal Cannula Oxygen Flow Rate (L/min) 4 11/14/21 12:05 11/14/21 12:33 11/14/21 14:15 Temperature 98.3 F Temperature Source Temporal Pulse Rate 77 64 Respiratory Rate 19 H 20 H Respiratory Effort Short of Breath Respiratory Depth Shallow Respiratory Pattern Tachypnea Blood Pressure 114/82 H 142/81 H Blood Pressure Mean 92 101 Pulse Ox 96 96 Oxygen Delivery Method Nasal Cannula Nasal Cannula Nasal Cannula Oxygen Flow Rate (L/min) 4 4 4 Positive obese General Appearance ED: other; Negative for pallor Nutritional Appearance: obese HEENT Reports TM's clear and moist mucous membranes atraumatic Tympanic Membrane ED: Yes TM's clear Eyes PERRL and EOMs intact bilaterally Resp Auscultation: wheezes scattered wheezes and diminished lung sounds Cardio regular rate and regular rhythm GI GI Narrative: Large right-sided hernia in the ventral wall which is nontender to palpation. No CVA tenderness bilaterally. Palpation: soft Back/Spine normal to inspection Neuro oriented x3 and CN's II-XII intact bilaterally Sensorium / Orientation: alert Psych mental status grossly normal Thought Process: normal thought process Skin General Skin Exam: Negative for jaundice or pallor MDM MDM MDM Narrative Medical decision making narrative: Patient with history of metastatic colon cancer, CHF presenting with shortness of breath. Patient was just recently tested and did not require oxygen however he was in the low 80s at home on room air. Family does also relate that he had a fever of 100.6 last night. This is resolved and has not returned. Stable on 4 L of oxygen via nasal cannula. On my initial examination he did have scattered wheezes and therefore was given another breathing treatment and Solu-Medrol. Symptomatically this did help his breathing. Sepsis work-up was initiated given the hypoxia and the fever. Urinalysis is negative for infection. CBC shows his white blood cell count is 9.9, hemoglobin 9.6 is around baseline. Platelets 78 and his platelets do wax and wane around this area. Renal function and electrolytes are normal. High- sensitivity troponin is 60. BNP is 1527. Lactic acid 1.2. Ammonia level slightly elevated at 48. Patient given 10 g of lactulose p.o. Chest x-ray on my interpretation shows findings consistent with CHF right pleural effusion. Radiologist does read this as possible infiltrate. CT of the chest of pelvis is performed due to the patient's shortness of breath and with his flank pain. CTA of the chest and pelvis was performed to rule out dissection. It does identify his aortic aneurysm which has not significantly changed. There does appear to be an enhancing lesion in the spleen which is new. Radiologist has also read the CT of the abdomen pelvis is possible cellulitis around his spigelian hernia however patient does not have any pain here and there is no induration of the skin. Patient also does not have a leukocytosis. CT also identifies bilateral pleural effusions which would be consistent with his elevated BNP and his history of CHF. He is given Lasix 40 mg IV in the ED. His rapid Covid test was negative and therefore I sent for PCR which is pending on admission. Discussed with hospitalist. Impression: 1 CHF exacerbation 2. Hypoxic respiratory failure 3. Hyper ammonemia 4. Confusion 5. Anemia Lab Data Labs: Laboratory Results - last 24 hr 11/14/21 11/14/21 11/14/21 11:15 11:15 11:15 WBC 9.5 RBC 3.59 L Hgb 9.6 L Hct 30.7 L MCV 85.5 MCH 26.7 L MCHC 31.3 L RDW Std Deviation 53.9 H RDW Coeff of Nicola 17.2 H Plt Count 78 L MPV 11.0 Immature Gran % (Auto) 0.400 Neut % (Auto) 86.5 H Lymph % (Auto) 4.8 L Harvey % (Auto) 6.9 Eos % (Auto) 1.3 Baso % (Auto) 0.1 Absolute Neuts (auto) 8.2 H Absolute Lymphs (auto) 0.45 L Nucleated RBC % 0 Differential Comment COMMENT Platelet Estimate MOD DEC PT INR Sodium 143 Potassium 3.9 Chloride 111 H Carbon Dioxide 25.0 Anion Gap 7 BUN 25 H Creatinine 1.08 Estim Creat Clear Calc 44.92 Est GFR (MDRD) Af Amer 84 Est GFR (MDRD) Non-Af 70 BUN/Creatinine Ratio 23.1 H Glucose 89 Lactic Acid Calcium 8.0 L Magnesium Total Bilirubin 1.60 H Direct Bilirubin 0.51 H AST 30 ALT 30 Alkaline Phosphatase 96 Ammonia Troponin I High Sens 60 B-Natriuretic Peptide 1527.2 H Total Protein 5.7 L Albumin 2.5 L Globulin 3.2 Urine Color Urine Clarity Urine pH Ur Specific [place] Urine Protein Urine Glucose (UA) Urine Ketones Urine Occult Blood Urine Nitrite Urine Bilirubin Urine Urobilinogen Ur Leukocyte Esterase Urine RBC Urine WBC Ur Squamous Epith Cells Urine Bacteria Urine Mucus 11/14/21 11/14/21 11/14/21 11:15 11:15 11:15 WBC RBC Hgb Hct MCV MCH MCHC RDW Std Deviation RDW Coeff of Nicola Plt Count MPV Immature Gran % (Auto) Neut % (Auto) Lymph % (Auto) Harvey % (Auto) Eos % (Auto) Baso % (Auto) Absolute Neuts (auto) Absolute Lymphs (auto) Nucleated RBC % Differential Comment Platelet Estimate PT 17.0 H INR 1.5 Sodium Potassium Chloride Carbon Dioxide Anion Gap BUN Creatinine Estim Creat Clear Calc Est GFR (MDRD) Af Amer Est GFR (MDRD) Non-Af BUN/Creatinine Ratio Glucose Lactic Acid 1.2 Calcium Magnesium Total Bilirubin Direct Bilirubin AST ALT Alkaline Phosphatase Ammonia 48.0 H Troponin I High Sens B-Natriuretic Peptide Total Protein Albumin Globulin Urine Color Urine Clarity Urine pH Ur Specific [place] Urine Protein Urine Glucose (UA) Urine Ketones Urine Occult Blood Urine Nitrite Urine Bilirubin Urine Urobilinogen Ur Leukocyte Esterase Urine RBC Urine WBC Ur Squamous Epith Cells Urine Bacteria Urine Mucus 11/14/21 11/14/21 11:15 11:50 WBC RBC Hgb Hct MCV MCH MCHC RDW Std Deviation RDW Coeff of Nicola Plt Count MPV Immature Gran % (Auto) Neut % (Auto) Lymph % (Auto) Harvey % (Auto) Eos % (Auto) Baso % (Auto) Absolute Neuts (auto) Absolute Lymphs (auto) Nucleated RBC % Differential Comment Platelet Estimate PT INR Sodium Potassium Chloride Carbon Dioxide Anion Gap BUN Creatinine Estim Creat Clear Calc Est GFR (MDRD) Af Amer Est GFR (MDRD) Non-Af BUN/Creatinine Ratio Glucose Lactic Acid Calcium Magnesium 2.0 Total Bilirubin Direct Bilirubin AST ALT Alkaline Phosphatase Ammonia Troponin I High Sens B-Natriuretic Peptide Total Protein Albumin Globulin Urine Color Yellow Urine Clarity Clear Urine pH 6.0 Ur Specific [place] 1.015 Urine Protein 15 H Urine Glucose (UA) Normal Urine Ketones Negative Urine Occult Blood Negative Urine Nitrite Negative Urine Bilirubin Negative Urine Urobilinogen Normal Ur Leukocyte Esterase 25 H Urine RBC 0 SEEN Urine WBC 0-5 SEEN Ur Squamous Epith Cells 0 SEEN Urine Bacteria 0 SEEN Urine Mucus 0 SEEN Radiography Diagnostic Testing: Clinical Impression(s) from Imaging Studies Chest/Abdomen/Pelvis CTA 11/14/21 11:02 IMPRESSION: No demonstrated PE, or thoracic aortic aneurysm or dissection Infrarenal 5.25 cm peripherally calcified abdominal aortic aneurysm without dissection or leak. Bilateral pleural effusions with bibasilar atelectasis, evidence of chronic bronchitis Remote CABG Somewhat concerning 3.7 x 3.9 cm enhancing lesion within the spleen further evaluation with MRI may be of benefit, this is apparently asymptomatic and may represent hemangioma or lymphangioma, there was no mention of this lesion on the most recent CT. 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 There is also associated induration of the subcutaneous fat with skin thickening suggesting cellulitis is likely present Extensive degenerative bony changes with old healed and ununited rib fractures, compression fractures in the thoracic and lumbar spine. There is been a previous kyphoplasty at L1 Electronically Signed: Oziel Santa MD at 13:08 EST , Service support , Chest X-Ray 11/14/21 11:25 IMPRESSION: Congestive changes, cannot rule out a right lower lobe infiltrate/pleural effusion. Electronically Signed: Jaret Mora MD at 11:51 EST Tel , Service support , Discharge Plan Disposition Disposition: Acute Care Hospital [facility] Discharge Date/Time: 11/14/21 14:39
[2021-11-14] MEDS: Albuterol 2.5 MG/3 ML VIAL.NEB. INHALATION (11:12)
[2021-11-14] MEDS: Ipratropium/Albuterol Sulfate 3 ML AMPUL.NEB INHALATION (11:12)
--- NOTE | 2021-11-14 11:25 | RAD_ITS ---
INDICATION: dyspnea EXAMINATION/TECHNIQUE: X-RAY - XR Chest 1 View COMPARISON: 08/28/2020. FINDINGS: Poor inspiratory effort is seen. LINES/DEVICES: Right chest port visualizes catheter tip in the SVC. Sternal wires are seen in position. EKG leads are seen superimposed over the chest. LUNGS: Prominence of the bronchovascular interstitial lung markings visualized bilaterally with patchy bilateral airspace opacification visualized, linear subsegmental atelectatic streaks visualized, increased opacification visualized in the right lower lung saleh with obscuration of the right costophrenic angle consistent with a right pleural effusion. MEDIASTINUM AND CARDIOVASCULAR STRUCTURES: Mild cardiomegaly is seen. BONES AND SOFT TISSUES: Degenerative bone changes seen. RAD/Chest 1 View (Portable) IMPRESSION: Congestive changes, cannot rule out a right lower lobe infiltrate/pleural effusion. Electronically Signed: Jaret Mora MD at 11:51 EST Tel , Service support ,
[2021-11-14] MEDS: MethylPREDNISolone 125 MG/2 ML Vial IV (11:36)
[2021-11-14 11:41] LABS: Absolute Lymphocyte Count 0.45 X10^3/uL (0.83-4.51); Absolute Neutrophil Count 8.2 X10^3/uL (2.0-7.7); Basophil# 0.01 X10^3/uL; Basophil% 0.1 % (0-1); Eosinophil# 0.12 X10^3/uL; Eosinophils% 1.3 % (0-5); Hematocrit 30.7 % (40-54); Hemoglobin 9.6 g/dL (13.0-16.5); Lymphocyte # 0.45 X10^3/ul (0.83-4.51); Lymphocyte % 4.8 % (19-41); Mean Corp Hgb Conc 31.3 g/dL (32-36); Mean Corpuscular Hgb 26.7 pg (27.0-32.0); Mean Corpuscular Volume 85.5 fL (80-94); Monocyte# 0.65 X10^3/uL; Monocyte% 6.9 % (0-10); NRBC Flagged by Analyzer 0 % (0-5); Neutrophil # 8.18 X10^3/uL (2.7-7.7); Neutrophil % 86.5 % (47-70); POSITIVE COUNT YES; POSITIVE DIFFERENTIAL YES; Platelet Count 78 K/mm3 (150-450); RBC Distribution Width CV 17.2 % (11.6-14.6); RBC Distribution Width SD 53.9 fl (35.1-43.9); Red Blood Count 3.59 M/mm3 (4.6-6.2); White Blood Count 9.5 K/mm3 (4.4-11.0)
[2021-11-14 11:43] LABS: Differential Indicated SCAN CRITERIA MET
[2021-11-14 11:47] LABS: International Normalized Ratio 1.5
[2021-11-14 11:56] LABS: Bacteria 0 SEEN /hpf (None Seen); Mucous, Urine 0 SEEN /hpf (<or=2+); Red Blood Cells-Urine 0 SEEN /hpf (0-5); Squamous Epithelial Cells - UA 0 SEEN /hpf (0-5)
[2021-11-14 11:57] LABS: Color, Urine Yellow (Yellow); Glucose, Dipstick Normal (Normal); Ketone-Dipstick Negative (Negative); Leukocyte Esterase-Dipstick 25 /ul (Negative); Nitrite-Dipstick Negative (Negative); Occult Blood-Urine Negative /ul (Negative); Protein-Dipstick 15 mg/dl (Negative); Specific Gravity, Urine 1.015 (1.002-1.030); Urine Bilirubin Dipstick Negative (Negative); Urine Clarity Clear (Clear); Urine Urobilinogen Normal (Normal)
[2021-11-14 11:58] LABS: AST(SGOT) 30 U/L (15-37); Alanine Aminotransfer ALT/SGPT 30 U/L (16-61); Albumin, Serum 2.5 g/dL (3.2-5.0); Alkaline Phosphatase 96 U/L (45-117); Anion Gap 7 (5-15); BUN 25 mg/dL (7-18); BUN/Creat Ratio 23.1 RATIO (10-20); Bilirubin, Direct 0.51 mg/dL (0.00-0.30); Chloride 111 mmol/L (98-107); Creatinine, Serum 1.08 mg/dL (0.70-1.30); EST Glomerular Filtration Rate 70 mL/min (>60); Est Glom Filt Rate - Afr Amer 84 mL/min (>60); Estimated Creatinine Clearance 44.92 ml/min; Globulin 3.2 g/dL (2.2-4.2); Glucose 89 mg/dL (74-106); Potassium 3.9 mmol/L (3.5-5.1); Protein, Total 5.7 g/dL (6.4-8.2); Sodium Level 143 mmol/L (136-145); Troponin-I HS 60 pg/mL (3.0-78.0)
[2021-11-14 12:01] LABS: BNP,B-Type NATRIURETIC PEPTIDE 1527.2 pg/mL (0-100)
[2021-11-14 12:02] LABS: Platelet Estimate MOD DEC (ADEQ)
[2021-11-14 12:07] LABS: Lactic Acid 1.2 mmol/L (0.4-1.9)
[2021-11-14 12:08] LABS: White Blood Cells 0-5 SEEN /hpf (0-5)
--- NOTE | 2021-11-14 14:08 | HP.PCM.HOS_ITS ---
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 He did report low grade temperature the evening prior but denied any other symptoms including chills, nausea, emesis, cough, nausea, diarrhea. Work-up in the ED included T 97.8, heart rate 89, BP 153/117, respiratory rate 26, 93% on 4 L taylor al cannula, CBC with WBC 9.5, hemoglobin 9.6, platelets 78 with left shift and lymphopenia, coags with INR 1.5, PT 17, CMP with chloride 111, BUN/creatinine 25/1.08, magnesium 2.0, total bilirubin 1.60, direct bilirubin 0.51, AST/ALT 30/30, alk phos 96, ammonia 48, troponin 60, BNP 1527.2, procalcitonin 0.67, urinalysis unremarkable, Covid rapid antigen negative with follow-up Covid PCR negative, chest x-ray with congestive changes with questionable inability to rule out right lower lobe infiltrate/pleural effusion, CT chest, abdomen and pelvis with no demonstrated PE, thoracic aortic aneurysm or dissection, infrarenal 5.25 cm peripheral calcified abdominal aortic aneurysm without dissection or leak, bilateral pleural effusions with bibasilar atelectasis and evidence of chronic bronchitis with evidence of remote CABG, 3.7 x 3.9 similar enhancing lesion within the spleen, nonspecific induration mesenteric and retroperitoneal fat with a right-sided spigelian hernia containing bowel loops and fluid with associated induration of the subcutaneous fat with skin thickening, extensive degenerative bony changes with old healed and ununited rib fractures, compression fractures thoracic and lumbar spine with a previous evidence of a kyphoplasty at L1. [facility] Medical History (Updated 11/14/21 @ 20:[address] Christine Richards MD) AAA (abdominal aortic aneurysm) without rupture CAD (coronary artery disease) CHF (congestive heart failure) Colon cancer metastasized to liver Colon cancer metastasized to lung Essential hypertension History of left heart catheterization (LHC) (~09/20/19) HTN (hypertension) NSTEMI (non-ST elevated myocardial infarction) Old myocardial infarction Postoperative atrial fibrillation Pulmonary hypertension Renal insufficiency Varices of esophagus determined by endoscopy Home Medications hydroxychloroquine 200 mg PO BIDCM 12/26/15 [History Last Taken 08/28/20] propranolol 20 mg PO BID 02/07/16 [History Last Taken 08/28/20] magnesium oxide 400 mg PO BID 08/24/16 [History Last Taken 08/28/20] aspirin 81 mg tablet,delayed release 81 mg PO DAILY 11/02/19 [History Last Taken 08/28/20] melatonin 10 mg capsule 10 mg PO HS PRN 11/02/19 [History Last Taken 08/27/20] acetaminophen 325 mg tablet 650 mg PO Q6H PRN PRN tab 01/12/20 [History Last Taken Unknown] dicyclomine 10 mg capsule 10 mg PO TID PRN cap 01/12/20 [History Last Taken 08/28/20] diltiazem HCl 120 mg capsule,extended release 24 hr 120 mg PO DAILY 01/12/20 [History Last Taken 08/28/20] potassium chloride 20 mEq tablet,extended release(part/cryst) 40 meq PO DAILY tab 01/12/20 [History Last Taken 08/28/20] prednisone 10 mg tablet 10 mg PO DAILY PRN 01/12/20 [History Last Taken 08/26/20] rifaximin 550 mg tablet 550 mg PO BID tab 01/12/20 [History Last Taken 08/28/20] sertraline 100 mg tablet 100 mg PO DAILY 01/12/20 [History Last Taken 08/28/20] ibuprofen 200 mg PO DAILY PRN PRN 08/28/20 [History Last Taken 08/27/20] omeprazole 20 mg PO DAILY 08/28/20 [History Last Taken 08/28/20] atorvastatin 20 mg tablet 20 mg PO QHS 04/02/21 [History Last Taken Unknown] furosemide 20 mg tablet 40 mg PO BID tab 07/05/21 [History Last Taken Unknown] losartan 50 mg tablet 50 mg PO DAILY #90 tab 07/11/21 [Rx Last Taken Unknown] Allergy/AdvReac Type Severity Reaction Status Date / Time oxycodone AdvReac Severe Hallucinati Verified 11/14/21 10:24 ons alprazolam [From Xanax] AdvReac hallucinati Verified 11/14/21 10:24 ons lorazepam [From Ativan] AdvReac hallucinati Verified 11/14/21 10:24 ons tramadol [From Ultram] AdvReac hallucinati Verified 11/14/21 10:24 ons Family History (Updated 11/14/21 @ 20:[address] Christine Richards MD) Mother Cancer Father COPD (chronic obstructive pulmonary disease) Surgical History History of coronary artery bypass surgery (~10/04/19) History of kyphoplasty (~08/2020) Social History (Updated 11/14/21 @ 20:[address] Christine Richards MD) household members: none Smoking Status: Never smoker alcohol intake: never substance use type: does not use caffeine: Yes Type: carbonated beverages Number of servings: 4 ROS ROS Narrative Admission Review of Systems: CONSTITUTIONAL: No weight loss, chills, + weakness, fatigue, reports subjective fever the day prior but none since. HEENT: Eyes: No visual loss, blurred vision, double vision or yellow sclerae. Ears, Nose, Throat: No hearing loss, sneezing, congestion, runny nose or sore throat. SKIN: No rash or itching, lesions, wounds. CARDIOVASCULAR: + Edema, orthopnea. No chest pain, chest pressure or chest discomfort, palpitations, syncopal events. RESPIRATORY: + shortness of breath, No marked cough or sputum, wheezing, hemoptysis. GASTROINTESTINAL: No anorexia, nausea, vomiting or diarrhea, abdominal pain, melena, BRBPR. GENITOURINARY: No dysuria, frequency, urgency or retention. NEUROLOGICAL: No headache, dizziness, syncope, paralysis, ataxia, numbness or tingling in the extremities, focal weakness, change in bowel or bladder control, seizure. MUSCULOSKELETAL: + muscle, back pain, joint pain or stiffness. HEMATOLOGIC: + anemia, bleeding or bruising. LYMPHATICS: No enlarged nodes. No history of splenectomy. PSYCHIATRIC: No history of depression or anxiety. ENDOCRINOLOGIC: No reports of sweating, cold or heat intolerance. No polyuria or polydipsia. ALLERGIES: No history of asthma, hives, eczema or rhinitis. Vital Signs Vital Signs Vital Signs: 11/14/21 10:21 11/14/21 11:12 11/14/21 11:32 Temperature 97.8 F Temperature Source Temporal Pulse Rate 89 85 Respiratory Rate 26 H 25 H Respiratory Effort Respiratory Depth Respiratory Pattern Tachypnea Blood Pressure 153/117 H Blood Pressure Mean 129 Pulse Ox 93 94 Oxygen Delivery Method Nasal Cannula Nasal Cannula Oxygen Flow Rate (L/min) 4 11/14/21 12:05 11/14/21 12:33 Temperature Temperature Source Pulse Rate 77 Respiratory Rate 19 H Respiratory Effort Short of Breath Respiratory Depth Shallow Respiratory Pattern Tachypnea Blood Pressure 114/82 H Blood Pressure Mean 92 Pulse Ox 96 Oxygen Delivery Method Nasal Cannula Nasal Cannula Oxygen Flow Rate (L/min) 4 4 Weight Weight: 251 lb 12.286 oz Body Mass Index (BMI) 43.2 Physical Exam Narrative Physical Examination: General: Awake, alert, oriented x 3, remains cooperative, seated upright in PCU bed, notes feeling improved since initial ED presentation, notes dyspnea is lessened. Skin: Normal color, normal turgor, no icterus, no cyanosis. HEENT: AT/NC, EOMI, PERRLA, mildly dry MM, no carotid bruits, + JVD noted. Lungs: Diminished, greater bases, no evidence of any distress, mild rales, no rhonchi or wheezing. Heart: Regular rate and rhythm; no gallop, rub audible. Abdomen: Soft, morbidly obese, chronic right-sided hernia evident consistent with his spegalian hernia, no tenderness to palpation of this region, no rebound or guarding, no TTP splenic region and no SM, + HM but difficult exam given hernia presentation, difficult to assess distention, distant BS. Extremities: No cyanosis, no clubbing, mild BL ankle to distal castro edema, not markedly pitting. Neurological: Patient awake, alert, oriented as noted, cognitive function appears intact; pupils equally reactive to light and accommodation, cranial nerves II-XII grossly normal, moving all 4 extremities, no focal deficits, strength moderately to severely globally decreased. Psychiatric: Affect appears fatigued, no acute evidence of depressive or anxiety feelings. Results Lab / Micro Data Result Diagrams: 11/14/21 11:15 11/14/21 11:15 Labs: Laboratory Results - last 24 hr 11/14/21 11:15: WBC 9.5, RBC 3.59 L, Hgb 9.6 L, Hct 30.7 L, MCV 85.5, MCH 26.7 L , MCHC 31.3 L, RDW Std Deviation 53.9 H, RDW Coeff of Nicola 17.2 H, Plt Count 78 L , MPV 11.0, Immature Gran % (Auto) 0.400, Neut % (Auto) 86.5 H, Lymph % (Auto) 4.8 L, [place] % (Auto) 6.9, Eos % (Auto) 1.3, Baso % (Auto) 0.1, Absolute Neuts (auto) 8.2 H, Absolute Lymphs (auto) 0.45 L, Nucleated RBC % 0, Differential Comment COMMENT, Platelet Estimate MOD DEC 11/14/21 11:15: Sodium 143, Potassium 3.9, Chloride 111 H, Carbon Dioxide 25.0, Anion Gap 7, BUN 25 H, Creatinine 1.08, Estim Creat Clear Calc 44.92, Est GFR (MDRD) Af Amer 84, Est GFR (MDRD) Non-Af 70, BUN/Creatinine Ratio 23.1 H, Glucose 89, Calcium 8.0 L, Total Bilirubin 1.60 H, Direct Bilirubin 0.51 H, AST 30, ALT 30, Alkaline Phosphatase 96, Troponin I High Sens 60, Total Protein 5.7 L, Albumin 2.5 L, Globulin 3.2 11/14/21 11:15: B-Natriuretic Peptide 1527.2 H 11/14/21 11:15: PT 17.0 H, INR 1.5 11/14/21 11:15: Ammonia 48.0 H 11/14/21 11:15: Lactic Acid 1.2 11/14/21 11:50: Urine Color Yellow, Urine Clarity Clear, Urine pH 6.0, Ur Specific [place] 1.015, Urine Protein 15 H, Urine Glucose (UA) Normal, Urine Ketones Negative, Urine Occult Blood Negative, Urine Nitrite Negative, Urine Bilirubin Negative, Urine Urobilinogen Normal, Ur Leukocyte Esterase 25 H, Urine RBC 0 SEEN, Urine WBC 0-5 SEEN, Ur Squamous Epith Cells 0 SEEN, Urine Bacteria 0 SEEN, Urine Mucus 0 SEEN Micro: Microbiology 11/14/21 10:47 Nasal Secretion SARS-CoV-2 Antigen (Rapid) - Final Radiology Impression Chest/Abdomen/Pelvis CTA 11/14/21 11:02 IMPRESSION: No demonstrated PE, or thoracic aortic aneurysm or dissection Infrarenal 5.25 cm peripherally calcified abdominal aortic aneurysm without dissection or leak. Bilateral pleural effusions with bibasilar atelectasis, evidence of chronic bronchitis Remote CABG Somewhat concerning 3.7 x 3.9 cm enhancing lesion within the spleen further evaluation with MRI may be of benefit, this is apparently asymptomatic and may represent hemangioma or lymphangioma, there was no mention of this lesion on the most recent CT. 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 There is also associated induration of the subcutaneous fat with skin thickening suggesting cellulitis is likely present Extensive degenerative bony changes with old healed and ununited rib fractures, compression fractures in the thoracic and lumbar spine. There is been a previous kyphoplasty at L1 Electronically Signed: Oziel Santa MD at 13:08 EST , Service support , Chest X-Ray 11/14/21 11:25 IMPRESSION: Congestive changes, cannot rule out a right lower lobe infiltrate/pleural effusion. Electronically Signed: Jaret Mora MD at 11:51 EST Tel , Service support , Assessment & Plan Assessment/Plan (1) CHF (congestive heart failure): QUALIFIERS: Heart failure chronicity: acute Heart failure type: unspecified Qualified Code(s): I50.9 - Heart failure, unspecified PLAN: The patient is an 81 y/o M w/ PMHx: Hx AAA, CAD s/p CABG, Chronic CHF of unclear type, HTN, HLD, Colon CA with metastatic disease to liver with resections, lung, Liver cirrhosis with esophageal varices s/p banding multiple times who presents to the [facility] ED on 11/14/21 with history of worsening dyspnea over the last 3 days with increased mild BL LE edema as well as orthopnea with dyspnea, worse with exertion, prompting eventual ED evaluation secondary to worsening status. #1. Acute Decompensated CHF, unclear type w/ associated Hypoxia and Bilateral Pleural Effusions, complicated by #2: Patient administered IV lasix in the ED, will admit to PCU, maintain on cardiac telemetry, obtain cardiac enzyme series, obtain serial EKGs, continue IV lasix diuresis, monitor I/Os, maintain on intake restriction, continue medical therapy except will temporarily hold ASA therapy given acute on chronic thrombocytopenia, already on BB, ARB, statin, obtain TSH and magnesium level, obtain ECHO, cardiology consulted and pending. #2. Chronic Cirrhosis with hyperammonia: With chronic associated thrombocytopenia will maintain on low Na diet, water 1500 ml restriction, lasix IV diuresis with hold on oral regimen given #1 as noted above, lactulose administered in the ED and will continue, continue propranolol, rifaximin, monitor CMP, will plan repeat NH level in AM, repeat CBC in a.m. with platelets upon presentation 78. #3. Incidental 3.7 x 3.9 cm enhancing lesion within spleen: CT A/P with noted incidental finding, will obtain splenic US to further assess. Patient denies any prior history of findings in the liver given notable evaluations for metastatic disease. #4. 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 Given notable CT read will request Surgery to evaluate the patient to be cautious. #5. CAD: Status post CABG x4, will continue patient aspirin, statin, losartan, propranolol regimen. #6. Hypertension: Continue home regimen including propranolol, losartan, IV Lasix as noted above with temporary hold on oral regimen, PRN hydralazine. #7. Hyperlipidemia: Continue home statin regimen. AM FLP. #8. Colon cancer, metastatic: Patient with history of metastatic colon cancer t o the liver with notable resection as well as resection to a left lung metastatic lesion, notes he is in remission. #9. Known Infrarenal AAA: CT with noted 5.25 cm peripherally calcified abdominal aortic aneurysm without dissection or leak. #10. Anxiety and depression: We'll continue patient home sertraline regimen. #11. GERD: Continue home PPI. #12. DVT prophylaxis: SCDs, hold on chemoprophylaxis given thrombocytopenia. #13. CODE status: Patient HCPOA is his daughter and living will is currently in place. Discussed CODE status at length including difference between FULL code, DNR-CCA and DNR-CC status. Following discussions about the differences in these status, requested DNR-CCA, no intubation. Advanced Care Planning Face to Face Time: 16 minutes. Charges/Coding Visit Charges Inpatient E&M: 58678 Init Hosp L3 Procedures Hospitalists Procedures: 93207 Advncd Care Plan 30 Min
[2021-11-14] MEDS: Furosemide 40 MG/4 ML Vial IV (14:31)
--- NOTE | 2021-11-14 14:39 | ED.RN ---
lactulose not stocked in ED med machine, RN called pharmacy and told them to sent to PCU.
--- NOTE | 2021-11-14 16:15 | US_ITS ---
STUDY: ABDOMINAL ULTRASOUND - RIGHT UPPER QUADRANT REASON FOR VISIT: Male, 81 years old. ABDOMEN PAIN Abnormal enhancement CT-- SPLEEN TECHNIQUE: Ultrasound evaluation of the right upper quadrant was performed with real-time and static snyder-scale imaging. TECHNICAL QUALITY: Adequate. COMPARISON: CT done earlier today FINDINGS: Spleen: Spleen measures 15 x 6.7 x 6.7 cm. Spleen is enlarged. There is a vascular echogenic area in the spleen measuring 48 x 48 x 45 mm. US/Spleen IMPRESSION: Spleen is enlarged. Mass is confirmed in the spleen as noted on the recent CT scan. This is a nonspecific finding. Electronically Signed: Jamaal Mendes MD at 21:47 EST , Service support ,
--- NOTE | 2021-11-14 16:15 | ECHOCS_ITS ---
Reason For Study: CHF Procedure This was a 2D Doppler, Color Flow transthoracic echocardiogram. Exam performed portable in patient room. Left Ventricle Image quality is 7 out of 10. Contrast was used to enhance imaging Overall visually estimated left ventricular ejection fraction is about 50% LV cavity is mildly dilated LV wall thickness is normal No regional wall motion abnormality is apparent There is grade 2 diastolic dysfunction. Right Ventricle Right ventricular systolic function is normal Right ventricular cavity size is mildly dilated. Atria Left atrium appears dilated. Left atrial volume index is 43.4 mL/m??. Mitral Valve Mitral valve appears grossly normal, there is mild mitral annular calcification. There is mild mitral regurgitation. There is no mitral stenosis. Tricuspid Valve There is mild to moderate tricuspid regurgitation. The tricuspid valve is structurally normal. Estimated RV systolic pressure is 45 to 50 mmHg consistent with at least moderate pulmonary hypertension. Aortic Valve Aortic valve is trileaflet, there is mild to moderate calcification of the leaflets without aortic stenosis or regurgitation. Aortic root size appears normal. Pericardium/Pleural There is no pericardial effusion or pleural effusion. Medication Diluted definity 2ml given slow IV push to enhance endocardial definition. MMode/2D Measurements & Calculations LVIDd: 5.6 cm IVSd: 1.1 cm Ao root diam: 3.4 cm LVIDs: 4.2 cm LVPWd: 1.2 cm RVDd: 4.2 cm FS: 24.1 % LAV(MOD-bp): 93.5 ml LVAd ap4: 38.3 cm2 SV(MOD-sp4): 66.1 ml LAV(MOD-bp) Indexed: 43.4 ml/m2 LVLd ap4: 8.7 cm LAV(MOD-sp2): 79.3 ml EDV(MOD-sp4): 138.1 ml LAV(MOD-sp4): 107.2 ml EDV(sp4-el): 142.8 ml LVAs ap4: 25.9 cm2 LVLs ap4: 7.8 cm ESV(MOD-sp4): 72.0 ml ESV(sp4-el): 72.8 ml EF(MOD-sp4): 47.9 % EF(sp4-el): 49.1 % SV(sp4-el): 70.1 ml LA dimension(2D): 5.4 cm LA A4 area: 28.6 cm2 RA A4 area: 17.9 cm2 Doppler Measurements & Calculations MV E max syed: 81.2 cm/sec Lat Peak E' Syed: 16.3 cm/sec Med Peak E' Syed: 3.9 cm/sec MV A max syed: 55.9 cm/sec E/E' lat: 5.0 E/E' med: 20.6 MV E/A: 1.5 Ao V2 max: 127.7 cm/sec LV V1 max: 89.5 cm/sec PA V2 max: 84.1 cm/sec Ao max P.5 mmHg LV V1 max P.2 mmHg Ao V2 mean: 92.8 cm/sec Ao mean P.7 mmHg Ao V2 VTI: 29.0 cm TR max syed: 323.0 cm/sec TR max P.7 mmHg ECHO/Echo Complete W/ Contrast Interpretation Summary Image quality is 7 out of 10. Contrast was used to enhance imaging Overall visually estimated left ventricular ejection fraction is about 50% LV cavity is mildly dilated LV wall thickness is normal No regional wall motion abnormality is apparent There is grade 2 diastolic dysfunction. Right ventricular systolic function is normal Right ventricular cavity size is mildly dilated. Left atrium appears dilated. Left atrial volume index is 43.4 mL/m??. Mitral valve appears grossly normal, there is mild mitral annular calcification . There is mild mitral regurgitation. There is no mitral stenosis. There is mild to moderate tricuspid regurgitation. The tricuspid valve is structurally normal. Estimated RV systolic pressure is 45 to 50 mmHg consistent with at least modera te pulmonary hypertension. Aortic valve is trileaflet, there is mild to moderate calcification of the leaf lets without aortic stenosis or regurgitation. Aortic root size appears normal. There is no pericardial or pleural effusion. There is IVC Thora. No prior echocardiogram report is available for comparison. Ordering Physician: Christine Richards Referring Physician: Armin Carlin Performed By: Itzel Kidd RDCS, RVT
[2021-11-14 17:25] LABS: Troponin-I HS 199 pg/mL (3.0-78.0)
[2021-11-14 17:27] LABS: Procalcitonin 0.67 ng/mL (0.00-0.09)
[2021-11-14] MEDS: Lactulose 20 GM/30 ML UDC 10 GM PO ×2 (17:45→20:41)
[2021-11-14 18:31] LABS: Troponin-I HS 214 pg/mL (3.0-78.0)
[2021-11-14] MEDS: Hydroxychloroquine 200 MG Tablet PO (18:34)
--- NOTE | 2021-11-14 19:41 | PCS.PANDOC ---
PANDEMIC DOCUMENTATION INITIATED: Date: 07/01/2021 Time: 190
[2021-11-14] MEDS: rifAXIMin 550 MG Tablet PO (20:41)
[2021-11-14] MEDS: Propranolol 10 MG Tablet 20 MG PO (20:41)
[2021-11-14] MEDS: Atorvastatin Calcium 20 MG Tablet PO (20:42)
[2021-11-14] MEDS: Magnesium Chloride 64 MG Delay Rel.Tablet 128 MG PO (20:42)
[2021-11-15] VITALS (9 sets, daily range): BP systolic 116–150; BP diastolic 66–86; PULSE 58–93; RESP 14–20; TEMP 36.5–36.8; O2SAT 92–97
[2021-11-15] MEDS: 0.9% Saline Lock 10 ML Syringe IV ×2 (02:55→17:28)
--- NOTE | 2021-11-15 03:14 | PHA.PHARE_ITS ---
Consult Pharmacy has been consulted to manage selected antiobiotic: Vancomycin Type of Consult: New start Labs: Sodium 143 mmol/L (136-145) 11/14/21 11:15 Potassium 3.9 mmol/L (3.5-5.1) 11/14/21 11:15 Chloride 111 mmol/L (98-107) H 11/14/21 11:15 Carbon Dioxide 25.0 mmol/L (21.0-32.0) 11/14/21 11:15 Anion Gap 7 (5-15) 11/14/21 11:15 BUN 25 mg/dL (7-18) H 11/14/21 11:15 Creatinine 1.08 mg/dL (0.70-1.30) 11/14/21 11:15 Est GFR (MDRD) Af Amer 84 mL/min (>60) 11/14/21 11:15 Est GFR (MDRD) Non-Af 70 mL/min (>60) 11/14/21 11:15 BUN/Creatinine Ratio 23.1 RATIO (10-20) H 11/14/21 11:15 Glucose 89 mg/dL (74-106) 11/14/21 11:15 Microbiology: Microbiology 11/14/21 12:30 Blood Culture (Wb) - Port Blood Culture - Preliminary 11/14/21 11:15 Blood Culture (Wb) - Port Blood Culture - Preliminary 11/14/21 10:47 Nasal Secretion SARS-CoV-2 Antigen (Rapid) - Final Goal Trough: 15-20 mcg/mL Pharmacy Plan for Drug Dosing: Pharmacy Service will continue to monitor and adjust dosing as required. Medications Vancomycin HCl 2,000 mg/ (Sodium Chloride) 540 mls @ 250 mls/hr IV X1 ONE Stop: 11/15/21 04:39 Last Admin: 11/15/21 02:55 Dose: 250 mls/hr Documented by: Vancomycin HCl 1,250 mg/ (Sodium Chloride) 275 mls @ 167 mls/hr IV Q12H [facility] Follow-Up Labs: Trough Vancomycin Labs to be done on [date and time ordered]: 11/16 @ 1430
[2021-11-15 04:55] LABS: Absolute Lymphocyte Count 0.39 X10^3/uL (0.83-4.51); Absolute Neutrophil Count 6.8 X10^3/uL (2.0-7.7); Basophil# 0.01 X10^3/uL; Basophil% 0.1 % (0-1); Hematocrit 29.1 % (40-54); Hemoglobin 9.3 g/dL (13.0-16.5); Lymphocyte # 0.39 X10^3/ul (0.83-4.51); Lymphocyte % 5.1 % (19-41); Mean Corpuscular Volume 84.6 fL (80-94); Mean Platelet Vol. 11.3 fl (6.2-12.0); Monocyte# 0.46 X10^3/uL; NRBC Flagged by Analyzer 0 % (0-5); Neutrophil # 6.75 X10^3/uL (2.7-7.7); Neutrophil % 88.1 % (47-70); POSITIVE COUNT YES; POSITIVE DIFFERENTIAL YES; Platelet Count 57 K/mm3 (150-450); RBC Distribution Width CV 17.4 % (11.6-14.6); RBC Distribution Width SD 53.6 fl (35.1-43.9); Red Blood Count 3.44 M/mm3 (4.6-6.2); White Blood Count 7.7 K/mm3 (4.4-11.0)
[2021-11-15 05:02] LABS: Differential Indicated SCAN CRITERIA MET
[2021-11-15 05:31] LABS: ALB/GLOB Ratio 0.7 RATIO (0.9-2.4); AST(SGOT) 33 U/L (15-37); Alanine Aminotransfer ALT/SGPT 30 U/L (16-61); Albumin, Serum 2.4 g/dL (3.2-5.0); Alkaline Phosphatase 88 U/L (45-117); Anion Gap 7 (5-15); BUN 32 mg/dL (7-18); BUN/Creat Ratio 24.8 RATIO (10-20); Chloride 108 mmol/L (98-107); Creatinine, Serum 1.29 mg/dL (0.70-1.30); EST Glomerular Filtration Rate 57 mL/min (>60); Est Glom Filt Rate - Afr Amer 69 mL/min (>60); Estimated Creatinine Clearance 37.61 ml/min; Globulin 3.3 g/dL (2.2-4.2); Glucose 127 mg/dL (74-106); Potassium 3.6 mmol/L (3.5-5.1); Protein, Total 5.7 g/dL (6.4-8.2); Sodium Level 141 mmol/L (136-145); Thyroid Stim Hormone (TSH) 0.09 uIU/mL (0.358-3.74)
[2021-11-15] MEDS: Aspirin 81 MG TAB.CHEW PO (08:03)
[2021-11-15] MEDS: dilTIAZem CD 120 MG Capsule PO (08:04)
[2021-11-15] MEDS: Potassium Chloride Oral Tablet 20 MEQ 40 MEQ PO (08:04)
--- NOTE | 2021-11-15 09:32 | CON.PCM.SX_ITS ---
Assessment & Plan Assessment/Plan (1) Abdominal wall hernia: (2) CHF (congestive heart failure): QUALIFIERS: Heart failure chronicity: unspecified (3) Varices of esophagus determined by endoscopy: (4) Colon cancer metastasized to liver: (5) Colon cancer metastasized to lung: PLAN: Patient CT abdomen pelvis does show large right-sided abdominal wall hernia containing bowel. This does have a large neck and I'm not worried about strangulation of bowel. Due to patient's complex medical history would not recommend any surgical intervention. Patient states he had seen a surgeon previously and recommended not to have surgery due to previous medical history as well as size of the hernia and nonsymptomatic. Spleen lesion enhancement question etiology however it does appear this was there on the MRI in April. Try to have radiology compare these images. If need be you may be get images from [facility] as this were patient regularly goes for PET scans to see if that is any more helpful. Pooja Deleon M.D. Pager: [phone] [facility] [address] [place] [address], [facility], [address] [place] [address] Office: [phone] HPI Consult Data Date of Consult: 11/15/21 HPI Narrative HPI Narrative: To the ER due Bhanu JONES, is a 81 M who admitted due to his CHF. Patient CT abdomen pelvis does show a large right-sided abdominal incisional hernia. Patient previously underwent liver resection with a hockey- stick incision. Patient states he has had this hernia for about 8 to 9 years. Patient denies any pain at the site. CT abdomen pelvis does show that there is a large neck there?the official read does say there is inflammation in the tissue. Patient is tolerating diet and having bowel function. CT also questions on enhancement of the area of the spleen. Upon looking at an MRI from April it appears that area was there as well?patient's other CAT scans and PET scans are done at [facility] Medical History (Updated 11/14/21 @ 20:[address] Christine Richards MD) AAA (abdominal aortic aneurysm) without rupture CAD (coronary artery disease) CHF (congestive heart failure) Colon cancer metastasized to liver Colon cancer metastasized to lung Essential hypertension History of left heart catheterization (LHC) (~09/20/19) HTN (hypertension) NSTEMI (non-ST elevated myocardial infarction) Old myocardial infarction Postoperative atrial fibrillation Pulmonary hypertension Renal insufficiency Varices of esophagus determined by endoscopy Home Medications hydroxychloroquine 200 mg PO BIDCM 12/26/15 [History Last Taken 08/28/20] propranolol 20 mg PO BID 02/07/16 [History Last Taken 08/28/20] magnesium oxide 400 mg PO BID 08/24/16 [History Last Taken 08/28/20] aspirin 81 mg tablet,delayed release 81 mg PO DAILY 11/02/19 [History Last Taken 08/28/20] melatonin 10 mg capsule 10 mg PO HS PRN 11/02/19 [History Last Taken 08/27/20] acetaminophen 325 mg tablet 650 mg PO Q6H PRN PRN tab 01/12/20 [History Last Taken Unknown] dicyclomine 10 mg capsule 10 mg PO TID PRN cap 01/12/20 [History Last Taken 08/28/20] diltiazem HCl 120 mg capsule,extended release 24 hr 120 mg PO DAILY 01/12/20 [History Last Taken 08/28/20] potassium chloride 20 mEq tablet,extended release(part/cryst) 40 meq PO DAILY tab 01/12/20 [History Last Taken 08/28/20] prednisone 10 mg tablet 10 mg PO DAILY PRN 01/12/20 [History Last Taken 08/26/20] rifaximin 550 mg tablet 550 mg PO BID tab 01/12/20 [History Last Taken 08/28/20] sertraline 100 mg tablet 100 mg PO DAILY 01/12/20 [History Last Taken 08/28/20] ibuprofen 200 mg PO DAILY PRN PRN 08/28/20 [History Last Taken 08/27/20] omeprazole 20 mg PO DAILY 08/28/20 [History Last Taken 08/28/20] atorvastatin 20 mg tablet 20 mg PO QHS 04/02/21 [History Last Taken Unknown] furosemide 20 mg tablet 40 mg PO BID tab 07/05/21 [History Last Taken Unknown] losartan 50 mg tablet 50 mg PO DAILY #90 tab 07/11/21 [Rx Last Taken Unknown] Allergy/AdvReac Type Severity Reaction Status Date / Time oxycodone AdvReac Severe Hallucinati Verified 11/14/21 10:24 ons alprazolam [From Xanax] AdvReac hallucinati Verified 11/14/21 10:24 ons lorazepam [From Ativan] AdvReac hallucinati Verified 11/14/21 10:24 ons tramadol [From Ultram] AdvReac hallucinati Verified 11/14/21 10:24 ons Family History (Updated 11/14/21 @ 20:[address] Christine Richards MD) Mother Cancer Father COPD (chronic obstructive pulmonary disease) Surgical History History of coronary artery bypass surgery (~10/04/19) History of kyphoplasty (~08/2020) Social History (Updated 11/14/21 @ 20:[address] Christine Richards MD) household members: none Smoking Status: Never smoker alcohol intake: never substance use type: does not use caffeine: Yes Type: carbonated beverages Number of servings: 4 ROS ROS Narrative Admission Review of Systems: CONSTITUTIONAL: No chills, + weakness, fatigue HEENT: Eyes: No blurred vision Ears, Nose, Throat: No hearing loss SKIN: No rash CARDIOVASCULAR: + Edema No chest pain RESPIRATORY: + shortness of breath, No wheezing GASTROINTESTINAL: No anorexia, nausea, vomiting or diarrhea, abdominal pain, BRBPR. GENITOURINARY: No dysuria NEUROLOGICAL: No headache MUSCULOSKELETAL: + muscle pain HEMATOLOGIC: + anemia, bleeding or bruising. PSYCHIATRIC: No history of depression or anxiety. ALLERGIES: No history of asthma Physical Exam Const alert, oriented x3 and no apparent distress HEENT normocephalic and head/scalp atraumatic Resp normal respiratory effort Cardio regular rate GI soft to palpation; Negative for non-distended Palpation: hernia other (Large right lower quadrant/flank hernia, nontender, reducible but comes right back out); Negative for tender or guarding Extremity no clubbing, cyanosis or edema Neuro CN's II-XII intact bilaterally Psych mental status grossly normal Lab / Micro Data Result Diagrams: 11/15/21 04:38 11/15/21 04:38 Labs: Laboratory Results - last 24 hr 11/14/21 11:15: WBC 9.5, RBC 3.59 L, Hgb 9.6 L, Hct 30.7 L, MCV 85.5, MCH 26.7 L , MCHC 31.3 L, RDW Std Deviation 53.9 H, RDW Coeff of Nicola 17.2 H, Plt Count 78 L , MPV 11.0, Immature Gran % (Auto) 0.400, Neut % (Auto) 86.5 H, Lymph % (Auto) 4.8 L, [place] % (Auto) 6.9, Eos % (Auto) 1.3, Baso % (Auto) 0.1, Absolute Neuts (auto) 8.2 H, Absolute Lymphs (auto) 0.45 L, Nucleated RBC % 0, Differential Comment COMMENT, Platelet Estimate MOD DEC 11/14/21 11:15: Sodium 143, Potassium 3.9, Chloride 111 H, Carbon Dioxide 25.0, Anion Gap 7, BUN 25 H, Creatinine 1.08, Estim Creat Clear Calc 44.92, Est GFR (MDRD) Af Amer 84, Est GFR (MDRD) Non-Af 70, BUN/Creatinine Ratio 23.1 H, Glucose 89, Calcium 8.0 L, Total Bilirubin 1.60 H, Direct Bilirubin 0.51 H, AST 30, ALT 30, Alkaline Phosphatase 96, Troponin I High Sens 60, Total Protein 5.7 L, Albumin 2.5 L, Globulin 3.2 11/14/21 11:15: B-Natriuretic Peptide 1527.2 H 11/14/21 11:15: PT 17.0 H, INR 1.5 11/14/21 11:15: Ammonia 48.0 H 11/14/21 11:15: Lactic Acid 1.2 11/14/21 11:15: Magnesium 2.0 11/14/21 11:50: Urine Color Yellow, Urine Clarity Clear, Urine pH 6.0, Ur Specific [place] 1.015, Urine Protein 15 H, Urine Glucose (UA) Normal, Urine Ketones Negative, Urine Occult Blood Negative, Urine Nitrite Negative, Urine Bilirubin Negative, Urine Urobilinogen Normal, Ur Leukocyte Esterase 25 H, Urine RBC 0 SEEN, Urine WBC 0-5 SEEN, Ur Squamous Epith Cells 0 SEEN, Urine Bacteria 0 SEEN, Urine Mucus 0 SEEN Micro: Microbiology 11/14/21 10:47 Nasal Secretion SARS-CoV-2 Antigen (Rapid) - Final Radiology Impression Chest/Abdomen/Pelvis CTA 11/14/21 11:02 IMPRESSION: No demonstrated PE, or thoracic aortic aneurysm or dissection Infrarenal 5.25 cm peripherally calcified abdominal aortic aneurysm without dissection or leak. Bilateral pleural effusions with bibasilar atelectasis, evidence of chronic bronchitis Remote CABG Somewhat concerning 3.7 x 3.9 cm enhancing lesion within the spleen further evaluation with MRI may be of benefit, this is apparently asymptomatic and may represent hemangioma or lymphangioma, there was no mention of this lesion on the most recent CT. 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 There is also associated induration of the subcutaneous fat with skin thickening suggesting cellulitis is likely present Extensive degenerative bony changes with old healed and ununited rib fractures, compression fractures in the thoracic and lumbar spine. There is been a previous kyphoplasty at L1 Electronically Signed: Oziel Santa MD at 13:08 EST , Service support , Chest X-Ray 11/14/21 11:25 IMPRESSION: Congestive changes, cannot rule out a right lower lobe infiltrate/pleural effusion. Electronically Signed: Jaret Mora MD at 11:51 EST Tel , Service support , Charges/Coding Visit Charges Inpatient E&M: 77508 Init Hosp L3
[2021-11-15] MEDS: Hydroxychloroquine 200 MG Tablet PO ×2 (09:59→17:27)
[2021-11-15] MEDS: Lactulose 20 GM/30 ML UDC 10 GM PO ×2 (09:59→20:46)
[2021-11-15] MEDS: Losartan Potassium 50 MG Tablet PO (10:00)
[2021-11-15] MEDS: Propranolol 10 MG Tablet 20 MG PO ×2 (10:00→20:46)
[2021-11-15] MEDS: Sertraline 100 MG Tablet PO (10:01)
[2021-11-15] MEDS: Furosemide 40 MG/4 ML Vial IV ×2 (10:01→17:28)
[2021-11-15] MEDS: Magnesium Chloride 64 MG Delay Rel.Tablet 128 MG PO ×2 (10:01→20:48)
[2021-11-15] MEDS: Pantoprazole Sodium 20 MG Tablet PO (10:01)
[2021-11-15] MEDS: rifAXIMin 550 MG Tablet PO ×2 (10:01→20:48)
--- NOTE | 2021-11-15 10:49 | PN.HOSP_ITS ---
Documented by User: TRENT Mina 11/15/21 10:58 Subjective Subjective Patient seen and examined. Patient's daughter at bedside patient and his daughter were agreeable. Patient sitting in chair no distress noted Objective Data Objective Data Vital Signs: Vital Signs Temp Pulse Resp BP Pulse Ox 98.1 F 70 20 H 150/66 H 94 11/15/21 08:50 11/15/21 08:50 11/15/21 08:50 11/15/21 08:50 11/15/21 08:50 Oxygen Flow Rate (L/min) 3 Oxygen Delivery Method Room Air Weight: 244 lb 14.937 oz Body Mass Index (BMI) 41.3 Intake & Output: Intake and Output for Last 24 Hours 11/13/21 11/14/21 11/15/21 23:59 23:59 23:59 Intake Total 240 / 1040 1340 / 1340 Output Total 1700 / 2025 325 / 325 Balance -1460 / -985 1015 / 1015 Lab / Micro Data Result Diagrams: 11/15/21 04:38 11/15/21 04:38 Labs: Laboratory Results - last 24 hr 11/14/21 11:15: WBC 9.5, RBC 3.59 L, Hgb 9.6 L, Hct 30.7 L, MCV 85.5, MCH 26.7 L , MCHC 31.3 L, RDW Std Deviation 53.9 H, RDW Coeff of Nicola 17.2 H, Plt Count 78 L , MPV 11.0, Immature Gran % (Auto) 0.400, Neut % (Auto) 86.5 H, Lymph % (Auto) 4.8 L, [place] % (Auto) 6.9, Eos % (Auto) 1.3, Baso % (Auto) 0.1, Absolute Neuts (auto) 8.2 H, Absolute Lymphs (auto) 0.45 L, Nucleated RBC % 0, Differential Comment COMMENT, Platelet Estimate MOD DEC 11/14/21 11:15: Sodium 143, Potassium 3.9, Chloride 111 H, Carbon Dioxide 25.0, Anion Gap 7, BUN 25 H, Creatinine 1.08, Estim Creat Clear Calc 44.92, Est GFR (MDRD) Af Amer 84, Est GFR (MDRD) Non-Af 70, BUN/Creatinine Ratio 23.1 H, Glucose 89, Calcium 8.0 L, Total Bilirubin 1.60 H, Direct Bilirubin 0.51 H, AST 30, ALT 30, Alkaline Phosphatase 96, Troponin I High Sens 60, Total Protein 5.7 L, Albumin 2.5 L, Globulin 3.2 11/14/21 11:15: B-Natriuretic Peptide 1527.2 H 11/14/21 11:15: PT 17.0 H, INR 1.5 11/14/21 11:15: Ammonia 48.0 H 11/14/21 11:15: Lactic Acid 1.2 11/14/21 11:15: Magnesium 2.0 11/14/21 11:50: Urine Color Yellow, Urine Clarity Clear, Urine pH 6.0, Ur Specific [place] 1.015, Urine Protein 15 H, Urine Glucose (UA) Normal, Urine Ketones Negative, Urine Occult Blood Negative, Urine Nitrite Negative, Urine Bilirubin Negative, Urine Urobilinogen Normal, Ur Leukocyte Esterase 25 H, Urine RBC 0 SEEN, Urine WBC 0-5 SEEN, Ur Squamous Epith Cells 0 SEEN, Urine Bacteria 0 SEEN, Urine Mucus 0 SEEN 11/14/21 12:30: COVID-19 (BOAZ) Not Detected 11/14/21 16:37: Procalcitonin 0.67 H 11/14/21 16:37: Troponin I High Sens 199 H* 11/14/21 17:55: Troponin I High Sens 214 H* 11/15/21 04:38: WBC 7.7, RBC 3.44 L, Hgb 9.3 L, Hct 29.1 L, MCV 84.6, MCH 27.0, MCHC 32.0, RDW Std Deviation 53.6 H, RDW Coeff of Nicola 17.4 H, Plt Count 57 L, MPV 11.3, Immature Gran % (Auto) 0.700, Neut % (Auto) 88.1 H, Lymph % (Auto) 5.1 L, [place] % (Auto) 6.0, Eos % (Auto) 0.0, Baso % (Auto) 0.1, Absolute Neuts (auto) 6.8, Absolute Lymphs (auto) 0.39 L, Nucleated RBC % 0 11/15/21 04:38: Sodium 141, Potassium 3.6, Chloride 108 H, Carbon Dioxide 26.0, Anion Gap 7, BUN 32 H, Creatinine 1.29, Estim Creat Clear Calc 37.61, Est GFR (MDRD) Af Amer 69, Est GFR (MDRD) Non-Af 57 L, BUN/Creatinine Ratio 24.8 H, Glucose 127 H, Calcium 8.0 L, Total Bilirubin 1.20 H, AST 33, ALT 30, Alkaline Phosphatase 88, Total Protein 5.7 L, Albumin 2.4 L, Globulin 3.3, Albumin/Globulin Ratio 0.7 L, TSH 0.09 L 11/15/21 04:38: Ammonia 42.0 H Micro: Microbiology 11/14/21 11:50 Urine, Clean Catch Urine Culture - Preliminary Culture exhibits no growth. 11/14/21 12:30 Blood Culture (Wb) - Port Bacteria Detection (PCR) - Preliminary Strep not Strep pneumo 11/14/21 12:30 Blood Culture (Wb) - Port Blood Culture - Preliminary 11/14/21 11:15 Blood Culture (Wb) - Port Blood Culture - Preliminary 11/14/21 10:47 Nasal Secretion SARS-CoV-2 Antigen (Rapid) - Final Radiography Diagnostic Testing: Radiology Impression Chest/Abdomen/Pelvis CTA 11/14/21 11:02 IMPRESSION: No demonstrated PE, or thoracic aortic aneurysm or dissection Infrarenal 5.25 cm peripherally calcified abdominal aortic aneurysm without dissection or leak. Bilateral pleural effusions with bibasilar atelectasis, evidence of chronic bronchitis Remote CABG Somewhat concerning 3.7 x 3.9 cm enhancing lesion within the spleen further evaluation with MRI may be of benefit, this is apparently asymptomatic and may represent hemangioma or lymphangioma, there was no mention of this lesion on the most recent CT. 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 There is also associated induration of the subcutaneous fat with skin thickening suggesting cellulitis is likely present Extensive degenerative bony changes with old healed and ununited rib fractures, compression fractures in the thoracic and lumbar spine. There is been a previous kyphoplasty at L1 Electronically Signed: Oziel Santa MD at 13:08 EST , Service support , Chest X-Ray 11/14/21 11:25 IMPRESSION: Congestive changes, cannot rule out a right lower lobe infiltrate/pleural effusion. Electronically Signed: Jaret Mora MD at 11:51 EST Tel , Service support , Spleen Ultrasound 11/14/21 16:15 IMPRESSION: Spleen is enlarged. Mass is confirmed in the spleen as noted on the recent CT scan. This is a nonspecific finding. Electronically Signed: Jamaal Mendes MD at 21:47 EST , Service support , Physical Exam Const alert, oriented x3 and no apparent distress HEENT head/scalp atraumatic Head and Scalp: normocephalic Eyes conjunctivae normal and no scleral icterus Neck supple Resp normal respiratory effort Auscultation: crackles bilateral base Cardio regular rate, regular rhythm, S1 normal heart sound and S2 normal heart sound GI soft to palpation and non-tender Palpation: hernia Extremity normal to inspection, full ROM and no clubbing, cyanosis or edema Peripheral Pulses: Yes pulses 2+ throughout Skin no rashes or lesions noted Neuro oriented x3, moves all extremities, no focal motor deficits and no sensory deficits noted Sensorium / Orientation: awake and alert Speech: speech normal Psych affect normal Assessment & Plan Assessment/Plan (1) Abdominal wall hernia: (2) CHF (congestive heart failure): QUALIFIERS: Heart failure chronicity: acute Heart failure type: unspecified Qualified Code(s): I50.9 - Heart failure, unspecified PLAN: 1. Acute exacerbation of HFpEF -Continue IV Lasix, discussed with patient importance of taking medications as directed at home -Patient currently on 2 L nasal cannula oxygen, no home O2 use at baseline 2. Abdominal wall hernia -Surgery following, per Dr. Deleon's note no surgical intervention planned at this time. DVT prophylaxis-SCDs This patient was seen by TRENT Mina under the supervision of Dr. Brantley. Documented by User: Dr. Tremayne Brantley MD 11/15/21 17:32 Objective Data Lab / Micro Data Result Diagrams: 11/15/21 04:38 11/15/21 04:38 Physical Exam Narrative Seen and examined. Patient has multiple comorbidities for long time. Has history of colon cancer with liver metastasis about 5-6 tumors for which he had liver tumor resection. Patient also has 5.25 cm infrarenal AAA. Large spigelian hernia with bowel but reducible for about 8 years. Being followed by Dr. Quach was said high risk for surgery and physically he is not fit. Patient also has a CABG. He denies history of cirrhosis, chronic alcohol use or smoking Physical exam General: Alert, Oriented x3, Cooperative HEENT: Very hard of hearing bilateral. Atraumatic, PERRLA, EOMI, Normocephalic Oral: No Gingival or Mucosal Lesions/ Ulcerations Neck: Supple, No JVD, Negative Carotid Bruits Lungs: Air entry diminished in bilateral lung bases. No crepitation/rhonchi Cardiovascular: Regular rate, Regular Rhythm, Normal S1, Normal S2, No murmurs. CABG scar. Abdomen: Bowel Sounds Present, Soft, Non Tender, large reducible spigelian hernia on right flank. Moderate sized ventral hernia. : No renal angle tenderness. No suprapubic tenderness. Extremities: No edema, Capillary Refill Less than 3 Seconds Skin: No rashes, No breakdown Musculoskeletal: No Tenderness to Palpation of Joints or Extremities Neurological: Cranial nerves II-XII grossly intact, DTR 2+/4 and Symmetrical Psych/Mental Status: Flat affect. Assessment & Plan Assessment/Plan (1) CHF (congestive heart failure): QUALIFIERS: Heart failure chronicity: acute Heart failure type: unspecified Qualified Code(s): I50.9 - Heart failure, unspecified PLAN: This patient was seen in conjunction with RAMA Reed. I have independently interviewed and examined the patient and reviewed pertinent history, examination findings, laboratory and plan of management. I have reviewed the note and agree with the documented findings with the few additional points. In brief, patient is 81-year-old gentleman with multiple comorbidities admitted with acute on chronic heart failure exacerbation of diastolic type, possible ischemic cardiomyopathy with mild hypoxia and bilateral pleural effusion. Heart failure core measures including intake and output, fluid restriction less than 1500 mL, daily weight monitoring, kidney and electrolytes monitoring. The most recent echo in June 2021 shows EF 55% with LA moderately enlarged. RVSP 40 mmHg. Patient has history of colon cancer stage IV with liver metastasis and liver tumor resection. The patient is very low liver reserve secondary to resection. Patient has thrombocytopenia, Patient has infrarenal AAA 5.25 cm, calcified, 3.7 x 3.9 cm density in the spleen possible lymphangioma or hemangioma, bilateral pleural effusion. Right- sided spigelian hernia with bowel loops and fluid. MRI abdomen on April 2021 shows 70% right liver resection, right hepatectomy. Prior to that patient had abdominal ultrasound on June 2020 which shows lobulated contour of liver probably cirrhosis Multiple other comorbidities including coronary status post CABG, hypertens. Bilateral SCD ion, dyslipidemia, anxiety and depression, GERD Severe thrombocytopenia: Anticoagulation contraindicated I have discussed my assessment with RAMA Reed and orders have been reviewed. Charges/Coding Visit Charges Inpatient E&M: 57552 Subs Hosp L2
--- NOTE | 2021-11-15 13:17 | CASEMGMT ---
Face to Face with patient for initial transition planning/care coordination assessment. ANJEL CORONA introduced self and role at [facility], voices understanding. Care providers, pharmacy, and demographics verified. PCP: Raegan Specialists: May (GI), [facility] ([facility]), Thelma (onc) Preferred Pharmacy: [facility] Insurance: MCR A/B, MMO Prescription Benefit: Yes Living Will/HPOA: Yes, Yes (HPOA Daughter Kody Stuart) LNOK: Daughter Kody and Daughter Shwetha Lynn Living Arrangements: alone in a single story home with 3 steps to enter from the garage. Laundry is available on the first floor. Pt is independent with ADLS with assistive devices. States he cooks and performs house hold chores although states his daughters assist him when needed. States his daughters are both nurses and set up his pill boxes, drive him to appointments, and assist with general medical monitoring and care. Pt states he does have a scale and he weighs himself daily. In discussion regarding this CHF exacerbation, pt admits to not taking his lasix appropriately due the not wanting to have to urinate when inconvenient. Pt states he cooks his own meals but also states he receives MOWs. Pt notes his neighbors are also watchful of him. Transportation: Pt drives but his daughters also drive him to appointments DME: shower chair, grab bars in the shower, BSC (in basement, doesn't currently use), raised toilet seat, cane, walkers, W/C, medical alert, lift chair, Cpap, sock aid. HHC/SNF: Pt denies any previous HH or SNF need. Plan: Return home with assistance of family and current DME. Tomy Chapa RN CM
--- NOTE | 2021-11-15 13:36 | CASEMGMT ---
This ANJEL CORONA contacted pt's daughter/HPOA Kody with pt's permission. Kody denies any concerns with pt returning home with her and her sister's support. Tomy Chapa RN CM
--- NOTE | 2021-11-15 20:40 | PCM.CONS.C ---
HPI Consult Data Date of Consult: 11/16/21 HPI Narrative HPI Narrative: KAMINI JONES, is a 81 M who presented to the emergency department with shortness of breath and weakness. Reviewed notes by EMT. Patient did not report any chest discomfort. He was hypoxemic, and required supplemental oxygen. He was hypertensive at that time per documentation by nurse practitioner per diem blood pressure around 170 systolic. Cardiology was consulted because of elevated troponins. This patient has multiple comorbidities. He also has history of atherosclerotic [place] vessel coronary artery disease. In September 2019 he had a non-ST segment elevation myocardial infarction. He underwent coronary artery bypass graft x4 MIJARES to LAD, SVG to PDA, SVG to obtuse marginal branch and SVG to diagonal branch. He has history of hypertension. He has had extensive abdominal surgery, to include colon resection, right hemicolectomy for metastatic colon cancer, followed by resection of liver met. He has chronic thrombocytopenia. His platelet count here is 77,000. His shortness of breath has improved. His EKG does not show any diagnostic ST-T abnormalities or pathological Q waves. His chest x-ray shows cardiomegaly and right lower lobe infiltrate which is new compared to prior chest x-rays. Medications vitals laboratory data reviewed. On physical examination he is very pleasant awake alert oriented, speaking in full sentences no respiratory distress laying flat in bed. I did not appreciate any jugular venous distention or carotid bruit. His lungs are clear anteriorly, breath sounds are slightly diminished right lower posterior lung field. Heart sounds are regular without murmur rub or gallop. There is a well-healed anterior sternal scar of prior coronary artery bypass grafting. There is also extensive right upper quadrant scar from prior surgery. There are large hernias of the abdominal wall, one is in the right lumbar area and other one is in the midline. Abdomen is soft extremities show no edema. Neurologically he is alert oriented x3 moving all extremities. Skin is shows mild ecchymosis. Echocardiogram report is in chart, LV ejection fraction is overall preserved. Assessment: 1. Patient presented with respiratory issues, chest x-ray suggestive of right lower lobe pneumonia, cannot completely exclude an element of volume overload. 2. Elevated troponin, flat pattern, although CAD progression can occur, clinical presentation does not suggest acute coronary syndrome. Risk and benefit of aggressive anticoagulation or proceeding with invasive testing at this point is unfavorable given his chronic liver issues and his metastatic cancer. 3. Patient has previously been at risk for aspiration pneumonia. 4. His LV ejection fraction is preserved. 5.Patient is DNR [facility] Recommendations: 1. Would not heparinize 2. Diuretics as needed to keep him euvolemic, aggressive diuresis may precipitate hepatic encephalopathy in this group of patient 3. Echo report is in chart 4. Overall recommend conservative care. 5. Cardiology will sign off, patient should follow-up with his primary [employer] supervisor on an outpatient basis 6. Please do not hesitate to call if further questions arise, Thank you, Cesilia Rogers MD [facility] Medical History (Updated 11/14/21 @ 20:[address] Christine Richards MD) AAA (abdominal aortic aneurysm) without rupture CAD (coronary artery disease) CHF (congestive heart failure) Colon cancer metastasized to liver Colon cancer metastasized to lung Essential hypertension History of left heart catheterization (LHC) (~09/20/19) HTN (hypertension) NSTEMI (non-ST elevated myocardial infarction) Old myocardial infarction Postoperative atrial fibrillation Pulmonary hypertension Renal insufficiency Varices of esophagus determined by endoscopy Home Medications hydroxychloroquine 200 mg PO BIDCM 12/26/15 [History Last Taken 08/28/20] propranolol 20 mg PO BID 02/07/16 [History Last Taken 08/28/20] magnesium oxide 400 mg PO BID 08/24/16 [History Last Taken 08/28/20] aspirin 81 mg tablet,delayed release 81 mg PO DAILY 11/02/19 [History Last Taken 08/28/20] melatonin 10 mg capsule 10 mg PO HS PRN 11/02/19 [History Last Taken 08/27/20] acetaminophen 325 mg tablet 650 mg PO Q6H PRN PRN tab 01/12/20 [History Last Taken Unknown] dicyclomine 10 mg capsule 10 mg PO TID PRN cap 01/12/20 [History Last Taken 08/28/20] rifaximin 550 mg tablet 550 mg PO BID tab 01/12/20 [History Last Taken 08/28/20] sertraline 100 mg tablet 100 mg PO DAILY 01/12/20 [History Last Taken 08/28/20] ibuprofen 200 mg PO DAILY PRN PRN 08/28/20 [History Last Taken 08/27/20] omeprazole 20 mg PO DAILY 08/28/20 [History Last Taken 08/28/20] atorvastatin 20 mg tablet 20 mg PO QHS 04/02/21 [History Last Taken Unknown] losartan 50 mg tablet 50 mg PO DAILY #90 tab 07/11/21 [Rx Last Taken Unknown] amoxicillin-pot clavulanate [Augmentin] 1 tab PO Q12H #12 tab 11/16/21 [Rx Last Taken Unknown] diltiazem HCl 120 mg PO DAILY #0 cap 11/16/21 [Rx Last Taken 08/28/20] furosemide 40 mg PO BID #60 tab 11/16/21 [Rx Last Taken Unknown] lactulose 10 g PO BID #1200 ml 11/16/21 [Rx Last Taken Unknown] spironolactone 25 mg PO DAILY #30 tab 11/16/21 [Rx Last Taken Unknown] Allergy/AdvReac Type Severity Reaction Status Date / Time oxycodone AdvReac Severe Hallucinati Verified 11/14/21 10:24 ons alprazolam [From Xanax] AdvReac hallucinati Verified 11/14/21 10:24 ons lorazepam [From Ativan] AdvReac hallucinati Verified 11/14/21 10:24 ons tramadol [From Ultram] AdvReac hallucinati Verified 11/14/21 10:24 ons Family History (Updated 11/14/21 @ 20:[address] Christine Richards MD) Mother Cancer Father COPD (chronic obstructive pulmonary disease) Surgical History History of coronary artery bypass surgery (~10/04/19) History of kyphoplasty (~08/2020) Social History (Updated 11/14/21 @ 20:[address] Christine Richards MD) household members: none Smoking Status: Never smoker alcohol intake: never substance use type: does not use caffeine: Yes Type: carbonated beverages Number of servings: 4 Risk Stratification Risk Stratification Applicable: Yes Age >/= 65: Yes >/= 3 CAD Risk Factors (HTN, HLD, DM, family hx of CAD, or current smoker): Yes Aspirin Use in the Past 7 Days: No Severe Angina (>/= episodes in 24 hours): No EKG ST Changes >/= 0.5mm: No Positive Cardiac Marker: Yes LINDSEY Risk Stratification Score: 3 LINDSEY % Risk: 13% Risk Objective Data Vital Signs: Vital Signs Temp Pulse Resp BP Pulse Ox 97.9 F 67 18 116/86 H 94 11/15/21 15:00 11/15/21 19:00 11/15/21 15:00 11/15/21 15:00 11/15/21 15:00 Oxygen Flow Rate (L/min) 3 Oxygen Delivery Method Room Air Weight: 244 lb 14.937 oz Body Mass Index (BMI) 41.3 Intake & Output: Intake and Output for Last 24 Hours 11/13/21 11/14/21 11/15/21 23:59 23:59 23:59 Intake Total 240 / 1040 2074 / 2074 Output Total 1699 / 2024 325 / 325 Balance -1460 / -985 1750 / 1750 Lab / Micro Data Result Diagrams: 11/16/21 06:13 11/16/21 06:13 Labs: Laboratory Results - last 24 hr 11/15/21 04:38: WBC 7.7, RBC 3.44 L, Hgb 9.3 L, Hct 29.1 L, MCV 84.6, MCH 27.0, MCHC 32.0, RDW Std Deviation 53.6 H, RDW Coeff of Nicola 17.4 H, Plt Count 57 L, MPV 11.3, Immature Gran % (Auto) 0.700, Neut % (Auto) 88.1 H, Lymph % (Auto) 5.1 L, [place] % (Auto) 6.0, Eos % (Auto) 0.0, Baso % (Auto) 0.1, Absolute Neuts (auto) 6.8, Absolute Lymphs (auto) 0.39 L, Nucleated RBC % 0 11/15/21 04:38: Sodium 141, Potassium 3.6, Chloride 108 H, Carbon Dioxide 26.0, Anion Gap 7, BUN 32 H, Creatinine 1.29, Estim Creat Clear Calc 37.61, Est GFR (MDRD) Af Amer 69, Est GFR (MDRD) Non-Af 57 L, BUN/Creatinine Ratio 24.8 H, Glucose 127 H, Calcium 8.0 L, Total Bilirubin 1.20 H, AST 33, ALT 30, Alkaline Phosphatase 88, Total Protein 5.7 L, Albumin 2.4 L, Globulin 3.3, Albumin/Globulin Ratio 0.7 L, TSH 0.09 L 11/15/21 04:38: Ammonia 42.0 H Micro: Microbiology 11/14/21 12:30 Blood Culture (Wb) - Port Bacteria Detection (PCR) - Final Strep not Strep pneumo 11/14/21 12:30 Blood Culture (Wb) - Port Blood Culture - Preliminary Gram Positive Cocci 11/14/21 11:15 Blood Culture (Wb) - Port Blood Culture - Preliminary Gram Positive Cocci 11/14/21 11:50 Urine, Clean Catch Urine Culture - Preliminary Culture exhibits no growth. Cardiology Labs/Tests 11/15/21 04:38: WBC 7.7, RBC 3.44 L, Hgb 9.3 L, Hct 29.1 L, MCV 84.6, MCH 27.0, MCHC 32.0, Plt Count 57 L, MPV 11.3, Immature Gran % (Auto) 0.700, Neut % (Auto) 88.1 H, Lymph % (Auto) 5.1 L, [place] % (Auto) 6.0, Eos % (Auto) 0.0, Baso % (Auto) 0.1, Absolute Neuts (auto) 6.8, Nucleated RBC % 0 11/15/21 04:38: Sodium 141, Potassium 3.6, Chloride 108 H, Carbon Dioxide 26.0, Anion Gap 7, BUN 32 H, Creatinine 1.29, Est GFR (MDRD) Af Amer 69, Est GFR (MDRD) Non-Af 57 L, BUN/Creatinine Ratio 24.8 H, Glucose 127 H, Calcium 8.0 L, Total Bilirubin 1.20 H Rhythm: EKG: ECHO: Stress Test: Cardiac Cath: PCI: CT Surgery: Holter monitor: EPS: PPM: CXR: Chest CT Scan: Radiography Diagnostic Testing: Radiology Impression Spleen Ultrasound 11/14/21 16:15 IMPRESSION: Spleen is enlarged. Mass is confirmed in the spleen as noted on the recent CT scan. This is a nonspecific finding. Electronically Signed: Jamaal Mendes MD at 21:47 EST , Service support ,
[2021-11-15] MEDS: Acetaminophen 325 MG Tablet 650 MG PO (20:45)
[2021-11-15] MEDS: Atorvastatin Calcium 20 MG Tablet PO (20:47)
[2021-11-16 03:00] VITALS: PULSE 55
[2021-11-16 03:43] VITALS: BP 143/83; PULSE 62; RESP 16; TEMP 36.5; O2SAT 95
[2021-11-16 06:29] LABS: Absolute Lymphocyte Count 0.64 X10^3/uL (0.83-4.51); Eosinophil# 0.04 X10^3/uL; Eosinophils% 0.8 % (0-5); Hematocrit 29.6 % (40-54); Hemoglobin 9.4 g/dL (13.0-16.5); Lymphocyte # 0.64 X10^3/ul (0.83-4.51); Lymphocyte % 12.5 % (19-41); Mean Corp Hgb Conc 31.8 g/dL (32-36); Mean Corpuscular Hgb 26.9 pg (27.0-32.0); Mean Corpuscular Volume 84.8 fL (80-94); Mean Platelet Vol. 9.8 fl (6.2-12.0); Monocyte# 0.41 X10^3/uL; NRBC Flagged by Analyzer 0 % (0-5); Neutrophil % 78.3 % (47-70); POSITIVE COUNT YES; Platelet Count 55 K/mm3 (150-450); RBC Distribution Width CV 17.4 % (11.6-14.6); RBC Distribution Width SD 53.2 fl (35.1-43.9); Red Blood Count 3.49 M/mm3 (4.6-6.2); White Blood Count 5.1 K/mm3 (4.4-11.0)
[2021-11-16 07:03] LABS: ALB/GLOB Ratio 0.7 RATIO (0.9-2.4); AST(SGOT) 42 U/L (15-37); Alanine Aminotransfer ALT/SGPT 33 U/L (16-61); Albumin, Serum 2.3 g/dL (3.2-5.0); Alkaline Phosphatase 90 U/L (45-117); Anion Gap 7 (5-15); BUN 33 mg/dL (7-18); BUN/Creat Ratio 28.9 RATIO (10-20); Calcium,Total 8.1 mg/dL (8.5-10.1); Chloride 109 mmol/L (98-107); Cholesterol 88 mg/dL (200); Creatinine, Serum 1.14 mg/dL (0.70-1.30); EST Glomerular Filtration Rate 66 mL/min (>60); Est Glom Filt Rate - Afr Amer 79 mL/min (>60); Estimated Creatinine Clearance 42.55 ml/min; Globulin 3.2 g/dL (2.2-4.2); Glucose 86 mg/dL (74-106); High Density Lipoprotein 36 mg/dL; Potassium 3.5 mmol/L (3.5-5.1); Protein, Total 5.5 g/dL (6.4-8.2); Sodium Level 143 mmol/L (136-145); Triglycerides 95 mg/dL; Very Low Density Lipoprotein 19 mg/dL (5-40)
[2021-11-16 07:36] VITALS: PULSE 64
[2021-11-16 09:11] VITALS: BP 137/71; PULSE 67; RESP 18; TEMP 36.4; O2SAT 94
[2021-11-16] MEDS: Hydroxychloroquine 200 MG Tablet PO (09:16)
[2021-11-16] MEDS: Sertraline 100 MG Tablet PO (09:16)
[2021-11-16] MEDS: Propranolol 10 MG Tablet 20 MG PO (09:16)
[2021-11-16] MEDS: Pantoprazole Sodium 20 MG Tablet PO (09:16)
[2021-11-16] MEDS: Magnesium Chloride 64 MG Delay Rel.Tablet 128 MG PO (09:17)
[2021-11-16] MEDS: Aspirin 81 MG TAB.CHEW PO (09:17)
[2021-11-16] MEDS: rifAXIMin 550 MG Tablet PO (09:17)
[2021-11-16] MEDS: Lactulose 20 GM/30 ML UDC 10 GM PO (09:18)
[2021-11-16] MEDS: Losartan Potassium 50 MG Tablet PO (09:18)
[2021-11-16] MEDS: dilTIAZem CD 120 MG Capsule PO (09:19)
[2021-11-16] MEDS: Spironolactone 25 MG Tablet 12.5 MG PO (10:08)
[2021-11-16] MEDS: Furosemide 20 MG Tablet PO (10:08)
[2021-11-16 10:19] VITALS: O2SAT 94
--- NOTE | 2021-11-16 10:36 | DS.PCM_ITS ---
Documented by User: TRENT Mina 11/16/21 10:42 Providers Date of Admission: 11/14/21 Primary Care Physician: Dr. Armin Carlin, Consultations 11/14/21 16:15 Consult: General Surgery Routine Consulting Provider: Pooja Deleon Reason for Consult: R sided spegelian hernia, not painful but concerning CT findings. EMERGENT Consult: No MD Notified: Yes Date Notified: 11/14/21 Time Notified: 15:54 Method of Notification: cortext 11/14/21 19:21 Consult: Cardiology Routine Consulting Provider: Cesilia Rogers Reason for Consult: CHF exac, elevated trop EMERGENT Consult: No MD Notified: Yes Date Notified: 11/14/21 Time Notified: 19:21 Method of Notification: phone Reason For Visit: CHF FUO Diagnosis Discharge Diagnosis (1) CHF (congestive heart failure): Status: Chronic Code(s): I50.9 - Heart failure, unspecified Qualifiers: Heart failure chronicity: acute Heart failure type: unspecified Qualified Code(s): I50.9 - Heart failure, unspecified Medications at Discharge Home Medications hydroxychloroquine 200 mg PO BIDCM 12/26/15 propranolol 20 mg PO BID 02/07/16 magnesium oxide 400 mg PO BID 08/24/16 aspirin 81 mg tablet,delayed release 81 mg PO DAILY 11/02/19 melatonin 10 mg capsule 10 mg PO HS PRN 11/02/19 acetaminophen 325 mg tablet 650 mg PO Q6H PRN PRN tab 01/12/20 dicyclomine 10 mg capsule 10 mg PO TID PRN cap 01/12/20 rifaximin 550 mg tablet 550 mg PO BID tab 01/12/20 sertraline 100 mg tablet 100 mg PO DAILY 01/12/20 ibuprofen 200 mg PO DAILY PRN PRN 08/28/20 omeprazole 20 mg PO DAILY 08/28/20 atorvastatin 20 mg tablet 20 mg PO QHS 04/02/21 losartan 50 mg tablet 50 mg PO DAILY #90 tab 07/11/21 amoxicillin-pot clavulanate [Augmentin] 1 tab PO Q12H #12 tab 11/16/21 diltiazem HCl 120 mg PO DAILY #0 cap 11/16/21 furosemide 40 mg PO BID #60 tab 11/16/21 lactulose 10 g PO BID #1200 ml 11/16/21 spironolactone 25 mg PO DAILY #30 tab 11/16/21 Hospital Course Operations None Procedures 2-D Echocardiogram and EKG Summary of Care Provided Minutes Spent on Discharge: 35 Hospital Course: Patient is an 81-year-old male who originally presented with increased shortness of breath and lower extremity edema. Patient reported that he had not been taking his Lasix at home as directed due to increased urination. Patient underwent a echocardiogram which demonstrates an EF of 50%. Patient and daughter educated on importance of medication administration adherence to medication regimen. New abdominal distention patient underwent a abdomen and pelvis CT which demonstrated a stable 5.25 cm abdominal aortic aneurysm with for which patient follows outpatient for monitoring as well as bilateral pleural effusions and a lesion within the spleen. Patient was also noted to have a hernia for which she was evaluated by surgery and was deemed to not be a surgical candidate at this time. Patient discharged home with prescriptions for lactulose, spironolactone, Lasix, and Augmentin. Patient also advised to follow-up with his primary care physician Dr. Carlin in the next 1 to 2 weeks. Physical Exam Const alert, oriented x3 and no apparent distress HEENT head/scalp atraumatic Eyes conjunctivae normal and no scleral icterus Neck supple Resp normal respiratory effort Auscultation: crackles bilateral base Cardio regular rate, regular rhythm, S1 normal heart sound and S2 normal heart sound GI soft to palpation and non-tender Palpation: hernia Extremity normal to inspection, full ROM and no clubbing, cyanosis or edema Skin no rashes or lesions noted Neuro oriented x3, moves all extremities, no focal motor deficits and no sensory deficits noted Sensorium / Orientation: awake and alert Speech: speech normal Psych affect normal Weight / BMI Weight Weight: 244 lb 11.41 oz Body Mass Index (BMI) 41.3 ABG / Lab / Microbiology Data Result Diagrams: 11/16/21 06:13 11/16/21 06:13 Laboratory: Laboratory Results - last 24 hr 11/16/21 06:13: WBC 5.1, RBC 3.49 L, Hgb 9.4 L, Hct 29.6 L, MCV 84.8, MCH 26.9 L , MCHC 31.8 L, RDW Std Deviation 53.2 H, RDW Coeff of Nicola 17.4 H, Plt Count 55 L , MPV 9.8, Immature Gran % (Auto) 0.400, Neut % (Auto) 78.3 H, Lymph % (Auto) 12.5 L, [place] % (Auto) 8.0, Eos % (Auto) 0.8, Baso % (Auto) 0.0, Absolute Neuts (auto) 4.0, Absolute Lymphs (auto) 0.64 L, Nucleated RBC % 0 11/16/21 06:13: Sodium 143, Potassium 3.5, Chloride 109 H, Carbon Dioxide 27.0, Anion Gap 7, BUN 33 H, Creatinine 1.14, Estim Creat Clear Calc 42.55, Est GFR (MDRD) Af Amer 79, Est GFR (MDRD) Non-Af 66, BUN/Creatinine Ratio 28.9 H, Glucose 86, Calcium 8.1 L, Total Bilirubin 0.90, AST 42 H, ALT 33, Alkaline Phosphatase 90, Total Protein 5.5 L, Albumin 2.3 L, Globulin 3.2, Albumin/Globulin Ratio 0.7 L, Triglycerides 95, Cholesterol 88, LDL Cholesterol 33, VLDL Cholesterol 19, HDL Cholesterol 36 L Microbiology: Microbiology 11/14/21 11:50 Urine, Clean Catch Urine Culture - Final Mixed Gram Positive Organisms 11/14/21 12:30 Blood Culture (Wb) - Port Bacteria Detection (PCR) - Final Strep not Strep pneumo 11/14/21 12:30 Blood Culture (Wb) - Port Blood Culture - Preliminary Gram Positive Cocci 11/14/21 11:15 Blood Culture (Wb) - Port Blood Culture - Preliminary Gram Positive Cocci 11/14/21 10:47 Nasal Secretion SARS-CoV-2 Antigen (Rapid) - Final D/C Instructions Discharge Diet: Low fat / Low cholesterol, 6 Cup Fluid Restriction and 2000 mg Sodium Diet Call your doctor if you observe: Shortness of breath, Swelling in the ankles, Chest pain and Increased palpitations (irregular heartbeat) Meaningful Use Info Meaningful Use Diagnoses (Choose all that apply): CHF CHF MELANIE/ARB ordered at discharge?: Yes Documented LVEF (%): 50 Discharge Plan Admission Admit Date/Time: 11/14/21 15:43 Primary Reason for Your Visit: CHF exacerbation Attending Provider: Tremayne Brantley Primary Care Provider: Armin Carlin Consulting Providers: Pooja Deleon ; Cesilia Roegrs Discharge Orders/Prescriptions Prescriptions: New spironolactone 25 mg Tablet 25 mg PO DAILY Qty: 30 RF: 0 lactulose 20 gram/30 mL Solution 10 g PO BID Qty: 1200 RF: 0 amoxicillin-pot clavulanate [Augmentin] 500-125 mg tablet 1 tab PO Q12H Qty: 12 RF: 0 Continued aspirin 81 mg tablet,delayed release (DR/EC) 81 mg PO DAILY RF: 0 melatonin 10 mg capsule 10 mg PO HS PRN (Reason: Sleep) RF: 0 dicyclomine 10 mg capsule 10 mg PO TID PRN (Reason: abdominal spasm) RF: 0 acetaminophen 325 mg tablet 650 mg PO Q6H PRN PRN (Reason: Pain 1-10 Or Fever) RF: 0 sertraline 100 mg tablet 100 mg PO DAILY RF: 0 atorvastatin 20 mg tablet 20 mg PO QHS RF: 0 hydroxychloroquine 200 MG tablet 200 mg PO BIDCM RF: 0 propranolol 20 MG tablet 20 mg PO BID RF: 0 magnesium oxide 400 MG tablet 400 mg PO BID RF: 0 rifaximin 550 mg tablet 550 mg PO BID RF: 0 ibuprofen 200 MG tablet 200 mg PO DAILY PRN PRN (Reason: Pain 1-10 Or Fever) RF: 0 omeprazole 20 MG capsule,delayed release(DR/EC) 20 mg PO DAILY RF: 0 diltiazem HCl 120 mg capsule,extended release 24hr 120 mg PO DAILY Qty: 0 RF: 0 furosemide 20 mg tablet 40 mg PO BID Qty: 60 RF: 0 losartan 50 mg tablet 50 mg PO DAILY Qty: 90 RF: 3 Discontinued potassium chloride 20 mEq tablet,ER particles/crystals 40 meq PO DAILY RF: 0 prednisone 10 mg tablet 10 mg PO DAILY PRN (Reason: PAIN\) RF: 0 Referrals / Follow Up: Armin Carlin DO [Primary Care Provider] - Within 2 Weeks Disposition Disposition (needs filled in before D/C Order can be placed): Home, Self Care Documented by User: Dr. Tremayne Brantley MD 11/16/21 14:11 Providers Date of Admission: 11/14/21 Reason For Visit: CHF FUO Medications at Discharge Home Medications hydroxychloroquine 200 mg PO BIDCM 12/26/15 propranolol 20 mg PO BID 02/07/16 magnesium oxide 400 mg PO BID 08/24/16 aspirin 81 mg tablet,delayed release 81 mg PO DAILY 11/02/19 melatonin 10 mg capsule 10 mg PO HS PRN 11/02/19 acetaminophen 325 mg tablet 650 mg PO Q6H PRN PRN tab 01/12/20 dicyclomine 10 mg capsule 10 mg PO TID PRN cap 01/12/20 rifaximin 550 mg tablet 550 mg PO BID tab 01/12/20 sertraline 100 mg tablet 100 mg PO DAILY 01/12/20 ibuprofen 200 mg PO DAILY PRN PRN 08/28/20 omeprazole 20 mg PO DAILY 08/28/20 atorvastatin 20 mg tablet 20 mg PO QHS 04/02/21 losartan 50 mg tablet 50 mg PO DAILY #90 tab 07/11/21 amoxicillin-pot clavulanate [Augmentin] 1 tab PO Q12H #12 tab 11/16/21 diltiazem HCl 120 mg PO DAILY #0 cap 11/16/21 furosemide 40 mg PO BID #60 tab 11/16/21 lactulose 10 g PO BID #1200 ml 11/16/21 spironolactone 25 mg PO DAILY #30 tab 11/16/21 Hospital Course Summary of Care Provided Hospital Course: This 81-year-old male with multiple comorbidities came to ER for worsening shortness of breath for 3 days along with bilateral lower extremity edema, orthopnea, exertional dyspnea with chest x-ray and CT chest shows bilateral congestion with bilateral pleural effusion with bibasilar atelectasis consistent with CHF exacerbation. The patient was admitted in PCU with acute on chronic heart failure exacerbation of diastolic type, possible ischemic cardiomyopathy with mild hypoxia and bilateral pleural effusion. Heart failure core measures including intake and output, fluid restriction less than 1500 mL, daily weight monitoring, kidney and electrolytes monitoring. The most recent echo in June 2021 shows EF 55% with LA moderately enlarged. RVSP 40 mmHg. Patient has history of colon cancer stage IV with liver metastasis and liver tumor resection. The patient is very low liver reserve secondary to resection. Patient has thrombocytopenia, Patient has infrarenal AAA 5.25 cm, calcified, 3.7 x 3.9 cm density in the spleen possible lymphangioma or hemangioma, bilateral pleural effusion. Right- sided spigelian hernia with bowel loops and fluid. MRI abdomen on April 2021 sh ows 70% right liver resection, right hepatectomy. Prior to that patient had abdominal ultrasound on June 2020 which shows lobulated contour of liver probably cirrhosis Multiple other comorbidities including coronary status post CABG, hypertension, dyslipidemia, anxiety and depression, GERD Severe thrombocytopenia: Anticoagulation contraindicated Patient has multiple comorbidities for long time. Has history of colon cancer with liver metastasis about 5-6 tumors for which he had liver tumor resection. Patient also has 5.25 cm infrarenal AAA. Large spigelian hernia with bowel but reducible for about 8 years. Being followed by Dr. Quach was said high risk for surgery and physically he is not fit. Patient also has a CABG. He denies history of cirrhosis, chronic alcohol use or smoking Hospital course, discharge medication and follow-up discussed with the patient's daughter near the bedside. Discharge medication reconciliation done. Discharge follow-up instructions completed. Discharge process discussed with the patient and all questions were answered to patient's satisfaction. Total time spent, exact 35 minutes on discharge meds reconciliation, examination, coordination of care with nurses and ancillary staff, review of imaging and blood test and discussion with the patient on follow-up instructions Physical Exam Narrative Seen and examined Patient shortness of breath has improved. Leg swelling improved. Wants to go home. Physical exam General: Alert, Oriented x3, Cooperative HEENT: Very hard of hearing bilateral. Atraumatic, PERRLA, EOMI, Normocephalic Oral: No Gingival or Mucosal Lesions/ Ulcerations Neck: Supple, No JVD, Negative Carotid Bruits Lungs: Air entry diminished in bilateral lung bases. No crepitation/rhonchi Cardiovascular: Regular rate, Regular Rhythm, Normal S1, Normal S2, No murmurs. CABG scar. Abdomen: Bowel Sounds Present, Soft, Non Tender, large reducible spigelian hernia on right flank. Moderate sized ventral hernia. : No renal angle tenderness. No suprapubic tenderness. Extremities: No edema, Capillary Refill Less than 3 Seconds Skin: No rashes, No breakdown Musculoskeletal: No Tenderness to Palpation of Joints or Extremities Neurological: Cranial nerves II-XII grossly intact, DTR 2+/4 and Symmetrical Psych/Mental Status: Flat affect. HEENT head/scalp atraumatic Eyes conjunctivae normal and no scleral icterus Neck supple Resp normal respiratory effort Auscultation: crackles bilateral base Cardio regular rate, regular rhythm, S1 normal heart sound and S2 normal heart sound GI soft to palpation and non-tender Palpation: hernia Extremity normal to inspection, full ROM and no clubbing, cyanosis or edema Skin no rashes or lesions noted Neuro oriented x3, moves all extremities, no focal motor deficits and no sensory deficits noted Sensorium / Orientation: awake and alert Speech: speech normal Psych affect normal ABG / Lab / Microbiology Data Result Diagrams: 11/16/21 06:13 11/16/21 06:13 Discharge Plan Admission Admit Date/Time: 11/14/21 15:43 Primary Reason for Your Visit: CHF exacerbation Attending Provider: Tremayne Brantley Primary Care Provider: Armin Carlin Consulting Providers: Pooja Deleon ; Cesilia Rogers Discharge Orders/Prescriptions Prescriptions: New spironolactone 25 mg Tablet 25 mg PO DAILY Qty: 30 RF: 0 lactulose 20 gram/30 mL Solution 10 g PO BID Qty: 1200 RF: 0 amoxicillin-pot clavulanate [Augmentin] 500-125 mg tablet 1 tab PO Q12H Qty: 12 RF: 0 Continued aspirin 81 mg tablet,delayed release (DR/EC) 81 mg PO DAILY RF: 0 melatonin 10 mg capsule 10 mg PO HS PRN (Reason: Sleep) RF: 0 dicyclomine 10 mg capsule 10 mg PO TID PRN (Reason: abdominal spasm) RF: 0 acetaminophen 325 mg tablet 650 mg PO Q6H PRN PRN (Reason: Pain 1-10 Or Fever) RF: 0 sertraline 100 mg tablet 100 mg PO DAILY RF: 0 atorvastatin 20 mg tablet 20 mg PO QHS RF: 0 hydroxychloroquine 200 MG tablet 200 mg PO BIDCM RF: 0 propranolol 20 MG tablet 20 mg PO BID RF: 0 magnesium oxide 400 MG tablet 400 mg PO BID RF: 0 rifaximin 550 mg tablet 550 mg PO BID RF: 0 ibuprofen 200 MG tablet 200 mg PO DAILY PRN PRN (Reason: Pain 1-10 Or Fever) RF: 0 omeprazole 20 MG capsule,delayed release(DR/EC) 20 mg PO DAILY RF: 0 diltiazem HCl 120 mg capsule,extended release 24hr 120 mg PO DAILY Qty: 0 RF: 0 furosemide 20 mg tablet 40 mg PO BID Qty: 60 RF: 0 losartan 50 mg tablet 50 mg PO DAILY Qty: 90 RF: 3 Discontinued potassium chloride 20 mEq tablet,ER particles/crystals 40 meq PO DAILY RF: 0 prednisone 10 mg tablet 10 mg PO DAILY PRN (Reason: PAIN\) RF: 0 Referrals / Follow Up: Armin Carlin DO [Primary Care Provider] - Within 2 Weeks Disposition Disposition (needs filled in before D/C Order can be placed): Home, Self Care Charges/Coding Visit Charges Inpatient E&M: 66690 Disch Hosp
[2021-11-16] MEDS: 0.9% Saline Lock 10 ML Syringe IV (12:04)
== END 2021-11-16 12:44 | disposition home or self-care (01) | DRG 291 ==
LOC: ED 14:20 → PCU 16:56
PROVIDERS: Nurse Practitioner Family; Admitting Provider Family Medicine; Emergency Provider Student in an Organized Health Care Education/Training Program; PCP Family Medicine; Visit Provider Internal Medicine
DX: I11.0 Hypertensive heart disease with heart failure (principal); I50.33 Acute on chronic diastolic (congestive) heart failure; Z68.41 Body mass index [BMI] 40.0-44.9, adult; I25.10 Atherosclerotic heart disease of native coronary artery without angina pectoris; R09.02 Hypoxemia; K74.60 Unspecified cirrhosis of liver; I25.5 Ischemic cardiomyopathy; D69.6 Thrombocytopenia, unspecified; K43.2 Incisional hernia without obstruction or gangrene; D64.9 Anemia, unspecified; Z20.822 Contact with and (suspected) exposure to COVID-19; R11.2 Nausea with vomiting, unspecified; R19.7 Diarrhea, unspecified; I27.20 Pulmonary hypertension, unspecified; I48.91 Unspecified atrial fibrillation; E78.5 Hyperlipidemia, unspecified; K21.9 Gastro-esophageal reflux disease without esophagitis; F32.A Depression, unspecified; F41.9 Anxiety disorder, unspecified; E66.9 Obesity, unspecified; Z79.82 Long term (current) use of aspirin; Z79.899 Other long term (current) drug therapy; I25.2 Old myocardial infarction; Z85.038 Personal history of other malignant neoplasm of large intestine; Z85.05 Personal history of malignant neoplasm of liver; Z85.118 Personal history of other malignant neoplasm of bronchus and lung; Z95.1 Presence of aortocoronary bypass graft
CPT/HCPCS: 36415; 36591; 71045; 71275; 74174; 76705; 80048; 80053; 80061; 80076; 81001; 82140; 83605; 83735; 83880; 84145; 84443; 84484; 85025; 85610; 87040; 87077; 87086; 87088; 87149; 87186; 87426; 87635; 93005; 93306; 94640; 97161; 97165; 97802; 99251; 99285; J7040; J7050; Q9957; Q9967; U0005; A4216; C8929; G0463; J1940; U0003

== ENCOUNTER 2022-01-29 12:02 | Outpatient (CLI) | payer MEDICARE, OTHER, SELFPAY ==
[2020-01-25 07:02] VITALS: BMI 40.8
[2022-01-29 12:59] LABS: Anion Gap 7 (5-15); BUN 31 mg/dL (7-18); BUN/Creat Ratio 15.9 RATIO (10-20); Calcium,Total 8.9 mg/dL (8.5-10.1); Chloride 107 mmol/L (98-107); Creatinine, Serum 1.95 mg/dL (0.70-1.30); EST Glomerular Filtration Rate 35 mL/min (>60); Est Glom Filt Rate - Afr Amer 43 mL/min (>60); Glucose 135 mg/dL (74-106); Potassium 3.6 mmol/L (3.5-5.1); Sodium Level 139 mmol/L (136-145)
== END 2022-01-29 23:59 | disposition home or self-care (01) ==
LOC: LAB 12:04
PROVIDERS: PCP Family Medicine; Visit Provider Internal Medicine Cardiovascular Disease
DX: I50.9 Heart failure, unspecified (principal)
CPT/HCPCS: 36415; 80048

== ENCOUNTER 2022-02-19 06:33 | Day surgery (SDC) | payer MEDICARE, OTHER, SELFPAY ==
[2020-01-25 07:02] VITALS: BMI 40.8
--- NOTE | 2022-02-19 | GASB_PTH ---
PATIENT: KAMINI JONES LOC: EN U#:[id number] AGE/SX: 81/M ROOM: RE02/19/[address]: Dr. Josh Rojas DO : 1940 BED: DIS: 02/19/2022 SPEC #: [id number] RECD: 02/19/22 12:03 STATUS: KAITLYNN REESE #: [id number] SANTOS: 02/19/22 00:[address]: Josh Rojas DEPT: SURGICAL PATHOLOGY RECD BY: Cornelius Shelton ENTERED: 02/19/22 12:03 SP TYPE: Gastric Bx OTHR DR: Dr. Armin Carlin DO Tissues: Gastric mucous membrane Procedures: Surgery Specimen Level IV HEADER OPERATION: [place] ([facility] [place] biopsy, banding PRE-OP DIAGNOSIS: Cirrhosis TISSUE SUBMITTED: Gastric antrum biopsy for H. pylori and pathology MICROSCOPIC DIAGNOSIS Gastric antrum, biopsy: Chronic gastritis. See comment. AM:bebo 02/20/2022 COMMENT The results of immunohistochemistry for Helicobacter pylori will be reported separately ([id number]). MICROSCOPIC DESCRIPTION Slides are reviewed. GROSS DESCRIPTION Received in fixative is one container labeled with the patient's name and designated gastric antrum. The specimen consists of one irregular fragment of light jamison soft tissue that measures 0.5 x 0.3 x 0.1 cm. The specimen is totally submitted in one cassette. / AM:bebo 02/19/2022 TC:3 CPT: 05783
[2022-02-19] MEDS: Lactated Ringers 1,000 ML 15 ML IV (06:40)
[2022-02-19 07:03] VITALS: BP 136/57; PULSE 67; RESP 18; TEMP 37.3; O2SAT 97; BMI 39.3
--- NOTE | 2022-02-19 08:00 | IMM_PTH ---
PATIENT: KAMINI JONES LOC: [facility] U#:[id number] AGE/SX: 81/M ROOM: RE02/19/[address]: Dr. Josh Rojas DO : 1940 BED: DIS: 02/19/2022 SPEC #: [id number] RECD: 02/19/22 13:07 STATUS: KAITLYNN REESE #: [id number] SANTOS: 02/19/22 08:[address]: Josh Rojas DEPT: IMMUNOHISTOCHEMISTRY RECD BY: Tete Gold ENTERED: 02/19/22 13:08 SP TYPE: IMMUNO OTHR DR: Dr. Armin Carlin DO Tissues: Stomach, NOS Procedures: H Pylori (initial) PHYSICIAN & INSTITUTION [place] [id number] SPECIMEN INFORMATION: Tissue Source: Gastric antrum biopsy Clinical Info: Cirrhosis Specimen Number: [id number] CPT code: 16327 METHODOLOGY: Deparaffinized sections of prefer/formalin-fixed tissue or PAP/DQ stained slides are incubated with monoclonal/polyclonal antibodies/oligonucleotide probes. Localization is made via biotin free immunoperoxidase method. Appropriate controls are performed and reacted as expected. Results on target cell population are indicated in the following table: RESULTS: ANTIBODY / CLONE RESULT H Pylori (polyclonal) negative These tests were developed and their performance characteristics determined by [facility]. They may not have been cleared or approved by the U.S. Food and Drug Administration. The FDA has determined that such clearance or approval is not necessary. INTERPRETATION: Gastric antrum, biopsy: Negative for Helicobacter pylori organisms. AM:bebo 02/20/2022
--- NOTE | 2022-02-19 08:05 | HP.PCM_ITS ---
History and Physical Date of Admission: 02/19/22 81 M who presents to the office today for Referred by PCP for evaluation of liver cirrhosis with portal hypertension and esophageal varices and a history of hepatic encephalopathy. He had colon cancer that metastasized to his liver with six tumors removed with 50-70% of liver removed. States there were several rods put into his liver to kill part of it. He has been established with another provider who prescribed Xifaxan, however cost of this is $800/month. History of chronic diarrhea amplified by lactulose (for ammonia level) and has caused dehydration. Diarrhea occurs about up to ten times daily with urgency and incontinence. Medications include dicyclomine (greatly helpful with abdominal cramping), Lasix 40mg BID (causes frequent urination and does not take as directed), omeprazole 20mg QD, spironolactone 25mg QD, Xifaxan 550mg BID. Last EGD several years with banding performed. 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 ROS Const Constitutional: No anorexia, fatigue, fever(s), weight change or sleep problems Eyes Eyes: No change in vision ENT ENT: No abnormal hearing, difficulty swallowing, mouth lesions, tongue swelling or throat swelling Resp Respiratory: No cough or shortness of breath Cardio Cardiology: No chest pain at rest, chest pain with exertion, shortness of breath or dyspnea on exertion Gastro GI: No difficulty swallowing Genitourinary Male: No difficulty urinating or burning urination Musc Musculoskeletal: No joint pain, joint swelling, muscle weakness or decreased muscle mass Skin Skin: No hair loss in leg, yellowing of the eye, itchy eyes, rash, skin ulcer or skin swelling Neuro Neurology: No abnormal hearing, abnormal movements, confusion, unsteady gait/balance or memory loss Psych Psychiatric: No anxiety, No confusion and No memory loss Endo Endocrine: No fatigue or weight change Aller/Imm Allergy/Immunologic: No itchy eyes, throat swelling or tongue swelling Curtis/Lymp Hematologic/Lymphatic: No easy bleeding, easy bruising or enlarged lymph nodes Exam Const General: cooperative and comfortable Nutritional Appearance: average body habitus and well nourished [facility] Head: normal to inspection Ears: hearing grossly normal bilaterally Nose: external nose normal Face and sinus: normal facial exam Mouth: oral mucosae normal Throat: posterior oropharynx normal Eyes General: appearance normal, both eyes and all related structures Neck Neck: normal visual inspection Chest Chest palpation & inspection: normal inspection of the chest and normal palpation of entire chest wall Resp Effort & Inspection: normal respiratory effort Auscultation: Bilateral: Clear to Auscultation Cardio Palpation: normal PMI Rate: regular rate Rhythm: regular rhythm GI Inspection: normal to inspection Auscultation: normal bowel sounds Percussion: normal to percussion Palpation: no hepatosplenomegaly Skin General: no rashes or lesions noted Neuro General: patient alert Extrem General: normal to inspection Psych Affect: normal affect Quality Reporting Tobacco Screening ([facility] 138) Smoking Status: Never smoker Assessment and Plan Assessment and Plan (1) Cirrhosis: Status: Acute Orders: Orders: EGD Today Plan - Dr. Moreno Friend, DO: Cirrhosis likely secondary to Neal in the setting of diabetes mellitus. At this time he is not showing any signs of decompensation including no encephalopathy, no signs of GI bleeding, no signs of ascites. We will recommend that he takes Imodium as needed and I do not think he needs lactulose at this time due to his having 4-5 bowel moods per day which is his normal. We may have to put him on neomycin in the future as Xifaxan has been cost prohibitive. The patient and his are okay with this plan for now. He will need an upper endoscopy to evaluate for varices. And possibly beta-beth therapy in the future for variceal prophylaxis. I have re-examined the patient. There are no clinical changes since date of exam.
[2022-02-19 08:45] VITALS: BP 135/71; BP 136/57; PULSE 68; RESP 16; TEMP 36.4; O2SAT 98
[2022-02-19 08:50] VITALS: BP 136/57; BP 145/74; PULSE 66; RESP 16; O2SAT 98
--- NOTE | 2022-02-19 08:51 | OP.EGD_ITS ---
Patient Name: Ubaldo Conley Procedure Date: 02/19/2022 8:12 AM Date of : 1940 Age: 81 Procedure: Upper GI endoscopy Indications: Cirrhosis with suspected esophageal varices Providers: Josh Rojas DO Referring MD: Armin Carlin Medicines: See the Anesthesia note for documentation of the administered medications Patient Profile: This is an 81 year old male. Refer to note in patient chart for documentation of history and physical. Patient has symptoms of chronic right upper quadrant abdominal pain. Complications: No immediate complications. Procedure: Pre-Anesthesia Assessment: - Prior to the procedure, a History and Physical was performed, and patient medications and allergies were reviewed. The patient is competent. The risks and benefits of the procedure and the sedation options and risks were discussed with the patient. All questions were answered and informed consent was obtained. Patient identification and proposed procedure were verified by the physician in the pre-procedure area. Mental Status Examination: alert and oriented. Airway Examination: normal oropharyngeal airway and neck mobility. Respiratory Examination: clear to auscultation. CV Examination: normal. Prophylactic Antibiotics: The patient does not require prophylactic antibiotics. Prior Anticoagulants: The patient has taken no previous anticoagulant or antiplatelet agents. ASA Grade Assessment: II - A patient with mild systemic disease. After reviewing the risks and benefits, the patient was deemed in satisfactory condition to undergo the procedure. The anesthesia plan was to use moderate sedation / analgesia (conscious sedation). Immediately prior to administration of medications, the patient was re-assessed for adequacy to receive sedatives. The heart rate, respiratory rate, oxygen saturations, blood pressure, adequacy of pulmonary ventilation, and response to care were monitored throughout the procedure. The physical status of the patient was re-assessed after the procedure. After obtaining informed consent, the endoscope was passed under direct vision. Throughout the procedure, the patient's blood pressure, pulse, and oxygen saturations were monitored continuously. The Endoscope was introduced through the mouth, and advanced to the second part of duodenum. The upper GI endoscopy was accomplished without difficulty. The patient tolerated the procedure well. Moderate Sedation: Moderate (conscious) sedation was administered by the endoscopy nurse and supervised by the endoscopist. The patient's oxygen saturation, heart rate, blood pressure and response to care were monitored. Total physician intraservice time was 15 minutes. Scope In: 8:25:48 AM Scope Out: 8:41:17 AM Total Procedure Duration Time 0 hours 15 minutes 29 seconds Findings: Grade II varices were found in the middle third of the esophagus and in the lower third of the esophagus. They were 5 mm in largest diameter. Two bands were successfully placed with incomplete eradication of varices. There was no bleeding during, and at the end, of the procedure. Portal hypertensive gastropathy was found in the entire examined stomach. Three oozing cratered gastric ulcers with a visible vessel were found in the gastric antrum. The largest lesion was 5 mm in largest dimension. Coagulation for hemostasis using heater probe was successful. Estimated blood loss was minimal. One non-bleeding cratered gastric ulcer with no stigmata of bleeding was found at the pylorus. The lesion was 6 mm in largest dimension. Biopsies were taken with a cold forceps for histology. Verification of patient identification for the specimen was done. Estimated blood loss was minimal. The first portion of the duodenum was normal. Impression: - Grade II esophageal varices. Incompletely eradicated. Banded. - Portal hypertensive gastropathy. - Oozing gastric ulcers with a visible vessel. Treated with a heater probe. - Non-bleeding gastric ulcer with no stigmata of bleeding. Biopsied. - Normal first portion of the duodenum. Recommendation: - Await pathology results. - Repeat upper endoscopy in 1 year for surveillance. - Return to GI clinic. - Continue present medications. Procedure Code(s): --- Professional --- 44838, Esophagogastroduodenoscopy, flexible, transoral; with band ligation of esophageal/gastric varices 94054, 59, Esophagogastroduodenoscopy, flexible, transoral; with control of bleeding, any method 45377, Esophagogastroduodenoscopy, flexible, transoral; with biopsy, single or multiple 97991, 59, Moderate sedation services provided by the same physician or other qualified health residential care officer performing the diagnostic or therapeutic service that the sedation supports, requiring the presence of an independent trained observer to assist in the monitoring of the patient's level of consciousness and physiological status; initial 15 minutes of intraservice time, patient age 5 years or older CPT copyright 2017 [employer]. All rights reserved. The codes documented in this report are preliminary and upon band sawmill operator review may be revised to meet current compliance requirements. Josh Rojas DO 02/19/2022 8:50:53 AM This report has been signed electronically. Number of Addenda: 1 Note Initiated On: 02/19/2022 8:12 AM Addendum Number: 1 Addendum Date: 08/14/2022 6:47:39 AM MAC was used as sedation for this procedure. Josh Rojas DO 08/14/2022 6:47:42 AM This report has been signed electronically.
--- NOTE | 2022-02-19 08:52 | OP.CCLET_ITS ---
08/14/2022 Armin Carlin [address] [facility] [place] [address] Re : Upper GI endoscopy procedure for Ubaldo Conley Dear Dr. Carlin This procedure was performed on Saturday, February 19, 2022. My impressions and recommendations are as follows: Impressions : - Grade II esophageal varices. Incompletely eradicated. Banded. - Portal hypertensive gastropathy. - Oozing gastric ulcers with a visible vessel. Treated with a heater probe. - Non-bleeding gastric ulcer with no stigmata of bleeding. Biopsied. - Normal first portion of the duodenum. Recommendations : - Await pathology results. - Repeat upper endoscopy in 1 year for surveillance. - Return to GI clinic. - Continue present medications. My findings are described in the full procedure note, which is enclosed. If I can be of further assistance, please feel free to contact me at . Sincerely, Josh Rojas, 02/19/2022 8:50:53 AM This report has been signed electronically.
[2022-02-19 08:55] VITALS: BP 136/57; BP 139/73; PULSE 66; RESP 16; O2SAT 98
[2022-02-19 09:00] VITALS: BP 136/57; BP 142/71; PULSE 65; RESP 16; TEMP 36.9; O2SAT 97
[2022-02-19 09:24] VITALS: BP 136/57
--- NOTE | 2022-02-19 10:03 | SUR.PHASEII ---
Dr. Rojas in procedure and notified of patient and family wanting to discuss test results, family and patient are leaving. Family/Patient number left with Dr. Rojas to call for discussion of procedure
== END 2022-02-19 23:59 | disposition home or self-care (01) ==
LOC: EN 06:35 → AC 06:35
PROVIDERS: PCP Family Medicine; Referring Provider Family Medicine; Visit Provider Internal Medicine Gastroenterology
PROC: 0DJ08ZZ Inspection of Upper Intestinal Tract, Via Natural or Artificial Opening Endoscopic (ICD-10-PCS; CPT 43235; principal; 2022-02-19 07:55)
DX: I85.00 Esophageal varices without bleeding (principal); K76.6 Portal hypertension; K74.60 Unspecified cirrhosis of liver; I13.0 Hypertensive heart and chronic kidney disease with heart failure and stage 1 through stage 4 chronic kidney disease, or unspecified chronic kidney disease; I50.9 Heart failure, unspecified; I48.91 Unspecified atrial fibrillation; N18.30 Chronic kidney disease, stage 3 unspecified; K29.50 Unspecified chronic gastritis without bleeding; K31.89 Other diseases of stomach and duodenum; F32.A Depression, unspecified; I25.10 Atherosclerotic heart disease of native coronary artery without angina pectoris; E78.5 Hyperlipidemia, unspecified; I25.2 Old myocardial infarction; G47.30 Sleep apnea, unspecified; Z79.82 Long term (current) use of aspirin; Z79.899 Other long term (current) drug therapy; Z85.038 Personal history of other malignant neoplasm of large intestine
CPT/HCPCS: 43239; 43244; 87426; 88305; 88342; C9803; J7120; A4216; J2405

== ENCOUNTER → 2022-04-30 | Outpatient (CLI) | payer MEDICARE, OTHER, SELFPAY ==
[2020-01-25 07:02] VITALS: BMI 40.8
[2022-04-30 17:33] LABS: Absolute Lymphocyte Count 1.06 X10^3/uL (0.83-4.51); Absolute Neutrophil Count 3.4 X10^3/uL (2.0-7.7); Basophil# 0.02 X10^3/uL; Basophil% 0.4 % (0-1); Eosinophil# 0.33 X10^3/uL; Eosinophils% 6.2 % (0-5); Hematocrit 30.8 % (40-54); Hemoglobin 10.1 g/dL (13.0-16.5); Lymphocyte # 1.06 X10^3/ul (0.83-4.51); Lymphocyte % 19.9 % (19-41); Mean Corp Hgb Conc 32.8 g/dL (32-36); Mean Corpuscular Hgb 30.5 pg (27.0-32.0); Mean Corpuscular Volume 93.1 fL (80-94); Mean Platelet Vol. 11.6 fl (6.2-12.0); Monocyte# 0.53 X10^3/uL; Monocyte% 9.9 % (0-10); NRBC Flagged by Analyzer 0 % (0-5); Neutrophil # 3.36 X10^3/uL (2.7-7.7); POSITIVE COUNT YES; POSITIVE MORPHOLOGY YES; Platelet Count 73 K/mm3 (150-450); RBC Distribution Width CV 19.9 % (11.6-14.6); RBC Distribution Width SD 67.7 fl (35.1-43.9); Red Blood Count 3.31 M/mm3 (4.6-6.2); White Blood Count 5.3 K/mm3 (4.4-11.0)
[2022-04-30 17:46] LABS: Differential Indicated SCAN CRITERIA MET
[2022-04-30 17:58] LABS: AST(SGOT) 35 U/L (15-37); Alanine Aminotransfer ALT/SGPT 28 U/L (16-61); Albumin, Serum 2.9 g/dL (3.2-5.0); Alkaline Phosphatase 131 U/L (45-117); Anion Gap 6 (5-15); BUN 18 mg/dL (7-18); BUN/Creat Ratio 13.8 RATIO (10-20); Calcium,Total 8.7 mg/dL (8.5-10.1); Chloride 112 mmol/L (98-107); EST Glomerular Filtration Rate 56 mL/min (>60); Est Glom Filt Rate - Afr Amer 68 mL/min (>60); Globulin 2.8 g/dL (2.2-4.2); Glucose 87 mg/dL (74-106); Potassium 4.4 mmol/L (3.5-5.1); Protein, Total 5.7 g/dL (6.4-8.2); Sodium Level 142 mmol/L (136-145)
[2022-04-30 18:20] LABS: Anisocytosis 1+; Differential Comment SCANNED
== END | disposition home or self-care (01) ==
LOC: MTLAB 15:37
PROVIDERS: PCP Family Medicine; Referring Provider Internal Medicine Rheumatology; Visit Provider Internal Medicine Rheumatology
DX: M06.4 Inflammatory polyarthropathy (principal); I85.00 Esophageal varices without bleeding; S32.000A Wedge compression fracture of unspecified lumbar vertebra, initial encounter for closed fracture; K74.60 Unspecified cirrhosis of liver; M47.897 Other spondylosis, lumbosacral region; I10 Essential (primary) hypertension; D49.0 Neoplasm of unspecified behavior of digestive system; I25.10 Atherosclerotic heart disease of native coronary artery without angina pectoris; G47.33 Obstructive sleep apnea (adult) (pediatric); Z95.1 Presence of aortocoronary bypass graft
CPT/HCPCS: 36415; 80053; 85025

== ENCOUNTER → 2022-05-26 | Outpatient (CLI) | payer MEDICARE, OTHER, SELFPAY ==
[2020-01-25 07:02] VITALS: BMI 40.8
[2022-05-26 17:36] LABS: Absolute Lymphocyte Count 1.11 X10^3/uL (0.83-4.51); Absolute Neutrophil Count 5.3 X10^3/uL (2.0-7.7); Basophil# 0.05 X10^3/uL; Basophil% 0.7 % (0-1); Eosinophil# 0.35 X10^3/uL; Eosinophils% 4.6 % (0-5); Hematocrit 36.1 % (40-54); Hemoglobin 11.8 g/dL (13.0-16.5); Lymphocyte # 1.11 X10^3/ul (0.83-4.51); Lymphocyte % 14.5 % (19-41); Mean Corp Hgb Conc 32.7 g/dL (32-36); Mean Corpuscular Hgb 30.3 pg (27.0-32.0); Mean Corpuscular Volume 92.6 fL (80-94); Monocyte# 0.75 X10^3/uL; Monocyte% 9.8 % (0-10); NRBC Flagged by Analyzer 0 % (0-5); Neutrophil # 5.34 X10^3/uL (2.7-7.7); Neutrophil % 69.7 % (47-70); Platelet Count 125 K/mm3 (150-450); RBC Distribution Width CV 17.2 % (11.6-14.6); RBC Distribution Width SD 58.4 fl (35.1-43.9); White Blood Count 7.7 K/mm3 (4.4-11.0)
[2022-05-26 17:50] LABS: International Normalized Ratio 1.3; Prothrombin Time (Protime)PT. 15.5 SECONDS (11.7-14.9)
[2022-05-26 17:51] LABS: ALB/GLOB Ratio 1.1 RATIO (0.9-2.4); AST(SGOT) 74 U/L (15-37); Alanine Aminotransfer ALT/SGPT 56 U/L (16-61); Albumin, Serum 3.2 g/dL (3.2-5.0); Alkaline Phosphatase 190 U/L (45-117); Anion Gap 9 (5-15); BUN 26 mg/dL (7-18); Calcium,Total 9.3 mg/dL (8.5-10.1); Chloride 106 mmol/L (98-107); Creatinine, Serum 1.37 mg/dL (0.70-1.30); EST Glomerular Filtration Rate 53 mL/min (>60); Est Glom Filt Rate - Afr Amer 64 mL/min (>60); Glucose 91 mg/dL (74-106); Potassium 4.4 mmol/L (3.5-5.1); Protein, Total 6.2 g/dL (6.4-8.2); Sodium Level 142 mmol/L (136-145)
== END | disposition home or self-care (01) ==
LOC: MTLAB 16:18
PROVIDERS: PCP Family Medicine; Referring Provider Internal Medicine Gastroenterology; Visit Provider Internal Medicine Gastroenterology
DX: K74.60 Unspecified cirrhosis of liver (principal); I71.4 Abdominal aortic aneurysm, without rupture; N28.9 Disorder of kidney and ureter, unspecified
CPT/HCPCS: 36415; 80053; 82140; 85025; 85610

== ENCOUNTER → 2022-09-19 | Outpatient (CLI) | payer MEDICARE, OTHER, SELFPAY ==
[2020-01-25 07:02] VITALS: BMI 40.8
[2022-09-19 13:09] LABS: Anion Gap 9 (5-15); BUN 29 mg/dL (7-18); BUN/Creat Ratio 14.3 RATIO (10-20); Calcium,Total 8.9 mg/dL (8.5-10.1); Chloride 109 mmol/L (98-107); Creatinine, Serum 2.03 mg/dL (0.70-1.30); EST Glomerular Filtration Rate 34 mL/min (>60); Est Glom Filt Rate - Afr Amer 41 mL/min (>60); Glucose 96 mg/dL (74-106); Potassium 4.7 mmol/L (3.5-5.1); Sodium Level 140 mmol/L (136-145)
== END | disposition home or self-care (01) ==
LOC: LAB.FUTURE 09:47
PROVIDERS: PCP Family Medicine; Visit Provider Family Medicine
DX: I10 Essential (primary) hypertension (principal)
CPT/HCPCS: 36415; 80048

== ENCOUNTER → 2022-09-22 | Outpatient (CLI) | payer MEDICARE, OTHER, SELFPAY ==
[2020-01-25 07:02] VITALS: BMI 40.8
[2022-09-22 15:48] LABS: Anion Gap 7 (5-15); BUN 30 mg/dL (7-18); BUN/Creat Ratio 12.2 RATIO (10-20); Calcium,Total 8.8 mg/dL (8.5-10.1); Chloride 110 mmol/L (98-107); Creatinine, Serum 2.45 mg/dL (0.70-1.30); EST Glomerular Filtration Rate 27 mL/min (>60); Est Glom Filt Rate - Afr Amer 33 mL/min (>60); Glucose 79 mg/dL (74-106); Potassium 4.2 mmol/L (3.5-5.1); Sodium Level 139 mmol/L (136-145)
== END | disposition home or self-care (01) ==
LOC: BFHLAB 13:26
PROVIDERS: PCP Family Medicine; Visit Provider Family Medicine
DX: N17.9 Acute kidney failure, unspecified (principal)
CPT/HCPCS: 36415; 80048

== ENCOUNTER → 2022-09-26 | Outpatient (CLI) | payer MEDICARE, OTHER, SELFPAY ==
[2020-01-25 07:02] VITALS: BMI 40.8
[2022-09-26 15:25] LABS: Anion Gap 6 (5-15); BUN 29 mg/dL (7-18); BUN/Creat Ratio 15.4 RATIO (10-20); Calcium,Total 9.3 mg/dL (8.5-10.1); Chloride 110 mmol/L (98-107); Creatinine, Serum 1.88 mg/dL (0.70-1.30); EST Glomerular Filtration Rate 37 mL/min (>60); Est Glom Filt Rate - Afr Amer 44 mL/min (>60); Glucose 92 mg/dL (74-106); Sodium Level 140 mmol/L (136-145)
== END | disposition home or self-care (01) ==
LOC: BFHLAB 11:58
PROVIDERS: PCP Family Medicine; Visit Provider Family Medicine
DX: N17.9 Acute kidney failure, unspecified (principal)
CPT/HCPCS: 36415; 80048

== ENCOUNTER 2022-10-15 11:22 | Emergency (ER) | payer MEDICARE, OTHER, SELFPAY ==
[2020-01-25 07:02] VITALS: BMI 40.8
[2022-10-15 11:23] VITALS: BP 105/69; PULSE 78; RESP 18; TEMP 37.4; O2SAT 96; BMI 39.9
--- NOTE | 2022-10-15 13:09 | EX.ED.DYSGE1 ---
HPI <STAR Dewey - Last Filed: 10/15/22 22:34> History of Present Illness Chief Complaint: General Illness Narrative Narrative: Patient presents today with his daughter with cold-like symptoms. He states he has had a cough, sore throat, and congestion for the past few days. Patient has a history of CHF and cirrhosis of the liver and has been noncompliant with his medications over the past few days. His daughter states that he looks like he is retaining more water than usual and seems more short of breath than usual. Patient admits to a low-grade fever of 100 ?F. He denies chest pain, difficulty breathing, abdominal pain, nausea, vomiting, diarrhea. PFSH <STAR Dewey - Last Filed: 10/15/22 22:34> [facility] Medical History AAA (abdominal aortic aneurysm) without rupture Anemia Arthritis Back pain BiPAP (biphasic positive airway pressure) dependence CAD (coronary artery disease) Cancer Cardiology follow-up encounter CHF (congestive heart failure) Colon cancer metastasized to liver Colon cancer metastasized to lung Essential hypertension History of CHF (congestive heart failure) History of echocardiogram History of edema History of heart attack History of IBS History of left heart catheterization (LHC) (~09/20/19) History of renal disease HTN (hypertension) Hypertension Low iron Non-smoker NSTEMI (non-ST elevated myocardial infarction) Old myocardial infarction Postoperative atrial fibrillation Pulmonary hypertension Renal insufficiency Shortness of breath on exertion Sleep apnea Syncope Varices of esophagus determined by endoscopy Walker as ambulation aid Wears dentures Wears hearing aid Home Medications hydroxychloroquine 200 mg tablet 200 mg PO BIDCM Check with primary doctor 12/26/15 [History Last Taken 08/28/20] propranolol 20 mg tablet 20 mg PO BID b/p 02/07/16 [History Last Taken 08/28/20] aspirin 81 mg tablet,delayed release 81 mg PO DAILY HEART HEALTH 11/02/19 [History Last Taken 08/28/20] melatonin 10 mg capsule 10 mg PO HS PRN Sleep 11/02/19 [History Last Taken 08/27/20] acetaminophen 325 mg tablet 650 mg PO Q6H PRN PRN Pain 1-10 Or Fever 01/12/20 [History Last Taken Unknown] sertraline 100 mg tablet 100 mg PO DAILY DEPRESSION 01/12/20 [History Last Taken 08/28/20] ibuprofen 200 mg tablet 200 mg PO DAILY PRN PRN Pain 1-10 Or Fever 08/28/20 [History Last Taken 08/27/20] omeprazole 20 mg capsule,delayed release 20 mg PO DAILY GERD 08/28/20 [History Last Taken 08/28/20] atorvastatin 20 mg tablet 20 mg PO QHS Check with primary doctor 04/02/21 [History Last Taken Unknown] diltiazem HCl 120 mg capsule,extended release 24 hr 120 mg PO DAILY HEART #0 caps 11/16/21 [Rx Last Taken 08/28/20] spironolactone 25 mg tablet 25 mg PO DAILY #30 tabs 11/16/21 [Rx Last Taken Unknown] magnesium oxide 400 mg (241.3 mg magnesium) tablet 400 mg PO BID PRN mag supplement 01/29/22 [History Last Taken Unknown] ondansetron HCl 8 mg tablet 8 mg PO Q8H PRN nausea and vomiting 01/29/22 [History Last Taken Unknown] colestipol 1 gram tablet 1 g PO BID #60 tabs 03/05/22 [Rx Last Taken Unknown] dicyclomine 10 mg capsule 10 mg PO TID abdominal spasm 05/06/22 [History Last Taken Unknown] furosemide 20 mg tablet 20 mg PO BID diuretic 05/06/22 [History Last Taken Unknown] rifaximin 550 mg tablet (Xifaxan) 550 mg PO BID 05/06/22 [History Last Taken Unknown] losartan 50 mg tablet 50 mg PO DAILY BP #90 tabs 06/10/22 [Rx Last Taken Unknown] Allergy/AdvReac Type Severity Reaction Status Date / Time oxycodone AdvReac Severe Hallucinati Verified 10/15/22 11:23 ons alprazolam [From Xanax] AdvReac hallucinati Verified 10/15/22 11:23 ons lorazepam [From Ativan] AdvReac hallucinati Verified 10/15/22 11:23 ons Family History Mother Cancer Father COPD (chronic obstructive pulmonary disease) Surgical History History of cardiac catheterization History of colon surgery History of coronary artery bypass surgery (~10/04/19) History of esophagogastroduodenoscopy (EGD) (~02/2022) History of hernia surgery History of kyphoplasty (~08/2020) History of resection of liver Social History household members: none Smoking Status: Never smoker alcohol intake: never substance use type: does not use caffeine: Yes Type: carbonated beverages Number of servings: 4 ROS <STAR Dewey - Last Filed: 10/15/22 22:34> ROS ED Constitutional Constitutional ED: Reports fever(s); Denies chills or sweats Eyes Eyes: Denies blurry vision or change in vision ENT ENT ED: Reports rhinorrhea and sore throat Cardiovascular Cardiovascular: Denies chest pain or palpitations Respiratory/Chest Respiratory/Chest: Reports cough, shortness of breath with exertion and wheezing; Denies dyspnea, dyspnea on exertion or shortness of breath at rest Gastrointestinal Gastrointestinal: Denies abdominal pain, diarrhea, nausea or vomiting Genitourinary Genitourinary ED: Denies dysuria, hematuria or urinary frequency Musculoskeletal Musculoskeletal: Denies myalgias or neck pain Integumentary Denies abscess, Abrasions or rash Neurologic Neurologic: Denies headache(s), paresthesias or weakness Psychiatric Psychiatric: Denies anxiety EXAM <STAR Dewey - Last Filed: 10/15/22 22:34> Physical Exam Const Vital Signs: 10/15/22 11:23 10/15/22 13:26 10/15/22 13:26 Temperature 99.4 F H Temperature Source Temporal Pulse Rate 78 58 L Respiratory Rate 18 23 H Respiratory Effort Short of Breath Respiratory Pattern Tachypnea Blood Pressure 105/69 Blood Pressure Mean 81 Pulse Ox 96 95 Oxygen Delivery Method Room Air Room Air 10/15/22 15:41 Temperature Temperature Source Pulse Rate 58 L Respiratory Rate 18 Respiratory Effort Respiratory Pattern Blood Pressure 129/79 H Blood Pressure Mean Pulse Ox 96 Oxygen Delivery Method Positive obese Nutritional Appearance: obese HEENT Reports TM's clear and moist mucous membranes Negative for trauma or tenderness Tympanic Membrane ED: Yes TM's clear Eyes PERRL and EOMs intact bilaterally Neck no lymphadenopathy, supple and no JVD Chest Wall inspection of chest normal and palpation of chest normal Resp normal respiratory effort and clear to auscultation bilaterally Auscultation: Negative for rales, rhonchi, wheezes or diminished lung sounds Cardio regular rate, regular rhythm and no murmurs GI normal to inspection, nondistended, normoactive bowel sounds, non-tender and no masses Palpation: soft Back/Spine Cervical Spine: Negative for cervical spine tenderness Thoracic Spine / Upper Back: Negative for thoracic spinal tenderness Lumbar Spine / Lower Back: Negative for lumbar spinal tenderness Extremity Extremity Narrative: Patient has 2+ pitting edema of the lower legs bilaterally. No erythema. General Extremety ED: Negative for tenderness Neuro oriented x3, CN's II-XII intact bilaterally and no sensory deficits noted Sensorium / Orientation: alert Motor Exam: strength 5/5 throughout Psych mental status grossly normal Skin no rashes or lesions noted, no wounds and skin turgor normal General Skin Exam: elasticity normal <Dr. Matt Juarez DO - Last Filed: 10/15/22 17:03> Physical Exam Const Vital Signs: 10/15/22 11:23 10/15/22 13:26 10/15/22 13:26 Temperature 99.4 F H Temperature Source Temporal Pulse Rate 78 58 L Respiratory Rate 18 23 H Respiratory Effort Short of Breath Respiratory Pattern Tachypnea Blood Pressure 105/69 Blood Pressure Mean 81 Pulse Ox 96 95 Oxygen Delivery Method Room Air Room Air 10/15/22 15:41 Temperature Temperature Source Pulse Rate 58 L Respiratory Rate 18 Respiratory Effort Respiratory Pattern Blood Pressure 129/79 H Blood Pressure Mean Pulse Ox 96 Oxygen Delivery Method [facility] <STAR Dewey - Last Filed: 10/15/22 22:34> [facility] Narrative Medical decision making narrative: It is likely that patient has a viral URI that is causing his cold-like symptoms. Because patient has not taken his medication in several days he is retaining more fluid his ammonia level is higher than usual. I have given him a dose of Lasix here. He is in no respiratory distress and his O2 stats have remained stable at 96% on room air. The rest of his vital signs have remained stable here today. I educated patient on importance of taking medication regularly. Chest x-ray shows a possible neoplastic process and I have told this to patient. Patient will be following up with PCP. Patient states he is feeling better and would like to go home. I am comfortable with patient discharging home and patient and family are comfortable with plan. I have given patient strict return instructions. Lab Data Lab results narrative: Anemia, low platelets, elevated AST, elevated ammonia, low albumin, no acute cystitis. CBC consistent with past results. Labs: Laboratory Results - last 24 hr 10/15/22 10/15/22 10/15/22 13:22 13:22 13:22 WBC 2.9 L RBC 3.05 L Hgb 9.5 L Hct 29.1 L MCV 95.4 H MCH 31.1 MCHC 32.6 RDW Std Deviation 55.6 H RDW Coeff of Nicola 15.9 H Plt Count 50 L* MPV 11.1 Immature Gran % (Auto) 0.700 Neut % (Auto) 58.4 Lymph % (Auto) 21.9 [place] % (Auto) 15.6 H Eos % (Auto) 3.1 Baso % (Auto) 0.3 Absolute Neuts (auto) 1.7 L Absolute Lymphs (auto) 0.63 L Nucleated RBC % 0 Platelet Estimate MOD DEC Hypochromasia 1+ Sodium 139 Potassium 3.7 Chloride 107 Carbon Dioxide 24.0 Anion Gap 8 BUN 25 H Creatinine 1.57 H Estim Creat Clear Calc 31.56 Est GFR (MDRD) Af Amer 55 L Est GFR (MDRD) Non-Af 45 L BUN/Creatinine Ratio 15.9 Glucose 108 H Calcium 7.8 L Total Bilirubin 0.70 Direct Bilirubin 0.27 AST 68 H ALT 34 Alkaline Phosphatase 107 Ammonia 77.0 H Total Protein 5.3 L Albumin 2.5 L Globulin 2.8 Urine Color Urine Clarity Urine pH Ur Specific [place] Urine Protein Urine Glucose (UA) Urine Ketones Urine Occult Blood Urine Nitrite Urine Bilirubin Urine Urobilinogen Ur Leukocyte Esterase Urine RBC Urine WBC Ur Squamous Epith Cells Urine Bacteria Urine Mucus 10/15/22 14:20 WBC RBC Hgb Hct MCV MCH MCHC RDW Std Deviation RDW Coeff of Nicola Plt Count MPV Immature Gran % (Auto) Neut % (Auto) Lymph % (Auto) [place] % (Auto) Eos % (Auto) Baso % (Auto) Absolute Neuts (auto) Absolute Lymphs (auto) Nucleated RBC % Platelet Estimate Hypochromasia Sodium Potassium Chloride Carbon Dioxide Anion Gap BUN Creatinine Estim Creat Clear Calc Est GFR (MDRD) Af Amer Est GFR (MDRD) Non-Af BUN/Creatinine Ratio Glucose Calcium Total Bilirubin Direct Bilirubin AST ALT Alkaline Phosphatase Ammonia Total Protein Albumin Globulin Urine Color Yellow Urine Clarity Clear Urine pH 6.0 Ur Specific [place] 1.020 Urine Protein 30 H Urine Glucose (UA) Normal Urine Ketones Negative Urine Occult Blood Negative Urine Nitrite Negative Urine Bilirubin Negative Urine Urobilinogen 4 H Ur Leukocyte Esterase Negative Urine RBC 0 SEEN Urine WBC 0 SEEN Ur Squamous Epith Cells 0 SEEN Urine Bacteria 0 SEEN Urine Mucus 0 SEEN Radiography Diagnostic Testing: Clinical Impression(s) from Imaging Studies Chest X-Ray 10/15/22 13:55 IMPRESSION: Prominence of the left hilum with increased linear markings in the left perihilar region. An underlying neoplastic process with postobstructive pneumonitis or volume loss should be ruled out. Electronically Signed: Sav Black MD at 14:39 EST , This x-ray has been reviewed I agree with radiologist impressions and this has also been reviewed by attending ED physician. EKG Initial EKG: Attestation: I personally reviewed and interpreted this EKG as follows: Comments: [address] elevation or signs of cardiac ischemia. EKG unchanged from previous EKG on 11/04/21 and shows left axis deviation and left ventricular hypertrophy. This EKG has also been reviewed by attending ED physician. <Dr. Matt Juarez, DO - Last Filed: 10/15/22 17:03> [facility] Lab Data Labs: Laboratory Results - last 24 hr 10/15/22 10/15/22 10/15/22 13:22 13:22 13:22 WBC 2.9 L RBC 3.05 L Hgb 9.5 L Hct 29.1 L MCV 95.4 H MCH 31.1 MCHC 32.6 RDW Std Deviation 55.6 H RDW Coeff of Nicola 15.9 H Plt Count 50 L* MPV 11.1 Immature Gran % (Auto) 0.700 Neut % (Auto) 58.4 Lymph % (Auto) 21.9 [place] % (Auto) 15.6 H Eos % (Auto) 3.1 Baso % (Auto) 0.3 Absolute Neuts (auto) 1.7 L Absolute Lymphs (auto) 0.63 L Nucleated RBC % 0 Platelet Estimate MOD DEC Hypochromasia 1+ Sodium 139 Potassium 3.7 Chloride 107 Carbon Dioxide 24.0 Anion Gap 8 BUN 25 H Creatinine 1.57 H Estim Creat Clear Calc 31.56 Est GFR (MDRD) Af Amer 55 L Est GFR (MDRD) Non-Af 45 L BUN/Creatinine Ratio 15.9 Glucose 108 H Calcium 7.8 L Total Bilirubin 0.70 Direct Bilirubin 0.27 AST 68 H ALT 34 Alkaline Phosphatase 107 Ammonia 77.0 H Total Protein 5.3 L Albumin 2.5 L Globulin 2.8 Urine Color Urine Clarity Urine pH Ur Specific [place] Urine Protein Urine Glucose (UA) Urine Ketones Urine Occult Blood Urine Nitrite Urine Bilirubin Urine Urobilinogen Ur Leukocyte Esterase Urine RBC Urine WBC Ur Squamous Epith Cells Urine Bacteria Urine Mucus 10/15/22 14:20 WBC RBC Hgb Hct MCV MCH MCHC RDW Std Deviation RDW Coeff of Nicola Plt Count MPV Immature Gran % (Auto) Neut % (Auto) Lymph % (Auto) [place] % (Auto) Eos % (Auto) Baso % (Auto) Absolute Neuts (auto) Absolute Lymphs (auto) Nucleated RBC % Platelet Estimate Hypochromasia Sodium Potassium Chloride Carbon Dioxide Anion Gap BUN Creatinine Estim Creat Clear Calc Est GFR (MDRD) Af Amer Est GFR (MDRD) Non-Af BUN/Creatinine Ratio Glucose Calcium Total Bilirubin Direct Bilirubin AST ALT Alkaline Phosphatase Ammonia Total Protein Albumin Globulin Urine Color Yellow Urine Clarity Clear Urine pH 6.0 Ur Specific [place] 1.020 Urine Protein 30 H Urine Glucose (UA) Normal Urine Ketones Negative Urine Occult Blood Negative Urine Nitrite Negative Urine Bilirubin Negative Urine Urobilinogen 4 H Ur Leukocyte Esterase Negative Urine RBC 0 SEEN Urine WBC 0 SEEN Ur Squamous Epith Cells 0 SEEN Urine Bacteria 0 SEEN Urine Mucus 0 SEEN Radiography Diagnostic Testing: Clinical Impression(s) from Imaging Studies Chest X-Ray 10/15/22 13:55 IMPRESSION: Prominence of the left hilum with increased linear markings in the left perihilar region. An underlying neoplastic process with postobstructive pneumonitis or volume loss should be ruled out. Electronically Signed: Sav Black MD at 14:39 EST , Treatment and Re-Evaluation Narrative: I have personally performed a face to face assessment of the patient and have reviewed the LUIS Note. I performed a substantive portion of the visit including all aspects of the following. My carranza findings include: History: Patient presents with cough, and generalized swelling that is being getting worse over the past couple days. Patient states he has not taken his Lasix in the Past couple of days. Patient has a history of cirrhosis but has not been noncompliant with his cirrhosis medications as well. Patient denies any fevers or chills. Patient admits to a cough but denies any sputum production. Exam: Vital signs are stable. Patient is afebrile. Patient is in no acute distress. Oral mucosa is pink and moist. Neck is supple. Trachea is midline. There is no JVD. Heart was regular rate and rhythm. Lungs are clear and equal bilaterally. Abdomen is soft. Bowel sounds are normal. There is no tenderness. Cranial nerves II through XII are intact. There are no focal motor or sensory deficits noted. Patient is alert and oriented x3. Medical Decision Making: Patient was given a dose of Lasix here. CBC shows a mild anemia with a hemoglobin of 9.5 and hematocrit 29.1. White blood cell count was slightly low at 29. Platelets were 50. These are consistent with prior results. Comprehensive metabolic profile shows a BUN of 25 and creatinine of 1.57. These are also consistent with prior results. Urinalysis does not show any evidence of urinary tract infection or hematuria. EKG was obtained. On my interpretation, it shows normal sinus rhythm with a rate of 57. There are no acute ST or T wave changes. PA and lateral chest x-ray was obtained. There are 2 views. On my interpretation, lung saleh show a prominence of the left hilum with increased markings in the left perihilar region. There could be a neoplastic process with postobstructive pneumonitis. There is normal cardiac silhouette. Bony thorax is normal. There is no acute process noted. Radiologist also interpreted the x-ray and agrees. Patient was advised of his findings. Patient stated that he was told there could be a mass but when he had it evaluated there was no mass. Patient knows about the fullness in the left hilum. Patient will follow-up with his primary care physician for this. Patient was instructed to return if worse in any way. Patient understood and was agreeable with the plan. All questions were answered. Discharge Plan Triage Chief Complaint: General Illness ED Midlevel Provider: Krys Corbin ED Provider: Matt Juarez Dx/Rx/DC Orders Clinical Impression: CHF (congestive heart failure), Viral URI, Hyperammonemia, Anemia Instructions: ED Heart Failure, Congestive (CHF), ED URI, Viral, No Abx (Adult) Prescriptions: No Action aspirin 81 mg tablet,delayed release (DR/EC) 81 mg PO DAILY melatonin 10 mg capsule 10 mg PO HS PRN (Reason: Sleep) acetaminophen 325 mg tablet 650 mg PO Q6H PRN PRN (Reason: Pain 1-10 Or Fever) sertraline 100 mg tablet 100 mg PO DAILY dicyclomine 10 mg capsule 10 mg PO TID atorvastatin 20 mg tablet 20 mg PO QHS ondansetron HCl 8 mg tablet 8 mg PO Q8H PRN (Reason: nausea and vomiting) colestipol 1 gram tablet 1 g PO BID Qty: 60 5RF furosemide 20 mg tablet 20 mg PO BID Label Comments: water pill Rx Instructions: Hold for SBP less than 110 mmHg Xifaxan 550 mg tablet 550 mg PO BID hydroxychloroquine 200 MG tablet 200 mg PO BIDCM Label Comments: lupus/arthritis propranolol 20 MG tablet 20 mg PO BID Label Comments: blood pressure/heart magnesium oxide 400 mg (241.3 mg magnesium) tablet 400 mg PO BID PRN (Reason: mag supplement) ibuprofen 200 MG tablet 200 mg PO DAILY PRN PRN (Reason: Pain 1-10 Or Fever) omeprazole 20 MG capsule,delayed release(DR/EC) 20 mg PO DAILY spironolactone 25 mg Tablet 25 mg PO DAILY Qty: 30 0RF Rx Instructions: Hold if potassium more than 5.0. May reduce dose to 12.5 mg if persistent hyperkalemia in consultation with PCP diltiazem HCl 120 mg capsule,extended release 24hr 120 mg PO DAILY Qty: 0 0RF Rx Instructions: Hold for heart less than 60 or systolic blood pressure less than 100 mmHg. losartan 50 mg tablet 50 mg PO DAILY Qty: 90 3RF Primary Care Provider: Armin Carlin Referrals: Armin Carlin DO [Primary Care Provider] - 3-5 Days Activity Restrictions/Additional Instructions: Please return if you have worsening of symptoms, difficulty breathing, or shortness of breath. Disposition Disposition: Home, Self Care Discharge Date/Time: 10/15/22 15:41
[2022-10-15 13:26] VITALS: PULSE 58; RESP 23; O2SAT 95
[2022-10-15 13:36] LABS: Absolute Lymphocyte Count 0.63 X10^3/uL (0.83-4.51); Absolute Neutrophil Count 1.7 X10^3/uL (2.0-7.7); Basophil# 0.01 X10^3/uL; Basophil% 0.3 % (0-1); Eosinophil# 0.09 X10^3/uL; Eosinophils% 3.1 % (0-5); Hematocrit 29.1 % (40-54); Hemoglobin 9.5 g/dL (13.0-16.5); Lymphocyte # 0.63 X10^3/ul (0.83-4.51); Lymphocyte % 21.9 % (19-41); Mean Corp Hgb Conc 32.6 g/dL (32-36); Mean Corpuscular Hgb 31.1 pg (27.0-32.0); Mean Corpuscular Volume 95.4 fL (80-94); Mean Platelet Vol. 11.1 fl (6.2-12.0); Monocyte# 0.45 X10^3/uL; Monocyte% 15.6 % (0-10); NRBC Flagged by Analyzer 0 % (0-5); Neutrophil # 1.68 X10^3/uL (2.7-7.7); Neutrophil % 58.4 % (47-70); POSITIVE COUNT YES; RBC Distribution Width CV 15.9 % (11.6-14.6); RBC Distribution Width SD 55.6 fl (35.1-43.9); Red Blood Count 3.05 M/mm3 (4.6-6.2); White Blood Count 2.9 K/mm3 (4.4-11.0)
[2022-10-15 13:41] LABS: Differential Indicated SCAN CRITERIA MET; Platelet Count 50 K/mm3 (150-450)
[2022-10-15 13:49] LABS: AST(SGOT) 68 U/L (15-37); Alanine Aminotransfer ALT/SGPT 34 U/L (16-61); Albumin, Serum 2.5 g/dL (3.2-5.0); Alkaline Phosphatase 107 U/L (45-117); Anion Gap 8 (5-15); BUN 25 mg/dL (7-18); BUN/Creat Ratio 15.9 RATIO (10-20); Bilirubin, Direct 0.27 mg/dL (0.00-0.30); Calcium,Total 7.8 mg/dL (8.5-10.1); Chloride 107 mmol/L (98-107); Creatinine, Serum 1.57 mg/dL (0.70-1.30); EST Glomerular Filtration Rate 45 mL/min (>60); Est Glom Filt Rate - Afr Amer 55 mL/min (>60); Estimated Creatinine Clearance 31.56 ml/min; Globulin 2.8 g/dL (2.2-4.2); Glucose 108 mg/dL (74-106); Potassium 3.7 mmol/L (3.5-5.1); Protein, Total 5.3 g/dL (6.4-8.2); Sodium Level 139 mmol/L (136-145)
--- NOTE | 2022-10-15 13:55 | RAD_ITS ---
STUDY: X-RAY CHEST REASON FOR EXAM: Male, 82 years old. SOB TECHNIQUE: PA and lateral views of the chest. COMPARISON: Comparison is made with prior study dated 11/14/2021. FINDINGS: A right-sided portacatheter is seen with the tip at the junction of the superior vena cava and right atrium. EKG electrodes are seen. Hyperinflation. Prominence of the left hilum with increased linear markings in the left midlung. This may represent an underlying mass with postobstructive volume loss. Sternal cerclage wires and vascular clips are present from a prior sternotomy and coronary artery bypass graft procedure (CABG). Normal mediastinum and gauarv. Normal visualized pulmonary arteries. There is atherosclerotic calcification of the aortic arch with tortuosity. There are diffuse degenerative changes of the visualized thoracic spine. Normal visualized ribs, clavicles, and shoulders. There is no demonstrated abnormality of the visualized soft tissue structures of the upper abdomen. RAD/Chest PA and Lateral IMPRESSION: Prominence of the left hilum with increased linear markings in the left perihilar region. An underlying neoplastic process with postobstructive pneumonitis or volume loss should be ruled out. Electronically Signed: Sav Black MD at 14:39 EST ,
[2022-10-15 14:13] LABS: Platelet Estimate MOD DEC (ADEQ)
[2022-10-15 14:14] LABS: Hypochromasia 1+
[2022-10-15 14:29] LABS: Bacteria 0 SEEN /hpf (None Seen); Mucous, Urine 0 SEEN /hpf (<or=2+); Red Blood Cells-Urine 0 SEEN /hpf (0-5); Squamous Epithelial Cells - UA 0 SEEN /hpf (0-5); White Blood Cells 0 SEEN /hpf (0-5)
[2022-10-15] MEDS: Furosemide 20 MG/2 ML VIAL IV (14:30)
[2022-10-15 14:39] LABS: Color, Urine Yellow (Yellow); Glucose, Dipstick Normal (Normal); Ketone-Dipstick Negative (Negative); Leukocyte Esterase-Dipstick Negative /ul (Negative); Nitrite-Dipstick Negative (Negative); Occult Blood-Urine Negative /ul (Negative); Protein-Dipstick 30 mg/dl (Negative); Urine Bilirubin Dipstick Negative (Negative); Urine Clarity Clear (Clear); Urine Urobilinogen 4 mg/dl (Normal)
[2022-10-15 15:41] VITALS: BP 129/79; PULSE 58; RESP 18; O2SAT 96
== END 2022-10-15 15:41 | disposition home or self-care (01) ==
PROVIDERS: Physician Assistant; Emergency Provider Emergency Medicine; PCP Family Medicine; Visit Provider Emergency Medicine
DX: I11.0 Hypertensive heart disease with heart failure (principal); I50.9 Heart failure, unspecified; D64.9 Anemia, unspecified; J06.9 Acute upper respiratory infection, unspecified; I25.10 Atherosclerotic heart disease of native coronary artery without angina pectoris; I25.2 Old myocardial infarction
CPT/HCPCS: 96374; 36591; 71046; 80048; 80076; 81001; 82140; 85025; 87428; 93005; A4216; J1940

== ENCOUNTER 2022-10-15 20:13 | Emergency (ER) | payer MEDICARE, OTHER, SELFPAY ==
[2020-01-25 07:02] VITALS: BMI 40.8
[2022-10-15 20:14] VITALS: BP 140/69; PULSE 62; RESP 15; TEMP 37.1; O2SAT 97; BMI 40.7
--- NOTE | 2022-10-15 21:23 | CT_ITS ---
INDICATION: head injury + [facility] EXAMINATION: CT CERVICAL SPINE - CT Spine Cervical W/O Contrast Injection TECHNIQUE: Helically acquired images were obtained of the cervical spine. 2D reformatted images were reviewed. A radiation dose optimization technique was used for this scan. IV Contrast dosage and agent: None. COMPARISON: CT head from the same evening. FINDINGS: VERTEBRAE: No fracture or traumatic subluxation. No discrete lytic or blastic abnormality. Mild straightening of the normal lordotic curvature with no focal malalignment. Normal spacing and alignment craniocervical junction and cervicothoracic junction. Moderate degenerative changes C1-C2 articulation. DISCS and SPINAL CANAL: Multilevel degenerative disc and endplate changes most notably at C6-7 and C7-T1 levels where there is uncovertebral joint arthropathy and posterior osteophytosis. Osteophyte extends into the right C7-T1 neural foramina with apparent significant neural foraminal narrowing. NECK SOFT TISSUES: No prevertebral soft tissue swelling. There is no cervical adenopathy. Moderate intimal calcifications bilateral carotid bulbs. LUNG APICES: Clear. CT/Spine Cervical without Contras IMPRESSION: No fracture or malalignment. Multilevel degenerative disc and endplate changes with right C7-T1 neural foraminal narrowing from uncovertebral joint arthropathy and bony spur extending into the right neural foramina. Carotid bulb intimal calcifications. Electronically Signed: Pastor Sanno DO at 22:47 EST ,
--- NOTE | 2022-10-15 21:23 | CT_ITS ---
INDICATION: head injury EXAMINATION: CT BRAIN - CT Head or Brain W/O Contrast Injection TECHNIQUE: Multiple axial images were obtained of the head without intravenous contrast. A radiation dose optimization technique was used for this scan. IV Contrast dosage and agent: None. COMPARISON: 08/28/[address] FINDINGS: BRAIN PARENCHYMA: No intra- or extra-axial hemorrhage. No intracranial mass or mass effect. Beauchamp/white matter differentiation is maintained and there is no blurring of the basal ganglia. There is no hyperdense vessel. Chronic small vessel ischemic changes evidenced by decreased density of the periventricular white matter. Moderate intimal calcifications bilateral cavernous carotid and intracranial vertebral arteries. Posterior fossa structures are unremarkable. CSF SPACES: Appropriate for age. No hydrocephalus. Basal cisterns are patent. CALVARIUM, SKULL BASE, PARANASAL SINUSES AND MASTOID AIR CELLS: Clear. No discrete lytic or blastic abnormalities. ORBITS: Both globes, extraocular muscles, optic nerves and retrobulbar fat appear unremarkable. ASPECTS Score for Acute Strokes: 10 CT/Brain/Head without Contrast IMPRESSION: No acute intracranial pathology. Chronic small vessel ischemic changes. Electronically Signed: Pastor Sanon DO at 22:36 EST ,
[2022-10-15] MEDS: Diphth,Pertuss(Acell),Tet Vac 0.5 ML Vial IM (21:45)
--- NOTE | 2022-10-15 22:54 | EDS_ITS ---
HPI HPI - Fall History of Present Illness Chief Complaint: Fall Informant: patient Narrative Narrative: Patient is an 82-year-old male with extensive medical history and recent URI (seen and evaluated our ER earlier today and discharged home) presenting after a fall. Patient states he was in his garage and was walking down the 3 steps from his house to his garage when he missed the last step and fell. He landed backwards hitting the back of his head. Denies any loss of consciousness. Sustained a laceration to the back of his head. Patient states he lives home alone. He has had cold symptoms for the past few days. He denies any vision changes. Currently denies any head pain. Was noted to have a thrombocytopenia with a platelet count of 50 earlier today. He does have a history of what looks like pancytopenia. Patient has no other complaints or concerns at this time. He is unsure when his last tetanus was. Patient is not on any blood thinners. Tetanus Immunization: Unknown [facility] Medical History AAA (abdominal aortic aneurysm) without rupture Anemia Arthritis Back pain BiPAP (biphasic positive airway pressure) dependence CAD (coronary artery disease) Cancer Cardiology follow-up encounter CHF (congestive heart failure) Colon cancer metastasized to liver Colon cancer metastasized to lung Essential hypertension History of CHF (congestive heart failure) History of echocardiogram History of edema History of heart attack History of IBS History of left heart catheterization (LHC) (~09/20/19) History of renal disease HTN (hypertension) Hypertension Low iron Non-smoker NSTEMI (non-ST elevated myocardial infarction) Old myocardial infarction Postoperative atrial fibrillation Pulmonary hypertension Renal insufficiency Shortness of breath on exertion Sleep apnea Syncope Varices of esophagus determined by endoscopy Walker as ambulation aid Wears dentures Wears hearing aid Home Medications hydroxychloroquine 200 mg tablet 200 mg PO BIDCM Check with primary doctor 12/26/15 [History Last Taken 08/28/20] propranolol 20 mg tablet 20 mg PO BID b/p 02/07/16 [History Last Taken 08/28/20] aspirin 81 mg tablet,delayed release 81 mg PO DAILY HEART HEALTH 11/02/19 [History Last Taken 08/28/20] melatonin 10 mg capsule 10 mg PO HS PRN Sleep 11/02/19 [History Last Taken 08/27/20] acetaminophen 325 mg tablet 650 mg PO Q6H PRN PRN Pain 1-10 Or Fever 01/12/20 [History Last Taken Unknown] sertraline 100 mg tablet 100 mg PO DAILY DEPRESSION 01/12/20 [History Last Taken 08/28/20] ibuprofen 200 mg tablet 200 mg PO DAILY PRN PRN Pain 1-10 Or Fever 08/28/20 [History Last Taken 08/27/20] omeprazole 20 mg capsule,delayed release 20 mg PO DAILY GERD 08/28/20 [History Last Taken 08/28/20] atorvastatin 20 mg tablet 20 mg PO QHS Check with primary doctor 04/02/21 [History Last Taken Unknown] diltiazem HCl 120 mg capsule,extended release 24 hr 120 mg PO DAILY HEART #0 caps 11/16/21 [Rx Last Taken 08/28/20] spironolactone 25 mg tablet 25 mg PO DAILY #30 tabs 11/16/21 [Rx Last Taken Unknown] magnesium oxide 400 mg (241.3 mg magnesium) tablet 400 mg PO BID PRN mag supplement 01/29/22 [History Last Taken Unknown] ondansetron HCl 8 mg tablet 8 mg PO Q8H PRN nausea and vomiting 01/29/22 [History Last Taken Unknown] colestipol 1 gram tablet 1 g PO BID #60 tabs 03/05/22 [Rx Last Taken Unknown] dicyclomine 10 mg capsule 10 mg PO TID abdominal spasm 05/06/22 [History Last Taken Unknown] furosemide 20 mg tablet 20 mg PO BID diuretic 05/06/22 [History Last Taken Unknown] rifaximin 550 mg tablet (Xifaxan) 550 mg PO BID 05/06/22 [History Last Taken Unknown] losartan 50 mg tablet 50 mg PO DAILY BP #90 tabs 06/10/22 [Rx Last Taken Unknown] Allergy/AdvReac Type Severity Reaction Status Date / Time oxycodone AdvReac Severe Hallucinati Verified 10/15/22 11:23 ons alprazolam [From Xanax] AdvReac hallucinati Verified 10/15/22 11:23 ons lorazepam [From Ativan] AdvReac hallucinati Verified 10/15/22 11:23 ons Family History Mother Cancer Father COPD (chronic obstructive pulmonary disease) Surgical History History of cardiac catheterization History of colon surgery History of coronary artery bypass surgery (~10/04/19) History of esophagogastroduodenoscopy (EGD) (~02/2022) History of hernia surgery History of kyphoplasty (~08/2020) History of resection of liver Social History household members: none Smoking Status: Never smoker alcohol intake: never substance use type: does not use caffeine: Yes Type: carbonated beverages Number of servings: 4 ROS ROS ED Constitutional Constitutional ED: Denies chills or fever(s) Eyes Eyes: Denies change in vision ENT ENT ED: Denies rhinorrhea or sore throat Cardiovascular Cardiovascular: Denies chest pain Respiratory/Chest Respiratory/Chest: Reports cough; Denies dyspnea Genitourinary Genitourinary ED: Denies dysuria Musculoskeletal Musculoskeletal: Denies arthralgias or myalgias Integumentary Reports Abrasions Neurologic Neurologic: Denies headache(s) or weakness Psychiatric Psychiatric: Denies anxiety or depression Hematologic/Lymphatic Hematologic/Lymphatic: Reports easy bleeding and easy bruising EXAM Physical Exam Const Vital Signs: 10/15/22 20:14 10/15/22 20:23 Temperature 98.8 F Temperature Source Temporal Pulse Rate 62 Respiratory Rate 15 Respiratory Effort Normal Blood Pressure 140/69 H Blood Pressure Mean 92 Pulse Ox 97 Oxygen Delivery Method Room Air Room Air Positive well nourished and well developed General Appearance ED: well developed and NAD HEENT Reports normocephalic and TM's normal bilaterally HEENT Narrative: Posterior scalp laceration of the occiput just above the hairline, proximally 1 cm. Mild oozing bleeding. Negative for hematoma Eyes PERRL and EOMs intact bilaterally Neck full ROM and supple General: Negative for tenderness Chest Wall inspection of chest normal and palpation of chest normal Resp normal respiratory effort and no retractions Auscultation: Negative for wheezes Cardio regular rate and regular rhythm GI non-tender and non-distended Back/Spine Thoracic Spine / Upper Back: Negative for ROM limited, pain with ROM or thoracic spinal tenderness Lumbar Spine / Lower Back: Negative for lumbar spinal tenderness Neuro oriented x3, moves all extremities and no focal motor deficits Neuro Narrative: No asterixis Motor Exam: strength 5/5 throughout Psych mental status grossly normal and thought process normal Skin Skin Narrative: 1.5 cm linear laceration of the posterior scalp/occiput MDM MDM MDM Narrative Medical decision making narrative: Patient is evaluated for what seems to be a mechanical fall. He does have a history of thrombocytopenia is platelets were [address] of the brain does not show any acute process. CT of the cervical spine does not show any acute fracture but did show some chronic changes. Patient is ANO x4 with no focal neurologic deficits. He does not have any asterixis and I do not suspect hepatic encephalopathy given my physical exam. His ammonia was mildly elevated today at 77 but this appears to be near his baseline. Is been compliant with his medications. There is a small subcentimeter scalp laceration. Dermabond applied which patient tolerated well. He has no further bleeding. Patient's daughter is now at the bedside. He is ambulated in the ER and does well. She will stay with him tonight. We discussed at this time he does not really have any reason for admission however we did discuss that if either of them feel uncomfortable with him going home we could discuss observation overnight. If you like to try going home. Given return precautions. Counseled on the risk of delayed head bleed given his thrombocytopenia and again return precautions. Patient discharged home in improved and stable condition. Radiography Diagnostic Testing: Clinical Impression(s) from Imaging Studies Brain CT 10/15/22 21:23 IMPRESSION: No acute intracranial pathology. Chronic small vessel ischemic changes. Electronically Signed: Pastor Sanon DO at 22:36 EST , Cervical Spine CT 10/15/22 21:23 IMPRESSION: No fracture or malalignment. Multilevel degenerative disc and endplate changes with right C7-T1 neural foraminal narrowing from uncovertebral joint arthropathy and bony spur extending into the right neural foramina. Carotid bulb intimal calcifications. Electronically Signed: Pastor Sanon DO at 22:47 EST , Discharge Plan Triage Chief Complaint: Fall ED Provider: Kourtney Hernandez Dx/Rx/DC Orders Clinical Impression: Fall, Laceration of scalp, Closed head injury Instructions: ED Mechanical Fall, ED Head Injury (Adult), ED Laceration: Skin Adhesive Prescriptions: No Action aspirin 81 mg tablet,delayed release (DR/EC) 81 mg PO DAILY melatonin 10 mg capsule 10 mg PO HS PRN (Reason: Sleep) acetaminophen 325 mg tablet 650 mg PO Q6H PRN PRN (Reason: Pain 1-10 Or Fever) sertraline 100 mg tablet 100 mg PO DAILY dicyclomine 10 mg capsule 10 mg PO TID atorvastatin 20 mg tablet 20 mg PO QHS ondansetron HCl 8 mg tablet 8 mg PO Q8H PRN (Reason: nausea and vomiting) colestipol 1 gram tablet 1 g PO BID Qty: 60 5RF furosemide 20 mg tablet 20 mg PO BID Label Comments: water pill Rx Instructions: Hold for SBP less than 110 mmHg Xifaxan 550 mg tablet 550 mg PO BID hydroxychloroquine 200 MG tablet 200 mg PO BIDCM Label Comments: lupus/arthritis propranolol 20 MG tablet 20 mg PO BID Label Comments: blood pressure/heart magnesium oxide 400 mg (241.3 mg magnesium) tablet 400 mg PO BID PRN (Reason: mag supplement) ibuprofen 200 MG tablet 200 mg PO DAILY PRN PRN (Reason: Pain 1-10 Or Fever) omeprazole 20 MG capsule,delayed release(DR/EC) 20 mg PO DAILY spironolactone 25 mg Tablet 25 mg PO DAILY Qty: 30 0RF Rx Instructions: Hold if potassium more than 5.0. May reduce dose to 12.5 mg if persistent hyperkalemia in consultation with PCP diltiazem HCl 120 mg capsule,extended release 24hr 120 mg PO DAILY Qty: 0 0RF Rx Instructions: Hold for heart less than 60 or systolic blood pressure less than 100 mmHg. losartan 50 mg tablet 50 mg PO DAILY Qty: 90 3RF Primary Care Provider: Armin Carlin Referrals: Armin Carlin DO [Primary Care Provider] - Disposition Disposition: Home, Self Care
--- NOTE | 2022-10-23 13:26 | CASEMGMT ---
INCIDENTAL FINDINGS F/U -Per [facility] report 10/15/22: RAD/Chest PA and Lateral IMPRESSION: Prominence of the left hilum with increased linear markings in the left perihilar region.? An underlying neoplastic process with postobstructive pneumonitis or volume loss should be ruled out. -GI appt with Dr. Rojas 10/20/22. Per report, repeat Chest X-Ray.
== END 2022-10-16 00:12 | disposition home or self-care (01) ==
PROVIDERS: Emergency Provider Emergency Medicine; PCP Family Medicine; Visit Provider Emergency Medicine
DX: S01.01XA Laceration without foreign body of scalp, initial encounter (principal); I11.0 Hypertensive heart disease with heart failure; I50.9 Heart failure, unspecified; I25.10 Atherosclerotic heart disease of native coronary artery without angina pectoris; W10.9XXA Fall (on) (from) unspecified stairs and steps, initial encounter; Y92.015 Private garage of single-family (private) house as the place of occurrence of the external cause; D64.9 Anemia, unspecified; J06.9 Acute upper respiratory infection, unspecified; I25.2 Old myocardial infarction
CPT/HCPCS: 12001; 36591; 70450; 71046; 72125; 80048; 80076; 81001; 82140; 85025; 87428; 90715; 93005; 96374; 99282; 99284; A4216; J1940

== ENCOUNTER → 2022-11-18 | Outpatient (CLI) | payer MEDICARE, OTHER, SELFPAY ==
[2020-01-25 07:02] VITALS: BMI 40.8
[2022-11-18 18:04] LABS: Absolute Lymphocyte Count 1.05 X10^3/uL (0.83-4.51); Absolute Neutrophil Count 3.3 X10^3/uL (2.0-7.7); Basophil# 0.07 X10^3/uL; Basophil% 1.3 % (0-1); Eosinophil# 0.46 X10^3/uL; Eosinophils% 8.6 % (0-5); Hematocrit 31.8 % (40-54); Hemoglobin 10.6 g/dL (13.0-16.5); Lymphocyte # 1.05 X10^3/ul (0.83-4.51); Lymphocyte % 19.6 % (19-41); Mean Corp Hgb Conc 33.3 g/dL (32-36); Mean Corpuscular Hgb 32.1 pg (27.0-32.0); Mean Corpuscular Volume 96.4 fL (80-94); Mean Platelet Vol. 10.4 fl (6.2-12.0); Monocyte# 0.49 X10^3/uL; Monocyte% 9.1 % (0-10); NRBC Flagged by Analyzer 0 % (0-5); Neutrophil # 3.28 X10^3/uL (2.7-7.7); POSITIVE COUNT YES; Platelet Count 82 K/mm3 (150-450); RBC Distribution Width SD 57.5 fl (35.1-43.9); White Blood Count 5.4 K/mm3 (4.4-11.0)
[2022-11-18 18:07] LABS: Differential Indicated SCAN CRITERIA MET
[2022-11-18 18:30] LABS: AST(SGOT) 42 U/L (15-37); Alanine Aminotransfer ALT/SGPT 28 U/L (16-61); Albumin, Serum 2.8 g/dL (3.2-5.0); Alkaline Phosphatase 181 U/L (45-117); Anion Gap 8 (5-15); BUN 21 mg/dL (7-18); BUN/Creat Ratio 11.6 RATIO (10-20); Calcium,Total 8.5 mg/dL (8.5-10.1); Chloride 107 mmol/L (98-107); Creatinine, Serum 1.81 mg/dL (0.70-1.30); EST Glomerular Filtration Rate 38 mL/min (>60); Est Glom Filt Rate - Afr Amer 46 mL/min (>60); Globulin 2.9 g/dL (2.2-4.2); Glucose 115 mg/dL (74-106); Potassium 4.1 mmol/L (3.5-5.1); Protein, Total 5.7 g/dL (6.4-8.2); Sodium Level 140 mmol/L (136-145)
[2022-11-18 18:31] LABS: Differential Comment SCANNED
== END | disposition home or self-care (01) ==
LOC: MTLAB 14:30
PROVIDERS: PCP Family Medicine; Referring Provider Internal Medicine Rheumatology; Visit Provider Internal Medicine Rheumatology
DX: M06.4 Inflammatory polyarthropathy (principal); I85.00 Esophageal varices without bleeding; S32.000A Wedge compression fracture of unspecified lumbar vertebra, initial encounter for closed fracture; K74.60 Unspecified cirrhosis of liver; M47.897 Other spondylosis, lumbosacral region; I10 Essential (primary) hypertension; D49.0 Neoplasm of unspecified behavior of digestive system; I25.10 Atherosclerotic heart disease of native coronary artery without angina pectoris; Z95.1 Presence of aortocoronary bypass graft; G47.33 Obstructive sleep apnea (adult) (pediatric); X58.XXXA Exposure to other specified factors, initial encounter
CPT/HCPCS: 36415; 80053; 85025

== ENCOUNTER → 2023-02-16 | Outpatient (CLI) | payer MEDICARE, OTHER, SELFPAY ==
[2020-01-25 07:02] VITALS: BMI 40.8
[2023-02-16 11:01] LABS: Erythrocyte Sedimentation Rate 8 mm/hr (0-20)
[2023-02-16 11:05] LABS: Absolute Neutrophil Count 3.8 X10^3/uL (2.0-7.7); Basophil# 0.02 X10^3/uL; Basophil% 0.4 % (0-1); Eosinophils% 3.6 % (0-5); Hematocrit 31.4 % (40-54); Hemoglobin 10.5 g/dL (13.0-16.5); Lymphocyte % 16.4 % (19-41); Mean Corp Hgb Conc 33.4 g/dL (32-36); Mean Corpuscular Hgb 31.6 pg (27.0-32.0); Mean Corpuscular Volume 94.6 fL (80-94); Mean Platelet Vol. 10.1 fl (6.2-12.0); Monocyte# 0.54 X10^3/uL; Monocyte% 9.9 % (0-10); NRBC Flagged by Analyzer 0 % (0-5); Neutrophil # 3.78 X10^3/uL (2.7-7.7); POSITIVE COUNT YES; Platelet Count 83 K/mm3 (150-450); RBC Distribution Width SD 52.3 fl (35.1-43.9); Red Blood Count 3.32 M/mm3 (4.6-6.2); White Blood Count 5.5 K/mm3 (4.4-11.0)
[2023-02-16 11:09] LABS: International Normalized Ratio 1.2; Prothrombin Time (Protime)PT. 14.9 SECONDS (11.7-14.9)
[2023-02-16 11:26] LABS: ALB/GLOB Ratio 0.9 RATIO (0.9-2.4); AST(SGOT) 39 U/L (15-37); Alanine Aminotransfer ALT/SGPT 31 U/L (16-61); Albumin, Serum 2.8 g/dL (3.2-5.0); Alkaline Phosphatase 169 U/L (45-117); Anion Gap 6 (5-15); BUN 23 mg/dL (7-18); BUN/Creat Ratio 14.4 RATIO (10-20); CRP 5.04 mg/L (0.0-3.0); Calcium,Total 8.4 mg/dL (8.5-10.1); Chloride 110 mmol/L (98-107); EST Glomerular Filtration Rate 44 mL/min (>60); Est Glom Filt Rate - Afr Amer 53 mL/min (>60); Glucose 123 mg/dL (74-106); LDH 237 U/L (87-241); Potassium 3.1 mmol/L (3.5-5.1); Protein, Total 5.8 g/dL (6.4-8.2); Sodium Level 141 mmol/L (136-145)
[2023-02-17 11:20] LABS: AFP, Tumor Marker < 1.8 ng/mL (0.0-6.4)
== END | disposition home or self-care (01) ==
LOC: LAB 10:45
PROVIDERS: PCP Family Medicine; Referring Provider Internal Medicine Gastroenterology; Visit Provider Internal Medicine Gastroenterology
DX: K74.60 Unspecified cirrhosis of liver (principal); I71.40 Abdominal aortic aneurysm, without rupture, unspecified; N28.9 Disorder of kidney and ureter, unspecified
CPT/HCPCS: 36415; 80053; 82105; 82140; 83615; 85025; 85610; 85652; 86140

== ENCOUNTER → 2023-06-03 | Outpatient (CLI) | payer MEDICARE, OTHER, SELFPAY ==
[2020-01-25 07:02] VITALS: BMI 40.8
[2023-06-03 13:03] LABS: BNP,B-Type NATRIURETIC PEPTIDE 774.3 pg/mL (0-100)
[2023-06-03 13:14] LABS: Anion Gap 8 (5-15); BUN 14 mg/dL (7-18); BUN/Creat Ratio 10.8 RATIO (10-20); Calcium,Total 8.4 mg/dL (8.5-10.1); Chloride 109 mmol/L (98-107); EST Glomerular Filtration Rate 56 mL/min (>60); Est Glom Filt Rate - Afr Amer 68 mL/min (>60); Glucose 100 mg/dL (74-106); Potassium 3.3 mmol/L (3.5-5.1); Sodium Level 140 mmol/L (136-145)
== END | disposition home or self-care (01) ==
LOC: BFHLAB 10:22
PROVIDERS: PCP Family Medicine; Referring Provider Family Medicine; Visit Provider Family Medicine
DX: I10 Essential (primary) hypertension (principal); I42.9 Cardiomyopathy, unspecified
CPT/HCPCS: 36415; 80048; 83880

== ENCOUNTER → 2023-06-08 | Outpatient (REF) | payer MEDICARE, OTHER, SELFPAY ==
[2020-01-25 07:02] VITALS: BMI 40.8
[2023-06-08 08:44] LABS: Hematocrit 36.5 % (40-54); Hemoglobin 12.1 g/dL (13.0-16.5); Mean Corp Hgb Conc 33.2 g/dL (32-36); Mean Corpuscular Hgb 31.4 pg (27.0-32.0); Mean Corpuscular Volume 94.8 fL (80-94); Mean Platelet Vol. 10.5 fl (6.2-12.0); Platelet Count 113 K/mm3 (150-450); RBC Distribution Width CV 16.1 % (11.6-14.6); RBC Distribution Width SD 55.8 fl (35.1-43.9); Red Blood Count 3.85 M/mm3 (4.6-6.2); White Blood Count 6.8 K/mm3 (4.4-11.0)
[2023-06-08 08:56] LABS: Anion Gap 5 (5-15); BUN 15 mg/dL (7-18); BUN/Creat Ratio 12.2 RATIO (10-20); Calcium,Total 8.5 mg/dL (8.5-10.1); Chloride 108 mmol/L (98-107); Creatinine, Serum 1.23 mg/dL (0.70-1.30); EST Glomerular Filtration Rate 60 mL/min (>60); Est Glom Filt Rate - Afr Amer 72 mL/min (>60); Glucose 98 mg/dL (74-106); Potassium 3.4 mmol/L (3.5-5.1); Sodium Level 139 mmol/L (136-145)
== END ==
LOC: OLS.SW 07:23
PROVIDERS: PCP Family Medicine; Referring Provider Family Medicine; Visit Provider Family Medicine
DX: Z02.2 Encounter for examination for admission to residential institution (principal); S22.42XD Multiple fractures of ribs, left side, subsequent encounter for fracture with routine healing; X58.XXXD Exposure to other specified factors, subsequent encounter; J90 Pleural effusion, not elsewhere classified; J18.9 Pneumonia, unspecified organism
CPT/HCPCS: 36415; 80048; 85027

== ENCOUNTER → 2023-06-09 | Outpatient (REF) | payer MEDICARE, OTHER, SELFPAY ==
[2020-01-25 07:02] VITALS: BMI 40.8
== END ==
LOC: OLS.SW 05:00
PROVIDERS: PCP Family Medicine; Visit Provider Family Medicine
DX: K74.60 Unspecified cirrhosis of liver (principal)
CPT/HCPCS: 36415; 82140

== ENCOUNTER → 2023-06-22 | Outpatient (REF) | payer MEDICARE, OTHER, SELFPAY ==
[2020-01-25 07:02] VITALS: BMI 40.8
== END ==
LOC: OLS.SW 04:00
PROVIDERS: PCP Family Medicine; Referring Provider Family Medicine; Visit Provider Family Medicine
DX: E72.9 Disorder of amino-acid metabolism, unspecified (principal)
CPT/HCPCS: 36415; 82140

== ENCOUNTER → 2023-07-01 | Outpatient (REF) | payer MEDICARE, OTHER, SELFPAY ==
[2020-01-25 07:02] VITALS: BMI 40.8
== END ==
LOC: OLS.SW 05:00
PROVIDERS: PCP Family Medicine; Visit Provider Internal Medicine
DX: E72.9 Disorder of amino-acid metabolism, unspecified (principal); R79.9 Abnormal finding of blood chemistry, unspecified
CPT/HCPCS: 36415; 82140

== ENCOUNTER → 2023-07-08 | Outpatient (REF) | payer MEDICARE, OTHER, SELFPAY ==
[2020-01-25 07:02] VITALS: BMI 40.8
== END ==
LOC: OLS.SW 06:20
PROVIDERS: PCP Family Medicine; Visit Provider Family Medicine
DX: Z79.899 Other long term (current) drug therapy (principal); K74.60 Unspecified cirrhosis of liver
CPT/HCPCS: 36415; 82140

== ENCOUNTER → 2023-07-15 | Outpatient (REF) | payer MEDICARE, OTHER, SELFPAY ==
[2020-01-25 07:02] VITALS: BMI 40.8
== END ==
LOC: OLS.SW 07:20
PROVIDERS: PCP Family Medicine; Visit Provider Family Medicine
DX: K74.60 Unspecified cirrhosis of liver (principal); K76.6 Portal hypertension
CPT/HCPCS: 36415; 82140